=== PATIENT | male | born 1985 | race Caucasian/White ===

== ENCOUNTER → 2016-05-26 | Outpatient (CLI) | payer OTHER ==
[2016-05-26 14:21] LABS: Potassium 3.8 mmol/L (3.5-5.1)
== END | disposition home or self-care (01) ==
LOC: LABWHC1 13:31
PROVIDERS: ATTEND Internal Medicine
DX: R19.7 Diarrhea, unspecified (principal); E87.8 Other disorders of electrolyte and fluid balance, not elsewhere classified
CPT/HCPCS: 36415; 80048

== ENCOUNTER → 2016-07-06 | Outpatient (CLI) | payer OTHER ==
[~2016-07-06] MED LIST: REGADENOSON 0.4 MG/5 ML SYRINGE IV ONE
--- NOTE | 2016-07-06 10:41 | ECHOF ---
Referral Reason:I10 htn R06.02 sob MEASUREMENTS -------- HEIGHT: 182.9 cm WEIGHT: 122.5 kg BP: RVIDd: 3.0 cm (< 3.3) IVSd: 1.4 cm (0.6 - 1.1) LVIDd: 4.9 cm (3.9 - 5.3) LVPWd: 1.2 cm (0.6 - 1.1) IVSs: 1.6 cm LVIDs: 3.6 cm LVPWs: 1.7 cm LA Diam: 4.2 cm (2.7 - 3.8) LAESV Index (A-L): 28.94 ml/m Ao Diam: 3.4 cm (2.0 - 3.7) AV Cusp: 2.6 cm (1.5 - 2.6) LA Diam: 4.1 cm (2.7 - 3.8) MV EXCURSION: 21.866 mm (> 18.000) MV EF SLOPE: 114 mm/s (70 - 150) EPSS: 0.2 cm MV E Ger: 0.66 m/s MV DecT: 238 ms MV A Ger: 0.62 m/s MV E/A Ratio: 1.07 RAP: 5.00 mmHg RVSP: 17.67 mmHg FINDINGS -------- Sinus rhythm. This was a technically adequate study. There is moderate concentric left ventricular hypertrophy. Overall left ventricular systolic function is low-normal with, an EF between 50 - 55 %. The right ventricle is normal in size. Normal LA size by volume 22+/-6 ml/m2. The right atrial size is normal. The aortic valve is trileaflet, and appears structurally normal. No aortic stenosis or regurgitation. Mild mitral annular calcification present. There is trace mitral regurgitation. Mild tricuspid regurgitation present. There is no evidence of pulmonary hypertension. The right ventricular systolic pressure, as measured by Doppler, is 17.67mmHg. There is no pulmonic regurgitation present. The aortic root size is normal. There is no pericardial effusion. CONCLUSIONS -------- 1. There is moderate concentric left ventricular hypertrophy. 2. Overall left ventricular systolic function is low-normal with, an EF between 50 - 55 %. 3. Normal LA size by volume 22+/-6 ml/m2. 4. Mild mitral annular calcification present. 5. There is trace mitral regurgitation. 6. Mild tricuspid regurgitation present. 7. There is no evidence of pulmonary hypertension. 8. The right ventricular systolic pressure, as measured by Doppler, is 17.67mmHg. ENAMEL DRIER: Tuyet Pretty RDCS
--- NOTE | 2016-07-06 11:48 | EST ---
DATE OF SERVICE: 07/06/2016 AGE: 31Y SEX: M HT: 6'1" WT: 270 lbs. Protocol Lex: Other: Stage: Dur. of Exercise: *Heart Rate Blood Pressure *Rest: 76 Rest: 187/96 * *Max. Achieved: 90 Maximum BP: 183/75 85% PMHR: 159 100% PMHR: 187 *METS: INDICATIONS: Shortness of breath, hypertension. MEDICATIONS: See list. INDICATION OF THE STUDY: Chest pain. Stress data: Pretesting physical examination showed heart rate of 76, pressure is 187/96 mmHg. Baseline EKG showed sinus rhythm. 0.4 mg of Lexiscan was given to the patient over 15 seconds per protocol. Max heart rate was 90 beats per minute and maximum blood pressure was 183/70 mmHg. Clinically, the patient did not have any symptoms of chest pain or discomfort and the EKG did not show any significant ST or T wave abnormalities consistent with ischemia. CONCLUSION: 1. Nondiagnostic electrocardiogram stress testing in response to Lexiscan. 2. Please follow up on the Cardiolite portion on a separate report.
--- NOTE | 2016-07-06 12:09 | NM ---
EXAMINATION TYPE: NM stress Lexiscan cardiolite DATE OF EXAM: 07/06/2016 11:51 AM COMPARISON: NONE HISTORY: Shortness of breath TECHNIQUE: After the intravenous administration of 10.19 mCi Tc 99m Sestamibi - Cardiolite resting S PECT images acquired 50 minutes post injection. The patient received 0.4mg Lexiscan, 27.5 mCi Tc 99m Sestamibi - Stress images obtained [address] injection FINDINGS: There is some thinning of the inferior wall the left ventricle. This may BE due to diaphrag matic attenuation or previous nontransmural infarct. There is no convincing inducible ischemic change . Wall motion is normal and ejection fraction is lower limits of normal at 51%. IMPRESSION: I do not see convincing evidence of inducible ischemic change at this time.
== END | disposition home or self-care (01) ==
LOC: RADNMMAIN 07:51
PROVIDERS: ATTEND Internal Medicine Cardiovascular Disease
DX: R06.02 Shortness of breath (principal); I10 Essential (primary) hypertension
CPT/HCPCS: 93017; 93306; 78452; A9500; J2785

== ENCOUNTER → 2017-06-08 | Outpatient (CLI) | payer OTHER ==
[2017-06-08 09:38] LABS: Basophils # (A) 0.1 k/uL (0-0.2); Basophils % (A) 1 %; Eosinophils # (A) 0.3 k/uL (0-0.7); Eosinophils % (A) 4 %; HGB 10.1 gm/dL (13.0-17.5); Lymphocytes # (A) 1.3 k/uL (1.0-4.8); Lymphocytes % (A) 19 %; MCH 33.6 pg (25.0-35.0); MCHC 33.7 g/dL (31.0-37.0); MCV 99.7 fL (80.0-100.0); Macrocytosis Slight; Mean Platelet Volume 8.5; Monocytes # (A) 0.4 k/uL (0-1.0); Monocytes % (A) 6 %; Neutrophils # (A) 4.5 k/uL (1.3-7.7); Neutrophils % (A) 68 %; Platelet Count 184 k/uL (150-450); RBC 3.01 m/uL (4.30-5.90); RDW 14.5 % (11.5-15.5); WBC 6.6 k/uL (3.8-10.6)
[2017-06-08 09:56] LABS: Albumin 4.3 g/dL (3.5-5.0); C Reactive Protein 9.8 mg/L (<10.0); Calcium 8.6 mg/dL (8.4-10.2); Magnesium 2.5 mg/dL (1.6-2.3); Phosphorous 7.5 mg/dL (2.5-4.5); Potassium 5.4 mmol/L (3.5-5.1); Total Bilirubin 0.7 mg/dL (0.2-1.3); Total Protein 7.5 g/dL (6.3-8.2)
[2017-06-08 10:09] LABS: T4, Free (Free Thyroxine) 0.89 ng/dL (0.78-2.19)
[2017-06-08 11:53] LABS: Erythrocyte Sedimentation Rate 66 mm/hr (0-15)
[2017-06-08 17:50] LABS: Vitamin D 25 Hydroxy 14.1 ng/mL (30.0-100.0)
[2017-06-08 17:57] LABS: Hemoglobin A1C 4.3 % (4.0-6.0)
== END | disposition home or self-care (01) ==
LOC: LABWHC1 09:08
PROVIDERS: ATTEND Internal Medicine
DX: Z00.00 Encounter for general adult medical examination without abnormal findings (principal); E78.5 Hyperlipidemia, unspecified; E66.9 Obesity, unspecified; N18.5 Chronic kidney disease, stage 5; D63.1 Anemia in chronic kidney disease; I12.0 Hypertensive chronic kidney disease with stage 5 chronic kidney disease or end stage renal disease
CPT/HCPCS: 36415; 80053; 80061; 82306; 82550; 83036; 83735; 83970; 84100; 84439; 84443; 84550; 85025; 85652; 86140

== ENCOUNTER → 2019-12-10 | Outpatient (CLI) | payer OTHER ==
[2019-12-10 09:06] LABS: Appearance,Urine Clear (Clear); Bacteria,Urine Rare /hpf; Bilirubin,Urine Negative (Negative); Blood,Urine Trace (Negative); Color,Urine Light Yellow; Glucose,Urine (UA) Negative (Negative); Hyaline Casts,Urine 1 /lpf (0-2); Ketones,Urine Negative (Negative); Leukocyte Esterase,Urine Trace (Negative); Nitrite,Urine Negative (Negative); PH, Urine 7.5 (5.0-8.0); Protein,Urine 1+ (Negative); RBC,Urine 1 /hpf (0-5); Specific Gravity,Urine 1.011 (1.001-1.035); Sperm,Urine Rare /hpf; Squamous Epithelial Cell,Urine 2 /hpf (0-4); Urobilinogen,Urine <2.0 mg/dL (<2.0); WBC,Urine 7 /hpf (0-5)
[2019-12-10 09:23] LABS: Basophils # (A) 0.1 k/uL (0-0.2); Basophils % (A) 1 %; Eosinophils # (A) 0.2 k/uL (0-0.7); Eosinophils % (A) 2 %; Lymphocytes # (A) 1.3 k/uL (1.0-4.8); Lymphocytes % (A) 22 %; MCH 35.2 pg (25.0-35.0); MCHC 33.4 g/dL (31.0-37.0); MCV 105.3 fL (80.0-100.0); Macrocytosis Moderate; Mean Platelet Volume 7.9; Monocytes # (A) 0.5 k/uL (0-1.0); Monocytes % (A) 8 %; Neutrophils # (A) 3.9 k/uL (1.3-7.7); Neutrophils % (A) 64 %; Platelet Count 198 k/uL (150-450); RBC 3.42 m/uL (4.30-5.90); RDW 14.2 % (11.5-15.5); WBC 6.1 k/uL (3.8-10.6)
[2019-12-10 17:18] LABS: Albumin 4.5 g/dL (3.80-4.90); Albumin/Globulin Ratio 1.55 (1.60-3.17); Anion Gap 14.9 mmol/L (4.00-12.00); BUN/Creat Ratio 5.71 Ratio (12.00-20.00); C Reactive Protein 0.8 mg/dL (0.0-0.8); Calcium 9.2 mg/dL (8.7-10.3); Carbon Dioxide 32.1 mmol/L (21.6-31.8); Chol/HDL Ratio 6.81; Globulin 2.9 g/dL (1.6-3.3); Magnesium 2.2 mg/dL (1.5-2.4); Phosphorus 4.4 mg/dL (2.4-5.1); Potassium 4.2 mmol/L (3.5-5.5); Total Bilirubin 0.9 mg/dL (0.3-1.2); Total Protein 7.4 g/dL (6.2-8.2); Uric Acid 5.9 mg/dL (3.7-8.7)
[2019-12-10 18:23] LABS: Erythrocyte Sedimentation Rate 64 mm/Hr (0-15)
[2019-12-10 21:30] LABS: Hemoglobin A1C 4.9 % (4.0-6.0)
[2019-12-11 07:08] LABS: African American GFR (CKD) 8.5 (60.0-200.0); Non-African American GFR(CKD) 7.4 (60.0-200.0)
== END | disposition home or self-care (01) ==
LOC: LABWHC1 08:15
PROVIDERS: ATTEND Internal Medicine
DX: E78.5 Hyperlipidemia, unspecified (principal); E21.3 Hyperparathyroidism, unspecified; E03.9 Hypothyroidism, unspecified; E66.9 Obesity, unspecified; D63.1 Anemia in chronic kidney disease; N18.5 Chronic kidney disease, stage 5; E55.9 Vitamin D deficiency, unspecified; L02.11 Cutaneous abscess of neck
CPT/HCPCS: 36415; 80053; 80061; 81001; 82306; 82550; 83036; 83721; 83735; 83970; 84100; 84439; 84443; 84550; 85025; 85652; 86140; 86803; 87086

== ENCOUNTER 2021-09-27 15:32 | Inpatient (IN) | payer OTHER ==
[2021-09-27] MEDS ORDERED: NITROGLYCERIN OINT 1 INCH/GM PACKET TOPICAL STA (15:39)
--- NOTE | 2021-09-27 15:41 | ED ---
General Adult HPI - General Stated complaint: Chest pain Time Seen by Provider: 09/27/21 15:32 Source: patient, RN notes reviewed, old records reviewed - History of Present Illness Initial comments: This is a 36-year-old male with past medical history significant for 2 stents and is a renal dialysis patient. Patient also has high blood pressure and high cholesterol. Patient states he got home from dialysis today and started having chest pain and it went away in a fairly short order but then it returned and he was fairly significantly was sweaty short of breath and the pain felt like the pain he had when he had his previous stents placed. Patient states the pain is considerably better now but he still having some anterior chest pain. Patient denies any recent fever chills or cough per patient denies headache patient denies numbness weakness per patient denies abdominal pain patient denies nausea vomiting diarrhea. - Related Data Home Medications Medication Instructions Recorded Confirmed Atorvastatin [Lipitor] 10 mg PO HS 03/26/14 03/05/16 Previous Rx's Medication Instructions Recorded Calcium Acetate [PhosLo] 1,334 mg PO TID-W/MEALS #90 cap 03/10/16 Calcium Carbonate [Tums] 500 mg PO TID #0 chew 03/10/16 Ergocalciferol [Vitamin D2 50,000 unit PO MoTh #0 cap 03/10/16 (DRISDOL)] Sodium Bicarbonate Tab 650 mg PO BID #28 tab 03/10/16 Darbepoetin Martinez [Aranesp] 40 mcg SQ Q7D syringe 03/28/16 Furosemide [Lasix] 80 mg PO BID #30 tab 03/28/16 Omeprazole [PriLOSEC] 40 mg PO DAILY #14 capsule.dr 03/28/16 carvediloL [Coreg] 6.25 mg PO BID-W/MEALS #30 tab 03/28/16 Allergies Allergy/AdvReac Type Severity Reaction Status Date / Time No Known Allergies Allergy Verified 03/08/16 10:47 Review of Systems ROS Statement: Those systems with pertinent positive or pertinent negative responses have been documented in the HPI. ROS Other: All systems not noted in ROS Statement are negative. Past Medical History Past Medical History: Heart Failure, Hypertension Additional Past Medical History / Comment(s): Hyperlipidemia, chronic renal failure, bipolar disorder, hypertension, realizing that disorder, chronic back pain and sciatica History of Any Multi-Drug Resistant Organisms: CRE, MRSA Date of last positivie culture/infection: 03/14/16 *CRE-[facility] Confirmed by [facility]; 02/10/15 MRSA MDRO Source:: Blood-*CRE-[facility]; Thigh-MRSA Past Surgical History: Cholecystectomy Additional Past Surgical History / Comment(s): Previous history of any biopsy Past Psychological History: Anxiety, Bipolar Past Alcohol Use History: None Reported Past Drug Use History: None Reported - Past Family History Mother History Unknown: Yes Father Additional Family Medical History / Comment(s): sciatica General Exam - General Exam Comments Initial Comments: GENERAL: Patient is well-developed and well-nourished. Patient is nontoxic and well- hydrated and is in mild distress. ENT: Neck is soft and supple. No significant lymphadenopathy is noted. Oropharynx is clear. Moist mucous membranes. Neck has full range of motion without eliciting any pain. EYES: The sclera were anicteric and conjunctiva were pink and moist. Extraocular movements were intact and pupils were equal round and reactive to light. E yelids were unremarkable. PULMONARY: Unlabored respirations. Good breath sounds bilaterally. No audible rales rhonchi or wheezing was noted. CARDIOVASCULAR: There is a regular rate and rhythm without any murmurs gallops or rubs. ABDOMEN: Soft and nontender with normal bowel sounds. SKIN: Skin is clear with no lesions or rashes and otherwise unremarkable. NEUROLOGIC: Patient is alert and oriented x3. Cranial nerves II through XII are grossly intact. Motor and sensory are also intact. Normal speech, volume and content. Symmetrical smile. MUSCULOSKELETAL: Normal extremities with adequate strength and full range of motion. No lower extremity swelling or edema. No calf tenderness. LYMPHATICS: No significant lymphadenopathy is noted PSYCHIATRIC: Normal psychiatric evaluation. Course Vital Signs 09/27/21 15:37 Temperature 97.8 F Pulse Rate 82 Respiratory 16 Rate Blood Pressure 145/96 O2 Sat by Pulse 98 Oximetry Medical Decision Making - Medical Decision Making EKG shows sinus rhythm at 83 bpm GA interval is 160 QRS is 120 QT interval 390 QTC is 429. Patient's EKG shows no ST segment elevation or depression. Chest x-ray shows no acute abnormality I spoke with Dr. Keating agreed to admit the patient admitted the patient wrote admitting orders. Patient received aspirin in route. Patient received nitroglycerin here as well as heparin. I wrote admitting orders and consult to cardiology - Lab Data Result diagrams: 09/27/21 15:51 09/27/21 15:51 Lab Results 09/27/21 09/27/21 09/27/21 Range/Units 15:51 15:51 15:51 WBC 6.9 (3.8-10.6) k/uL RBC 3.50 L (4.30-5.90) m/uL Hgb 11.9 L (13.0-17.5) gm/dL Hct 35.1 L (39.0-53.0) % MCV 100.5 H (80.0-100.0) fL MCH 34.1 (25.0-35.0) pg MCHC 34.0 (31.0-37.0) g/dL RDW 13.4 (11.5-15.5) % Plt Count 159 (150-450) k/uL MPV 8.5 Neutrophils % 79 % Lymphocytes % 12 % Monocytes % 5 % Eosinophils % 2 % Basophils % 1 % Neutrophils # 5.5 (1.3-7.7) k/uL Lymphocytes # 0.9 L (1.0-4.8) k/uL Monocytes # 0.3 (0-1.0) k/uL Eosinophils # 0.2 (0-0.7) k/uL Basophils # 0.1 (0-0.2) k/uL PT 10.7 (9.0-12.0) sec INR 1.0 (<1.2) APTT 25.9 (22.0-30.0) sec Sodium 137 (137-145) mmol/L Potassium 3.6 (3.5-5.1) mmol/L Chloride 94 L (98-107) mmol/L Carbon Dioxide 31 H (22-30) mmol/L Anion Gap 12 mmol/L BUN 33 H (9-20) mg/dL Creatinine 7.43 H* (0.66-1.25) mg/dL Est GFR (CKD-EPI)AfAm 10 (>60 ml/min/1.73 sqM) Est GFR (CKD-EPI)NonAf 8 (>60 ml/min/1.73 sqM) Glucose 143 H (74-99) mg/dL Calcium 8.4 (8.4-10.2) mg/dL Magnesium 1.9 (1.6-2.3) mg/dL Total Bilirubin 1.5 H (0.2-1.3) mg/dL AST 34 (17-59) U/L ALT 38 (4-49) U/L Alkaline Phosphatase 80 (38-126) U/L Troponin I (0.000-0.034) ng/mL Total Protein 7.9 (6.3-8.2) g/dL Albumin 4.3 (3.5-5.0) g/dL 09/27/21 Range/Units 15:51 WBC (3.8-10.6) k/uL RBC (4.30-5.90) m/uL Hgb (13.0-17.5) gm/dL Hct (39.0-53.0) % MCV (80.0-100.0) fL MCH (25.0-35.0) pg MCHC (31.0-37.0) g/dL RDW (11.5-15.5) % Plt Count (150-450) k/uL MPV Neutrophils % % Lymphocytes % % Monocytes % % Eosinophils % % Basophils % % Neutrophils # (1.3-7.7) k/uL Lymphocytes # (1.0-4.8) k/uL Monocytes # (0-1.0) k/uL Eosinophils # (0-0.7) k/uL Basophils # (0-0.2) k/uL PT (9.0-12.0) sec INR (<1.2) APTT (22.0-30.0) sec Sodium (137-145) mmol/L Potassium (3.5-5.1) mmol/L Chloride (98-107) mmol/L Carbon Dioxide (22-30) mmol/L Anion Gap mmol/L BUN (9-20) mg/dL Creatinine (0.66-1.25) mg/dL Est GFR (CKD-EPI)AfAm (>60 ml/min/1.73 sqM) Est GFR (CKD-EPI)NonAf (>60 ml/min/1.73 sqM) Glucose (74-99) mg/dL Calcium (8.4-10.2) mg/dL Magnesium (1.6-2.3) mg/dL Total Bilirubin (0.2-1.3) mg/dL AST (17-59) U/L ALT (4-49) U/L Alkaline Phosphatase (38-126) U/L Troponin I 0.308 H* (0.000-0.034) ng/mL Total Protein (6.3-8.2) g/dL Albumin (3.5-5.0) g/dL Critical Care Time Critical Care Time: Yes Total Critical Care Time: 35 Disposition Clinical Impression: Acute non-ST elevation myocardial infarction (NSTEMI) Disposition: ADMITTED IP TO THIS HOSP Referrals: Zurdo Keating MD [Primary Care Provider] - 1-2 days Time of Disposition: 16:44
[2021-09-27 15:58] LABS: Basophils # (A) 0.1 k/uL (0-0.2); Basophils % (A) 1 %; Eosinophils # (A) 0.2 k/uL (0-0.7); Eosinophils % (A) 2 %; HCT 35.1 % (39.0-53.0); HGB 11.9 gm/dL (13.0-17.5); Lymphocytes # (A) 0.9 k/uL (1.0-4.8); Lymphocytes % (A) 12 %; MCH 34.1 pg (25.0-35.0); MCV 100.5 fL (80.0-100.0); Mean Platelet Volume 8.5; Monocytes # (A) 0.3 k/uL (0-1.0); Monocytes % (A) 5 %; Neutrophils # (A) 5.5 k/uL (1.3-7.7); Neutrophils % (A) 79 %; Platelet Count 159 k/uL (150-450); RDW 13.4 % (11.5-15.5); WBC 6.9 k/uL (3.8-10.6)
[2021-09-27 16:06] LABS: Partial Thromboplastin Time 25.9 sec (22.0-30.0); Prothrombin Time 10.7 sec (9.0-12.0)
[2021-09-27 16:18] LABS: Albumin 4.3 g/dL (3.5-5.0); Calcium 8.4 mg/dL (8.4-10.2); Magnesium 1.9 mg/dL (1.6-2.3); Potassium 3.6 mmol/L (3.5-5.1); Total Bilirubin 1.5 mg/dL (0.2-1.3); Total Protein 7.9 g/dL (6.3-8.2)
[2021-09-27] MEDS ORDERED: HEPARIN SODIUM 1,000 UN/ML (10ML VL) IV ONE (16:44)
[2021-09-27] MEDS ORDERED: NITROGLYCERIN SL TABS 0.4 MG TAB SUBLINGUAL PRN (16:44)
--- NOTE | 2021-09-27 16:48 | XR ---
EXAMINATION TYPE: XR chest 2V DATE OF EXAM: 09/27/2021 COMPARISON: March 22, 2016 HISTORY: Chest pain TECHNIQUE: FINDINGS: Heart is normal. Lungs are clear. Diaphragm is normal. Bony thorax appears normal. There ar e chest leads. IMPRESSION: Normal chest. No adverse change.
[2021-09-27] MEDS: HEPARIN SOD,PORK IN 0.45% NACL 25,000 UNIT in 0.45% NACL 1 250ML.BAG IV SCH (17:09)
[2021-09-27] MEDS ORDERED: CALCIUM CARBONATE 500 MG CHEWABLE PO PRN (18:47)
[2021-09-27] MEDS: NITROGLYCERIN OINT 1 INCH/GM PACKET TOPICAL SCH ×2 (19:10→23:33)
--- NOTE | 2021-09-27 19:39 | P.HPIM ---
History of Present Illness H&P Date: 09/27/21 (Chest pain, 2 stent, elevated troponin.) Chief Complaint: Post hemodialysis, chest pain recurrent at home. History and physical Date of service 09/27/2021 Dictation by . Chief complaint: Patient arrived to the emergency room at [facility] with the complaint of chest pain recurrent he was brought by EMS indicating that his chest pain was similar to when he had his previous DE and at that time found he had coronary artery occlusive disease and the did the stent 2. History of present illness: 36 years old white male has underlying history of chronic hemodialysis, after he had deterioration of his renal function and reached the end stage renal disease secondary to hypertensive nephrosclerosis and hypertensive heart disease. Patient received his hemodialysis from the left arm fistula today at 7 AM and continued for 4 hour and 15 minutes, also removed 4-1/2 L during his dialysis. Patient was bagged up with his friend and he went to the regular watching the boat for a few minutes then his friend took him to home As patient arrived at home he was fine with no chest pain and subsequently when he started today down he had severe chest pain and went away then become recurrent chest pain and he felt that the pain looks like when he had the one with heart attack. In [facility] where he had the previous stenting at that time as well he had occlusion of the graft for the dialysis and the able to open. During dialysis patient did not have any chest pain. On arrival by the EMS he had laboratories and laboratories indicating his elev ated troponin with the chest pain Dr. Leger was in the ER he admitted him to the floor with the underlying unstable angina and non-ST segment elevation DE. With the presence of end-stage renal disease, hyperlipidemia/dyslipidemia could not be disseminated is it from kidney side or it is associated with a heart with the presence of coronary artery occlusive disease and he had a 2 stent and previous DE. In the hospital admitted seen [id number] by myself at that time he denied any chest pain he feeling better and he able to eat supper. I did resume his home medication, and consulted Dr. Segura/Dr. Arredondo for the future plan added as already consult with the cardiology to evaluate and treat which she done already by Dr. Leger in the emergency room. Past medical history: Recurrent occlusion of the shunts and he is placed on Dilantin however in the ER he is on heparin protocol and we held the present the untold the evaluation of the cardiology. Patient also had an dysphagia renal disease, History of hyperparathyroidism secondary to end-stage renal disease. Hyperlipidemia/dyslipidemia. ALLERGY is unknown. History of smoking marijuana and he stated that he quit 2 days ago. No smoking cigarettes. Review of system: Neuropsychiatry: No headache, no blurred vision, no walking disability. And no dizziness Cardiovascular: He felt at home the chest pain precordial and also palpitation and his with a heart beat fast jumping out of his chest Pulmonary: No shortness of breath no cough no expectoration Gastroenterology: No diarrhea or constipation or abdominal pain however he has obese abdomen Extremities no complaining of edema and they pulled out of him for an half liter today in dialysis this morning. Endocrine no history of diabetes mellitus, but history of dyslipidemia. Reviewed of the 14 bullet no added significance. On the physical exam: Vital sign, temperature 98.4 F oral pulse rate 86/m regular respiratory rate 17 with nondairy labor blood pressure on the floor 171/79 in the ER was ranging between 140/84 to 125/91 Pulse ox 95% on room air. On the physical exam: #1 the head was normocephalic and atraumatic no dizziness, pupil is equal reactive, normal hearing, oropharynx he has decayed tooth but he able to eat and swallow normal #2 neck was supple no JVD no thyromegaly no lymphadenopathy trachea midline #3 chest is clear to auscultation and percussion no wheezes no rhonchi's #4 heart PMI in the fifth intercostal space outside midclavicular line with mild cardiomegaly regular sinus #5 abdomen: Obese positive bowel sounds no tenderness in the 4 quadrants #6 extremities: No edema and positive pulses and normal movement and ambulatory. #7 neurologically stable, no lateralizing sign. Assessment: #1 chest pain recurrent with unstable angina. #2 abnormal elevated troponin #3 status post 2 stent placed in [facility] with the underlying coronary artery occlusive disease. #4 consideration of non-segment ST elevation DE #5 dyslipidemia. #6 end-stage renal disease status post hemodialysis from the left forearm graft. #7 hyperparathyroidism associated with end-stage renal disease. Plan: #1 consultation with the cardiology #20 monitoring troponin #[address] Segura for evaluation and treatment and until the next dialysis which may be done in the hospital it is not clear yet by the cardiology. Resume his medication and obtaining lipid profile. Treatment depend on the patient condition. Past Medical History Past Medical History: Coronary Artery Disease (CAD), Chest Pain / Angina, Heart Failure, Hyperlipidemia, Hypertension, Myocardial Infarction (DE), Renal Disease Additional Past Medical History / Comment(s): Hyperlipidemia, chronic renal failure, bipolar disorder, hypertension, realizing that disorder, chronic back pain and sciatica Last Myocardial Infarction Date:: 2020 History of Any Multi-Drug Resistant Organisms: CRE, MRSA Date of last positivie culture/infection: 03/14/16 *CRE-[facility] Confirmed by [facility]; 02/10/15 MRSA MDRO Source:: Blood-*CRE-[facility]; Thigh-MRSA Past Surgical History: Cholecystectomy Additional Past Surgical History / Comment(s): Previous history of any biopsy Past Psychological History: Anxiety, Bipolar Smoking Status: Current every day smoker Past Alcohol Use History: None Reported Additional Past Alcohol Use History / Comment(s): marijuana smoker Past Drug Use History: Marijuana - Past Family History Mother History Unknown: Yes Father Family Medical History: Diabetes Mellitus Additional Family Medical History / Comment(s): sciatica Medications and Allergies Home Medications Medication Instructions Recorded Confirmed Type Calcium Acetate [PhosLo] 1,334 mg PO TID-W/MEALS #90 cap 03/10/16 09/27/21 Rx Aspirin EC [Ecotrin Low Dose] 81 mg PO DAILY 09/27/21 09/27/21 History Atorvastatin [Lipitor] 20 mg PO HS 09/27/21 09/27/21 History Calcium Carbonate [Tums] 500 mg PO ACHS PRN 09/27/21 09/27/21 History Isosorbide Dinitrate 30 mg PO DAILY 09/27/21 09/27/21 History Sevelamer [Renvela] 1,600 mg PO TID-W/MEALS 09/27/21 09/27/21 History Ticagrelor [Brilinta] 90 mg PO BID 09/27/21 09/27/21 History carvediloL [Coreg] 3.125 mg PO BID 09/27/21 09/27/21 History Allergies Allergy/AdvReac Type Severity Reaction Status Date / Time No Known Allergies Allergy Verified 09/27/21 17:23 Physical Exam Vitals: Vital Signs Temp Pulse Pulse Resp BP BP Pulse Ox 09/27/21 18:15 98.4 F 86 17 171/79 95 09/27/21 17:30 85 15 125/91 96 09/27/21 17:00 87 18 140/84 93 L 09/27/21 16:30 76 18 134/92 96 09/27/21 16:00 85 16 145/96 97 09/27/21 15:37 97.8 F 82 16 145/96 98 Intake and Output 09/27/21 09/27/21 09/27/21 06:59 14:59 22:59 Other: Weight 135 kg Results CBC & Chem 7: 09/27/21 15:51 09/27/21 15:51 Labs: Abnormal Lab Results - Last 24 Hours (Table) 09/27/21 09/27/21 09/27/21 Range/Units 15:51 15:51 15:51 RBC 3.50 L (4.30-5.90) m/uL Hgb 11.9 L (13.0-17.5) gm/dL Hct 35.1 L (39.0-53.0) % MCV 100.5 H (80.0-100.0) fL Lymphocytes # 0.9 L (1.0-4.8) k/uL Chloride 94 L (98-107) mmol/L Carbon Dioxide 31 H (22-30) mmol/L BUN 33 H (9-20) mg/dL Creatinine 7.43 H* (0.66-1.25) mg/dL Glucose 143 H (74-99) mg/dL Total Bilirubin 1.5 H (0.2-1.3) mg/dL Troponin I 0.308 H* (0.000-0.034) ng/mL 09/27/21 Range/Units 18:10 RBC (4.30-5.90) m/uL Hgb (13.0-17.5) gm/dL Hct (39.0-53.0) % MCV (80.0-100.0) fL Lymphocytes # (1.0-4.8) k/uL Chloride (98-107) mmol/L Carbon Dioxide (22-30) mmol/L BUN (9-20) mg/dL Creatinine (0.66-1.25) mg/dL Glucose (74-99) mg/dL Total Bilirubin (0.2-1.3) mg/dL Troponin I 0.437 H* (0.000-0.034) ng/mL Thrombosis Risk Factor Assmnt - Choose All That Apply Any of the Below Risk Factors Present?: Yes Each Factor Represents 1 point: Obesity (BMI >25), Swollen legs (current) Other Risk Factors: No Other congenital or acquired thrombophilia - If yes, enter type in comment: No Thrombosis Risk Factor Assessment Total Risk Factor Score: 2 Thrombosis Risk Factor Assessment Level: Low Risk
[2021-09-27] MEDS: carvediloL 3.125 MG TAB PO SCH (19:42)
[2021-09-27] MEDS: ISOSORBIDE DINITRATE 10 MG TAB PO SCH (20:09)
[2021-09-27] MEDS ORDERED: ATORVASTATIN 20 MG TAB PO SCH (21:00)
[2021-09-27 21:16] LABS: Glucose,Whole Blood 128 mg/dL (75-99)
[2021-09-28] MEDS ORDERED: HEPARIN SODIUM 1,000 UN/ML (10ML VL) IV PRN (00:32)
[2021-09-28 06:10] LABS: Glucose,Whole Blood 115 mg/dL (75-99)
[2021-09-28] MEDS: NITROGLYCERIN OINT 1 INCH/GM PACKET TOPICAL SCH ×3 (06:55→15:31)
[2021-09-28 07:49] LABS: African American GFR (CKD) 7 (>60 ml/min/1.73 sqM); Anion Gap 15 mmol/L; Blood Urea Nitrogen 47 mg/dL (9-20); Calcium 7.6 mg/dL (8.4-10.2); Carbon Dioxide 27 mmol/L (22-30); Chloride 96 mmol/L (98-107); Glucose 101 mg/dL (74-99); Non-African American GFR(CKD) 6 (>60 ml/min/1.73 sqM); Potassium 4.2 mmol/L (3.5-5.1); Sodium 138 mmol/L (137-145)
[2021-09-28] MEDS: CALCIUM ACETATE 667 MG TAB PO SCH ×3 (08:08→16:05)
[2021-09-28] MEDS: SEVELAMER 800 MG TAB PO SCH ×3 (08:09→16:04)
[2021-09-28] MEDS: ASPIRIN 81 MG PO SCH (08:10)
[2021-09-28] MEDS: ISOSORBIDE DINITRATE 10 MG TAB PO SCH (08:10)
[2021-09-28] MEDS: TICAGRELOR 90 MG TAB PO SCH ×2 (08:18→20:31)
[2021-09-28] MEDS: carvediloL 3.125 MG TAB PO SCH ×2 (08:19→14:25)
[2021-09-28] MEDS ORDERED: ASPIRIN 325 MG TAB PO SCH (09:00)
[2021-09-28] MEDS ORDERED: ALPRAZolam 0.25 MG TAB PO PRN (10:02)
[2021-09-28] MEDS ORDERED: ATORVASTATIN 80 MG TAB PO STA (10:02)
[2021-09-28] MEDS ORDERED: ALPRAZolam 0.5 MG TAB PO PRN (10:02)
[2021-09-28] MEDS ORDERED: SODIUM CHLORIDE 0.9% 1,000 ML in EMPTY BAG 1 BAG IV ONE (10:02)
[2021-09-28 10:06] LABS: Chol/HDL Ratio 6.56 Ratio
[2021-09-28] MEDS ORDERED: HEPARIN SODIUM 1,000 UN/ML (10ML VL) ONE (10:33)
[2021-09-28] MEDS ORDERED: fentaNYL (PF) 50 MCG/ML 2 ML AMP ONE (10:33)
[2021-09-28] MEDS ORDERED: VERAPAMIL 2.5 MG/ML 2 ML AMP ONE (10:34)
--- NOTE | 2021-09-28 10:40 | P.CRDCN ---
History of Present Illness History of present illness: HISTORY OF PRESENTING ILLNESS This is a pleasant 36-year-old male past medical history significant for coronary artery disease s/p PCI LAD and RCA at [facility] in March 2021, Ischemic cardiomyopathy, hypertension, dyslipidemia, ESRD on Hemodialysis via Left arm AV fistula, former tobacco use, marijuana use. He follows in the office with Dr. Mcmullen. We have been asked to see in consultation for chest pain. Patient presents to the emergency department with complaints of chest disco mfort. He had hemodialysis yesterday morning around 7AM, 4.5L removed. He went home and around 1PM had midsternal chest pressure and sharp pain. It was non- radiating, non-exertional. He states it was aggravated by lying down, improved when sitting forward. He endorses associated palpitations, shortness of breath and diaphoresis. He took his blood pressure medication. Called EMS, concerned because this was similar to his chest discomfort in March when he had stents placed. He was given aspirin and stated his chest discomfort started to improve. Also was given Nitro in the ER. His chest pain has resolved. He denies any associated nausea, vomiting, lightheadedness, dizziness, syncope or near syncope. He denies symptoms of orthopnea or PND. Former smokers, quit 10 years ago. Current marijuana smoker. Denies alcohol or illicit drug use. DIAGNOSTICS EKG reveals sinus rhythm, heart rate 83, left bundle branch block, T wave inversions in leads I, aVL. Prior EKG in the Office 04/2021 with similar findings. Telemetry tracings indicate sinus rhythm heart rate 70s80s. Chest xray no acute cardiopulmonary process Echocardiogram in 2016 revealed EF of 5055 percent, mild tricuspid regurg itation Lexiscan stress test in the office 08/03/2021 revealed ischemic cardiomyopathy with moderate LV dysfunction without any ischemia. No reversible perfusion defects noted. Laboratory reviewed, troponin 0.30, 0.43, 0.58, sodium 1:30, potassium 4.2, BUN 47, serum creatinine 0.7, magnesium 1.9 Current home medications include aspirin 81 mg daily, Lipitor 20 mg nightly, carvedilol 3.125 mg twice a day, Brilinta 90 mg twice a day, Imdur 30 mg daily REVIEW OF SYSTEMS At the time of my exam: CONSTITUTIONAL: Denies fever or chills. CARDIOVASCULAR: Denies chest pain, shortness of breath, orthopnea, PND or palpitations. RESPIRATORY: Denies cough. GASTROINTESTINAL: Denies abdominal pain, diarrhea, constipation, nausea or vomiting. MUSCULOSKELETAL: Denies myalgias. NEUROLOGIC: Denies numbness, tingling, headache or weakness. ENDOCRINE: Denies fatigue, weight change, polydipsia or polyurina. GENITOURINARY: Denies burning, hematuria or urgency with micturation. HEMATOLOGIC: Denies history of anemia or bleeding. PHYSICAL EXAMINATION Blood pressure 167/92, heart rate 67, afebrile, oxygen saturations 97% on room air CONSTITUTIONAL: No apparent distress. HEENT: Head is normocephalic. Pupils are equal, round. Sclerae anicteric. Mucous membranes of the mouth are moist. No JVD. No carotid bruit. CHEST EXAMINATION: Lungs are clear to auscultation. No chest wall tenderness is noted on palpation or with deep breathing. HEART EXAMINATION: Regular rate and rhythm. S1, S2 heard. No murmurs, gallops or rub. ABDOMEN: Soft, nontender. Positive bowel sounds. EXTREMITIES: 2+ peripheral pulses, no lower extremity edema and no calf tenderness. SKIN: warm, dry NEUROLOGIC EXAMINATION: Patient is awake, alert and oriented x3. ASSESSMENT NSTEMI Coronary artery disease s/p PCI LAD and RCA at [facility] in March 2021 History of Ischemic cardiomyopathy Hypertension Dyslipidemia End stage renal disease on Hemodialysis via Left arm AV fistula Former tobacco use and marijuana use. PLAN -Obtain 2D echocardiogram and doppler study to assess cardiac structure and function. -Recommend cardiac catheterization at this time. Patient is agreeable -I have discussed the risks, benefits and alternative therapies for the above- mentioned procedure and for both sedation/analgesia as well as necessary blood product administration, if indicated, as they pertain to this patient. The patient has indicated understanding and acceptance of the risks and procedures discussed. Questions have been answered appropriately and he is agreeable to move forward with the above-stated procedure. -Continue home cardiac medications -Plan for cardiac catheterization with Dr. Mcmullen today. Patient will need hemodialysis afterwards, Nephrology consulted. -Further recommendations based on clinical course Thank you kindly for this consultation. Nurse practitioner note has been reviewed by physician. Signing provider agrees with the documented findings, assessment, and plan of care. Past Medical History Past Medical History: Coronary Artery Disease (CAD), Chest Pain / Angina, Heart Failure, Hyperlipidemia, Hypertension, Myocardial Infarction (RI), Renal Disease Additional Past Medical History / Comment(s): Hyperlipidemia, chronic renal failure, bipolar disorder, hypertension, realizing that disorder, chronic back pain and sciatica Last Myocardial Infarction Date:: 2020 History of Any Multi-Drug Resistant Organisms: CRE, MRSA Date of last positivie culture/infection: 03/14/16 *[facility] Confirmed by [facility]; 02/10/15 MRSA MDRO Source:: Blood-*CRE-[facility]; Thigh-MRSA Past Surgical History: Cholecystectomy Additional Past Surgical History / Comment(s): Previous history of any biopsy Past Psychological History: Anxiety, Bipolar Smoking Status: Current every day smoker Past Alcohol Use History: None Reported Additional Past Alcohol Use History / Comment(s): marijuana smoker Past Drug Use History: Marijuana - Past Family History Mother History Unknown: Yes Father Family Medical History: Diabetes Mellitus Additional Family Medical History / Comment(s): sciatica Medications and Allergies Home Medications Medication Instructions Recorded Confirmed Type Calcium Acetate [PhosLo] 1,334 mg PO TID-W/MEALS #90 cap 03/10/16 09/27/21 Rx Aspirin EC [Ecotrin Low Dose] 81 mg PO DAILY 09/27/21 09/27/21 History Atorvastatin [Lipitor] 20 mg PO HS 09/27/21 09/27/21 History Calcium Carbonate [Tums] 500 mg PO ACHS PRN 09/27/21 09/27/21 History Isosorbide Dinitrate 30 mg PO DAILY 09/27/21 09/27/21 History Sevelamer [Renvela] 1,600 mg PO TID-W/MEALS 09/27/21 09/27/21 History Ticagrelor [Brilinta] 90 mg PO BID 09/27/21 09/27/21 History carvediloL [Coreg] 3.125 mg PO BID 09/27/21 09/27/21 History Allergies Allergy/AdvReac Type Severity Reaction Status Date / Time No Known Allergies Allergy Verified 09/27/21 17:23 Physical Exam Vitals: Vital Signs Temp Pulse Pulse Resp BP BP Pulse Ox 09/28/21 04:00 98 F 67 18 156/92 95 09/27/21 23:57 80 16 157/84 95 09/27/21 20:00 98.1 F 78 18 134/77 96 09/27/21 18:15 98.4 F 86 17 171/79 95 09/27/21 17:30 85 15 125/91 96 09/27/21 17:00 87 18 140/84 93 L 09/27/21 16:30 76 18 134/92 96 09/27/21 16:00 85 16 145/96 97 09/27/21 15:37 97.8 F 82 16 145/96 98 Intake and Output 09/27/21 09/28/21 09/28/21 22:59 06:59 14:59 Intake Total 73.26 Balance 73.26 Intake: Intake, IV Titration 73.26 Amount Heparin Sod,Pork in 0.45% 73.26 NaCl 25,000 unit In 0.45 % NaCl 1 250ml.bag @ 7.4 UNITS/KG/HR 9.99 mls/hr IV .Q24H [facility] Rx#: [id number] Other: Voiding Method Toilet Toilet Weight 135 kg Results 09/27/21 15:51 09/28/21 06:28 Cardiac Enzymes 09/27/21 09/27/21 09/27/21 Range/Units 15:51 15:51 18:10 AST 34 (17-59) U/L Troponin I 0.308 H* 0.437 H* (0.000-0.034) ng/mL 09/27/21 Range/Units 22:19 AST (17-59) U/L Troponin I 0.582 H* (0.000-0.034) ng/mL Coagulation 09/27/21 09/27/21 Range/Units 15:51 23:42 PT 10.7 (9.0-12.0) sec APTT 25.9 27.0 (22.0-30.0) sec CBC 09/27/21 Range/Units 15:51 WBC 6.9 (3.8-10.6) k/uL RBC 3.50 L (4.30-5.90) m/uL Hgb 11.9 L (13.0-17.5) gm/dL Hct 35.1 L (39.0-53.0) % Plt Count 159 (150-450) k/uL Comprehensive Metabolic Panel 09/27/21 Range/Units 15:51 Sodium 137 (137-145) mmol/L Potassium 3.6 (3.5-5.1) mmol/L Chloride 94 L (98-107) mmol/L Carbon Dioxide 31 H (22-30) mmol/L BUN 33 H (9-20) mg/dL Creatinine 7.43 H* (0.66-1.25) mg/dL Glucose 143 H (74-99) mg/dL Calcium 8.4 (8.4-10.2) mg/dL AST 34 (17-59) U/L ALT 38 (4-49) U/L Alkaline Phosphatase 80 (38-126) U/L Total Protein 7.9 (6.3-8.2) g/dL Albumin 4.3 (3.5-5.0) g/dL Current Medications Generic Name Dose Route Start Last Admin Trade Name Freq PRN Reason Stop Dose Admin Aspirin 325 mg 09/28/21 09:00 Aspirin 325 Mg Tab PO DAILY [facility] Aspirin 81 mg 09/28/21 09:00 Aspirin 81 Mg PO DAILY [facility] Atorvastatin Calcium 20 mg 09/27/21 21:00 09/27/21 19:42 Atorvastatin 20 Mg Tab PO 20 mg HS [facility] Administration Calcium Acetate 1,334 mg 09/28/21 07:30 Calcium Acetate 667 Mg Tab PO TID-W/MEALS [facility] Calcium Carbonate/Glycine 500 mg 09/27/21 18:47 Calcium Carbonate 500 Mg Chewable PO ACHS PRN ACID REFLUX Carvedilol 3.125 mg 09/27/21 20:00 09/27/21 19:42 Carvedilol 3.125 Mg Tab PO 3.125 mg BID-W/MEALS [facility] Administration Heparin Sodium (Porcine) 0 unit 09/28/21 00:32 09/28/21 00:47 Heparin Sodium 1,000 Un/Ml (10ml Vl) IV 4,000 unit PER PROTOCOL PRN Administration Low PTT Protocol Heparin Sodium/Sodium Chloride 250 mls @ 9.99 mls/hr 09/27/21 16:45 09/28/21 00:29 25,000 unit/ Sodium Chloride IV 10.4 units/kg/hr .Q24H [facility] 14.04 mls/hr Titration Protocol 7.4 UNITS/KG/HR Isosorbide Dinitrate 30 mg 09/27/21 19:30 09/27/21 20:09 Isosorbide Dinitrate 10 Mg Tab PO 30 mg DAILY [facility] Administration Nitroglycerin 0.4 mg 09/27/21 16:44 Nitroglycerin Sl Tabs 0.4 Mg Tab SUBLINGUAL Q5M PRN Chest Pain Nitroglycerin 1 inch 09/27/21 18:00 09/28/21 06:55 Nitroglycerin Oint 1 Inch/Gm Packet TOPICAL 1 inch Q6HR [facility] Administration Sevelamer Carbonate 1,600 mg 09/28/21 07:30 Sevelamer 800 Mg Tab PO TID-W/MEALS [facility] Intake and Output 09/27/21 09/28/21 09/28/21 22:59 06:59 14:59 Intake Total 73.26 Balance 73.26 Intake: Intake, IV Titration 73.26 Amount Heparin Sod,Pork in 0.45% 73.26 NaCl 25,000 unit In 0.45 % NaCl 1 250ml.bag @ 7.4 UNITS/KG/HR 9.99 mls/hr IV .Q24H [facility] Rx#: [id number] Other: Voiding Method Toilet Toilet Weight 135 kg 09/27/21 15:51 09/27/21 15:51
[2021-09-28] MEDS: HEPARIN SOD,PORK IN 0.45% NACL 25,000 UNIT in 0.45% NACL 1 250ML.BAG IV SCH (10:43)
[2021-09-28] MEDS ORDERED: IV FLUID CONTINUATION 1,000 ML IV ONE (10:44)
--- NOTE | 2021-09-28 10:53 | P.NPCON ---
History of Present Illness - Reason for Consult end stage renal disease - History of Present Illness Reason for consultation: End-stage renal disease History of present illness: Patient is a 36-year-old male seen in renal consultation for end-stage renal disease. He is maintained on hemodialysis on Sunday schedule via left upper extremity AV fistula. Patient completed hemodialysis yesterday and developed chest pain about 2 hours later. Patient describes the pain as sharp as well as pressure. He also complains of diaphoresis. He took his blood pressure medications and also aspirin. He subsequently called EMS who brought him to the hospital. He is currently on heparin drip. Chest pain has resolved. Overall he feels much better today. Blood pressure is a little on the higher side. He does have history of coronary disease and states he has 2 cardiac stents. No history of diabetes. No vomiting or diarrhea. No fever or chills. Echocardiogram and cardiac catheterization are pending. Vital signs stable. General: No acute distress. HEENT: Head exam is unremarkable. LUNGS: Breath sounds decreased. HEART: Rate and Rhythm are regular. ABDOMEN: Soft, no distention. EXTREMITITES: No edema. Past Medical History Past Medical History: Coronary Artery Disease (CAD), Chest Pain / Angina, Heart Failure, Hyperlipidemia, Hypertension, Myocardial Infarction (CT), Renal Disease Additional Past Medical History / Comment(s): Hyperlipidemia, chronic renal failure, bipolar disorder, hypertension, realizing that disorder, chronic back pain and sciatica Last Myocardial Infarction Date:: 2020 History of Any Multi-Drug Resistant Organisms: CRE, MRSA Date of last positivie culture/infection: 03/14/16 *CRE[facility] Confirmed by [facility]; 02/10/15 MRSA MDRO Source:: Blood-*CRE-[facility]; Thigh-MRSA Past Surgical History: Cholecystectomy Additional Past Surgical History / Comment(s): Previous history of any biopsy Past Psychological History: Anxiety, Bipolar Smoking Status: Current every day smoker Past Alcohol Use History: None Reported Additional Past Alcohol Use History / Comment(s): marijuana smoker Past Drug Use History: Marijuana - Past Family History Mother History Unknown: Yes Father Family Medical History: Diabetes Mellitus Additional Family Medical History / Comment(s): sciatica Medications and Allergies Home Medications Medication Instructions Recorded Confirmed Type Calcium Acetate [PhosLo] 1,334 mg PO TID-W/MEALS #90 cap 03/10/16 09/27/21 Rx Aspirin EC [Ecotrin Low Dose] 81 mg PO DAILY 09/27/21 09/27/21 History Atorvastatin [Lipitor] 20 mg PO HS 09/27/21 09/27/21 History Calcium Carbonate [Tums] 500 mg PO ACHS PRN 09/27/21 09/27/21 History Isosorbide Dinitrate 30 mg PO DAILY 09/27/21 09/27/21 History Sevelamer [Renvela] 1,600 mg PO TID-W/MEALS 09/27/21 09/27/21 History Ticagrelor [Brilinta] 90 mg PO BID 09/27/21 09/27/21 History carvediloL [Coreg] 3.125 mg PO BID 09/27/21 09/27/21 History Allergies Allergy/AdvReac Type Severity Reaction Status Date / Time No Known Allergies Allergy Verified 09/27/21 17:23 Physical Exam Vitals: Vital Signs Temp Pulse Pulse Resp BP BP Pulse Ox 09/28/21 08:00 97.9 F 67 16 167/92 97 09/28/21 04:00 98 F 67 18 156/92 95 09/27/21 23:57 80 16 157/84 95 09/27/21 20:00 98.1 F 78 18 134/77 96 09/27/21 18:15 98.4 F 86 17 171/79 95 09/27/21 17:30 85 15 125/91 96 09/27/21 17:00 87 18 140/84 93 L 09/27/21 16:30 76 18 134/92 96 09/27/21 16:00 85 16 145/96 97 09/27/21 15:37 97.8 F 82 16 145/96 98 Intake and Output 09/27/21 09/28/21 09/28/21 22:59 06:59 14:59 Intake Total 73.26 Balance 73.26 Intake: Intake, IV Titration 73.26 Amount Heparin Sod,Pork in 0.45% 73.26 NaCl 25,000 unit In 0.45 % NaCl 1 250ml.bag @ 7.4 UNITS/KG/HR 9.99 mls/hr IV .Q24H [facility] Rx#: [id number] Other: Voiding Method Toilet Toilet Toilet Weight 135 kg Results - Lab Results Most recent lab results Calcium 7.6 mg/dL (8.4-10.2) L 09/28/21 06:28 Magnesium 1.9 mg/dL (1.6-2.3) 09/27/21 15:51 09/27/21 15:51 09/28/21 06:28 Assessment and Plan Plan: Assessment: 1. End-stage renal disease maintained on hemodialysis on Sunday schedule via left upper extremity AV fistula. 2. NSTEMI. On heparin drip. Cardiology following. 3. Coronary artery disease status post cardiac stenting in March 2021. 4. Hypertension with chronic kidney disease. 5. Chronic kidney disease mineral bone disease maintained on phosphate binders. Plan: Hemodialysis tomorrow. Check phosphorus level. Add losartan. Follow-up echocardiogram. Plan for cardiac cath today. Avoid IV hydration as patient is hypervolemic. Thank you for the consultation. I will continue to follow this patient with you during his hospital stay.
--- NOTE | 2021-09-28 10:59 | CA ---
Transthoracic Echo Report Name: Zak Masterson Age: 36 Gender: M : 1985 Exam Date: 09/28/2021 08:40 Exam Location: [place] [facility] Ht (in): 71 Wt (lb): 297 Ordering Physician: Juhi Benitez Attending/Referring Phys: Rug Layer Lucila Garcia, MYLA Procedure CPT: Indications: CP, elevated trop. assess for pericardial effusion Cardiac Hx: Hx of stenting, SD, HTN, CHOL. Technical Quality: Technically difficult study Contrast 1: Lumason Total Dose (mL): 1 Contrast 2: Total Dose (mL): MEASUREMENTS (Male / Female) Normal Values 2D ECHO LV Diastolic Diameter PLAX 5.3 cm 4.2 - 5.9 / 3.9 - 5.3 cm LV Systolic Diameter PLAX 3.6 cm IVS Diastolic Thickness 2.0 cm 0.6 - 1.0 / 0.6 - 0.9 cm LVPW Diastolic Thickness 1.5 cm 0.6 - 1.0 / 0.6 - 0.9 cm LV Relative Wall Thickness 0.7 RV Internal Dim ED PLAX 3.2 cm M-MODE Aortic Root Diameter MM 3.8 cm LA Systolic Diameter MM 3.7 cm LA Ao Ratio MM 1.0 MV E Point Septal Separation 1.2 cm AV Cusp Separation MM 2.4 cm DOPPLER AV Peak Velocity 144.8 cm/s AV Peak Gradient 8.4 mmHg MV Area PHT 3.6 cm??? MR Peak Velocity 131.0 cm/s MR Peak Gradient 6.9 mmHg Mitral E Point Velocity 73.5 cm/s Mitral A Point Velocity 78.0 cm/s Mitral E to A Ratio 0.9 MV Deceleration Time 213.0 ms TR Peak Velocity 137.9 cm/s TR Peak Gradient 7.6 mmHg Right Ventricular Systolic Press 12.6 mmHg FINDINGS Left Ventricle Severely increased septal wall thickness. Left ventricular ejection fraction is estimated at 40-45 %. Left ventricular cavity size normal. Basal infrolateral and mid to basal inferior are hypokinetic. Right Ventricle The right ventricle is normal in size and function. Right Atrium The right atrium is normal in size. Left Atrium The left atrium is normal in size. Mitral Valve Structurally normal mitral valve without significant stenosis or prolapse. There is mild mitral regurgitation. Aortic Valve Structurally normal aortic valve without significant sclerosis or stenosis. There is no aortic regurgitation. Tricuspid Valve Structurally normal tricuspid valve without significant stenosis. Pulmonary artery systolic pressure is normal. Trace tricuspid regurgitation. Pulmonic Valve Structurally normal pulmonic valve without significant stenosis. There is no pulmonic regurgitation. Pericardium Normal pericardium without effusion. Aorta Normal aortic root dimension. CONCLUSIONS Concentric left ventricular hypertrophy with moderate LV dysfunction with an ejection fraction of 40-45% with hypokinetic basal inferior and inferolateral wall Mild mitral regurgitation Previewed by: Dr. Manny Mcmullen MD (Electronically Signed) Final Date: 28 Sep 2021 10:58
[2021-09-28 11:00] LABS: Chol/HDL Ratio 5.08 Ratio; LDL Cholesterol,Calculated 81.6 mg/dL (0.0-131.0)
[2021-09-28] MEDS: MIDAZOLAM 2 MG/2 ML VIAL IVP ONE ×2 (11:10→12:24)
[2021-09-28] MEDS: fentaNYL (PF) 50 MCG/ML 2 ML AMP IVP ONE ×2 (11:10→12:24)
[2021-09-28] MEDS ORDERED: LIDOCAINE 1% PF 10 MG/ML (5 ML AMP) SQ ONE (11:12)
[2021-09-28] MEDS: HEPARIN SODIUM 1,000 UN/ML (10ML VL) IV ONE ×4 (11:47→12:50)
[2021-09-28] MEDS: NITROGLYCERIN 1000MCG/10ML SYRINGE INTRACORON ONE ×4 (12:17→13:05)
[2021-09-28] MEDS ORDERED: IOPAMIDOL-370 125ML BTL INJ ONE (12:25)
--- NOTE | 2021-09-28 12:30 | CC ---
CARDIAC CATHETERIZATION REPORT INDICATION: Acute blb-AC-shojtma-elevation NE in a patient with known CAD status post prior angioplasty. PROCEDURE NOTE: After obtaining informed consent, left heart catheterization and coronary angiogram were performed via the right femoral artery using standard Tyra catheters. Patient tolerated the procedure well without any obvious immediate complications. I initially attempted right radial artery access but was unsuccessful. Patient received moderate conscious sedation. Total sedation time was 20 minutes. FINDINGS: HEMODYNAMICS: Left ventricular end-diastolic pressure is 12 mm. There is no significant gradient across the aortic valve. LEFT VENTRICULOGRAM: Left ventriculogram was not performed. ANGIOGRAPHIC DATA: Left main coronary artery is a normal-sized vessel and is free of stenosis. It divides into left anterior descending coronary artery and circumflex coronary artery. Circumflex coronary artery is a nondominant vessel and is free of significant disease. LAD was previously stented in the proximal portion. There is a focal area of 95% stenosis just past the stent, and he also has a lesion in the ostial portion of the second diagonal branch. Right coronary artery is a large dominant vessel that appears diffusely diseased. It was previously stented in the proximal and mid portions. There is severe in-stent restenosis; at its worst it seems to be 90% stenosed. The PDA is diffusely diseased. There are two focal areas of 95% stenosis. CONCLUSIONS: Severe two-vessel coronary artery disease as described above with in-stent restenosis of the right coronary artery, in-stent restenosis of the PDA with severe disease, and severe focal stenosis involving LAD and the diagonal branch. PLAN: I will have Dr. Zaidi, the on-call stretcher helper, review the angiogram and advise on percutaneous revascularization. MMODL / IJN: [id number] /
[2021-09-28] MEDS ORDERED: hydrALAZINE HCL 20 MG/ML 1 ML VIAL ONE ×2 (13:14→15:49)
[2021-09-28] MEDS ORDERED: IOPAMIDOL-370 100ML BTL INJ ONE (13:23)
[2021-09-28] MEDS ORDERED: hydrALAZINE HCL 20 MG/ML 1 ML VIAL IVP ONE (13:23)
--- NOTE | 2021-09-28 14:03 | P.PN ---
Subjective Progress Note Date: 09/28/21 (Post cardiac catheterization from right groin) Principal diagnosis: Diagnosis: #1 acute recurrent chest pain arrived by EMS to the ER #2 non-ST segment [place] #3 on a stable angina with a history of previous 2 stent was placed in [facility]. #4 abnormal troponin elevation with the underlying restenosis probability. #5 end-stage renal disease with the underlying hemodialysis lost 1 on Sunday with elevated creatinine consultation with Dr. Segura was done #6 cardiac catheterization done today on 09/28/2021 with the angioplasty as well trial of the catheterization from the right radial could not be accomplished and successful from the right femoral. #7 restenosis of previous stent 2 #8 angioplasty was done by Dr. Zaidi. director of marketing communications Cardiac catheterization done by Dr. Garner cardiology Progress note: Date of service 09/28/[address] Keating. Patient seen today [id number] post cardiac catheterization. Patient denied any chest pain however his arm right sided soreness with the trial of cardiac catheterization from the right radial was unsuccessful and the went through the right femoral. Underwent angioplasty with the present of 2 stent restenosis, no farther stented was admitted. Patient has no chest pain at this point, conscious alert oriented 3 able to communicate with them freely Head was normocephalic and atraumatic and pupil equal reactive, fully conscious able to eat and swallow Post cardiac cath C is flat in bed. Neck was supple no JVD no thyromegaly no lymphadenopathy trachea midline. Chest was clear to auscultation percussion no wheezes no rhonchi's. The heart regular sinus rhythm no dysrhythmia. Abdomen obese positive bowel sounds no organ enlargement. Extremities no edema positive pulses. He had AV graft on the left upper extremities for dialysis. Neurologically stable. Assessment: #1 non-STEMI [place] #2 elevated troponin no EKG changes #3 cardiac catheterization done by Dr. Garner faculty instructor #4 angioplasty of restenosis vessel occlusion done by Dr. Zaidi invasive cardiology. #5 end-stage renal disease and he is supposed to get dialysis tomorrow. #6 angina has been stable. No chest pain post procedure #7 hypertension with hypertensive heart disease followed by Dr. Segura Plan: Dr. Segura will arrange for future dialysis if needed Patient still monitored for post cardiac cath. Continue monitor will follow the recommendation of the specialist. Objective - Vital Signs Vital signs: Vital Signs Temp 97.9 F 09/28/21 08:00 Pulse 67 09/28/21 08:00 Resp 16 09/28/21 08:00 BP 167/92 09/28/21 08:00 Pulse Ox 97 09/28/21 08:00 Intake & Output 09/27/21 09/28/21 09/28/21 18:59 06:59 18:59 Intake Total 73.26 100 Balance 73.26 100 Weight 135 kg Intake: IV 100 Intake, IV Titration 73.26 Amount Heparin Sod,Pork in 0.45% 73.26 NaCl 25,000 unit In 0.45 % NaCl 1 250ml.bag @ 7.4 UNITS/KG/HR 9.99 mls/hr IV .Q24H [facility] Rx#: [id number] Other: Voiding Method Toilet Toilet - Labs CBC & Chem 7: 09/27/21 15:51 09/28/21 06:28 Labs: Abnormal Lab Results - Last 24 Hours (Table) 09/27/21 09/27/21 09/27/21 Range/Units 15:51 15:51 15:51 RBC 3.50 L (4.30-5.90) m/uL Hgb 11.9 L (13.0-17.5) gm/dL Hct 35.1 L (39.0-53.0) % MCV 100.5 H (80.0-100.0) fL Lymphocytes # 0.9 L (1.0-4.8) k/uL APTT (22.0-30.0) sec Chloride 94 L (98-107) mmol/L Carbon Dioxide 31 H (22-30) mmol/L BUN 33 H (9-20) mg/dL Creatinine 7.43 H* (0.66-1.25) mg/dL Glucose 143 H (74-99) mg/dL POC Glucose (mg/dL) (75-99) mg/dL Calcium (8.4-10.2) mg/dL Total Bilirubin 1.5 H (0.2-1.3) mg/dL Troponin I 0.308 H* (0.000-0.034) ng/mL Triglycerides (0.00-149.00) mg/dL VLDL Cholesterol, Calc (5.00-40.00) mg/dL HDL Cholesterol (40.00-60.00) mg/dL Procalcitonin (0.02-0.09) ng/mL 09/27/21 09/27/21 09/27/21 Range/Units 18:10 21:05 22:19 RBC (4.30-5.90) m/uL Hgb (13.0-17.5) gm/dL Hct (39.0-53.0) % MCV (80.0-100.0) fL Lymphocytes # (1.0-4.8) k/uL APTT (22.0-30.0) sec Chloride (98-107) mmol/L Carbon Dioxide (22-30) mmol/L BUN (9-20) mg/dL Creatinine (0.66-1.25) mg/dL Glucose (74-99) mg/dL POC Glucose (mg/dL) 128 H (75-99) mg/dL Calcium (8.4-10.2) mg/dL Total Bilirubin (0.2-1.3) mg/dL Troponin I 0.437 H* 0.582 H* (0.000-0.034) ng/mL Triglycerides (0.00-149.00) mg/dL VLDL Cholesterol, Calc (5.00-40.00) mg/dL HDL Cholesterol (40.00-60.00) mg/dL Procalcitonin (0.02-0.09) ng/mL 09/27/21 09/27/21 09/28/21 Range/Units 22:19 22:19 05:55 RBC (4.30-5.90) m/uL Hgb (13.0-17.5) gm/dL Hct (39.0-53.0) % MCV (80.0-100.0) fL Lymphocytes # (1.0-4.8) k/uL APTT (22.0-30.0) sec Chloride (98-107) mmol/L Carbon Dioxide (22-30) mmol/L BUN (9-20) mg/dL Creatinine (0.66-1.25) mg/dL Glucose (74-99) mg/dL POC Glucose (mg/dL) 115 H (75-99) mg/dL Calcium (8.4-10.2) mg/dL Total Bilirubin (0.2-1.3) mg/dL Troponin I (0.000-0.034) ng/mL Triglycerides 598.00 H (0.00-149.00) mg/dL VLDL Cholesterol, Calc (5.00-40.00) mg/dL HDL Cholesterol 30.50 L (40.00-60.00) mg/dL Procalcitonin 0.49 H (0.02-0.09) ng/mL 09/28/21 09/28/21 Range/Units 06:28 06:28 RBC (4.30-5.90) m/uL Hgb (13.0-17.5) gm/dL Hct (39.0-53.0) % MCV (80.0-100.0) fL Lymphocytes # (1.0-4.8) k/uL APTT 34.8 H (22.0-30.0) sec Chloride 96 L (98-107) mmol/L Carbon Dioxide (22-30) mmol/L BUN 47 H (9-20) mg/dL Creatinine 9.71 H* (0.66-1.25) mg/dL Glucose 101 H (74-99) mg/dL POC Glucose (mg/dL) (75-99) mg/dL Calcium 7.6 L (8.4-10.2) mg/dL Total Bilirubin (0.2-1.3) mg/dL Troponin I (0.000-0.034) ng/mL Triglycerides 315.00 H (0.00-149.00) mg/dL VLDL Cholesterol, Calc 63.00 H (5.00-40.00) mg/dL HDL Cholesterol 35.40 L (40.00-60.00) mg/dL Procalcitonin (0.02-0.09) ng/mL
[2021-09-28] MEDS: LOSARTAN 25 MG TAB PO SCH (14:21)
[2021-09-28] MEDS ORDERED: hydrALAZINE HCL 20 MG/ML 1 ML VIAL IVP PRN (15:45)
[2021-09-28] MEDS ORDERED: ATROPINE SULFATE 0.1 MG/ML 10ML SYRINGE ONE (15:49)
[2021-09-28 16:49] LABS: Glucose,Whole Blood 103 mg/dL (75-99)
[2021-09-28] MEDS ORDERED: ZOLPIDEM 5 MG TAB PO PRN (18:34)
[2021-09-28] MEDS ORDERED: ATROPINE SULFATE 0.1 MG/ML 10ML SYRINGE IV PRN (18:34)
[2021-09-28] MEDS ORDERED: NITROGLYCERIN SL TABS 0.4 MG TAB SUBLINGUAL PRN (18:34)
[2021-09-28] MEDS ORDERED: MAG HYDROX/AL HYDROX/SIMETH 30 ML CUP PO PRN (18:34)
[2021-09-28] MEDS ORDERED: RX INFO: IV CONTRAST WAS GIVEN 1 EACH MISC MISCELLANE PRN (18:34)
--- NOTE | 2021-09-28 19:19 | P.PRCINT ---
Percutaneous Coronary Int. - Percutaneous Coronary Intervention Percutaneous Coronary Intervention: PROCEDURES PERFORMED: Left coronary angiography with balloon angioplasty of mid LAD instent stenosis with 4.5 NC balloon, IVUS LAD, intravasular lithotripsy (IVL) with ShockWave 4.0 balloon INDICATION: NSTEMI HISTORY: Patient is a pleasant 36 year old male with history of hypertension, hyperlipidemia, CAD with previous PCI of LAD and RCA, ESRD on HD who has been having off and on chest pain with dialysis. He was found to have mildly elevated troponins. Diagnostic heart catheterization showed 95% mid LAD instent stenosis with additional subtotal 100% ostial diagonal 1 stenosis and 85% RCA instent stenosis with additional proximal mid and distal PDA long 80-95% tandem stenoses. I was asked to perform PCI of the LAD. PROCEDURE: After the risks, benefits and alternatives of the above mentioned procedure explained in detail with the patient, informed consent was obtained. Patient was taken to the catheterization lab and prepped and draped in usual fashion. A 6-[place] sheath had already been placed in the right femoral artery. The decision was made to perform PCI of the LAD. A 6Fr CLS 4.0 catheter was used to engage the left main. A 0.014 BMW wire was advanced into the distal LAD. Predilation was performed with a 2.5 x 12mm balloon. The lesion appeared to be entirely within the previous stent and therefore IVUS was performed which showed a distal reference vessel 3.75 x 4.0 mm and proximally 4.5 x 4.5mm with mild instent stenosis however underexpanded stent with calcification behind the stent. Given concern of restenosis within 6 months, his age and risk of restenosis with more stents, the decision was made to attempt only angioplasty. Therefore aggressive dilation was performed with 4.0 x 15mm NC balloon and 4.5 x 12mm NC balloon. IVUS was performed which showed improved expansion however still somewhat underexpanded. There was still waste and given calcification behind the stent the decision was made to perform IVL. IVL was performed with a 4.0 x 12mm SkockWave balloon x 8 treatments. The lesion was then again post dilated with a 4.5 x 12mm NC balloon to 22 atmospheres. Final angiograms were performed. Pre intervention there was NATALIE 3 flow and 95% mid LAD stenosis and post intervention there was NATALIE 3 flow with residual 10% stenosis and no dissection. The right femoral angiogram showed low anatomy and therefore sheath left in place to be pulled later. The patient tolerated the procedure well. Patient was transported back to the post catheterization holding area in stable condition. Conscious Sedation: Patient was monitored under the direct supervision of vision of myself for conscious sedation using Versed and fentanyl for a total duration of 80 minutes HEMODYNAMICS: Aorta: 176/100 SELECTIVE CORONARY ARTERIOGRAPHY: LEFT MAIN: The left main is a large caliber vessel which bifurcates into the LAD and circumflex. There is no significant stenosis. LEFT ANTERIOR DESCENDING CORONARY ARTERY: LAD is a large caliber vessel which wraps around to the apex. There is a proximal to mid LAD stent with a mid stent 95% instent stenosis with additional subtotal occlusion of the ostial diagonal 1 branch with NATALIE 2 flow in the diagonal branch. LEFT CIRCUMFLEX CORONARY ARTERY: Left circumflex is a moderate caliber vessel with a moderate caliber OM1 with 40-50% stenosis. RIGHT CORONARY ARTERY: Not imaged however known to have 85% RCA instent stenosis with additional proximal mid and distal PDA long 80-95% tandem stenoses. FINAL IMPRESSION: 1. CAD as described above with 95% mid LAD instent stenosis due to underexpanded stent and calcium and additional 85% RCA instent stenosis and tandem PDA 80-95% stenoses. 2. S/p successful balloon angioplasty of mid LAD instent stenosis with 4.5 NC balloon, IVUS LAD, intravasular lithotripsy (IVL) with ShockWave 4.0 balloon PLAN: 1. Aggressive risk factor modification per most recent ACC/AHA guidelines. 2. Continue dual antiplatelets with aspirin and Brillinta for a total of 12 months. 3. Patient with instent stenosis in both stents after only 6 months however LAD lesion appeared in part related to underexpanded stent and heavy calcium. Patient with good result however patient at high risk of restenosis. Would consider treating PDA lesion medically given high risk of restenosis of already placed stents. Will attempt to obtain records and images from [facility] which may help guide reason for restenosis. Always may consider CABG if continued restenosis however will monitor progress.
[2021-09-28 19:54] LABS: Glucose,Whole Blood 106 mg/dL (75-99)
[2021-09-28] MEDS ORDERED: ATORVASTATIN 40 MG TAB PO SCH (21:00)
[2021-09-29] MEDS: NITROGLYCERIN OINT 1 INCH/GM PACKET TOPICAL SCH ×2 (00:50→05:50)
[2021-09-29 06:15] LABS: Glucose,Whole Blood 107 mg/dL (75-99)
[2021-09-29] MEDS: SEVELAMER 800 MG TAB PO SCH ×3 (06:30→17:21)
[2021-09-29] MEDS: carvediloL 3.125 MG TAB PO SCH ×2 (06:30→21:07)
[2021-09-29] MEDS: CALCIUM ACETATE 667 MG TAB PO SCH ×3 (06:30→17:21)
[2021-09-29] MEDS ORDERED: HEPARIN SODIUM,PORCINE 10,000 UNIT in SODIUM CHLORIDE 0.9% 1,000 ML IRRIGATION PRN (07:00)
[2021-09-29] MEDS ORDERED: HEPARIN SODIUM,PORCINE 2,500 UNIT in SODIUM CHLORIDE 0.9% 250 ML IRRIGATION PRN (07:00)
[2021-09-29 08:14] LABS: Basophils % (A) 1 %; Eosinophils # (A) 0.1 k/uL (0-0.7); Eosinophils % (A) 2 %; HCT 33.9 % (39.0-53.0); HGB 11.1 gm/dL (13.0-17.5); Lymphocytes # (A) 0.6 k/uL (1.0-4.8); Lymphocytes % (A) 10 %; MCH 33.7 pg (25.0-35.0); MCHC 32.8 g/dL (31.0-37.0); MCV 102.7 fL (80.0-100.0); Macrocytosis Slight; Mean Platelet Volume 7.8; Monocytes # (A) 0.4 k/uL (0-1.0); Monocytes % (A) 7 %; Neutrophils # (A) 4.4 k/uL (1.3-7.7); Neutrophils % (A) 78 %; Platelet Count 161 k/uL (150-450); RDW 13.6 % (11.5-15.5); WBC 5.6 k/uL (3.8-10.6)
[2021-09-29 08:33] LABS: Calcium 7.8 mg/dL (8.4-10.2); Potassium 4.9 mmol/L (3.5-5.1)
[2021-09-29] MEDS: ASPIRIN 81 MG PO SCH (10:13)
[2021-09-29] MEDS: TICAGRELOR 90 MG TAB PO SCH ×2 (10:13→21:09)
[2021-09-29 11:26] VITALS: BMI 38.7
[2021-09-29 11:38] LABS: Glucose,Whole Blood 106 mg/dL (75-99)
--- NOTE | 2021-09-29 11:59 | P.PN ---
Subjective This is a pleasant 36-year-old male past medical history significant for coronary artery disease s/p PCI LAD and RCA at [facility] in March 2021, Ischemic cardiomyopathy, hypertension, dyslipidemia, ESRD on Hemodialysis via Left arm AV fistula, former tobacco use, marijuana use. He follows in the office with Dr. Mcmullen. We have been asked to see in consultation for chest pain. Patient presents to the emergency department with complaints of chest discomfort after hemodialysis. He has been having chest discomfort on and off. EKG revealed sinus rhythm, heart rate 83, left bundle branch block, T wave inversions in leads I, aVL. Prior EKG in the Office 04/2021 with similar findings. Laboratory revealed troponin 0.30, 0.43, 0.58. Cardiac catheterization was recommended. Patient underwent cardiac catheterization with Dr. Mcmullen which revealed severe two vessel coronary artery disease with 85% in-stent restenosis of the RCA and in stent restenosis 80-95% of the PDA with severe disease and severe focal stenosis 95% involving the mid LAD and diagonal branch. Patient underwent successful balloon angioplasty of mid LAD instent stenosis. Patient with instent stenosis in both stents after only 6 months however LAD lesion appeared in part related to underexpanded stent and heavy calcium. Patient with good result however patient at high risk of restenosis. Would consider treating PDA lesion medically given high risk of restenosis of already placed stents. 09/29/2021 Patient seen and examined at bedside, no acute distress. He states that he is feeling 100% better, back to his baseline. No complaints. No chest pain or shortness of breath. plan for hemodialysis today. Blood pressure 141/76, heart rate 76, afebrile, saturations 98% on room air he is currently maintained on aspirin 80 mg daily, atorvastatin 40 mg nightly, carvedilol 63.125 milligrams twice a day, Imdur 30 mg daily, losartan 25 mg da [place], Brilinta 90 mg twice a day Labs, sodium 134, potassium 4.9, BUN 67, serum creatinine 12 Echocardiogram revealed an EF 4045%, basal inferior lateral and mid to basal inferior are hypokinetic, mild mitral regurgitation. PHYSICAL EXAMINATION Vitals reviewed CONSTITUTIONAL: No apparent distress. HEENT: Neck Supple. No JVD. CHEST EXAMINATION: Lungs are clear to auscultation. No chest wall tenderness is noted on palpation or with deep breathing. HEART EXAMINATION: Regular rate and rhythm. S1, S2 heard. No murmurs, gallops or rub. ABDOMEN: Soft, nontender. Positive bowel sounds. EXTREMITIES: 2+ peripheral pulses, no lower extremity edema and no calf tenderness. SKIN: warm, dry Right femoral cath site clean dry intact 2+ pulses. Attempted right radial cath site with some bruising, 2+ pulses no hematoma NEUROLOGIC EXAMINATION: Patient is awake, alert and oriented x3. ASSESSMENT NSTEMI Cardiac catheterization on 09/28/21 which revealed 95% mid LAD instent stenosis due to underexpanded stent and calcium and additional 85% RCA instent stenosis and tandem PDA 80-95% stenoses. Coronary artery disease s/p PCI LAD and RCA at [facility] in March 2021 Ischemic cardiomyopathy EF 40-45% Hypertension Dyslipidemia End stage renal disease on Hemodialysis via Left arm AV fistula Former tobacco use and marijuana use. PLAN Continue dual antiplatelet therapy with aspirin and Brilinta Continue statin, carvedilol, Losartan, Imdur. From a cardiology perspective patient is stable to be discharge after Hemodialysis today. Follow up within [address] Mcmullen. Nurse practitioner note has been reviewed by physician. Signing provider agrees with the documented findings, assessment, and plan of care. Objective - Vital Signs Vital signs: Vital Signs Temp 98.1 F 09/29/21 09:55 Pulse 76 09/29/21 09:55 Resp 16 09/29/21 09:55 BP 141/76 09/29/21 09:55 Pulse Ox 98 09/29/21 09:55 Intake & Output 09/28/21 09/29/21 09/29/21 18:59 06:59 18:59 Intake Total 100 540 540 Balance 100 540 540 Weight 133 kg 133 kg Intake: IV 100 Oral 540 540 Other: Voiding Method Toilet Toilet Toilet # Voids 0 1 # Bowel Movements 1 - Labs CBC & Chem 7: 09/29/21 07:52 09/29/21 07:52 Labs: Abnormal Lab Results - Last 24 Hours (Table) 09/28/21 09/28/21 09/28/21 Range/Units 06:28 16:47 19:53 RBC (4.30-5.90) m/uL Hgb (13.0-17.5) gm/dL Hct (39.0-53.0) % MCV (80.0-100.0) fL Lymphocytes # (1.0-4.8) k/uL Sodium (137-145) mmol/L Chloride (98-107) mmol/L BUN (9-20) mg/dL Creatinine (0.66-1.25) mg/dL POC Glucose (mg/dL) 103 H 106 H (75-99) mg/dL Calcium (8.4-10.2) mg/dL Phosphorus 7.4 H (2.4-5.1) mg/dL PTH Intact (14.0-72.0) pg/mL 09/29/21 09/29/21 09/29/21 Range/Units 06:13 07:52 07:52 RBC (4.30-5.90) m/uL Hgb (13.0-17.5) gm/dL Hct (39.0-53.0) % MCV (80.0-100.0) fL Lymphocytes # (1.0-4.8) k/uL Sodium 134 L (137-145) mmol/L Chloride 94 L (98-107) mmol/L BUN 67 H (9-20) mg/dL Creatinine 12.07 H* (0.66-1.25) mg/dL POC Glucose (mg/dL) 107 H (75-99) mg/dL Calcium 7.8 L (8.4-10.2) mg/dL Phosphorus (2.4-5.1) mg/dL PTH Intact 590.0 H (14.0-72.0) pg/mL 09/29/21 09/29/21 Range/Units 07:52 11:37 RBC 3.30 L (4.30-5.90) m/uL Hgb 11.1 L (13.0-17.5) gm/dL Hct 33.9 L (39.0-53.0) % MCV 102.7 H (80.0-100.0) fL Lymphocytes # 0.6 L (1.0-4.8) k/uL Sodium (137-145) mmol/L Chloride (98-107) mmol/L BUN (9-20) mg/dL Creatinine (0.66-1.25) mg/dL POC Glucose (mg/dL) 106 H (75-99) mg/dL Calcium (8.4-10.2) mg/dL Phosphorus (2.4-5.1) mg/dL PTH Intact (14.0-72.0) pg/mL
[2021-09-29 12:01] LABS: Basophils % (A) 1 %; Eosinophils # (A) 0.2 k/uL (0-0.7); Eosinophils % (A) 2 %; HGB 11.4 gm/dL (13.0-17.5); Lymphocytes # (A) 0.8 k/uL (1.0-4.8); Lymphocytes % (A) 12 %; MCH 34.2 pg (25.0-35.0); MCHC 33.5 g/dL (31.0-37.0); MCV 102.1 fL (80.0-100.0); Macrocytosis Slight; Mean Platelet Volume 7.4; Monocytes # (A) 0.4 k/uL (0-1.0); Monocytes % (A) 6 %; Neutrophils # (A) 4.8 k/uL (1.3-7.7); Neutrophils % (A) 77 %; Platelet Count 172 k/uL (150-450); RBC 3.33 m/uL (4.30-5.90); RDW 13.5 % (11.5-15.5); WBC 6.2 k/uL (3.8-10.6)
[2021-09-29] MEDS: LOSARTAN 25 MG TAB PO SCH (12:29)
[2021-09-29] MEDS: ISOSORBIDE DINITRATE 10 MG TAB PO SCH (12:29)
--- NOTE | 2021-09-29 12:52 | P.PN ---
Subjective Progress Note Date: 09/29/21 (Blood in the stools) Progress note date of service 09/29/[address] Keating, Patient seen and evaluated [id number] today and discussed with the patient and his father as well as his nurse RN. Laboratory indicating his creatinine 12.07. Blood sugar is controlled PTH 590 with the secondary hyperparathyroidism calcium is 7.8. CBC was done twice today with the presence of blood in the stools and his hemoglobin still stable With the cephalization and he will have today hemodialysis Patient has previously orthostatic hypotension with hemodialysis. Also in his lost the dialysis on the last Sunday he had a chest pain twice and resulted in hospital and the repeat the cardiac catheterization and found that restenosis and the had to do angioplasty. Patient has no chest pain He has anemia of chronic renal disease and end-stage renal disease his GFR is 5, For the above reasons patient will have the dialysis hopefully today and will monitoring him overnight and repeat stool for Hemoccult tomorrow BMP and CBC tomorrow. Today is patient seen [id number]: Head was normocephalic and atraumatic pupil was equal reactive no chest pain Neck was supple no JVD no thyromegaly no lymphadenopathy trachea midline Chest was clear to auscultation percussion no wheezes, rhonchi's no rales. Heart was regular sinus rhythm with no chest pain and he had the ischemic heart disease with history of GA in the past and dropped his ejection fraction to 40%. On his last admission they pulled out 4-1/2 L excessive water. Yesterday when they tried to remove the catheter from the right groin blood pressure was increased elevated and we placed him on hydralazine 10 mg every 6 hour IV when necessary currently his blood pressure is stable Vital signs his temperature 98.1 F oral, heart rate 76 bpm regular, respiratory rate 16, blood pressure 141/76 with a mean 97, his oxygen saturation 98%. Abdomen is soft positive bowel sounds obese no nausea no vomiting with the history of blood in the stools. Repeat tests tomorrow Extremities no edema positive pulses. Neurologically stable no lateralizing sign. Assessment: #1 unstable angina #2 non-STEMI [place] with elevated troponin #3 status post cardiac cath and angioplasty by Dr. Garner and Dr. Zaidi. #4 hypertension was hypertensive heart disease and #5 hypertension with end- stage renal disease. #5 patient on hemodialysis from left forearm AV shunt. #6 coronary artery disease atherosclerotic heart disease with previous 2 stent. #7 history of postdialysis complication. Plan: #1 hemodialysis today #2 [place] patient post hemodialysis from the postural hypotension and the chest pain and nausea and vomiting. #3 plan for discharge home tomorrow after stability. With the clearance from nephrology and cardiology. #4 patient will follow-up in the dialysis center for continuing his hemodialysis. Nephrology Dr. Segura and Dr. Arredondo. #5 follow-up with the cardiology for his recurrence of chest pain as well as regular follow-up with his consulting systems engineer Objective - Vital Signs Vital signs: Vital Signs Temp 98.1 F 09/29/21 09:55 Pulse 76 09/29/21 09:55 Resp 16 09/29/21 09:55 BP 141/76 09/29/21 09:55 Pulse Ox 98 09/29/21 09:55 Intake & Output 09/28/21 09/29/21 09/29/21 18:59 06:59 18:59 Intake Total 100 540 540 Balance 100 540 540 Weight 133 kg 133 kg Intake: IV 100 Oral 540 540 Other: Voiding Method Toilet Toilet Toilet # Voids 0 1 # Bowel Movements 1 - Labs CBC & Chem 7: 09/29/21 11:31 09/29/21 07:52 Labs: Abnormal Lab Results - Last 24 Hours (Table) 09/28/21 09/28/21 09/28/21 Range/Units 06:28 16:47 19:53 RBC (4.30-5.90) m/uL Hgb (13.0-17.5) gm/dL Hct (39.0-53.0) % MCV (80.0-100.0) fL Lymphocytes # (1.0-4.8) k/uL Sodium (137-145) mmol/L Chloride (98-107) mmol/L BUN (9-20) mg/dL Creatinine (0.66-1.25) mg/dL POC Glucose (mg/dL) 103 H 106 H (75-99) mg/dL Calcium (8.4-10.2) mg/dL Phosphorus 7.4 H (2.4-5.1) mg/dL PTH Intact (14.0-72.0) pg/mL 09/29/21 09/29/21 09/29/21 Range/Units 06:13 07:52 07:52 RBC (4.30-5.90) m/uL Hgb (13.0-17.5) gm/dL Hct (39.0-53.0) % MCV (80.0-100.0) fL Lymphocytes # (1.0-4.8) k/uL Sodium 134 L (137-145) mmol/L Chloride 94 L (98-107) mmol/L BUN 67 H (9-20) mg/dL Creatinine 12.07 H* (0.66-1.25) mg/dL POC Glucose (mg/dL) 107 H (75-99) mg/dL Calcium 7.8 L (8.4-10.2) mg/dL Phosphorus (2.4-5.1) mg/dL PTH Intact 590.0 H (14.0-72.0) pg/mL 09/29/21 09/29/21 09/29/21 Range/Units 07:52 11:31 11:37 RBC 3.30 L 3.33 L (4.30-5.90) m/uL Hgb 11.1 L 11.4 L (13.0-17.5) gm/dL Hct 33.9 L 34.0 L (39.0-53.0) % MCV 102.7 H 102.1 H (80.0-100.0) fL Lymphocytes # 0.6 L 0.8 L (1.0-4.8) k/uL Sodium (137-145) mmol/L Chloride (98-107) mmol/L BUN (9-20) mg/dL Creatinine (0.66-1.25) mg/dL POC Glucose (mg/dL) 106 H (75-99) mg/dL Calcium (8.4-10.2) mg/dL Phosphorus (2.4-5.1) mg/dL PTH Intact (14.0-72.0) pg/mL
--- NOTE | 2021-09-29 15:00 | P.PN ---
Subjective Patient is seen for follow-up for end-stage renal disease. He is status post coronary artery stent placement yesterday. Currently doing well No complaints of chest pains or shortness of breath. Right radial site hematoma is stable. Scheduled for hemodialysis today Objective - Vital Signs Vital signs: Vital Signs Temp 98.1 F 09/29/21 09:55 Pulse 65 09/29/21 11:20 Resp 16 09/29/21 11:20 BP 157/85 09/29/21 11:20 Pulse Ox 100 09/29/21 11:20 Intake & Output 09/28/21 09/29/21 09/29/21 18:59 06:59 18:59 Intake Total 100 540 720 Balance 100 540 720 Weight 133 kg 133 kg Intake: IV 100 Oral 540 720 Other: Voiding Method Toilet Toilet Toilet # Voids 0 1 # Bowel Movements 1 - Exam Awake comfortable not in any acute distress. Alert oriented 3 Examination of the heart S1 and S2 Examination lungs bilateral breath sounds are heard Abdomen is soft nontender Examination lower extremities shows no evidence of edema VIDEO PRODUCER exam grossly intact - Labs CBC & Chem 7: 09/29/21 11:31 09/29/21 07:52 Labs: Abnormal Lab Results - Last 24 Hours (Table) 09/28/21 09/28/21 09/28/21 Range/Units 06:28 16:47 19:53 RBC (4.30-5.90) m/uL Hgb (13.0-17.5) gm/dL Hct (39.0-53.0) % MCV (80.0-100.0) fL Lymphocytes # (1.0-4.8) k/uL Sodium (137-145) mmol/L Chloride (98-107) mmol/L BUN (9-20) mg/dL Creatinine (0.66-1.25) mg/dL POC Glucose (mg/dL) 103 H 106 H (75-99) mg/dL Calcium (8.4-10.2) mg/dL Phosphorus 7.4 H (2.4-5.1) mg/dL PTH Intact (14.0-72.0) pg/mL 09/29/21 09/29/21 09/29/21 Range/Units 06:13 07:52 07:52 RBC (4.30-5.90) m/uL Hgb (13.0-17.5) gm/dL Hct (39.0-53.0) % MCV (80.0-100.0) fL Lymphocytes # (1.0-4.8) k/uL Sodium 134 L (137-145) mmol/L Chloride 94 L (98-107) mmol/L BUN 67 H (9-20) mg/dL Creatinine 12.07 H* (0.66-1.25) mg/dL POC Glucose (mg/dL) 107 H (75-99) mg/dL Calcium 7.8 L (8.4-10.2) mg/dL Phosphorus (2.4-5.1) mg/dL PTH Intact 590.0 H (14.0-72.0) pg/mL 09/29/21 09/29/21 09/29/21 Range/Units 07:52 11:31 11:37 RBC 3.30 L 3.33 L (4.30-5.90) m/uL Hgb 11.1 L 11.4 L (13.0-17.5) gm/dL Hct 33.9 L 34.0 L (39.0-53.0) % MCV 102.7 H 102.1 H (80.0-100.0) fL Lymphocytes # 0.6 L 0.8 L (1.0-4.8) k/uL Sodium (137-145) mmol/L Chloride (98-107) mmol/L BUN (9-20) mg/dL Creatinine (0.66-1.25) mg/dL POC Glucose (mg/dL) 106 H (75-99) mg/dL Calcium (8.4-10.2) mg/dL Phosphorus (2.4-5.1) mg/dL PTH Intact (14.0-72.0) pg/mL Assessment and Plan Assessment: 1. End-stage renal disease on hemodialysis on a Sunday schedule 2. Non-ST elevation [place] status post coronary artery stenting to LAD 3. Coronary artery disease with previous coronary artery stenting in March 2021 4. Hypertension with CK D 5. 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 Okay to discharge post dialysis if cleared by cardiology. Patient is advised to be compliant with his phosphate binders as outpatient.
[2021-09-29 16:28] LABS: Glucose,Whole Blood 94 mg/dL (75-99)
[2021-09-29 19:57] LABS: Glucose,Whole Blood 114 mg/dL (75-99)
[2021-09-29] MEDS ORDERED: ATORVASTATIN 40 MG TAB PO SCH (21:00)
[2021-09-30 06:23] LABS: Glucose,Whole Blood 101 mg/dL (75-99)
[2021-09-30] MEDS: carvediloL 3.125 MG TAB PO SCH (06:38)
[2021-09-30] MEDS: CALCIUM ACETATE 667 MG TAB PO SCH ×2 (06:39→12:32)
[2021-09-30] MEDS: SEVELAMER 800 MG TAB PO SCH ×2 (06:39→12:32)
[2021-09-30 07:50] LABS: Basophils % (A) 1 %; Eosinophils # (A) 0.2 k/uL (0-0.7); Eosinophils % (A) 3 %; HCT 33.8 % (39.0-53.0); HGB 11.1 gm/dL (13.0-17.5); Lymphocytes # (A) 0.8 k/uL (1.0-4.8); Lymphocytes % (A) 15 %; MCHC 32.9 g/dL (31.0-37.0); MCV 103.4 fL (80.0-100.0); Macrocytosis Slight; Mean Platelet Volume 7.8; Monocytes # (A) 0.4 k/uL (0-1.0); Monocytes % (A) 8 %; Neutrophils # (A) 3.6 k/uL (1.3-7.7); Neutrophils % (A) 71 %; Platelet Count 153 k/uL (150-450); RBC 3.27 m/uL (4.30-5.90); RDW 13.7 % (11.5-15.5); WBC 5.1 k/uL (3.8-10.6)
[2021-09-30 08:02] LABS: Calcium 8.3 mg/dL (8.4-10.2); Potassium 4.2 mmol/L (3.5-5.1)
[2021-09-30 08:43] VITALS: RESP 16
[2021-09-30] MEDS: TICAGRELOR 90 MG TAB PO SCH (09:24)
[2021-09-30] MEDS: ISOSORBIDE DINITRATE 10 MG TAB PO SCH (09:24)
[2021-09-30] MEDS: ASPIRIN 81 MG PO SCH (09:24)
[2021-09-30] MEDS: LOSARTAN 25 MG TAB PO SCH (09:24)
--- NOTE | 2021-09-30 09:41 | P.DS ---
Providers Date of admission: 09/27/21 16:44 Expected date of discharge: 09/30/21 Attending physician: Zurdo Keating Consults: 09/27/21 16:44 Consult Physician Urgent Consulting Provider: Juanpablo Brown Consult Reason/Comments: Non-STEMI Do you want consulting provider notified?: Yes 09/27/21 18:49 Consult Physician Urgent Consulting Provider: Lola Arredondo Reason/Comments: Hemodialysis Do you want consulting provider notified?: Yes 09/28/21 18:34 Consult Physician Routine Consulting Provider: Juanpablo Brown Consult Reason/Comments: Post Interventional patient Do you want consulting provider notified?: Already Contacted Primary care physician: Zurdo Keating Discharge summary, date of service 09/30/2021 Final diagnoses: #1 non-STEMI NE with elevated troponin and normal EKG. #2 and his stable angina #3 end-stage renal disease on hemodialysis. #4 hypertension was hypertensive heart disease #5 hypertensive nephrosclerosis #6 status post cardiac catheterization and angioplasty. #72 stent in the past with the mild to moderate restenosis causing the symptoms of chest pain. Presentation to the ER Recurrent chest pain similar to the pain had when he had NE in the past where he was treated in [facility] where he received 2 stent. Hospital course: In the ER they notified the buckle strap puncher, placed on heparin protocol and secondary patient underwent cardiac catheterization as well as angioplasty. His creatinine was extremely high and his date of dialysis to be done on patient received dialysis. However with a history of chest pain after dialysis as well as dizziness and postural hypotension patient stayed overnight for evaluation as well as stability. Patient seen by Dr. Arredondo and plan for dialysis as usual in the center and will be followed as well by cardiology who increased his medication for atorvastatin to 40 mg once a day instead of 20 as well as added losartan 25 mg once a day as well as nitroglycerin sublingual. Patient currently stable for discharge ambulatory no dizziness, no blood in the stools as has been watched apparently the incident 1 with underlying hemorrhoid no farther left in the stools. [id number] exam on discharge patient on Patient conscious alert oriented 3 ambulatory no dizziness no blurred vision feeling good no blood in the stools Laboratory has been no change no drop in the hemoglobin. Head was normocephalic and pupil equal reactive conjunctivae was pink oropharynx was negative able to eat and swallow normal hearing. Neck was supple no JVD no thyromegaly or lymphadenopathy trachea midline. Chest was clear to auscultation and percussion Heart: No chest pain regular sinus rhythm Abdomen obese positive bowel sounds no tenderness 4 quadrants. Extremities no edema. Pulses Neurologically: Ambulatory stable gait no lateralizing sign no dizziness and no hypotension. Assessment patient stable for discharge today Continue dialysis on Sunday as usual. Follow-up with the cardiology as well as nephrology Follow-up with Dr. Hernandez in 1 week. Plan continue dialysis, continue monitoring his heart by the cardiology and nephrology Plan - Discharge Summary Discharge Rx Participant: No New Discharge Prescriptions: New Atorvastatin [Lipitor] 40 mg PO HS #90 tab Nitroglycerin Sl Tabs [Nitrostat] 0.4 mg SUBLINGUAL Q5M PRN #25 tab PRN Reason: Chest Pain Losartan [Cozaar] 25 mg PO DAILY #30 tab Ticagrelor [Brilinta] 90 mg PO BID tab Continue Calcium Acetate [PhosLo] 1,334 mg PO TID-W/MEALS #90 cap carvediloL [Coreg] 3.125 mg PO BID Aspirin EC [Ecotrin Low Dose] 81 mg PO DAILY Sevelamer [Renvela] 1,600 mg PO TID-W/MEALS Isosorbide Dinitrate 30 mg PO DAILY Ticagrelor [Brilinta] 90 mg PO BID Calcium Carbonate [Tums] 500 mg PO ACHS PRN PRN Reason: ACID REFLUX Discontinued Atorvastatin [Lipitor] 20 mg PO HS Discharge Medication List Calcium Acetate [PhosLo] 1,334 mg PO TID-W/MEALS #90 cap 03/10/16 [Rx] Aspirin EC [Ecotrin Low Dose] 81 mg PO DAILY 09/27/21 [History] Calcium Carbonate [Tums] 500 mg PO ACHS PRN 09/27/21 [History] Isosorbide Dinitrate 30 mg PO DAILY 09/27/21 [History] Sevelamer [Renvela] 1,600 mg PO TID-W/MEALS 09/27/21 [History] Ticagrelor [Brilinta] 90 mg PO BID 09/27/21 [History] carvediloL [Coreg] 3.125 mg PO BID 09/27/21 [History] Atorvastatin [Lipitor] 40 mg PO HS #90 tab 09/29/21 [Rx] Nitroglycerin Sl Tabs [Nitrostat] 0.4 mg SUBLINGUAL Q5M PRN #25 tab 09/29/21 [Rx] Losartan [Cozaar] 25 mg PO DAILY #30 tab 09/30/21 [Rx] Ticagrelor [Brilinta] 90 mg PO BID tab 09/30/21 [Rx] Follow up Appointment(s)/Referral(s): Lola Arredondo MD [STAFF PHYSICIAN] - 1 Week Manny Mcmullen MD [STAFF PHYSICIAN] - 1 Week Zurdo Keating MD [Primary Care Provider] - 1-2 days Discharge Disposition: HOME SELF-CARE Plan of Treatment: Continue the hemodialysis her to schedule in the hemodialysis facility. Order of Dr. Arredondo nephrology.
--- NOTE | 2021-09-30 10:42 | P.PN ---
Subjective Patient is seen for follow-up for end-stage renal disease. He is status post coronary artery stent placement . Currently doing well No complaints of chest pains or shortness of breath. Right radial site hematoma is stable. Status post hemodialysis yesterday. Objective - Vital Signs Vital signs: Vital Signs Temp 98.8 F 09/30/21 08:00 Pulse 86 09/30/21 08:00 Resp 16 09/30/21 08:00 BP 145/90 09/30/21 08:00 Pulse Ox 97 09/30/21 08:00 Intake & Output 09/29/21 09/30/21 09/30/21 18:59 06:59 18:59 Intake Total 900 240 Balance 900 240 Weight 133 kg 137.5 kg Intake: Oral 900 240 Other: Voiding Method Toilet Toilet Toilet # Voids 1 0 # Bowel Movements 1 1 - Exam Awake comfortable not in any acute distress. Alert oriented 3 Examination of the heart S1 and S2 Examination lungs bilateral breath sounds are heard Abdomen is soft nontender Examination lower extremities shows no evidence of edema FLOUR WORKER exam grossly intact - Labs CBC & Chem 7: 09/30/21 07:14 09/30/21 07:14 Labs: Abnormal Lab Results - Last 24 Hours (Table) 09/29/21 09/29/21 09/29/21 Range/Units 07:52 11:31 11:37 RBC 3.33 L (4.30-5.90) m/uL Hgb 11.4 L (13.0-17.5) gm/dL Hct 34.0 L (39.0-53.0) % MCV 102.1 H (80.0-100.0) fL Lymphocytes # 0.8 L (1.0-4.8) k/uL Chloride (98-107) mmol/L BUN (9-20) mg/dL Creatinine (0.66-1.25) mg/dL POC Glucose (mg/dL) 106 H (75-99) mg/dL Calcium (8.4-10.2) mg/dL PTH Intact 590.0 H (14.0-72.0) pg/mL 09/29/21 09/30/21 09/30/21 Range/Units 19:55 06:22 07:14 RBC 3.27 L (4.30-5.90) m/uL Hgb 11.1 L (13.0-17.5) gm/dL Hct 33.8 L (39.0-53.0) % MCV 103.4 H (80.0-100.0) fL Lymphocytes # 0.8 L (1.0-4.8) k/uL Chloride (98-107) mmol/L BUN (9-20) mg/dL Creatinine (0.66-1.25) mg/dL POC Glucose (mg/dL) 114 H 101 H (75-99) mg/dL Calcium (8.4-10.2) mg/dL PTH Intact (14.0-72.0) pg/mL 09/30/21 Range/Units 07:14 RBC (4.30-5.90) m/uL Hgb (13.0-17.5) gm/dL Hct (39.0-53.0) % MCV (80.0-100.0) fL Lymphocytes # (1.0-4.8) k/uL Chloride 97 L (98-107) mmol/L BUN 47 H (9-20) mg/dL Creatinine 9.37 H* (0.66-1.25) mg/dL POC Glucose (mg/dL) (75-99) mg/dL Calcium 8.3 L (8.4-10.2) mg/dL PTH Intact (14.0-72.0) pg/mL Assessment and Plan Assessment: 1. End-stage renal disease on hemodialysis on a Sunday schedule 2. Non-ST elevation NC status post coronary artery stenting to LAD 3. Coronary artery disease with previous coronary artery stenting in March 2021 4. Hypertension with CK D 5. CK D mineral bone disorder maintained on phosphate binders Plan: Hemodialysis in a.m. as outpatient Okay to discharge . Patient is advised to be compliant with his phosphate binders as outpatient.
[2021-09-30 11:35] LABS: Glucose,Whole Blood 109 mg/dL (75-99)
[2021-09-30 11:45] VITALS: BP 158/88; PULSE 85; TEMP 98.3
== END 2021-09-30 15:58 | disposition home or self-care (01) | DRG 250 ==
LOC: EC 15:32 → 3SCARD 16:44
PROVIDERS: ADMIT Internal Medicine; ATTEND Internal Medicine
PROC: 02703ZZ Dilation of Coronary Artery, One Artery, Percutaneous Approach (ICD-10-PCS; principal; 2021-09-28 11:10)
PROC: B241ZZ3 Ultrasonography of Multiple Coronary Arteries, Intravascular (ICD-10-PCS; principal; 2021-09-28 11:10)
PROC: 02F03ZZ Fragmentation in Coronary Artery, One Artery, Percutaneous Approach (ICD-10-PCS; principal; 2021-09-28 11:10)
PROC: B2111ZZ Fluoroscopy of Multiple Coronary Arteries using Low Osmolar Contrast (ICD-10-PCS; 2021-09-28 11:10)
PROC: 4A023N7 Measurement of Cardiac Sampling and Pressure, Left Heart, Percutaneous Approach (ICD-10-PCS; 2021-09-28 11:10)
PROC: 5A1D70Z Performance of Urinary Filtration, Intermittent, Less than 6 Hours Per Day (ICD-10-PCS; 2021-09-29)
DX: I21.4 Non-ST elevation (NSTEMI) myocardial infarction (principal); N18.6 End stage renal disease; I13.2 Hypertensive heart and chronic kidney disease with heart failure and with stage 5 chronic kidney disease, or end stage renal disease; N25.81 Secondary hyperparathyroidism of renal origin; T82.855A Stenosis of coronary artery stent, initial encounter; E66.9 Obesity, unspecified; E78.5 Hyperlipidemia, unspecified; E78.00 Pure hypercholesterolemia, unspecified; F17.210 Nicotine dependence, cigarettes, uncomplicated; F31.9 Bipolar disorder, unspecified; F41.9 Anxiety disorder, unspecified; G89.29 Other chronic pain; M54.30 Sciatica, unspecified side; I25.110 Atherosclerotic heart disease of native coronary artery with unstable angina pectoris; I25.2 Old myocardial infarction; I25.5 Ischemic cardiomyopathy; I44.7 Left bundle-branch block, unspecified; E83.9 Disorder of mineral metabolism, unspecified; I50.9 Heart failure, unspecified; I95.1 Orthostatic hypotension; I95.3 Hypotension of hemodialysis; Z99.2 Dependence on renal dialysis; Y83.1 Surgical operation with implant of artificial internal device as the cause of abnormal reaction of the patient, or of later complication, without mention of misadventure at the time of the procedure; Z79.02 Long term (current) use of antithrombotics/antiplatelets; Z79.82 Long term (current) use of aspirin; Z79.899 Other long term (current) drug therapy; Z83.3 Family history of diabetes mellitus; Z28.310 Unvaccinated for COVID-19; Z98.890 Other specified postprocedural states; Z90.49 Acquired absence of other specified parts of digestive tract; Z86.14 Personal history of Methicillin resistant Staphylococcus aureus infection
CPT/HCPCS: 36415; 71046; 80048; 80053; 80061; 83721; 83735; 83970; 84100; 84145; 84443; 84484; 85025; 85610; 85730; 90935; 92920; 93005; 93306; 93458; 96365; 99291

== ENCOUNTER → 2022-08-11 | Outpatient (CLI) | payer OTHER ==
[2022-08-11 12:41] LABS: INR 1.1 (<1.2); Partial Thromboplastin Time 25.6 sec (22.0-30.0); Prothrombin Time 11.8 sec (9.0-12.0)
[2022-08-11 18:49] LABS: HGB 11.5 g/dL (13.0-17.0); MCH 33.1 pg (27.0-32.0); MCHC 31.1 g/dL (32.0-37.0); MCV 106.6 fL (80.0-97.0); Mean Platelet Volume 10.4 fL (9.5-12.2); NRBC Per 100 WBC 0 /100 WBCS (0.0-0.0); Platelet Count 141 X 10*3/uL (140-440); RBC 3.47 X 10*6/uL (4.40-5.60); RDW 14.8 % (11.5-14.5); WBC 5.95 X 10*3/uL (4.50-10.00)
[2022-08-11 19:00] LABS: Hepatitis B Surface AB- Quant 40.7 mIU/mL; Hepatitis B Surface Antibody Reactive (Nonreactive)
[2022-08-11 19:03] LABS: African American GFR (CKD) 13.1 (60.0-200.0); Albumin 4.5 g/dL (3.8-4.9); Albumin/Globulin Ratio 1.36 (1.60-3.17); Anion Gap 13.7 mmol/L (10.00-18.00); BUN/Creat Ratio 6.48 Ratio (12.00-20.00); Bilirubin, Conjugated 0.64 mg/dL (0.20-0.40); Bilirubin,Unconjugated 1.3 mg/dL (0.20-1.00); Blood Urea Nitrogen 37.4 mg/dL (9.0-27.0); Calcium 10.1 mg/dL (8.7-10.3); Globulin 3.3 g/dL (1.6-3.3); Non-African American GFR(CKD) 11.3 (60.0-200.0); Total Bilirubin 1.9 mg/dL (0.30-1.20); Total Protein 7.8 g/dL (6.2-8.2)
[2022-08-11 19:16] LABS: Basophils # (A) 0.04 X 10*3/uL (0.00-0.10); Basophils % (A) 0.7 %; Eosinophils # (A) 0.06 X 10*3/uL (0.04-0.35); Immature Grans, Automated 1.5 %; Lymphocytes # (A) 0.89 X 10*3/uL (0.90-5.00); Monocytes # (A) 0.47 X 10*3/uL (0.20-1.00); Monocytes % (A) 7.9 %; Neutrophils % (A) 73.9 %
[2022-08-11 19:37] LABS: Hepatitis B Surface Antigen Nonreactive (Nonreactive); Hepatitis C IgG Antibody Nonreactive (Nonreactive)
[2022-08-11 20:16] LABS: Hepatitis B Core IgM Nonreactive (Nonreactive)
[2022-08-11 20:54] LABS: HIV 2 AB Non-Reactive (Non-Reactive); HIV AB P24 Non-Reactive (Non-Reactive); HIV P24 AG Non-Reactive (Non-Reactive)
[2022-08-12 05:24] LABS: EBV-EA (IgG) <0.2 AI; EBV-EBNA(IgG) >8.0 AI; EBV-VCA (IgG) >8.0 AI; EBV-VCA (IgM) <0.2 AI
[2022-08-15 15:04] LABS: Cotinine <2.0 ng/mL (<2.0); Nicotine <2.0 ng/mL (<2.0)
== END | disposition expired ==
LOC: LABWHC1 08:52
PROVIDERS: ATTEND Transplant Surgery
DX: Z03.8 Encounter for observation for other suspected diseases and conditions ruled out (principal); Z11.3 Encounter for screening for infections with a predominantly sexual mode of transmission; Z11.4 Encounter for screening for human immunodeficiency virus [HIV]; Z76.0 Encounter for issue of repeat prescription; N18.4 Chronic kidney disease, stage 4 (severe); Z11.1 Encounter for screening for respiratory tuberculosis; Z13.228 Encounter for screening for other metabolic disorders; B25.9 Cytomegaloviral disease, unspecified; B27.90 Infectious mononucleosis, unspecified without complication; B19.10 Unspecified viral hepatitis B without hepatic coma; B19.20 Unspecified viral hepatitis C without hepatic coma; E11.65 Type 2 diabetes mellitus with hyperglycemia; R79.1 Abnormal coagulation profile; F17.200 Nicotine dependence, unspecified, uncomplicated; Z76.82 Awaiting organ transplant status
CPT/HCPCS: 86900; 86901; 86803; 86705; 86665 ×2; 87522; 80053; 86663; 82248; 82465; 82977; 83615; 85025; 85610; 85730; 86706; 87340; 86664; 86644; 86704; 86780; 86480; 87390; 83036; 36415; G0480; 80323

== ENCOUNTER 2022-09-03 12:03 | Inpatient (IN) | payer OTHER ==
[2022-09-03] MEDS ORDERED: NITROGLYCERIN SL TABS 0.4 MG TAB SUBLINGUAL STA (12:21)
--- NOTE | 2022-09-03 12:29 | ED ---
General Adult HPI - General Chief complaint: Chest Pain Stated complaint: Left arm pain Time Seen by Provider: 09/03/22 12:09 Source: patient, EMS, RN notes reviewed, old records reviewed Mode of arrival: EMS Limitations: no limitations - History of Present Illness Initial comments: Patient is a 37-year-old male with past medical history significant for prior MIs, CAD with multiple PCI's, ESRD on hemodialysis, hypertension, hyperlipidemia, tobacco abuse presents emergency Department complaining of chest pain. Began yesterday after his run of dialysis after he received a full run of dialysis. States his approximate 7 out of 10 and then it was substernal in nature with some left arm involvement. States it did improve by itself and did not present for evaluation. Did notice his heart rate was somewhat elevated after dialysis as well. Today this morning at approximately 8 or 9 AM, patient had recurrence of the pain while watching TV. No other associated symptoms including denying nausea, vomiting, diaphoresis. Denies any shortness of br eath. States the pain was similar to yesterday, and is improved at this time. Has only taken aspirin 324 mg provided by EMS. Patient is underwent of an old blood thinners. Dialysis accesses the left upper extremity. Denies any current nausea, vomiting, abdominal pain. States he is supposed to be on the tragus and tablets at home but has run out. Presents for further evaluation at this time over concern for chest pain as well as his history of CAD with multiple stents and PCI's. EMS states that there EKG machine read possible changes in EKG. They were unimpressed and we will obtain repeat EKG here in the department. Patient currently rates his pain as 2-3 out of 10. No arm involvement. Only substernal. - Related Data Home Medications Medication Instructions Recorded Confirmed Calcium Carbonate [Tums] 500 mg PO ACHS PRN 09/27/21 01/06/22 Isosorbide Dinitrate 30 mg PO DAILY 09/27/21 01/06/22 Ticagrelor [Brilinta] 90 mg PO BID 09/27/21 01/06/22 carvediloL [Coreg] 3.125 mg PO BID 09/27/21 01/06/22 Ergocalciferol [Vitamin D2 (1250 1,250 mcg PO Q14D 09/03/22 09/03/22 Mcg = [id number] Iu)] Mupirocin 2% Oint [Bactroban 2% 1 applic TOPICAL BID 09/03/22 09/03/22 Oint] Sulfamethox-Tmp 400-80Mg [Bactrim 1 tab PO BID 09/03/22 09/03/22 SS 400-80 mg] Previous Rx's Medication Instructions Recorded Calcium Acetate [PhosLo] 1,334 mg PO TID-W/MEALS #90 cap 03/10/16 Atorvastatin [Lipitor] 40 mg PO HS #90 tab 09/29/21 Aspirin 81 mg PO DAILY #90 tab 01/10/22 Melatonin 5 mg PO HS #30 tab 01/20/22 busPIRone HCl [Buspar] 15 mg PO TID PRN #90 tab 01/20/22 Allergies Allergy/AdvReac Type Severity Reaction Status Date / Time No Known Allergies Allergy Verified 01/06/22 08:48 Review of Systems ROS Statement: Those systems with pertinent positive or pertinent negative responses have been documented in the HPI. Review of Systems: CONST: Denies fever EYES: Denies blurry vision ENT: Denies nasal congestion C/V: Endorses chest pain RESP: Denies shortness of breath GI: Denies abdominal pain : Denies dysuria SKIN: Denies rash. MSK: Denies joint pain. NEURO: Denies headache ROS Other: All systems not noted in ROS Statement are negative. Past Medical History Past Medical History: Coronary Artery Disease (CAD), Chest Pain / Angina, Heart Failure, Hyperlipidemia, Hypertension, Myocardial Infarction ([place]), Renal Disease Additional Past Medical History / Comment(s): Hyperlipidemia, chronic renal fa ilure, bipolar disorder, hypertension, realizing that disorder, chronic back pain and sciatica Last Myocardial Infarction Date:: 2020 History of Any Multi-Drug Resistant Organisms: CRE, MRSA Date of last positivie culture/infection: 03/14/16 *CP-CRE-[facility] Confirmed by [facility]; 02/10/15 MRSA MDRO Source:: Blood-*CRE-[facility]; Thigh-MRSA Past Surgical History: Cholecystectomy Additional Past Surgical History / Comment(s): Previous history of any biopsy Past Anesthesia/Blood Transfusion Reactions: No Reported Reaction Past Psychological History: Anxiety, Bipolar Smoking Status: Former smoker Past Alcohol Use History: None Reported Past Drug Use History: Marijuana - Past Family History Mother History Unknown: Yes Father Family Medical History: Diabetes Mellitus Additional Family Medical History / Comment(s): sciatica General Exam - General Exam Comments Initial Comments: General: Appears in no acute distress. HEAD: Normal with no signs of head trauma. EYES: PERRLA, EOMI, conjunctiva normal, no discharge. ENT: Hearing grossly intact, normal oropharynx. RESPIRATORY: Clear breath sounds bilaterally. No wheezes, rales, or rhonchi. C/V: Regular rate and rhythm. S1 and S2 auscultated,, peripheral pulses 2+ and intact throughout. Left upper extremity AV fistula has palpable thrill and audible bruit. Chest pain nonreproducible on palpation. ABD: Abd is soft, nontender, nondistended EXT: Normal range of motion, no obvious deformity SKIN: No rashes or lesions observed on exposed skin. NEURO: Alert and oriented 4. Limitations: no limitations Course Vital Signs 09/03/22 09/03/22 09/03/22 12:07 12:13 13:22 Temperature 98.0 F Pulse Rate 98 96 Pulse Rate [ 96 Surgery Technician ] Respiratory 18 18 Rate Blood Pressure 125/81 125/87 O2 Sat by Pulse 97 96 Oximetry Medical Decision Making - Medical Decision Making Was pt. sent in by a medical professional or institution (, PA, COLLEGE INSTRUCTOR, urgent care, hospital, or penitentiary...) When possible be specific @ -No Did you speak to anyone other than the patient for history (EMS, parent, family, police, friend...)? What history was obtained from this source @ -No Did you review nursing and triage notes (agree or disagree)? Why? @ -I reviewed and agree with nursing and triage notes Were old charts reviewed (outside hosp., previous admission, EMS record, old EKG, old radiological studies, urgent care reports/EKG's, penitentiary records)? Report findings @ -Old charts, cardiology consult, as well as EKGs reviewed from his most recen t admission in December 2021. Differential Diagnosis (chest pain, altered mental status, abdominal pain women, abdominal pain men, vaginal bleeding, weakness, fever, dyspnea, syncope, headache, dizziness, GI bleed, back pain, seizure, CVA, palpatations, mental health, musculoskeletal)? @ -Differential Chest Pain: Stable Angina, Unstable Angina, STEMI, NSTEMI Aortic Dissection, Pneumothorax, Musculoskeletal, Esophageal Spasm GERD, Cholecystitis, Pancreatitis, Zoster, this is not meant to be an all-inclusive list. EKG interpreted by me (3pts min.). @ -As above X-rays interpreted by me (1pt min.). @ -Chest x-ray reveals mild pulmonary vascular congestion and a small left pleural effusion. CT interpreted by me (1pt min.). @ -None done U/S interpreted by me (1pt. min.). @ -None done What testing was considered but not performed or refused? (CT, X-rays, U/S, labs)? Why? @ -None What meds were considered but not given or refused? Why? @ -None Did you discuss the management of the patient with other professionals (professionals i.e. , PA, COLLEGE INSTRUCTOR, lab, RT, psych nurse, social media assistant, stained glass joiner, teacher, toxics program officer, embedded case manager)? Give summary @ -Spoke with Rishabh who accepted the patient and was in agreement with the plan. Was smoking cessation discussed for >3mins.? @ -No Was critical care preformed (if so, how long)? @ -yes, 35 minutes Were there social determinants of health that impacted care today? How? (Homelessness, low income, unemployed, alcoholism, drug addiction, transportation, low edu. Level, literacy, decrease access to med. care, prison, rehab)? @ -No Was there de-escalation of care discussed even if they declined (Discuss DNR or withdrawal of care, Hospice)? DNR status @ -No What co-morbidities impacted this encounter? (DM, HTN, Smoking, COPD, CAD, Cancer, CVA, ARF, Chemo, Hep., AIDS, mental health diagnosis, sleep apnea, morbid obesity)? @ -CAD Was patient admitted / discharged? Hospital course, mention meds given and route, prescriptions, significant lab abnormalities, going to OR and other pertinent info. @ -Based on the patient's presentation and physical exam, I'm concerned for possible cardiopulmonary etiology for his current chest pain. Presents with typical chest pain with a significant history of coronary artery disease requiring multiple stents and PCI's. We will obtain cardiac workup at this time including EKG, chest x-ray, labs. Pain is improved, however we will attempt to further improvement with nitroglycerin sublingual tablets. He was in agreement with this plan as well. Patient is already received 324 mg of aspirin from EMS. Vital signs are within acceptable limits. EKG shows somewhat left bundle branch block morphology with no acute changes when compared with EKGs from January 06, 2022. Chest x-ray does reveal a mild amount of a vascular congestion with no complaints as well as a small left pleural effusion but no symptoms of CHF. Patient's labs are remarkable for chronic anemia which is at his baseline. Patient is an elevated BUN/creatinine the setting of ESRD on hemodialysis. No need for urgent dialysis at this time. Patient's troponin is elevated to 0.273. He does have a chronically elevated troponin but this is slightly more elevated than his baseline. Remainder the labs are within acceptable limits. I discussed results with the patient. Following the nitro glycerin tablets, pain has resolved. We will start him on subcutaneous nitroglycerin ointment as well as place him on a heparin drip for his NSTEMI. He was in agreement this plan. As stated above, he already received 324 mg of aspirin. We will continue to trend his troponin. Echo was ordered. Cardiology was consulted. Patient was in agreement this plan. He is resting comfortably at this time. Vital signs remained within acceptable limits. Chest pain has resolved. I spoke with the admitting physician, Dr. Keating who accepted the admission. Undiagnosed new problem with uncertain prognosis? @ -No Drug Therapy requiring intensive monitoring for toxicity (Heparin, Nitro, Insulin, Cardizem)? @ -No Were any procedures done? @ -No Diagnosis/symptom? @ -NSTEMI, chest pain Acute, or Chronic, or Acute on Chronic? @ -Acute Uncomplicated (without systemic symptoms) or Complicated (systemic symptoms)? @ -Complicated Side effects of treatment? @ -none Exacerbation, Progression, or Severe Exacerbation] @ -no Poses a threat to life or bodily function? @ -Potentially, can result in threat of life. Diagnosis/symptom? @ -ESRD on hemodialysis Acute, or Chronic, or Acute on Chronic? @ -Chronic Uncomplicated (without systemic symptoms) or Complicated (systemic symptoms)? @ -Uncomplicated Side effects of treatment? @ -[none] Exacerbation, Progression, or Severe Exacerbation] @ -[no] Poses a threat to life or bodily function? @ -[no] - Lab Data Result diagrams: 09/03/22 12:33 09/03/22 12:33 Lab Results 09/03/22 09/03/22 09/03/22 Range/Units 12:33 12:33 12:33 WBC 10.0 (3.8-10.6) k/uL RBC 3.33 L (4.30-5.90) m/uL Hgb 10.9 L (13.0-17.5) gm/dL Hct 33.4 L (39.0-53.0) % MCV 100.5 H (80.0-100.0) fL MCH 32.9 (25.0-35.0) pg MCHC 32.8 (31.0-37.0) g/dL RDW 14.5 (11.5-15.5) % Plt Count 209 (150-450) k/uL MPV 8.4 Neutrophils % 88 % Lymphocytes % 7 % Monocytes % 3 % Eosinophils % 1 % Basophils % 0 % Neutrophils # 8.8 H (1.3-7.7) k/uL Lymphocytes # 0.7 L (1.0-4.8) k/uL Monocytes # 0.3 (0-1.0) k/uL Eosinophils # 0.1 (0-0.7) k/uL Basophils # 0.0 (0-0.2) k/uL Macrocytosis Slight PT 13.7 H (9.0-12.0) sec INR 1.3 H (<1.2) APTT 25.4 (22.0-30.0) sec Sodium 134 L (137-145) mmol/L Potassium 3.7 (3.5-5.1) mmol/L Chloride 93 L (98-107) mmol/L Carbon Dioxide 28 (22-30) mmol/L Anion Gap 13 mmol/L BUN 45 H (9-20) mg/dL Creatinine 5.80 H (0.66-1.25) mg/dL Est GFR (CKD-EPI)AfAm 13 (>60 ml/min/1.73 sqM) Est GFR (CKD-EPI)NonAf 11 (>60 ml/min/1.73 sqM) Glucose 126 H (74-99) mg/dL Calcium 9.3 (8.4-10.2) mg/dL Magnesium 2.3 (1.6-2.3) mg/dL Total Bilirubin 1.5 H (0.2-1.3) mg/dL AST 21 (17-59) U/L ALT 18 (4-49) U/L Alkaline Phosphatase 177 H (38-126) U/L Troponin I (0.000-0.034) ng/mL Total Protein 7.6 (6.3-8.2) g/dL Albumin 3.9 (3.5-5.0) g/dL 09/03/22 Range/Units 12:33 WBC (3.8-10.6) k/uL RBC (4.30-5.90) m/uL Hgb (13.0-17.5) gm/dL Hct (39.0-53.0) % MCV (80.0-100.0) fL MCH (25.0-35.0) pg MCHC (31.0-37.0) g/dL RDW (11.5-15.5) % Plt Count (150-450) k/uL MPV Neutrophils % % Lymphocytes % % Monocytes % % Eosinophils % % Basophils % % Neutrophils # (1.3-7.7) k/uL Lymphocytes # (1.0-4.8) k/uL Monocytes # (0-1.0) k/uL Eosinophils # (0-0.7) k/uL Basophils # (0-0.2) k/uL Macrocytosis PT (9.0-12.0) sec INR (<1.2) APTT (22.0-30.0) sec Sodium (137-145) mmol/L Potassium (3.5-5.1) mmol/L Chloride (98-107) mmol/L Carbon Dioxide (22-30) mmol/L Anion Gap mmol/L BUN (9-20) mg/dL Creatinine (0.66-1.25) mg/dL Est GFR (CKD-EPI)AfAm (>60 ml/min/1.73 sqM) Est GFR (CKD-EPI)NonAf (>60 ml/min/1.73 sqM) Glucose (74-99) mg/dL Calcium (8.4-10.2) mg/dL Magnesium (1.6-2.3) mg/dL Total Bilirubin (0.2-1.3) mg/dL AST (17-59) U/L ALT (4-49) U/L Alkaline Phosphatase (38-126) U/L Troponin I 0.273 H* (0.000-0.034) ng/mL Total Protein (6.3-8.2) g/dL Albumin (3.5-5.0) g/dL - EKG Data -: EKG Interpreted by Me EKG Comments: 12-lead Electrocardiogram Interpretation Note EKG was reviewed and interpreted by myself. 12-lead ECG performed at 1206 is interpreted by me as revealing normal sinus rhythm at a rate of 97 beats per minute. Pendroy is normal. VT interval is 194 ms, QRS durations 122 ms, QTc is 428 ms. There is somewhat left bundle branch block morphology present.. There were no acute ST or T wave abnormalities to suggest myocardial ischemia or injury. R wave progression across the precordium was satisfactory. By my interpretation this EKG is non-diagnostic for acute ischemia. Compared with EKG from January 06, 2022, no significant change. Left bundle branch block is more pronounced on prior EKGs. Critical Care Time Critical Care Time: Yes Total Critical Care Time: 35 Critical Care Time: Upon my evaluation, this patient had a high probability of imminent or life-threatening deterioration due to NSTEMI, heparin initiation, which required my direct attention, intervention, and personal management. I have personally provided 35 minutes of critical care time exclusive of time spent on separately billable procedures. Time includes review of laboratory data, radiology results, discussion with consultants, and monitoring for potential decompensation. Interventions were performed as documented in my note. Disposition Clinical Impression: NSTEMI (non-ST elevated myocardial infarction), Chest pain, History of end stage renal disease, ESRD on hemodialysis Disposition: ADMITTED IP TO THIS HOSP Condition: Stable Referrals: Zurdo Keating MD [Primary Care Provider] - 1-2 days Time of Disposition: 13:25
[2022-09-03 12:42] LABS: Basophils % (A) 0 %; Eosinophils # (A) 0.1 k/uL (0-0.7); Eosinophils % (A) 1 %; HCT 33.4 % (39.0-53.0); HGB 10.9 gm/dL (13.0-17.5); Lymphocytes # (A) 0.7 k/uL (1.0-4.8); Lymphocytes % (A) 7 %; MCH 32.9 pg (25.0-35.0); MCHC 32.8 g/dL (31.0-37.0); MCV 100.5 fL (80.0-100.0); Macrocytosis Slight; Mean Platelet Volume 8.4; Monocytes # (A) 0.3 k/uL (0-1.0); Monocytes % (A) 3 %; Neutrophils # (A) 8.8 k/uL (1.3-7.7); Neutrophils % (A) 88 %; Platelet Count 209 k/uL (150-450); RBC 3.33 m/uL (4.30-5.90); RDW 14.5 % (11.5-15.5)
--- NOTE | 2022-09-03 12:48 | XR ---
EXAMINATION TYPE: XR chest 2V DATE OF EXAM: 09/03/2022 12:44 PM COMPARISON: Chest radiographs from chest radiograph 01/18/2022, CT chest abdomen pelvis 01/16/2022. TECHNIQUE: XR chest 2V Frontal and lateral views of the chest. CLINICAL INDICATION:Male, 37 years old with history of Chest Pain; FINDINGS: Lungs/Pleura: No focal consolidation or pneumothorax. Small left pleural effusion. Pulmonary vascularity: Pulmonary vascular congestion. Heart/mediastinum: Cardiomediastinal silhouette is enlarged and stable. Musculoskeletal: No acute osseous pathology. IMPRESSION: Cardiomegaly, pulmonary vascular congestion and small left pleural effusion. Correlate with BNP for c ongestive heart failure.
[2022-09-03 12:51] LABS: INR 1.3 (<1.2); Partial Thromboplastin Time 25.4 sec (22.0-30.0); Prothrombin Time 13.7 sec (9.0-12.0)
[2022-09-03 12:54] LABS: Albumin 3.9 g/dL (3.5-5.0); Calcium 9.3 mg/dL (8.4-10.2); Magnesium 2.3 mg/dL (1.6-2.3); Potassium 3.7 mmol/L (3.5-5.1); Total Bilirubin 1.5 mg/dL (0.2-1.3); Total Protein 7.6 g/dL (6.3-8.2)
[2022-09-03] MEDS ORDERED: HEPARIN SODIUM 1,000 UN/ML (10ML VL) IV ONE (13:26)
[2022-09-03] MEDS ORDERED: HEPARIN SODIUM 1,000 UN/ML (10ML VL) IV PRN (13:26)
[2022-09-03] MEDS ORDERED: NALOXONE 0.4 MG/ML 1 ML VIAL IV PRN (13:28)
[2022-09-03] MEDS: HEPARIN SOD,PORK IN 0.45% NACL 25,000 UNIT in 0.45% NACL 1 250ML.BAG IV SCH (13:57)
[2022-09-03] MEDS: NITROGLYCERIN OINT 1 INCH/GM PACKET TOPICAL SCH (14:55)
[2022-09-03] MEDS ORDERED: busPIRone HCl 5 MG TAB PO PRN (16:56)
[2022-09-03] MEDS ORDERED: ERGOCALCIFEROL 1,250 MCG (50,000 IU) CAPSULE PO SCH (17:00)
--- NOTE | 2022-09-03 17:15 | P.HPIM ---
History of Present Illness H&P Date: 09/03/22 (Chest pain with recurrence) Chief Complaint: Patient complaining of a chest pain precordial after hemodialysis. History and physical Dictation date 09/03/[address] Dulce Hernandez. Chief complaint: Patient stated that he had a chest pain today and worsened with increased heart rate and he called the ambulance and came to the emergency room History of present illness: Patient had hemodialysis yesterday and during the dialysis and after dialysis he had the chest pain with the tachycardia 112 and they advised him in the dialysis if he still continued to have a chest pain tomorrow to go to the emergency room. Patient this morning about 9 to 10:00 he experiences the chest pain again precordial and with the heart rate increased and palpitation and he had history of 6 stent was placed in his coronary arteries with the underlying atherosclerotic heart disease and renal failure he got worried and called ambulance came to the hospital. Past medical history: He had history of chronic dialysis in the hemodialysis center and managed by Dr. Arredondo and Dr. Segura and he had yesterday during the dialysis chest discomfort and positive dialysis and he was advised to come to the hospital to be looked at and he called the ambulance came to the hospital. Patient has similar episodes in the past and he had 6 stent as his father had bedside and he stated that. Past medical history of coronary artery disease and stent History of hypertension was hypertensive nephrosclerosis. And End-stage renal disease on hemodialysis. Habits no smoking or drinking. No illicit drugs. Lives with his father Review of system #1 neuropsychiatry and anxiety neurosis #2 cardiovascular chest pain precordial and recurrent was palpitation #3 respiratory no shortness of breath at the time but he had before #4 no GI symptoms no diarrhea or constipation #5 minimal urine output with the hemodialysis. #6 musculoskeletal no symptoms #7 no blurred vision or dizziness or falling attacks. Reviewing the 14 bullet no added symptoms Vital sign on admission temperature 90.8 F oral and pulse rate 98/m, respiratory rate 18/m, blood pressure 125/81, pulse ox 97%. Head was normocephalic and atraumatic Pupil equal reactive Oropharynx was negative No fascial asymmetry and no history of stroke. Neck was supple no JVD no thyromegaly no lymphadenopathy Chest decreased air entry on the basis bilaterally could be underlying atelectasis and occasional cough Heart regular sinus rhythm with intermittent tachycardia Abdomen obese positive bowel sounds no tenderness in the four-quadrant Extremities he has the left arm where the dialysis conduit under the skin functioning and he had dialysis yesterday. No edema of the lower extremities. He had a sore on his left leg has been resolved treated as outpatient Assessment: Chest pain with elevated troponin., Unstable angina #2 history of coronary artery disease atherosclerotic artery disease status post 66 stent #3 end-stage renal disease on hemodialysis Sunday, , Sunday per week in the dialysis center. #4 obesity Plan: Patient on heparin protocol and cardiology consult requested as well as nephrology consult requested patient currently feeling fine with no acute chest pain on the time of the examination and his vital signs stable. Past Medical History Past Medical History: Coronary Artery Disease (CAD), Chest Pain / Angina, Heart Failure, Hyperlipidemia, Hypertension, Myocardial Infarction ([place]), Renal Disease Additional Past Medical History / Comment(s): Hyperlipidemia, chronic renal failure, bipolar disorder, hypertension, realizing that disorder, chronic back pain and sciatica Last Myocardial Infarction Date:: 2020 History of Any Multi-Drug Resistant Organisms: CRE, MRSA Date of last positivie culture/infection: 03/14/16 *CP-CRE-[facility] Confirmed by [facility]; 02/10/15 MRSA MDRO Source:: Blood-*CRE-KPC; Thigh-MRSA Past Surgical History: Cholecystectomy, Heart Catheterization With Stent Additional Past Surgical History / Comment(s): Previous history of any biopsy, pt has 7 stents Past Anesthesia/Blood Transfusion Reactions: No Reported Reaction Past Psychological History: Anxiety, Bipolar Smoking Status: Former smoker Past Alcohol Use History: None Reported Past Drug Use History: Marijuana - Past Family History Mother History Unknown: Yes Father Family Medical History: Diabetes Mellitus Additional Family Medical History / Comment(s): sciatica Medications and Allergies Home Medications Medication Instructions Recorded Confirmed Type Calcium Acetate [PhosLo] 1,334 mg PO TID-W/MEALS #90 cap 03/10/16 09/03/22 Rx Calcium Carbonate [Tums] 500 mg PO ACHS PRN 09/27/21 09/03/22 History Isosorbide Dinitrate 30 mg PO DAILY 09/27/21 09/03/22 History Ticagrelor [Brilinta] 90 mg PO BID 09/27/21 09/03/22 History carvediloL [Coreg] 3.125 mg PO BID 09/27/21 09/03/22 History Atorvastatin [Lipitor] 40 mg PO HS #90 tab 09/29/21 09/03/22 Rx Aspirin 81 mg PO DAILY #90 tab 01/10/22 09/03/22 Rx Melatonin 5 mg PO HS #30 tab 01/20/22 09/03/22 Rx busPIRone HCl [Buspar] 15 mg PO TID PRN #90 tab 01/20/22 09/03/22 Rx Ergocalciferol [Vitamin D2 (1250 1,250 mcg PO Q14D 09/03/22 09/03/22 History Mcg = 85587 Iu)] Mupirocin 2% Oint [Bactroban 2% 1 applic TOPICAL BID 09/03/22 09/03/22 History Oint] Sulfamethox-Tmp 400-80Mg [Bactrim 1 tab PO BID 09/03/22 09/03/22 History SS 400-80 mg] Allergies Allergy/AdvReac Type Severity Reaction Status Date / Time No Known Allergies Allergy Verified 09/03/22 15:02 Physical Exam Vitals: Vital Signs Temp Pulse Pulse Resp BP Pulse Ox 09/03/22 16:00 93 16 116/95 94 L 09/03/22 15:00 96 18 121/93 95 09/03/22 14:00 92 18 123/89 96 09/03/22 13:22 96 18 125/87 96 09/03/22 12:13 96 09/03/22 12:07 98.0 F 98 18 125/81 97 Intake and Output 09/03/22 09/03/22 09/03/22 06:59 14:59 22:59 Other: Weight 124.738 kg Results CBC & Chem 7: 09/03/22 12:33 09/03/22 12:33 Labs: Abnormal Lab Results - Last 24 Hours (Table) 09/03/22 09/03/22 09/03/22 Range/Units 12:33 12:33 12:33 RBC 3.33 L (4.30-5.90) m/uL Hgb 10.9 L (13.0-17.5) gm/dL Hct 33.4 L (39.0-53.0) % MCV 100.5 H (80.0-100.0) fL Neutrophils # 8.8 H (1.3-7.7) k/uL Lymphocytes # 0.7 L (1.0-4.8) k/uL PT 13.7 H (9.0-12.0) sec INR 1.3 H (<1.2) Sodium 134 L (137-145) mmol/L Chloride 93 L (98-107) mmol/L BUN 45 H (9-20) mg/dL Creatinine 5.80 H (0.66-1.25) mg/dL Glucose 126 H (74-99) mg/dL Total Bilirubin 1.5 H (0.2-1.3) mg/dL Alkaline Phosphatase 177 H (38-126) U/L Troponin I (0.000-0.034) ng/mL 09/03/22 09/03/22 Range/Units 12:33 15:02 RBC (4.30-5.90) m/uL Hgb (13.0-17.5) gm/dL Hct (39.0-53.0) % MCV (80.0-100.0) fL Neutrophils # (1.3-7.7) k/uL Lymphocytes # (1.0-4.8) k/uL PT (9.0-12.0) sec INR (<1.2) Sodium (137-145) mmol/L Chloride (98-107) mmol/L BUN (9-20) mg/dL Creatinine (0.66-1.25) mg/dL Glucose (74-99) mg/dL Total Bilirubin (0.2-1.3) mg/dL Alkaline Phosphatase (38-126) U/L Troponin I 0.273 H* 0.239 H* (0.000-0.034) ng/mL
[2022-09-03] MEDS: ASPIRIN 81 MG PO SCH (17:35)
[2022-09-03] MEDS: CALCIUM ACETATE 667 MG TAB PO SCH (18:03)
[2022-09-03] MEDS: carvediloL 3.125 MG TAB PO SCH (20:32)
[2022-09-03] MEDS: TICAGRELOR 90 MG TAB PO SCH (20:32)
[2022-09-03] MEDS: MELATONIN 5 MG TABLET PO SCH (20:32)
[2022-09-03] MEDS: ATORVASTATIN 40 MG TAB PO SCH (20:32)
[2022-09-04] MEDS ORDERED: ALPRAZolam 0.25 MG TAB PO PRN ×2 (00:28→08:08)
[2022-09-04] MEDS: NITROGLYCERIN OINT 1 INCH/GM PACKET TOPICAL SCH ×2 (00:34→18:17)
[2022-09-04] MEDS ORDERED: HYDROmorphone 0.5 MG/0.5 ML SYRINGE IVP STA (01:07)
[2022-09-04 01:57] LABS: Basophils % (A) 1 %; Eosinophils # (A) 0.1 k/uL (0-0.7); Eosinophils % (A) 1 %; HCT 31.7 % (39.0-53.0); HGB 10.6 gm/dL (13.0-17.5); Lymphocytes # (A) 0.8 k/uL (1.0-4.8); Lymphocytes % (A) 9 %; MCH 33.8 pg (25.0-35.0); MCHC 33.4 g/dL (31.0-37.0); MCV 101.3 fL (80.0-100.0); Macrocytosis Slight; Mean Platelet Volume 8.7; Monocytes # (A) 0.3 k/uL (0-1.0); Monocytes % (A) 3 %; Neutrophils # (A) 7.3 k/uL (1.3-7.7); Neutrophils % (A) 85 %; Platelet Count 186 k/uL (150-450); RBC 3.12 m/uL (4.30-5.90); RDW 14.6 % (11.5-15.5); WBC 8.6 k/uL (3.8-10.6)
[2022-09-04 02:11] LABS: INR 1.4 (<1.2)
[2022-09-04 02:36] LABS: Calcium 9.3 mg/dL (8.4-10.2); Potassium 4.2 mmol/L (3.5-5.1)
[2022-09-04] MEDS: HEPARIN SOD,PORK IN 0.45% NACL 25,000 UNIT in 0.45% NACL 1 250ML.BAG IV SCH ×2 (04:11→17:23)
[2022-09-04] MEDS: CALCIUM ACETATE 667 MG TAB PO SCH ×3 (05:16→17:18)
--- NOTE | 2022-09-04 08:07 | P.CRDCN ---
History of Present Illness Consult date: 09/04/22 History of present illness: History of Present Illness: The patient is a 37-year-old male with known history of end-stage renal disease, history of PCI, remote history of smoking, hypertension and hyperlipidemia who presented with symptoms of chest discomfort. His symptoms started after dialysis on Sunday that improved and recurred yesterday and persisted until last night. He is pain-free at this time. The symptoms reminds him of the way he felt in December 2022 when he had a stent to the LAD but he was not dyspneic wasn't. He denies any dizziness or palpitation, no peripheral edema, no PND or orthopnea. He has been compliant with his medication and dialysis and has been doing well. This is the first time he has discomfort since his last intervention. His ejection fraction in the past was 40-45%. In December he received a stent to the distal PDA and he had suggestion of myocardial bridging in the mid LAD at the site of the stenting. He had a contained hematoma but no high-grade stenosis. His left circumflex had no evidence of high-grade stenosis. His troponin peaked at 1. He has no evidence of malignant arrhythmia. His coronary risk factors are positive for hypertension and hyperlipidemia. Medications: Coreg 3.125 mg twice a day, BuSpar, Brilinta 90 mg twice a day, aspirin once a day, Lipitor 40 mg daily, isosorbide 30 mg daily, vitamin D, PhosLo. Review of Systems: Respiratory: No history of asthma, bronchitis or recent cough. GI: No nausea or vomiting . No history of peptic ulcer disease. No recent GI bleed. : He is on dialysis with minimal urinary output Nervous System: No stroke or seizure. Physical Examination: 77-year-old male, alert and oriented no apparent distress ,Blood pressure 115/70, Heart rate 70 Head: Normocephalic. Eyes: Sclerae nonicteric. Neck: Good carotid upstroke, no bruit, no jugular venous distention. Lungs: Clear to auscultation. Heart: Regular rate and rhythm, S1-S2, no S3, no rub. Systolic ejection murmur. Abdomen: Soft nontender, positive bowel sounds no organomegaly. Extremities: No edema, intact distal pulses. Labs: Potassium 4.2, BUN 50, creatinine 6.87, hemoglobin 10.6, troponin 1.0, chest x- ray with pulmonary vascular congestion with small left pericardial effusion EKG: Sinus mechanism with interventricular conduction delay and nonspecific ST-T wave changes Impression: 1. Chest discomfort was evidence to suggest non-STEMI 2. History of cardiomyopathy 3. Prior PCI to the LAD and RCA 4. End-stage renal disease 5. History of hypertension 6. History of hyperlipidemia Plan: 1. Continue present therapy 2. Proceed with coronary angiography, the risks and the complications were discussed with the patient 3. Depending on his progress further recommendations will be made 4. The procedure will be done by Dr. Mcmullen 5. Thank you for this consult we will follow with you. Past Medical History Past Medical History: Coronary Artery Disease (CAD), Chest Pain / Angina, Heart Failure, Hyperlipidemia, Hypertension, Myocardial Infarction ([place]), Renal Disease Additional Past Medical History / Comment(s): Hyperlipidemia, chronic renal failure, bipolar disorder, hypertension, realizing that disorder, chronic back pain and sciatica Last Myocardial Infarction Date:: 2020 History of Any Multi-Drug Resistant Organisms: CRE, MRSA Date of last positivie culture/infection: 03/14/16 *CP-CRE-[facility] Confirmed by [facility]; 02/10/15 MRSA MDRO Source:: Blood-*CRE-KPC; Thigh-MRSA Past Surgical History: Cholecystectomy, Heart Catheterization With Stent Additional Past Surgical History / Comment(s): Previous history of any biopsy, pt has 7 stents Past Anesthesia/Blood Transfusion Reactions: No Reported Reaction Date of Last Stent Placement:: Unknown Past Psychological History: Anxiety, Bipolar Additional Psychological History / Comment(s): Pt resides with his father. 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 Otherwise, he is independent. Smoking Status: Former smoker Past Alcohol Use History: None Reported Additional Past Alcohol Use History / Comment(s): Pt started smoking in 2007 and quit in 2009. Past Drug Use History: Marijuana - Past Family History Mother History Unknown: Yes Father Family Medical History: Diabetes Mellitus Additional Family Medical History / Comment(s): sciatica Medications and Allergies Home Medications Medication Instructions Recorded Confirmed Type Calcium Acetate [PhosLo] 1,334 mg PO TID-W/MEALS #90 cap 03/10/16 09/03/22 Rx Calcium Carbonate [Tums] 500 mg PO ACHS PRN 09/27/21 09/03/22 History Isosorbide Dinitrate 30 mg PO DAILY 09/27/21 09/03/22 History Ticagrelor [Brilinta] 90 mg PO BID 09/27/21 09/03/22 History carvediloL [Coreg] 3.125 mg PO BID 09/27/21 09/03/22 History Atorvastatin [Lipitor] 40 mg PO HS #90 tab 09/29/21 09/03/22 Rx Aspirin 81 mg PO DAILY #90 tab 01/10/22 09/03/22 Rx Melatonin 5 mg PO HS #30 tab 01/20/22 09/03/22 Rx busPIRone HCl [Buspar] 15 mg PO TID PRN #90 tab 01/20/22 09/03/22 Rx Ergocalciferol [Vitamin D2 (1250 1,250 mcg PO Q14D 09/03/22 09/03/22 History Mcg = 70787 Iu)] Mupirocin 2% Oint [Bactroban 2% 1 applic TOPICAL BID 09/03/22 09/03/22 History Oint] Sulfamethox-Tmp 400-80Mg [Bactrim 1 tab PO BID 09/03/22 09/03/22 History SS 400-80 mg] Allergies Allergy/AdvReac Type Severity Reaction Status Date / Time No Known Allergies Allergy Verified 09/03/22 15:02 Physical Exam Vitals: Vital Signs Temp Pulse Pulse Resp BP BP Pulse Ox 09/04/22 04:00 73 20 115/76 96 09/04/22 02:00 82 20 09/04/22 00:00 82 20 104/57 97 09/03/22 20:00 97.6 F 82 20 121/88 98 09/03/22 18:32 97.9 F 70 18 118/63 99 09/03/22 18:00 95 18 124/78 96 09/03/22 16:00 93 16 116/95 94 L 09/03/22 15:00 96 18 121/93 95 09/03/22 14:00 92 18 123/89 96 09/03/22 13:22 96 18 125/87 96 09/03/22 12:13 96 09/03/22 12:07 98.0 F 98 18 125/81 97 Intake and Output 09/03/22 09/04/22 09/04/22 22:59 06:59 14:59 Intake Total 101.29 130.557 Balance 101.29 130.557 Intake: Intake, IV Titration 101.29 130.557 Amount Heparin Sod,Pork in 0.45% 101.29 130.557 NaCl 25,000 unit In 0.45 % NaCl 1 250ml.bag @ 12 UNITS/KG/HR 14.969 mls/hr IV .[id number] [facility] Rx#: [id number] Other: # Voids 0 0 Weight 124.738 kg Results 09/04/22 01:51 09/04/22 01:51 Cardiac Enzymes 09/03/22 09/03/22 09/03/22 Range/Units 12:33 12:33 15:02 AST 21 (17-59) U/L Troponin I 0.273 H* 0.239 H* (0.000-0.034) ng/mL 09/03/22 09/04/22 Range/Units 19:10 01:47 AST (17-59) U/L Troponin I 0.329 H* 1.000 H* (0.000-0.034) ng/mL Coagulation 09/03/22 09/03/22 09/04/22 Range/Units 12:33 19:10 01:47 PT 13.7 H 14.0 H (9.0-12.0) sec APTT 25.4 35.9 H 40.0 H (22.0-30.0) sec CBC 09/03/22 09/04/22 Range/Units 12:33 01:51 WBC 10.0 8.6 (3.8-10.6) k/uL RBC 3.33 L 3.12 L (4.30-5.90) m/uL Hgb 10.9 L 10.6 L (13.0-17.5) gm/dL Hct 33.4 L 31.7 L (39.0-53.0) % Plt Count 209 186 (150-450) k/uL Comprehensive Metabolic Panel 09/03/22 09/04/22 Range/Units 12:33 01:51 Sodium 134 L 132 L (137-145) mmol/L Potassium 3.7 4.2 (3.5-5.1) mmol/L Chloride 93 L 90 L (98-107) mmol/L Carbon Dioxide 28 27 (22-30) mmol/L BUN 45 H 50 H (9-20) mg/dL Creatinine 5.80 H 6.87 H (0.66-1.25) mg/dL Glucose 126 H 114 H (74-99) mg/dL Calcium 9.3 9.3 (8.4-10.2) mg/dL AST 21 (17-59) U/L ALT 18 (4-49) U/L Alkaline Phosphatase 177 H (38-126) U/L Total Protein 7.6 (6.3-8.2) g/dL Albumin 3.9 (3.5-5.0) g/dL Current Medications Generic Name Dose Route Start Last Admin Trade Name Freq PRN Reason Stop Dose Admin Alprazolam 0.25 mg 09/04/22 00:28 Alprazolam 0.25 Mg Tab PO QID PRN Anxiety Aspirin 81 mg 09/03/22 17:00 09/03/22 17:35 Aspirin 81 Mg PO Not Given DAILY CARYL Atorvastatin Calcium 40 mg 09/03/22 21:00 09/03/22 20:32 Atorvastatin 40 Mg Tab PO 40 mg HS CARYL Administration Buspirone HCl 15 mg 09/03/22 16:56 09/03/22 22:21 Buspirone Hcl 5 Mg Tab PO 15 mg TID PRN Administration Anxiety Calcium Acetate 1,334 mg 09/03/22 17:30 09/04/22 05:16 Calcium Acetate 667 Mg Tab PO Not Given TID-W/MEALS CARYL Calcium Carbonate/Glycine 500 mg 09/03/22 16:56 Calcium Carbonate 500 Mg Chewable PO ACHS PRN ACID REFLUX Carvedilol 3.125 mg 09/03/22 21:00 09/03/22 20:32 Carvedilol 3.125 Mg Tab PO 3.125 mg BID CARYL Administration Ergocalciferol 1,250 mcg 09/03/22 17:00 09/03/22 22:01 Ergocalciferol 1,250 Mcg (50,000 Iu) Capsule PO 1,250 mcg Q14D CARYL Administration Heparin Sodium (Porcine) 0 unit 09/03/22 13:26 Heparin Sodium 1,000 Un/Ml (10ml Vl) IV PER PROTOCOL PRN Low PTT Protocol Heparin Sodium/Sodium Chloride 250 mls @ 14.969 mls/hr 09/03/22 13:30 09/04/22 04:11 25,000 unit/ Sodium Chloride IV 16 units/kg/hr .[id number] CARYL 19.958 mls/hr Administration Protocol 12 UNITS/KG/HR Isosorbide Dinitrate 30 mg 09/04/22 09:00 Isosorbide Dinitrate 10 Mg Tab PO DAILY CARYL Melatonin 5 mg 09/03/22 21:00 09/03/22 20:32 Melatonin 5 Mg Tablet PO 5 mg HS CARYL Administration Naloxone HCl 0.2 mg 09/03/22 13:28 Naloxone 0.4 Mg/Ml 1 Ml Vial IV Q2M PRN Opioid Reversal Nitroglycerin 0.5 inch 09/03/22 16:00 09/04/22 00:34 Nitroglycerin Oint 1 Inch/Gm Packet TOPICAL 0.5 inch Q8HR CARYL Administration Ticagrelor 90 mg 09/03/22 21:00 09/03/22 20:32 Ticagrelor 90 Mg Tab PO 90 mg BID CARYL Administration Intake and Output 09/03/22 09/04/22 09/04/22 22:59 06:59 14:59 Intake Total 101.29 130.557 Balance 101.29 130.557 Intake: Intake, IV Titration 101.29 130.557 Amount Heparin Sod,Pork in 0.45% 101.29 130.557 NaCl 25,000 unit In 0.45 % NaCl 1 250ml.bag @ 12 UNITS/KG/HR 14.969 mls/hr IV .[id number] [facility] Rx#: [id number] Other: # Voids 0 0 Weight 124.738 kg 09/04/22 01:51 09/04/22 01:51
[2022-09-04] MEDS ORDERED: ASPIRIN 325 MG TAB PO STA (08:08)
[2022-09-04] MEDS ORDERED: ATORVASTATIN 80 MG TAB PO STA (08:08)
[2022-09-04] MEDS ORDERED: NITROGLYCERIN SL TABS 0.4 MG TAB SUBLINGUAL PRN (08:08)
[2022-09-04] MEDS ORDERED: ISOSORBIDE DINITRATE 10 MG TAB PO SCH (09:00)
[2022-09-04] MEDS: carvediloL 3.125 MG TAB PO SCH ×2 (09:07→21:25)
[2022-09-04] MEDS: TICAGRELOR 90 MG TAB PO SCH (09:07)
[2022-09-04] MEDS: ISOSORBIDE MONONITRATE ER 30 MG TAB.ER.24H PO SCH (09:08)
[2022-09-04] MEDS: ASPIRIN 81 MG PO SCH (09:14)
[2022-09-04] MEDS ORDERED: VERAPAMIL 2.5 MG/ML 2 ML AMP ONE (10:06)
[2022-09-04] MEDS ORDERED: SODIUM CHLORIDE 0.9% 500 ML 500 ML IV ONE (10:13)
[2022-09-04] MEDS ORDERED: HEPARIN SODIUM 1,000 UN/ML (10ML VL) ONE (10:13)
[2022-09-04] MEDS ORDERED: fentaNYL (PF) 50 MCG/ML 2 ML AMP ONE (10:14)
--- NOTE | 2022-09-04 10:25 | P.NPCON ---
History of Present Illness - Reason for Consult end stage renal disease - History of Present Illness Reason for consultation: End-stage renal disease History of present illness: Patient is a 37-year-old male seen in consultation for end-stage renal disease. He is maintained on hemodialysis on Sunday schedule. Patient states he completed hemodialysis on Sunday. Patient states his heart rate was high after dialysis but felt fine. Patient's is yesterday he developed chest pain which she mostly describes as a sharp pain midsternum. Patient does have history of coronary artery disease and multiple cardiac stenting. Denies history of diabetes. No vomiting or diarrhea. No chest pain or shortness of breath now. Blood pressure controlled. Chest x-ray suggestive of fluid ove rload. Does have some edema in the lower medial as well. He is scheduled for cardiac catheterization today. Denies fever or chills. Makes little urine. Vital signs are stable. General: No acute distress. HEENT: Head exam is unremarkable. LUNGS: No audible rhonchi or wheezes. HEART: Rate and Rhythm are regular. ABDOMEN: Obese. Nontender. EXTREMITITES: 1+ edema. Past Medical History Past Medical History: Coronary Artery Disease (CAD), Chest Pain / Angina, Heart Failure, Hyperlipidemia, Hypertension, Myocardial Infarction ([place]), Renal Disease Additional Past Medical History / Comment(s): Hyperlipidemia, chronic renal failure, bipolar disorder, hypertension, realizing that disorder, chronic back pain and sciatica Last Myocardial Infarction Date:: 2020 History of Any Multi-Drug Resistant Organisms: CRE, MRSA Date of last positivie culture/infection: 03/14/16 *CP-CRE-[facility] Confirmed by [facility]; 02/10/15 MRSA MDRO Source:: Blood-*CRE-KPC; Thigh-MRSA Past Surgical History: Cholecystectomy, Heart Catheterization With Stent Additional Past Surgical History / Comment(s): Previous history of any biopsy, pt has 7 stents Past Anesthesia/Blood Transfusion Reactions: No Reported Reaction Date of Last Stent Placement:: Unknown Past Psychological History: Anxiety, Bipolar Additional Psychological History / Comment(s): Pt resides with his father. 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 Otherwise, he is independent. Smoking Status: Former smoker Past Alcohol Use History: None Reported Additional Past Alcohol Use History / Comment(s): Pt started smoking in 2007 and quit in 2009. Past Drug Use History: Marijuana - Past Family History Mother History Unknown: Yes Father Family Medical History: Diabetes Mellitus Additional Family Medical History / Comment(s): sciatica Medications and Allergies Home Medications Medication Instructions Recorded Confirmed Type Calcium Acetate [PhosLo] 1,334 mg PO TID-W/MEALS #90 cap 03/10/16 09/03/22 Rx Calcium Carbonate [Tums] 500 mg PO ACHS PRN 09/27/21 09/03/22 History Isosorbide Dinitrate 30 mg PO DAILY 09/27/21 09/03/22 History Ticagrelor [Brilinta] 90 mg PO BID 09/27/21 09/03/22 History carvediloL [Coreg] 3.125 mg PO BID 09/27/21 09/03/22 History Atorvastatin [Lipitor] 40 mg PO HS #90 tab 09/29/21 09/03/22 Rx Aspirin 81 mg PO DAILY #90 tab 01/10/22 09/03/22 Rx Melatonin 5 mg PO HS #30 tab 01/20/22 09/03/22 Rx busPIRone HCl [Buspar] 15 mg PO TID PRN #90 tab 01/20/22 09/03/22 Rx Ergocalciferol [Vitamin D2 (1250 1,250 mcg PO Q14D 09/03/22 09/03/22 History Mcg = 51274 Iu)] Mupirocin 2% Oint [Bactroban 2% 1 applic TOPICAL BID 09/03/22 09/03/22 History Oint] Sulfamethox-Tmp 400-80Mg [Bactrim 1 tab PO BID 09/03/22 09/03/22 History SS 400-80 mg] Allergies Allergy/AdvReac Type Severity Reaction Status Date / Time No Known Allergies Allergy Verified 09/03/22 15:02 Physical Exam Vitals: Vital Signs Temp Pulse Pulse Resp BP BP Pulse Ox 09/04/22 09:13 97 09/04/22 09:10 18 09/04/22 09:04 75 18 120/78 96 09/04/22 04:00 73 20 115/76 96 09/04/22 02:00 82 20 09/04/22 00:00 82 20 104/57 97 09/03/22 20:00 97.6 F 82 20 121/88 98 09/03/22 18:32 97.9 F 70 18 118/63 99 09/03/22 18:00 95 18 124/78 96 09/03/22 16:00 93 16 116/95 94 L 09/03/22 15:00 96 18 121/93 95 09/03/22 14:00 92 18 123/89 96 09/03/22 13:22 96 18 125/87 96 09/03/22 12:13 96 09/03/22 12:07 98.0 F 98 18 125/81 97 Intake and Output 09/03/22 09/04/22 09/04/22 22:59 06:59 14:59 Intake Total 101.29 130.557 109.457 Balance 101.29 130.557 109.457 Intake: IV 10 Invasive Line 1 10 Intake, IV Titration 101.29 130.557 99.457 Amount Heparin Sod,Pork in 0.45% 101.29 130.557 99.457 NaCl 25,000 unit In 0.45 % NaCl 1 250ml.bag @ 12 UNITS/KG/HR 14.969 mls/hr IV .[id number] [facility] Rx#: [id number] Other: Voiding Method Urinal # Voids 0 0 Weight 124.738 kg Results - Lab Results Most recent lab results Calcium 9.3 mg/dL (8.4-10.2) 09/04/22 01:51 Magnesium 2.3 mg/dL (1.6-2.3) 09/03/22 12:33 09/04/22 01:51 09/04/22 01:51 Assessment and Plan Plan: Assessment: 1. End-stage renal disease september to 90 hemodialysis on Sunday schedule via AV fistula. 2. NSTEMI being followed by cardiology. Cardiac catheterization/angiogram today. 3. History of coronary disease with cardiac stenting. 4. Chronic kidney disease mineral bone disease maintained on PhosLo. 5. Anemia of chronic kidney disease. Hemoglobin at goal. Plan: Short hemodialysis treatment today mostly for ultrafiltration. Hemodialysis tomorrow per his outpatient schedule. F/u ECHO. Thank you for the consultation. I will continue to follow the patient with you during his hospital stay.
[2022-09-04] MEDS ORDERED: MIDAZOLAM 2 MG/2 ML VIAL IV ONE (10:40)
[2022-09-04] MEDS ORDERED: fentaNYL (PF) 50 MCG/ML 2 ML AMP IV ONE (10:40)
[2022-09-04] MEDS ORDERED: LIDOCAINE 1% INJ 10MG/ML (5 ML VIAL-PF) SQ ONE ×2 (10:40→10:42)
[2022-09-04] MEDS ORDERED: VERAPAMIL SYRINGE (5 MG/10 ML) INTRAARTER ONE (10:47)
[2022-09-04] MEDS: HEPARIN SODIUM 1,000 UN/ML (10ML VL) IV ONE ×2 (10:47→11:12)
[2022-09-04] MEDS ORDERED: IOPAMIDOL-370 100ML BTL INJ ONE (11:45)
--- NOTE | 2022-09-04 15:09 | CC ---
CARDIAC CATHETERIZATION REPORT INDICATION: Acute gik-[id number] elevation [place]. PROCEDURE NOTE: After obtaining informed consent, left heart catheterization and coronary angiogram were performed via the right radial artery using standard Tyra catheters. The patient tolerated the procedure well without any obvious immediate complications. Received moderate conscious sedation. Total sedation time was 20 minutes. Right radial artery access was obtained using Seldinger technique, and catheters and wires were floated into the ascending aorta under fluoroscopic guidance. The patient received verapamil and IV heparin per protocol. FINDINGS: 1. HEMODYNAMICS: Left ventricular end-diastolic pressure is 23 mm. There is no significant gradient across the aortic valve. 2. LEFT VENTRICULOGRAM: Left ventriculogram was not performed. 3. ANGIOGRAPHIC DATA: a.Right coronary artery is a large dominant vessel that shows a focal 95% stenosis involving PDA, that is a re-stenosis. b.Left main coronary artery is a normal-sized vessel and is free of stenosis. Divides into left anterior descending coronary artery and circumflex coronary artery. LAD is totally occluded in the proximal portion , second OM branch shows a focal 95% stenosis. CONCLUSION: Severe three-vessel coronary artery disease with an acutely occluded LAD and critical stenosis involving PDA and circumflex coronary artery. PLAN: I am going to ask Dr. Zaidi to review the angiographic data and advise on revascularization. MMODL / IJN: [id number] /
--- NOTE | 2022-09-04 16:09 | P.GSCN ---
History of Present Illness Consult date: 09/04/22 Reason for Consult: Coronary artery disease Requesting physician: Manny Mcmullen History of present illness: This is a 37-year-old gentleman who follows outpatient Dr. Keating for primary care. He has a previous medical history of coronary artery disease with previous myocardial infarction status post previous PCI, hypertension, hyperlipidemia, end-stage renal disease on dialysis for 7 years, MRSA bacteremia in December 2021 along with Serratia bacteremia and February 2016, previous tobacco dependence, current marijuana use and bipolar disorder. Apparently this gentleman had dialysis as per his regular schedule on Sunday and at the end of dialysis he his heart rate was noted to be elevated. He began expensing chest pain which did go away on his own without treatment. Unfortunately the chest pain came back on Sunday and was not going away so the patient reported to [facility] emergency room for evaluation and treatment. EKG demonstrated sinus rhythm with nonspecific ST changes. Troponin was elevated and patient was ruled in for non-STEMI. He was recommended to undergo heart catheterization today which demonstrated a large dominant right coronary artery with focal 95% re-instent stenosis involving the PDA, totally occluded proximal LAD, and second OM branch with focal 95% stenosis. Due to these findings consultation was placed to Dr. Pratt for surgical revascularization recommendations. Review of Systems Review of systems was completed and was negative except as noted. - Cardiovascular Reports as per HPI, Reports chest pain, Reports rapid heart beat Past Medical History Past Medical History: Coronary Artery Disease (CAD), Chest Pain / Angina, Heart Failure, Dialysis, Hyperlipidemia, Hypertension, Myocardial Infarction ([place]), Renal Disease Additional Past Medical History / Comment(s): End stage renal failure on hemodialysis, bipolar disorder, chronic back pain and sciatica; MRSA bacteremia 12/2021, Serratia bacteremia 02/2016 Last Myocardial Infarction Date:: August 2022 History of Any Multi-Drug Resistant Organisms: CRE, MRSA Year Discovered:: 03/14/16 *CP-CRE-[facility] Serratia Confirmed by [facility]; 02/10/15 MRSA MDRO Source:: Blood-*CRE-[facility]; Thigh-MRSA Past Surgical History: Cholecystectomy, Heart Catheterization With Stent Additional Past Surgical History / Comment(s): Patient has had multiple coronary stents; AV fistula left upper extremity Past Anesthesia/Blood Transfusion Reactions: No Reported Reaction Date of Last Stent Placement:: Unknown Past Psychological History: Anxiety, Bipolar Additional Psychological History / Comment(s): Pt resides with his father. 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 Otherwise, he is independent. Smoking Status: Former smoker Past Alcohol Use History: None Reported Additional Past Alcohol Use History / Comment(s): Pt started smoking in 2007 and quit in 2009. Past Drug Use History: Marijuana - Past Family History Mother History Unknown: Yes Family Medical History: Liver Disease Father Family Medical History: Diabetes Mellitus Additional Family Medical History / Comment(s): sciatica Medications and Allergies Home Medications Medication Instructions Recorded Confirmed Type Calcium Acetate [PhosLo] 1,334 mg PO TID-W/MEALS #90 cap 03/10/16 09/03/22 Rx Calcium Carbonate [Tums] 500 mg PO ACHS PRN 09/27/21 09/03/22 History Isosorbide Dinitrate 30 mg PO DAILY 09/27/21 09/03/22 History Ticagrelor [Brilinta] 90 mg PO BID 09/27/21 09/03/22 History carvediloL [Coreg] 3.125 mg PO BID 09/27/21 09/03/22 History Atorvastatin [Lipitor] 40 mg PO HS #90 tab 09/29/21 09/03/22 Rx Aspirin 81 mg PO DAILY #90 tab 01/10/22 09/03/22 Rx Melatonin 5 mg PO HS #30 tab 01/20/22 09/03/22 Rx busPIRone HCl [Buspar] 15 mg PO TID PRN #90 tab 01/20/22 09/03/22 Rx Ergocalciferol [Vitamin D2 (1250 1,250 mcg PO Q14D 09/03/22 09/03/22 History Mcg = 30396 Iu)] Mupirocin 2% Oint [Bactroban 2% 1 applic TOPICAL BID 09/03/22 09/03/22 History Oint] Sulfamethox-Tmp 400-80Mg [Bactrim 1 tab PO BID 09/03/22 09/03/22 History SS 400-80 mg] Allergies Allergy/AdvReac Type Severity Reaction Status Date / Time No Known Allergies Allergy Verified 09/03/22 15:02 Surgical - Exam Vital Signs Temp Pulse Resp BP Pulse Ox 98.0 F 98 18 125/81 97 09/03/22 12:07 09/03/22 12:07 09/03/22 12:07 09/03/22 12:07 09/03/22 12:07 CONSTITUTIONAL: Awake and alert, appears comfortable, cooperative, well- developed, well-nourished, no pain, no acute distress EYES: Pupils equal, round, reactive to light, normal ocular movement ENT: Moist mucous membranes without oral lesions present, multiple upper teeth missing NECK: No masses, no bruits, trachea midline RESPIRATORY: Lungs sounds clear to auscultation bilaterally. Respirations even, nonlabored. Currently on room air with oxygen saturation 97%. Strong cough. No chest wall deformities. No clubbing or cyanosis present CARDIOVASCULAR: S1, S2 present. Regular rate and rhythm, sinus rhythm on telemetry. Palpable peripheral pulses bilaterally. Trace bilateral lower extremity edema present. No calf pain or tenderness noted. GASTROINTESTINAL: Abdomen soft, nontender, nondistended without masses or organomegaly noted. There is no rebound or guarding present. Active bowel sounds present 4 quadrants. GENITOURINARY: Deferred INTEGUMENTARY: Skin is warm and dry. Right radial cath site without drainage, T-band in place. Left upper extremity AV fistula present, positive bruit/thrill NEUROLOGIC: Cranial nerves II through XII intact, normal coordination, no obvious motor or sensory deficits, speech is normal MUSKULOSKELETAL: Able to move all extremities, strength equal bilaterally, normal posture PSYCHIATRIC: Alert and oriented to person place and time, appropriate affect, intact judgment and insight Results - Labs 09/04/22 01:51 09/04/22 01:51 Abnormal Lab Results - Last 24 Hours (Table) 09/03/22 09/03/22 09/03/22 Range/Units 15:02 19:10 19:10 RBC (4.30-5.90) m/uL Hgb (13.0-17.5) gm/dL Hct (39.0-53.0) % MCV (80.0-100.0) fL Lymphocytes # (1.0-4.8) k/uL PT (9.0-12.0) sec INR (<1.2) APTT 35.9 H (22.0-30.0) sec Sodium (137-145) mmol/L Chloride (98-107) mmol/L BUN (9-20) mg/dL Creatinine (0.66-1.25) mg/dL Glucose (74-99) mg/dL Troponin I 0.239 H* 0.329 H* (0.000-0.034) ng/mL Prolactin (2.100-17.700) ng/mL 09/03/22 09/04/22 09/04/22 Range/Units 19:10 01:47 01:47 RBC (4.30-5.90) m/uL Hgb (13.0-17.5) gm/dL Hct (39.0-53.0) % MCV (80.0-100.0) fL Lymphocytes # (1.0-4.8) k/uL PT 14.0 H (9.0-12.0) sec INR 1.4 H (<1.2) APTT 40.0 H (22.0-30.0) sec Sodium (137-145) mmol/L Chloride (98-107) mmol/L BUN (9-20) mg/dL Creatinine (0.66-1.25) mg/dL Glucose (74-99) mg/dL Troponin I 1.000 H* (0.000-0.034) ng/mL Prolactin 28.400 H (2.100-17.700) ng/mL 09/04/22 09/04/22 09/04/22 Range/Units 01:51 01:51 07:16 RBC 3.12 L (4.30-5.90) m/uL Hgb 10.6 L (13.0-17.5) gm/dL Hct 31.7 L (39.0-53.0) % MCV 101.3 H (80.0-100.0) fL Lymphocytes # 0.8 L (1.0-4.8) k/uL PT (9.0-12.0) sec INR (<1.2) APTT (22.0-30.0) sec Sodium 132 L (137-145) mmol/L Chloride 90 L (98-107) mmol/L BUN 50 H (9-20) mg/dL Creatinine 6.87 H (0.66-1.25) mg/dL Glucose 114 H (74-99) mg/dL Troponin I 1.760 H* (0.000-0.034) ng/mL Prolactin (2.100-17.700) ng/mL Diabetes panel 09/04/22 Range/Units 01:51 Sodium 132 L (137-145) mmol/L Potassium 4.2 (3.5-5.1) mmol/L Chloride 90 L (98-107) mmol/L Carbon Dioxide 27 (22-30) mmol/L BUN 50 H (9-20) mg/dL Creatinine 6.87 H (0.66-1.25) mg/dL Glucose 114 H (74-99) mg/dL Calcium 9.3 (8.4-10.2) mg/dL Calcium panel 09/04/22 Range/Units 01:51 Calcium 9.3 (8.4-10.2) mg/dL Pituitary panel 09/03/22 09/04/22 Range/Units 19:10 01:51 Sodium 132 L (137-145) mmol/L Potassium 4.2 (3.5-5.1) mmol/L Chloride 90 L (98-107) mmol/L Carbon Dioxide 27 (22-30) mmol/L BUN 50 H (9-20) mg/dL Creatinine 6.87 H (0.66-1.25) mg/dL Glucose 114 H (74-99) mg/dL Calcium 9.3 (8.4-10.2) mg/dL Prolactin 28.400 H (2.100-17.700) ng/mL Adrenal panel 09/04/22 Range/Units 01:51 Sodium 132 L (137-145) mmol/L Potassium 4.2 (3.5-5.1) mmol/L Chloride 90 L (98-107) mmol/L Carbon Dioxide 27 (22-30) mmol/L BUN 50 H (9-20) mg/dL Creatinine 6.87 H (0.66-1.25) mg/dL Glucose 114 H (74-99) mg/dL Calcium 9.3 (8.4-10.2) mg/dL - Imaging Chest x-ray: report reviewed, image reviewed EKG: image reviewed Additional studies: Heart catheter films reviewed Assessment and Plan Assessment: Coronary artery disease with previous myocardial infarction status post previous PCI, NSTEMI this admission Hypertension Hyperlipidemia, treated End-stage renal disease on dialysis for 7 years MRSA bacteremia in December 2021 along with Serratia bacteremia and February 2016 Previous tobacco dependence Current marijuana use Bipolar disorder Poor dentition Plan: The patient was seen and examined sitting up in bed on the cardiac stepdown unit in no acute distress. Currently denies any chest pain or shortness of breath. About to receive dialysis. Chart/diagnostics reviewed. Case discussed with Dr. Pratt. The usual perioperative course of open heart surgery was discussed, risks and benefits reviewed, all questions were answered. The patient is agreeable to surgery if that is the recommendation. Preoperative testing was ordered, once completed will calculate STS risk score and discuss with the pat ient. Recommend continuing ASA, statin, beta dwight, nitrate. Hold brilinta until decision made regarding surgery, continue heparin gtt. Medical management of other comorbidities per internal medicine, cardiology. More recommendations to follow. I have personally seen and examined the patient, performed the documentation and the assessment and plan as written. Number of minutes spent on the visit: 30. JUANITO Dee The patient is a 37 y/o male with a history of multiple medical problems including ESRD on HD x 7 years, HTN, bipolar disorder, and coronary artery disease. The patient has undergone multiple percutaneous interventions on both his LAD and RCA over the past three years with the most recent episode in December 2021. Unfortunately his stents do not stay open very long despite anti-platelet therapy. He is re-admitted again with angina and a NSTEMI. Cardiac catheterization reveals multi-vessel CAD including in-stent restenosis of his RCA and WATER QUALITY ANALYST of his LAD which was open last year. Pre-operative workup has been initiated to determine his candidacy for coronary artery bypass. The risks, benefits, and alternatives to surgery, including but not limited to the risk of infection, bleeding, need for blood transfusion, stroke, myocardial infarction, prolonged intubation, failure of grafts, and were discussed with the patient and his father. All of their questions were answered. Last dose of Brilinta was yesterday. Additional recommendations to follow. I have personally seen and examined the patient, reviewed the documentation and the assessment and plan as written. Number of minutes spent on the visit: 60. Christiano Pratt M.D.
--- NOTE | 2022-09-04 16:22 | US ---
EXAMINATION TYPE: US carotid duplex BILAT DATE OF EXAM: 09/04/2022 COMPARISON: NONE CLINICAL INDICATION: Male, 37 years old with history of preop cardiac surgery; pre op cardiac surgery TECHNIQUE: Carotid duplex ultrasound examination. Indirect Doppler criteria was utilized. FINDINGS: EXAM MEASUREMENTS: RIGHT: Peak Systolic Velocity (PSV) cm/sec ----- Right CCA: 72.4 ----- Right ICA: 86.7 ----- Right ECA: 65.8 ICA/CCA ratio: 1.2 RIGHT: End Diastole cm/sec ----- Right CCA: 14.2 ----- Right ICA: 27.4 ----- Right ECA: 0.0 LEFT: Peak Systolic Velocity (PSV) cm/sec ----- Left CCA: 68.6 ----- Left ICA: 63.6 ----- Left ECA: 74.6 ICA/CCA ratio: 0.9 LEFT: End Diastole cm/sec ----- Left CCA: 14.4 ----- Left ICA: 20.8 ----- Left ECA: 5.4 VERTEBRALS (direction of flow): Right Vertebral: Antegrade Left Vertebral: Antegrade PARALEGAL ASSISTANT NOTES: Mild to moderate plaque bilateral bifurcations. No evidence of increased velocitie s. IMPRESSION: Mild to moderate atherosclerotic plaque at the carotid bifurcations. No ultrasound evidence for hemod ynamically significant stenosis of the bilateral internal carotid arteries. Criteria for Assigning % of Stenosis / Diameter reduction (Estimation based on the indirect measurements of the internal carotid artery velocities (ICA PSV). 1. Normal (no stenosis)=ICA PSV < 125 cm/s: ratio < 2.0: ICA EDV<40 cm/s. 2. Less than 50% stenosis=ICA PSV < 125 cm/s: ratio < 2.0: ICA EDV<40 cm/s. 3. 50 to 69% stenosis=ICA PSV of 125 to 230 cm/s: ration 2.0 ? 4.0: ICA EDV 40-100 cm/s. 4. Greater than 70% stenosis to near occlusion= ICA PSV > 230 cm/s: ratio > 4.0: ICA EDV > 100 cm/s. 5. Near occlusion= ICA PSV velocities may be low or undetectable: variable ratio and ICA EDV. 6. Total occlusion=unable to detect flow.
--- NOTE | 2022-09-04 16:32 | P.PN ---
Subjective Progress Note Date: 09/04/22 (None STEMI RI with elevated troponin and chest pain) Principal diagnosis: #1 none STEMI RI #2 elevated troponin #3 status post cardiac catheterization with the presence of three-vessel disease and complete occlusion of LAD #4 end-stage renal disease on hemodialysis with underlying nephrosclerosis. #5 chronic kidney disease stage V with the underlying bone mineral disease. #6 obesity #7 history of hypertension was hypertensive heart disease currently controlled. #8 chest pain has been resolved. #9 and anxiety disorder stable with Xanax. And buspirone. Progress note Date of service 09/04/[address] Hernandez. Patient seen and evaluated [id number] and he is currently on hemodialysis for 2 hour. Nurse practitioner in [address] Pratt did see the patient today for evaluation for coronary bypass graft Lucila evangelista nurse practitioner. Patient currently no chest pain stable general condition. No specific complaint Patient vital signs stable post cardiac cath his pulse rate is 60/m respiratory rate 18/m blood pressure 124/67 with a mean blood pressure 86 and oxygen saturation 95% on room air. On the exam: Conscious alert oriented feeling comfortable. Head was normocephalic and atraumatic pupil was equal reactive neck was supple no JVD no thyromegaly no lymphadenopathy trachea midline. Chest was clear to auscultation and percussion and the heart was regular sinus rhythm and the abdomen soft positive bowel sounds no constipation or diarrhea extremities no edema and he is on hemodialysis today.. Patient seen by Dr. Segura nephrology and seen by his lehr stripper Dr. Garner who did the cardiac catheterization as well as seen by Dr. finley and the lehr stripper as well Assessment: #1 three-vessel disease with occluded left anterior descending with multiple stent in the past with a coronary artery disease and atherosclerotic heart disease #2 non-STEMI RI with elevated troponin. #3 end-stage renal disease on hemodialysis 3 times a week. Plan: Cardiovascular surgeon has been consulted the result is pending Patient also has been monitored by customer success associate and he is status post cardiac catheterization. Objective - Vital Signs Vital signs: Vital Signs Temp 97.6 F 09/03/22 20:00 Pulse 60 09/04/22 15:47 Resp 18 09/04/22 15:47 BP 124/67 09/04/22 15:47 Pulse Ox 95 09/04/22 15:47 FiO2 Intake & Output 09/03/22 09/04/22 09/04/22 18:59 06:59 18:59 Intake Total 231.847 337.457 Output Total 1 Balance 231.847 336.457 Weight 124.738 kg Intake: IV 120 Invasive Line 1 20 Intake, IV Titration 231.847 99.457 Amount Heparin Sod,Pork in 0.45% 231.847 99.457 NaCl 25,000 unit In 0.45 % NaCl 1 250ml.bag @ 12 UNITS/KG/HR 14.969 mls/hr IV .[id number] [facility] Rx#: [id number] Oral 118 Output: Urine/Stool Mix 1 Other: Voiding Method Urinal # Voids 0 1 - Labs CBC & Chem 7: 09/04/22 01:51 09/04/22 01:51 Labs: Abnormal Lab Results - Last 24 Hours (Table) 09/03/22 09/03/22 09/03/22 Range/Units 19:10 19:10 19:10 RBC (4.30-5.90) m/uL Hgb (13.0-17.5) gm/dL Hct (39.0-53.0) % MCV (80.0-100.0) fL Lymphocytes # (1.0-4.8) k/uL PT (9.0-12.0) sec INR (<1.2) APTT 35.9 H (22.0-30.0) sec Sodium (137-145) mmol/L Chloride (98-107) mmol/L BUN (9-20) mg/dL Creatinine (0.66-1.25) mg/dL Glucose (74-99) mg/dL Troponin I 0.329 H* (0.000-0.034) ng/mL Prolactin 28.400 H (2.100-17.700) ng/mL 09/04/22 09/04/22 09/04/22 Range/Units 01:47 01:47 01:51 RBC (4.30-5.90) m/uL Hgb (13.0-17.5) gm/dL Hct (39.0-53.0) % MCV (80.0-100.0) fL Lymphocytes # (1.0-4.8) k/uL PT 14.0 H (9.0-12.0) sec INR 1.4 H (<1.2) APTT 40.0 H (22.0-30.0) sec Sodium 132 L (137-145) mmol/L Chloride 90 L (98-107) mmol/L BUN 50 H (9-20) mg/dL Creatinine 6.87 H (0.66-1.25) mg/dL Glucose 114 H (74-99) mg/dL Troponin I 1.000 H* (0.000-0.034) ng/mL Prolactin (2.100-17.700) ng/mL 09/04/22 09/04/22 Range/Units 01:51 07:16 RBC 3.12 L (4.30-5.90) m/uL Hgb 10.6 L (13.0-17.5) gm/dL Hct 31.7 L (39.0-53.0) % MCV 101.3 H (80.0-100.0) fL Lymphocytes # 0.8 L (1.0-4.8) k/uL PT (9.0-12.0) sec INR (<1.2) APTT (22.0-30.0) sec Sodium (137-145) mmol/L Chloride (98-107) mmol/L BUN (9-20) mg/dL Creatinine (0.66-1.25) mg/dL Glucose (74-99) mg/dL Troponin I 1.760 H* (0.000-0.034) ng/mL Prolactin (2.100-17.700) ng/mL
[2022-09-04] MEDS: ALPRAZolam 0.5 MG TAB PO PRN (17:22)
--- NOTE | 2022-09-04 17:55 | CA ---
Transthoracic Echo Report Name: Zak Masterson Age: 37 Gender: M : 1985 Exam Date: 09/04/2022 08:31 Exam Location: [facility] Ht (in): 71 Wt (lb): 275 Ordering Physician: Steven Cao MD Attending/Referring Phys: Insurance Sales Producer Bo Verdugo RDCS Procedure CPT: Indications: chest pain, NSTEMI Cardiac Hx: Technical Quality: Fair Contrast 1: Lumason Total Dose (mL): 4 Contrast 2: Agitated Saline Total Dose (mL): 10 MEASUREMENTS (Male / Female) Normal Values M-MODE Aortic Root Diameter MM 2.9 cm AV Cusp Separation MM 1.4 cm DOPPLER AV Peak Velocity 98.7 cm/s AV Peak Gradient 3.9 mmHg LVOT Peak Velocity 53.0 cm/s LVOT Peak Gradient 1.1 mmHg MV Area PHT 4.0 cm??? Mitral E Point Velocity 72.4 cm/s Mitral A Point Velocity 28.4 cm/s Mitral E to A Ratio 2.5 MV Deceleration Time 188.5 ms TR Peak Velocity 134.6 cm/s TR Peak Gradient 7.2 mmHg Right Atrial Pressure 15.0 mmHg Pulmonary Artery Systolic Pressu 22.2 mmHg Right Ventricular Systolic Press 22.2 mmHg FINDINGS Left Ventricle Mild concentric left ventricular hypertrophy. Grade 4 diastolic dysfunction. Left ventricular ejection fraction is estimated at 40%. Right Ventricle Normal right ventricular size. Right Atrium Normal right atrial size. Left Atrium Normal left atrial size. Mitral Valve Mild mitral regurgitation. Aortic Valve Trileaflet aortic valve. Aortic valve sclerosis. Tricuspid Valve Mild tricuspid regurgitation. Pulmonic Valve Pulmonic valve not well visualized. Pericardium Small pericardial effusion. Aorta Normal size aortic root and proximal ascending aorta. CONCLUSIONS Moderate LV systolic dysfunction Mild mitral regurgitation Previewed by: Dr. Manny Mcmullen MD (Electronically Signed) Final Date: 04 September 2022 17:54
[2022-09-04] MEDS: ATORVASTATIN 40 MG TAB PO SCH (21:25)
[2022-09-04] MEDS: MELATONIN 5 MG TABLET PO SCH (21:25)
[2022-09-04 22:13] LABS: Chol/HDL Ratio 4.29 Ratio; LDL Cholesterol,Calculated 53.3 mg/dL (0.0-131.0); VLDL Calculation 18.48 mg/dL (5.00-40.00)
[2022-09-04 22:20] LABS: Hepatitis A Antibody IgM Nonreactive (Nonreactive); Hepatitis B Core IgM Nonreactive (Nonreactive); Hepatitis B Surface Antigen Nonreactive (Nonreactive); Hepatitis C IgG Antibody Nonreactive (Nonreactive)
--- NOTE | 2022-09-04 23:01 | P.PCN ---
Description of Procedure: PROCEDURES PERFORMED: Left coronary angiography, IVUS LAD, attempted wiring of LAD INDICATION: Non-STEMI HISTORY: Patient is pleasant 37-year-old male with history of recurrent interventions mainly on the RCA and LAD with in-stent stenosis. He had prior angiography showing intraluminal hematoma/ controlled perforation of the LAD and given this had been stable with a number of previous interventions, felt best treated medically with recommendations for repeat angiography and possible CABG if continued episodes of LAD stenosis. Patient presented with recurrent chest pain over the last 3 days and NSTEMI and was found to have multivessel disease with stenosis of the distal RCA, 100% stenosis of the LAD and OM stenosis. PROCEDURE: After the risks, benefits and alternatives of the above mentioned procedure explained in detail with the patient, informed consent was obtained. Patient has already been taken to the catheterization lab and prepped and draped in usual fashion. A 6-Korean sheath had already been placed in the right radial artery. Given closure of the LAD without brisk collaterals, the decision was made to perform wiring and PCI of the LAD given thought that this may be the culprit vessel. Heparin was given. A 6-Korean CLS 3.5 guide was used to engage the left main. A 0.014 BMW wire was advanced however difficulty wiring past the mid LAD. A 0.014 whisper wire was also used however unable to advance past the mid LAD. There additionally was a large loop in the wiring of the mid LAD which did no fit with anatomy. Given prior concern of a contained perforation/ hematoma from 12/2021, there was consideration that the wire was extraluminal. IVUS was performed and showed intraluminal wire to the mid LAD and then appeared to be extraluminal. Further wiring was attempted and was unsuccessful with lesion appearing more chronic. Patient was having no chest pain with possibility of a more chronic lesion and additional multiple restenosis and therefore procedure completed with consideration of possible CABG evaluation. The right radial sheath was removed and a TR band was placed with hemostasis achieved. The patient tolerated the procedure well. Patient was transported back to the post catheterization holding area in stable condition. Conscious Sedation: Patient was monitored under the direct supervision of vision of myself for conscious sedation using Versed and fentanyl for a total duration of 18 minutes HEMODYNAMICS: Aorta: 85/54 SELECTIVE CORONARY ARTERIOGRAPHY: LEFT MAIN: The left main is a large caliber vessel which bifurcates into the LAD and circumflex. There is no significant stenosis. LEFT ANTERIOR DESCENDING CORONARY ARTERY: LAD is a large caliber vessel which wraps around to the apex. There are mild luminal irregularities and a mid LAD stent with 100% mid LAD stenosis. LEFT CIRCUMFLEX CORONARY ARTERY: Left circumflex is a moderate caliber vessel with RIGHT CORONARY ARTERY: The right coronary artery was not imaged, see separate report. FINAL IMPRESSION: 1. CAD as described above including mid LAD 100% stenosis, OM1 80% and RCA 90% stenosis 2. Wiring of LAD behaving like a FIRE FIGHTER AIRPORT with additional previous interluminal hematoma/ controlled perforation from 01/09 3. Extreme progression of CAD, recurrent stent stenosis over the last 1-2 year s, rule out vasculitis vs progression of atherosclerosis PLAN: 1. Wiring of LAD not behaving typical of a soft plaque with acute thrombus in the LAD. LAD felt likely to be chronic with possibility of wire additionally going into extraluminal space on IVUS and recurrent stenoses of the LAD. Given no active chest pain and LAD felt possible more chronic, we will have evaluation for CABG. If patient not felt to be good CABG candidate could consider further attempts at PCI.
[2022-09-05] MEDS: HEPARIN SOD,PORK IN 0.45% NACL 25,000 UNIT in 0.45% NACL 1 250ML.BAG IV SCH ×2 (00:04→11:54)
[2022-09-05] MEDS: CALCIUM ACETATE 667 MG TAB PO SCH ×3 (06:48→17:39)
[2022-09-05] MEDS ORDERED: HEPARIN SODIUM,PORCINE 10,000 UNIT in SODIUM CHLORIDE 0.9% 1,000 ML IRRIGATION PRN (07:00)
[2022-09-05] MEDS ORDERED: HEPARIN SODIUM,PORCINE 2,500 UNIT in SODIUM CHLORIDE 0.9% 250 ML IRRIGATION PRN (07:00)
[2022-09-05] MEDS: carvediloL 3.125 MG TAB PO SCH ×2 (08:05→21:30)
[2022-09-05] MEDS: ASPIRIN 81 MG PO SCH (08:05)
[2022-09-05] MEDS: ISOSORBIDE MONONITRATE ER 30 MG TAB.ER.24H PO SCH (08:05)
--- NOTE | 2022-09-05 09:34 | P.PN ---
Subjective Patient is seen in follow-up for end-stage renal disease. He is maintained on hemodialysis on Sunday schedule. Received extra treatment of hemodialysis yesterday with 1.9 L ultrafiltration. Currently denies any chest pain or shortness of breath. Cardiac cath showed severe coronary artery disease. Vital signs are stable. General: No acute distress. HEENT: Head exam is unremarkable. LUNGS: No active rhonchi or wheezes. Heart: Rate and Rhythm are regular. ABDOMEN: Soft, obese. EXTREMITITES: No edema. Objective - Vital Signs Vital signs: Vital Signs Temp 97.6 F 09/05/22 07:57 Pulse 66 09/05/22 07:57 Resp 16 09/05/22 07:57 BP 100/70 09/05/22 07:57 Pulse Ox 100 09/05/22 07:57 FiO2 Intake & Output 09/04/22 09/05/22 09/05/22 18:59 06:59 18:59 Intake Total 903.356 133.386 180 Output Total 1901 Balance -997.644 133.386 180 Intake: IV 120 Invasive Line 1 20 Intake, IV Titration 147.356 133.386 Amount Heparin Sod,Pork in 0.45% 147.356 133.386 NaCl 25,000 unit In 0.45 % NaCl 1 250ml.bag @ 12 UNITS/KG/HR 14.969 mls/hr IV .[id number] [facility] Rx#: [id number] Oral 236 180 Hemodialysis 400 Output: Urine/Stool Mix 1 Hemodialysis 1900 Other: Voiding Method Urinal Urinal # Voids 1 0 - Labs CBC & Chem 7: 09/04/22 01:51 09/04/22 01:51 Labs: Abnormal Lab Results - Last 24 Hours (Table) 09/04/22 09/04/22 09/04/22 Range/Units 15:00 15:00 20:19 APTT 51.3 H (22.0-30.0) sec Troponin I 2.210 H* (0.000-0.034) ng/mL C-Reactive Protein (<1.0) mg/dL HDL Cholesterol 21.80 L (40.00-60.00) mg/dL 09/05/22 09/05/22 Range/Units 08:10 08:10 APTT 63.8 H (22.0-30.0) sec Troponin I (0.000-0.034) ng/mL C-Reactive Protein 8.3 H (<1.0) mg/dL HDL Cholesterol (40.00-60.00) mg/dL Assessment and Plan Plan: Assessment: 1. End-stage renal disease maintained on hemodialysis on Sunday schedule via AV fistula. 2. NSTEMI being followed by cardiology. Cardiac catheterization showed severe coronary artery disease. CABG being considered. 3. History of coronary disease with cardiac stenting. 4. Chronic kidney disease mineral bone disease maintained on PhosLo. 5. Anemia of chronic kidney disease. Hemoglobin at goal. 6. Cardiomyopathy with ejection fraction of 40%. Plan: Hemodialysis today. Challenge ultrafiltration.
--- NOTE | 2022-09-05 09:38 | P.PN ---
Subjective Progress Note Date: 09/05/22 Principal diagnosis: Coronary artery disease with previous myocardial infarction status post previous PCI, NSTEMI this admission, hypertension, hyperlipidemia, end-stage renal dise ase on dialysis for 7 years, MRSA bacteremia in December 2021 along with Serratia bacteremia and February 2016, previous tobacco dependence, severe COPD, current marijuana use, bipolar disorder The patient was seen and examined this morning sitting up in bed in the cardiac stepdown unit in no acute distress. Denies any chest pain or shortness of breath at this time. Preoperative testing completed, STS risk score completed and will be discussed with the patient. He will be seen today by Dr. Pratt with further recommendations to be made regarding surgery. No other new concerns. Objective - Vital Signs Vital signs: Vital Signs Temp 97.6 F 09/05/22 07:57 Pulse 66 09/05/22 07:57 Resp 16 09/05/22 07:57 BP 100/70 09/05/22 07:57 Pulse Ox 100 09/05/22 07:57 FiO2 Intake & Output 09/04/22 09/05/22 09/05/22 18:59 06:59 18:59 Intake Total 903.356 133.386 180 Output Total 1901 Balance -997.644 133.386 180 Intake: IV 120 Invasive Line 1 20 Intake, IV Titration 147.356 133.386 Amount Heparin Sod,Pork in 0.45% 147.356 133.386 NaCl 25,000 unit In 0.45 % NaCl 1 250ml.bag @ 12 UNITS/KG/HR 14.969 mls/hr IV .[id number] [facility] Rx#: [id number] Oral 236 180 Hemodialysis 400 Output: Urine/Stool Mix 1 Hemodialysis 1900 Other: Voiding Method Urinal Urinal # Voids 1 0 - Exam CONSTITUTIONAL: Appears comfortable, cooperative, no acute distress RESPIRATORY: Lungs sounds diminished bilaterally. Respirations even, nonlabored. Currently on room air with oxygen saturation 100%. Able to achieve 1500 mL on incentive spirometry. Strong cough. CARDIOVASCULAR: S1, S2 present. Regular rate and rhythm, sinus rhythm on telemetry. Sternum stable. Palpable peripheral pulses bilaterally. Trace bilateral lower extremity edema present. GASTROINTESTINAL: Abdomen soft, nontender, nondistended. Active bowel sounds present 4 quadrants. Tolerating diet. GENITOURINARY: Receives dialysis through left upper extremity AV fistula INTEGUMENTARY: Skin is warm and dry NEUROLOGIC: Cranial nerves II through XII intact MUSKULOSKELETAL: Able to move all extremities, strength equal bilaterally, gait normal PSYCHIATRIC: Alert and oriented to person place and time, appropriate affect, intact judgment and insight - Allied health notes Allied health notes reviewed: nursing - Labs CBC & Chem 7: 09/04/22 01:51 09/04/22 01:51 Labs: Abnormal Lab Results - Last 24 Hours (Table) 09/04/22 09/04/22 09/04/22 Range/Units 15:00 15:00 20:19 APTT 51.3 H (22.0-30.0) sec Troponin I 2.210 H* (0.000-0.034) ng/mL C-Reactive Protein (<1.0) mg/dL HDL Cholesterol 21.80 L (40.00-60.00) mg/dL 09/05/22 09/05/22 Range/Units 08:10 08:10 APTT 63.8 H (22.0-30.0) sec Troponin I (0.000-0.034) ng/mL C-Reactive Protein 8.3 H (<1.0) mg/dL HDL Cholesterol (40.00-60.00) mg/dL Assessment and Plan Assessment: Coronary artery disease with previous myocardial infarction status post previous PCI, NSTEMI this admission Hypertension Hyperlipidemia, treated, cholesterol 94, LDL 53 End-stage renal disease on dialysis for 7 years MRSA bacteremia in December 2021 along with Serratia bacteremia and February 2016 Previous tobacco dependence Severe COPD, preoperative FEV1 38% of predicted Current marijuana use Bipolar disorder Poor dentition Plan: Continue to maximize medical therapy with aspirin, statin, beta dwight, nitrate Hold brilinta until decision made regarding surgery, continue heparin gtt Increase activity as tolerated Medical management of other comorbidities per internal medicine, cardiology More recommendations to follow regarding surgical revascularization once Dr. Pratt has seen the patient
--- NOTE | 2022-09-05 11:14 | P.PN ---
Subjective Progress Note Date: 09/05/22 HISTORY OF PRESENT ILLNESS: 09/04/2022 The patient is a 37-year-old male with known history of end-stage renal disease, history of PCI, remote history of smoking, hypertension and hyperlipidemia who presented with symptoms of chest discomfort. His symptoms started after dialysis on Sunday that improved and recurred yesterday and persisted until last night. He is pain-free at this time. The symptoms reminds him of the way he felt in December 2022 when he had a stent to the LAD but he was not dyspneic wasn't. He denies any dizziness or palpitation, no peripheral edema, no PND or orthopnea. He has been compliant with his medication and dialysis and has been doing well. This is the first time he has discomfort since his last intervention. His ejection fraction in the past was 40-45%. In December he received a stent to the distal PDA and he had suggestion of myocardial bridging in the mid LAD at the site of the stenting. He had a contained hematoma but no high-grade stenosis. His left circumflex had no evidence of high-grade stenosis. His troponin peaked at 1. He has no evidence of malignant arrhythmia. His coronary risk factors are positive for hypertension and hyperlipidemia. Medications: Coreg 3.125 mg twice a day, BuSpar, Brilinta 90 mg twice a day, as pirin once a day, Lipitor 40 mg daily, isosorbide 30 mg daily, vitamin D, PhosLo. 09/05/2022 Patient is status post cardiac catheterization with Dr. Canas revealing severe triple vessel coronary artery disease with acutely occluded LAD, 95% stenosis of PDA of RCA that is a restenosis, and 95% stenosis of OM2. Attempted wiring by Dr. Zaidi of LAD was unsuccessful. Per his dictation, wiring of LAD not behaving typical of soft plaque with acute thrombus in the LAD. LAD felt likely to be chronic with possibility of wire additionally going into extraluminal space on IVUS and recurrent stenosis of LAD. A consultation was placed for cardiothoracic surgery and evaluation is currently ongoing. The patient was examined this morning at the bedside. He denies any further episodes of chest pain or pressure. He currently denies shortness of breath. He is undergoing hemodialysis at the time of examination. He remains on IV heparin. Vital signs are stable. Echocardiogram completed revealing ejection fraction 40%, mild MR, mild TR PHYSICAL EXAM: VITAL SIGNS: Reviewed. GENERAL: Well-developed in no acute distress. NECK: Supple. No JVD or thyromegaly LUNGS: Respirations even and unlabored. Lungs essentially clear to auscultation bilaterally. HEART: Regular rate and rhythm. S1 and S2 heard. Systolic murmur noted. EXTREMITIES: Normal range of motion. No clubbing or cyanosis. Peripheral pulses intact. No lower extremity edema ASSESSMENT: Non-STEMI, status post cardiac catheterization revealing triple vessel coronary artery disease as described above History of coronary artery disease with previous PCI to LAD and RCA End-stage renal disease on hemodialysis Ischemic cardiomyopathy, EF 40% Hypertension Hyperlipidemia PLAN: Continue current cardiac medications Continue IV heparin Brilinta placed on hold per cardiothoracic surgery pending decision regarding surgery Hemodialysis per nephrology Further recommendations pending patient's course Nurse practitioner note has been reviewed by physician. Signing provider agrees with the documented findings, assessment, and plan of care. Objective - Vital Signs Vital signs: Vital Signs Temp 97.6 F 09/05/22 07:57 Pulse 66 09/05/22 08:00 Resp 16 09/05/22 08:00 BP 100/70 09/05/22 07:57 Pulse Ox 100 09/05/22 07:57 FiO2 Intake & Output 09/04/22 09/05/22 09/05/22 18:59 06:59 18:59 Intake Total 903.356 133.386 180 Output Total 1901 Balance -997.644 133.386 180 Intake: IV 120 Invasive Line 1 20 Intake, IV Titration 147.356 133.386 Amount Heparin Sod,Pork in 0.45% 147.356 133.386 NaCl 25,000 unit In 0.45 % NaCl 1 250ml.bag @ 12 UNITS/KG/HR 14.969 mls/hr IV .[id number] [facility] Rx#: [id number] Oral 236 180 Hemodialysis 400 Output: Urine/Stool Mix 1 Hemodialysis 1900 Other: Voiding Method Urinal Urinal Urinal # Voids 1 0 - Labs CBC & Chem 7: 09/04/22 01:51 09/04/22 01:51 Labs: Abnormal Lab Results - Last 24 Hours (Table) 09/04/22 09/04/22 09/04/22 Range/Units 15:00 15:00 20:19 APTT 51.3 H (22.0-30.0) sec Troponin I 2.210 H* (0.000-0.034) ng/mL C-Reactive Protein (<1.0) mg/dL HDL Cholesterol 21.80 L (40.00-60.00) mg/dL 09/05/22 09/05/22 Range/Units 08:10 08:10 APTT 63.8 H (22.0-30.0) sec Troponin I (0.000-0.034) ng/mL C-Reactive Protein 8.3 H (<1.0) mg/dL HDL Cholesterol (40.00-60.00) mg/dL
[2022-09-05] MEDS: ALPRAZolam 0.5 MG TAB PO PRN (14:48)
--- NOTE | 2022-09-05 16:18 | P.PN ---
Subjective Progress Note Date: 09/05/22 (Cardiac cath indicate three-vessel disease) Progress note Date of service 09/05/[address] Hernandez. Patient seen today [id number]. Patient seen and discussed with the patient who accepted the consultation with the cardiovascular surgeon Dr. Pratt for updated him about his future surgery with the triple-vessel bypass graft and they discussed that with him the patient and his father and they accepted with the underlying risks. Patient on hemodialysis today by nephrology Dr. Segura. Otherwise patient did not complaining of any chest pain stayed always it happened after the dialysis. Vital sign temperature 97.5, pulse rate 77 bpm, respiratory rate 18/m, low pressure 117/82 with a mean pressure 93 and oxygen saturation 98% on room air. The head was normocephalic and atraumatic and the no blurred vision and noted chest pain at the time of visit. Oropharynx negative neck was supple no JVD no thyromegaly no lymphadenopathy and trachea midline. Chest is clear to auscultation and percussion and Heart regular sinus rhythm. Abdomen obese positive bowel sounds no tenderness. Left arm axis for the hemodialysis which he is receiving at the time monitored by Dr. Segura the school childcare attendant. Extremities no edema and positive pulses. Assessment: Acute chest #1 pain precordial and recurrent with the hemodialysis Elevated troponin with the underlying non-STEMI [place] Severe three-vessel disease including LAD. Status of end-stage renal disease on hemodialysis for 7 years with the functioning axis in the left forearm Bone mineral disease associated with chronic kidney disease stage V. Plan: Patient and his father accepting the surgical intervention which will be planned by the cardiovascular surgeon. Continuing the dialysis Monitoring the patient with the chest pain and numbness STEMI [place] Cardiology on the patient board as well as the nephrology as well as cardiovascular surgeon. Objective - Vital Signs Vital signs: Vital Signs Temp 97.5 F L 09/05/22 13:44 Pulse 77 09/05/22 14:00 Resp 18 09/05/22 14:00 BP 117/82 09/05/22 13:44 Pulse Ox 98 09/05/22 13:39 FiO2 Intake & Output 09/04/22 09/05/22 09/05/22 18:59 06:59 18:59 Intake Total 903.356 133.386 916.17 Output Total 1901 5500 Balance -997.644 133.386 -4583.83 Intake: IV 120 Invasive Line 1 20 Intake, IV Titration 147.356 133.386 236.17 Amount Heparin Sod,Pork in 0.45% 147.356 133.386 236.17 NaCl 25,000 unit In 0.45 % NaCl 1 250ml.bag @ 12 UNITS/KG/HR 14.969 mls/hr IV .[id number] [facility] Rx#: [id number] Oral 236 180 Hemodialysis 400 500 Output: Urine/Stool Mix 1 Hemodialysis 1900 3000 Other 2500 Other: Voiding Method Urinal Urinal Urinal # Voids 1 0 3 - Labs CBC & Chem 7: 09/04/22 01:51 09/04/22 01:51 Labs: Abnormal Lab Results - Last 24 Hours (Table) 09/04/22 09/04/22 09/04/22 Range/Units 15:00 15:00 20:19 ESR (0-15) mm/hr APTT 51.3 H (22.0-30.0) sec Troponin I 2.210 H* (0.000-0.034) ng/mL C-Reactive Protein (<1.0) mg/dL HDL Cholesterol 21.80 L (40.00-60.00) mg/dL 09/05/22 09/05/22 09/05/22 Range/Units 08:10 08:10 08:10 ESR 96 H (0-15) mm/hr APTT 63.8 H (22.0-30.0) sec Troponin I (0.000-0.034) ng/mL C-Reactive Protein 8.3 H (<1.0) mg/dL HDL Cholesterol (40.00-60.00) mg/dL Microbiology - Last 24 Hours (Table) 09/05/22 11:00 Nasal Screen MRSA/MSSA - Preliminary Nasal Swab
[2022-09-05] MEDS ORDERED: HYDROmorphone 0.5 MG/0.5 ML SYRINGE IVP STA (21:17)
[2022-09-05] MEDS: ATORVASTATIN 40 MG TAB PO SCH (21:24)
[2022-09-05] MEDS: MELATONIN 5 MG TABLET PO SCH (21:30)
[2022-09-06] MEDS: HEPARIN SOD,PORK IN 0.45% NACL 25,000 UNIT in 0.45% NACL 1 250ML.BAG IV SCH ×2 (01:34→15:36)
[2022-09-06] MEDS: CALCIUM ACETATE 667 MG TAB PO SCH ×3 (06:02→18:32)
[2022-09-06] MEDS: carvediloL 3.125 MG TAB PO SCH ×2 (09:39→20:26)
[2022-09-06] MEDS: ASPIRIN 81 MG PO SCH (09:39)
[2022-09-06] MEDS: ISOSORBIDE MONONITRATE ER 30 MG TAB.ER.24H PO SCH (09:39)
--- NOTE | 2022-09-06 10:34 | P.PN ---
Subjective Progress Note Date: 09/06/22 Principal diagnosis: Coronary artery disease with previous myocardial infarction status post previous PCI, NSTEMI this admission, hypertension, hyperlipidemia, end-stage renal dise ase on dialysis for 7 years, MRSA bacteremia in December 2021 along with Serratia bacteremia and February 2016, previous tobacco dependence, COPD, severe restrictive lung disease, current marijuana use, bipolar disorder The patient was seen and examined this morning sitting up in bed in the cardiac stepdown unit in no acute distress. Denies any chest pain or shortness of breath at this time, states he feels much better than when he was admitted. Patient was seen yesterday by Dr. Pratt with father present, surgical revascularization discussed, patient is agreeable. All questions answered. No other new concerns. Objective - Vital Signs Vital signs: Vital Signs Temp 97.5 F L 09/06/22 08:00 Pulse 80 09/06/22 08:00 Resp 18 09/06/22 08:00 BP 109/65 09/06/22 08:00 Pulse Ox 97 09/06/22 09:25 FiO2 Intake & Output 09/05/22 09/06/22 09/06/22 18:59 06:59 18:59 Intake Total 1336.17 250 540 Output Total 5500 Balance -4163.83 250 540 Weight 123.8 kg Intake: Intake, IV Titration 236.17 250 Amount Heparin Sod,Pork in 0.45% 236.17 250 NaCl 25,000 unit In 0.45 % NaCl 1 250ml.bag @ 12 UNITS/KG/HR 14.969 mls/hr IV .[id number] [facility] Rx#: [id number] Oral 600 540 Hemodialysis 500 Output: Hemodialysis 3000 Other 2500 Other: Voiding Method Urinal Urinal # Voids 3 0 - Exam CONSTITUTIONAL: Appears comfortable, cooperative, no acute distress RESPIRATORY: Lungs sounds diminished bilaterally. Respirations even, nonlabored. Currently on room air with oxygen saturation 97%. Able to achieve 1500 mL on incentive spirometry. Strong cough. CARDIOVASCULAR: S1, S2 present. Regular rate and rhythm, sinus rhythm on telemetry. Sternum stable. Palpable peripheral pulses bilaterally. Trace bilateral lower extremity edema present. GASTROINTESTINAL: Abdomen soft, nontender, nondistended. Active bowel sounds present 4 quadrants. Tolerating diet. GENITOURINARY: Receives dialysis through left upper extremity AV fistula INTEGUMENTARY: Skin is warm and dry NEUROLOGIC: Cranial nerves II through XII intact MUSKULOSKELETAL: Able to move all extremities, strength equal bilaterally, gait normal PSYCHIATRIC: Alert and oriented to person place and time, appropriate affect, intact judgment and insight - Allied health notes Allied health notes reviewed: nursing - Labs CBC & Chem 7: 09/04/22 01:51 09/04/22 01:51 Labs: Abnormal Lab Results - Last 24 Hours (Table) 09/05/22 09/06/22 Range/Units 08:10 08:44 ESR 96 H (0-15) mm/hr APTT 76.4 H (22.0-30.0) sec Microbiology - Last 24 Hours (Table) 09/05/22 11:00 Nasal Screen MRSA/MSSA - Preliminary Nasal Swab Assessment and Plan Assessment: Coronary artery disease with previous myocardial infarction status post previous PCI, NSTEMI this admission Hypertension Hyperlipidemia, treated, cholesterol 94, LDL 53 End-stage renal disease on dialysis for 7 years MRSA bacteremia in December 2021 along with Serratia bacteremia and February 2016 Previous tobacco dependence COPD Severe restricted lung disease, preoperative FEV1 38% of predicted Current marijuana use Bipolar disorder Poor dentition Plan: Continue to maximize medical therapy with aspirin, statin, beta dwight, nitrate Continue to hold brilinta Tentatively our plan is for surgical revascularization next Sunday with Dr. Pratt. This is acceptable to the patient Increase activity as tolerated Medical management of other comorbidities per internal medicine, cardiology More recommendations to follow
--- NOTE | 2022-09-06 11:55 | P.PN ---
Subjective Patient is seen in follow-up for end-stage renal disease. He is maintained on hemodialysis on Sunday schedule. No problems with dialysis yesterday. Currently denies any chest pain or shortness of breath. Cardiac cath showed severe coronary artery disease. Plan for CABG next week. Vital signs are stable. General: No acute distress. HEENT: Head exam is unremarkable. LUNGS: No active rhonchi or wheezes. Heart: Rate and Rhythm are regular. ABDOMEN: Soft, obese. EXTREMITITES: No edema. Objective - Vital Signs Vital signs: Vital Signs Temp 97.5 F L 09/06/22 08:00 Pulse 80 09/06/22 08:00 Resp 18 09/06/22 08:00 BP 109/65 09/06/22 08:00 Pulse Ox 97 09/06/22 09:25 FiO2 Intake & Output 09/05/22 09/06/22 09/06/22 18:59 06:59 18:59 Intake Total 1336.17 250 540 Output Total 5500 Balance -4163.83 250 540 Weight 123.8 kg Intake: Intake, IV Titration 236.17 250 Amount Heparin Sod,Pork in 0.45% 236.17 250 NaCl 25,000 unit In 0.45 % NaCl 1 250ml.bag @ 12 UNITS/KG/HR 14.969 mls/hr IV .[id number] [facility] Rx#: [id number] Oral 600 540 Hemodialysis 500 Output: Hemodialysis 3000 Other 2500 Other: Voiding Method Urinal Urinal # Voids 3 0 - Labs CBC & Chem 7: 09/04/22 01:51 09/04/22 01:51 Labs: Abnormal Lab Results - Last 24 Hours (Table) 09/05/22 09/06/22 Range/Units 08:10 08:44 ESR 96 H (0-15) mm/hr APTT 76.4 H (22.0-30.0) sec Microbiology - Last 24 Hours (Table) 09/05/22 11:00 Nasal Screen MRSA/MSSA - Preliminary Nasal Swab Assessment and Plan Plan: Assessment: 1. End-stage renal disease maintained on hemodialysis on Sunday schedule via AV fistula. 2. NSTEMI being followed by cardiology. Cardiac catheterization showed severe coronary artery disease. CABG pending. 3. History of coronary disease with cardiac stenting. 4. Chronic kidney disease mineral bone disease maintained on PhosLo. 5. Anemia of chronic kidney disease. Hemoglobin at goal. 6. Cardiomyopathy with ejection fraction of 40%. Plan: Hemodialysis tomorrow. Check phosphorus level.
[2022-09-06] MEDS: RANOLAZINE 500 MG TAB.ER.12H PO SCH ×2 (12:23→20:25)
--- NOTE | 2022-09-06 12:47 | P.PN ---
Subjective Progress Note Date: 09/06/22 HISTORY OF PRESENT ILLNESS: 09/04/2022 The patient is a 37-year-old male with known history of end-stage renal disease, history of PCI, remote history of smoking, hypertension and hyperlipidemia who presented with symptoms of chest discomfort. His symptoms started after dialysis on Sunday that improved and recurred yesterday and persisted until last night. He is pain-free at this time. The symptoms reminds him of the way he felt in December 2022 when he had a stent to the LAD but he was not dyspneic wasn't. He denies any dizziness or palpitation, no peripheral edema, no PND or orthopnea. He has been compliant with his medication and dialysis and has been doing well. This is the first time he has discomfort since his last intervention. His ejection fraction in the past was 40-45%. In December he received a stent to the distal PDA and he had suggestion of myocardial bridging in the mid LAD at the site of the stenting. He had a contained hematoma but no high-grade stenosis. His left circumflex had no evidence of high-grade stenosis. His troponin peaked at 1. He has no evidence of malignant arrhythmia. His coronary risk factors are positive for hypertension and hyperlipidemia. Medications: Coreg 3.125 mg twice a day, BuSpar, Brilinta 90 mg twice a day, as pirin once a day, Lipitor 40 mg daily, isosorbide 30 mg daily, vitamin D, PhosLo. 09/05/2022 Patient is status post cardiac catheterization with Dr. Canas revealing severe triple vessel coronary artery disease with acutely occluded LAD, 95% stenosis of PDA of RCA that is a restenosis, and 95% stenosis of OM2. Attempted wiring by Dr. Zaidi of LAD was unsuccessful. Per his dictation, wiring of LAD not behaving typical of soft plaque with acute thrombus in the LAD. LAD felt likely to be chronic with possibility of wire additionally going into extraluminal space on IVUS and recurrent stenosis of LAD. A consultation was placed for cardiothoracic surgery and evaluation is currently ongoing. The patient was examined this morning at the bedside. He denies any further episodes of chest pain or pressure. He currently denies shortness of breath. He is undergoing hemodialysis at the time of examination. He remains on IV heparin. Vital signs are stable. Echocardiogram completed revealing ejection fraction 40%, mild MR, mild TR 09/06/2022 Patient examined this morning at the bedside. Patient reports he had an episode of chest pain yesterday after hemodialysis. He denies any further episodes of chest pain or pressure. He denies shortness of breath. He remains on IV heparin. Vital signs are stable. PHYSICAL EXAM: VITAL SIGNS: Reviewed. GENERAL: Well-developed in no acute distress. NECK: Supple. No JVD or thyromegaly LUNGS: Respirations even and unlabored. Lungs essentially clear to auscultation bilaterally. HEART: Regular rate and rhythm. S1 and S2 heard. Systolic murmur noted. EXTREMITIES: Normal range of motion. No clubbing or cyanosis. Peripheral pulses intact. No lower extremity edema ASSESSMENT: Non-STEMI, status post cardiac catheterization revealing triple vessel coronary artery disease as described above History of coronary artery disease with previous PCI to LAD and RCA End-stage renal disease on hemodialysis Ischemic cardiomyopathy, EF 40% Hypertension Hyperlipidemia PLAN: Continue current cardiac medications Continue IV heparin Brilinta placed on hold per cardiothoracic surgery Hemodialysis per nephrology Tentative plan for surgery next Sunday Add Ranexa 500 mg twice a day Further recommendations pending patient's course Nurse practitioner note has been reviewed by physician. Signing provider agrees with the documented findings, assessment, and plan of care. Objective - Vital Signs Vital signs: Vital Signs Temp 97.9 F 09/06/22 12:00 Pulse 71 09/06/22 12:00 Resp 18 09/06/22 12:00 BP 94/54 09/06/22 12:00 Pulse Ox 99 09/06/22 12:00 FiO2 Intake & Output 09/05/22 09/06/22 09/06/22 18:59 06:59 18:59 Intake Total 1336.17 250 540 Output Total 5500 Balance -4163.83 250 540 Weight 123.8 kg Intake: Intake, IV Titration 236.17 250 Amount Heparin Sod,Pork in 0.45% 236.17 250 NaCl 25,000 unit In 0.45 % NaCl 1 250ml.bag @ 12 UNITS/KG/HR 14.969 mls/hr IV .[id number] [facility] Rx#: [id number] Oral 600 540 Hemodialysis 500 Output: Hemodialysis 3000 Other 2500 Other: Voiding Method Urinal Urinal # Voids 3 0 - Labs CBC & Chem 7: 09/04/22 01:51 09/04/22 01:51 Labs: Abnormal Lab Results - Last 24 Hours (Table) 09/05/22 09/06/22 Range/Units 08:10 08:44 ESR 96 H (0-15) mm/hr APTT 76.4 H (22.0-30.0) sec Microbiology - Last 24 Hours (Table) 09/05/22 11:00 Nasal Screen MRSA/MSSA - Preliminary Nasal Swab
--- NOTE | 2022-09-06 13:22 | P.PN ---
Subjective Progress Note Date: 09/06/22 (Waiting for coronary artery bypass graft) Progress note Date of service 09/06/[address] Hernandez. Patient seen and evaluated also discussed with the patient and his father. Patient was told by cardiology. He is going to have surgery next use they for the heart and they will keep him here. The cardiology and the cardiac surgeon until the surgery done Patient on hemodialysis and Dr. Segura he is following the patient for that purpose with the underlying end stage renal disease as well as mineral disease as well as anemia CHRONIC kidney disease. Patient stated that he is feeling fine No chest pain no shortness of breath and he had yesterday hemodialysis. On examination his blood pressure today on the low side but he is fluctuating and monitored by Dr. Segura and the cardiology. HEENT was negative Neck was supple Chest was clear to auscultation and percussion Heart regular sinus rhythm Abdomen soft positive bowel sounds Extremities no edema Psychiatry patient stable general condition now with the anxiety stable Neurological stable no evidence of stroke. Assessment: #1 acute chest pain with the elevated troponin found to have non-STEMI MS. #2 ischemic cardiomyopathy with ejection fraction from 40% #3 cardiac catheterization indicating also 3 to triple vessel disease with inclu ded the LAD #4 chronic kidney disease stage V and nephrosclerosis and hemodialysis chronically. #5 cardiac surgeon recommendation at the cardiology recommendation for surgical intervention with the coronary bypass graft. Plan: Continue currently the medical therapy Waiting for surgical intervention for cardiovascular and the the wants to keep the patient until next Sunday with the continued hemodialysis and preparation for the surgery Patient currently stable. We'll follow the recommendation of cardiac surgeon, cardiology, nephrology,. Objective - Vital Signs Vital signs: Vital Signs Temp 97.9 F 09/06/22 12:00 Pulse 71 09/06/22 12:00 Resp 18 09/06/22 12:00 BP 94/54 09/06/22 12:00 Pulse Ox 99 09/06/22 12:00 FiO2 Intake & Output 09/05/22 09/06/22 09/06/22 18:59 06:59 18:59 Intake Total 1336.17 250 540 Output Total 5500 Balance -4163.83 250 540 Weight 123.8 kg Intake: Intake, IV Titration 236.17 250 Amount Heparin Sod,Pork in 0.45% 236.17 250 NaCl 25,000 unit In 0.45 % NaCl 1 250ml.bag @ 12 UNITS/KG/HR 14.969 mls/hr IV .[id number] [facility] Rx#: [id number] Oral 600 540 Hemodialysis 500 Output: Hemodialysis 3000 Other 2500 Other: Voiding Method Urinal Urinal # Voids 3 0 - Labs CBC & Chem 7: 09/04/22 01:51 09/04/22 01:51 Labs: Abnormal Lab Results - Last 24 Hours (Table) 09/06/22 Range/Units 08:44 APTT 76.4 H (22.0-30.0) sec Microbiology - Last 24 Hours (Table) 09/05/22 11:00 Nasal Screen MRSA/MSSA - Preliminary Nasal Swab
--- NOTE | 2022-09-06 13:24 | P.CNPUL ---
History of Present Illness Consult date: 09/06/22 Reason for consult: dyspnea History of present illness: 37-year-old male patient, presented to the hospital for issues related to tachycardia and elevated heart rate. He was also experiencing some chest pain that would not go away. He was having on and off chest pain and he presented to our hospital for further evaluation. His EKG showed some nonspecific changes. The patient ruled in for an acute non-ST segment elevation myocardial infar ction. He underwent cardiac catheterization. Noted the patient is known to have coronary artery disease and he has undergone previous MIs and previous PCI's. He also is known to have hypertension and hyperlipidemia and end-stage renal disease on hemodialysis for the past 7 years. The catheterization was completed and the patient was found to have a dominant large RCA with a focal 95% re in-stent stenosis involving the PDA, totally occluded proximal LAD and second OM branch with a focal 95% stenosis. Based on that, it was recommended to proceed with bypass surgery. The patient is known to have previous smoking history. The patient is also a daily marijuana user. Chest x-ray is consistent with cardiomegaly and pulmonary vascular congestion and a small left-sided pleural effusion. Echo of the heart showed limited ejection fraction of 40% along with grade 4 diastolic dysfunction. Moderate LV dysfunction was present. Note that the patient has no history of any COPD. No history of asthma. The patient has not been using oxygen or any respiratory medications on outpatient basis. He is currently free of any chest pain. He is currently on IV heparin. His surgery is tentatively scheduled to be done on Sunday of next week. His bedside spirometry was done and the patient was found to have an FEV1 of 38% of predicted. Review of Systems Constitutional: Reports as per HPI, Reports weight gain Eyes: denies as per HPI, denies blurred vision, denies bulging eye, denies decreased vision, denies diplopia, denies discharge, denies dry eye, denies irritation, denies itching, denies pain, denies photophobia, denies loss of peripheral vision, denies loss of vision, denies tunnel vision/blind spots Ears: deny: decreased hearing, ear discharge, earache, tinnitus Ears, nose, mouth and throat: Reports as per HPI Breasts: absent: as per HPI, gynecomastia Cardiovascular: Reports claudication, Reports decreased exercise tolerance, Reports shortness of breath Respiratory: Reports dyspnea Gastrointestinal: Reports as per HPI Genitourinary: Reports as per HPI (Patient makes minimal amount of urine. The patient has incisional disease and he gets dialyzed through left upper extremity AV fistula.) Musculoskeletal: Reports as per HPI Musculoskeletal: absent: ankle pain, ankle stiffness, ankle swelling Neurological: Reports as per HPI Psychiatric: Reports as per HPI, Reports depression Endocrine: Reports as per HPI Hematologic/Lymphatic: Reports as per HPI Allergic/Immunologic: Reports as per HPI Past Medical History Past Medical History: Coronary Artery Disease (CAD), Chest Pain / Angina, Heart Failure, Dialysis, Hyperlipidemia, Hypertension, Myocardial Infarction ([place]), Renal Disease Additional Past Medical History / Comment(s): End stage renal failure on hemodialysis, bipolar disorder, chronic back pain and sciatica; MRSA bacteremia 12/2021, Serratia bacteremia 02/2016 Last Myocardial Infarction Date:: August 2022 History of Any Multi-Drug Resistant Organisms: CRE, MRSA Date of last positivie culture/infection: 03/14/16 *CP-CRE-[facility] Serratia Confirmed by [facility]; 02/10/15 MRSA MDRO Source:: Blood-*CRE-[facility]; Thigh-MRSA Past Surgical History: Cholecystectomy, Heart Catheterization With Stent Additional Past Surgical History / Comment(s): Patient has had multiple coronary stents; AV fistula left upper extremity Past Anesthesia/Blood Transfusion Reactions: No Reported Reaction Date of Last Stent Placement:: Unknown Past Psychological History: Anxiety, Bipolar Additional Psychological History / Comment(s): Pt resides with his father. 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 Otherwise, he is independent. Smoking Status: Former smoker Past Alcohol Use History: None Reported Additional Past Alcohol Use History / Comment(s): Pt started smoking in 2007 and quit in 2009. Past Drug Use History: Marijuana - Past Family History Mother History Unknown: Yes Family Medical History: Liver Disease Father Family Medical History: Diabetes Mellitus Additional Family Medical History / Comment(s): sciatica Medications and Allergies Home Medications Medication Instructions Recorded Confirmed Type Calcium Acetate [PhosLo] 1,334 mg PO TID-W/MEALS #90 cap 03/10/16 09/03/22 Rx Calcium Carbonate [Tums] 500 mg PO ACHS PRN 09/27/21 09/03/22 History Isosorbide Dinitrate 30 mg PO DAILY 09/27/21 09/03/22 History Ticagrelor [Brilinta] 90 mg PO BID 09/27/21 09/03/22 History carvediloL [Coreg] 3.125 mg PO BID 09/27/21 09/03/22 History Atorvastatin [Lipitor] 40 mg PO HS #90 tab 09/29/21 09/03/22 Rx Aspirin 81 mg PO DAILY #90 tab 01/10/22 09/03/22 Rx Melatonin 5 mg PO HS #30 tab 01/20/22 09/03/22 Rx busPIRone HCl [Buspar] 15 mg PO TID PRN #90 tab 01/20/22 09/03/22 Rx Ergocalciferol [Vitamin D2 (1250 1,250 mcg PO Q14D 09/03/22 09/03/22 History Mcg = 78091 Iu)] Mupirocin 2% Oint [Bactroban 2% 1 applic TOPICAL BID 09/03/22 09/03/22 History Oint] Sulfamethox-Tmp 400-80Mg [Bactrim 1 tab PO BID 09/03/22 09/03/22 History SS 400-80 mg] Allergies Allergy/AdvReac Type Severity Reaction Status Date / Time No Known Allergies Allergy Verified 09/03/22 15:02 Physical Exam Vitals: Vital Signs Temp Pulse Resp BP BP Pulse Ox 09/06/22 12:00 97.9 F 71 18 94/54 99 09/06/22 09:25 97 09/06/22 08:00 97.5 F L 80 18 109/65 97 09/06/22 04:00 97.2 F L 75 16 110/65 98 09/06/22 00:00 97.1 F L 80 16 111/68 98 09/05/22 20:00 97.1 F L 96 16 92/61 96 09/05/22 16:00 97.7 F 67 18 93/63 98 09/05/22 14:00 77 18 09/05/22 13:44 97.5 F L 77 18 117/82 09/05/22 13:39 98 Intake and Output 09/05/22 09/06/22 09/06/22 22:59 06:59 14:59 Intake Total 420 250 540 Balance 420 250 540 Intake: Intake, IV Titration 250 Amount Heparin Sod,Pork in 0.45% 250 NaCl 25,000 unit In 0.45 % NaCl 1 250ml.bag @ 12 UNITS/KG/HR 14.969 mls/hr IV .[id number] [facility] Rx#: [id number] Oral 420 540 Other: Voiding Method Urinal Urinal # Voids 0 Weight 123.8 kg CONSTITUTIONAL: Appears comfortable, cooperative, no acute distress RESPIRATORY: Lungs sounds diminished bilaterally. Respirations even, nonlabored. Currently on room air with oxygen saturation 97%. Able to achieve 1500 mL on incentive spirometry. Strong cough. CARDIOVASCULAR: S1, S2 present. Regular rate and rhythm, sinus rhythm on telemetry. Sternum stable. Palpable peripheral pulses bilaterally. Trace bilateral lower extremity edema present. GASTROINTESTINAL: Abdomen soft, nontender, nondistended. Active bowel sounds present 4 quadrants. Tolerating diet. GENITOURINARY: Receives dialysis through left upper extremity AV fistula INTEGUMENTARY: Skin is warm and dry NEUROLOGIC: Cranial nerves II through XII intact MUSKULOSKELETAL: Able to move all extremities, strength equal bilaterally, gait normal PSYCHIATRIC: Alert and oriented to person place and time, appropriate affect, intact judgment and insight Results - Laboratory Findings CBC and BMP: 09/04/22 01:51 09/04/22 01:51 PT/INR, D-dimer PT 14.0 sec (9.0-12.0) H 09/04/22 01:47 INR 1.4 (<1.2) H 09/04/22 01:47 Abnormal lab findings: Abnormal Labs 09/03/22 09/03/22 09/03/22 12:33 12:33 12:33 RBC 3.33 L Hgb 10.9 L Hct 33.4 L MCV 100.5 H Neutrophils # 8.8 H Lymphocytes # 0.7 L ESR PT 13.7 H INR 1.3 H APTT Sodium 134 L Chloride 93 L BUN 45 H Creatinine 5.80 H Glucose 126 H Total Bilirubin 1.5 H Alkaline Phosphatase 177 H Troponin I C-Reactive Protein HDL Cholesterol Prolactin 09/03/22 09/03/22 09/03/22 12:33 15:02 19:10 RBC Hgb Hct MCV Neutrophils # Lymphocytes # ESR PT INR APTT 35.9 H Sodium Chloride BUN Creatinine Glucose Total Bilirubin Alkaline Phosphatase Troponin I 0.273 H* 0.239 H* C-Reactive Protein HDL Cholesterol Prolactin 09/03/22 09/03/22 09/04/22 19:10 19:10 01:47 RBC Hgb Hct MCV Neutrophils # Lymphocytes # ESR PT 14.0 H INR 1.4 H APTT 40.0 H Sodium Chloride BUN Creatinine Glucose Total Bilirubin Alkaline Phosphatase Troponin I 0.329 H* C-Reactive Protein HDL Cholesterol Prolactin 28.400 H 09/04/22 09/04/22 09/04/22 01:47 01:51 01:51 RBC 3.12 L Hgb 10.6 L Hct 31.7 L MCV 101.3 H Neutrophils # Lymphocytes # 0.8 L ESR PT INR APTT Sodium 132 L Chloride 90 L BUN 50 H Creatinine 6.87 H Glucose 114 H Total Bilirubin Alkaline Phosphatase Troponin I 1.000 H* C-Reactive Protein HDL Cholesterol Prolactin 09/04/22 09/04/22 09/04/22 07:16 15:00 15:00 RBC Hgb Hct MCV Neutrophils # Lymphocytes # ESR PT INR APTT Sodium Chloride BUN Creatinine Glucose Total Bilirubin Alkaline Phosphatase Troponin I 1.760 H* 2.210 H* C-Reactive Protein HDL Cholesterol 21.80 L Prolactin 09/04/22 09/05/22 09/05/22 20:19 08:10 08:10 RBC Hgb Hct MCV Neutrophils # Lymphocytes # ESR 96 H PT INR APTT 51.3 H 63.8 H Sodium Chloride BUN Creatinine Glucose Total Bilirubin Alkaline Phosphatase Troponin I C-Reactive Protein HDL Cholesterol Prolactin 09/05/22 09/06/22 08:10 08:44 RBC Hgb Hct MCV Neutrophils # Lymphocytes # ESR PT INR APTT 76.4 H Sodium Chloride BUN Creatinine Glucose Total Bilirubin Alkaline Phosphatase Troponin I C-Reactive Protein 8.3 H HDL Cholesterol Prolactin - Diagnostic Findings Chest x-ray: image reviewed Assessment and Plan Plan: Coronary artery disease with previous myocardial infarction status post previous PCI, NSTEMI this admission, currently free of any chest pain and the patient is currently on IV heparin. Awaiting bypass surgery. The patient was evaluated and seen by cardiothoracic surgery. Systolic heart failure with impaired ejection fraction of 40% COPD with an FEV1 of 38% of predicted. In fact the bedside spirometry showed a combination of obstructive and restrictive deficits. The patient is a chronic marijuana smoker. He also quit tobacco smoking several years back. Hypertension Hyperlipidemia, treated, cholesterol 94, LDL 53 End-stage renal disease on dialysis for 7 years MRSA bacteremia in December 2021 along with Serratia bacteremia and February 2016 Previous tobacco dependence COPD Current marijuana use Bipolar disorder Poor dentition Plan: Patient's overall pulmonary status is stable. No signs of any acute exacerbation of his COPD. Chest x-ray is more consistent with fluid overload secondary to CHF and end-stage renal disease. He continues to undergo his routine dialysis. I reviewed the spirometry. Reviewed his chest x-ray. Will participate in the patient's postoperative care, management of ventilator and attempt any pulmonary needs. We'll continue to follow. Meanwhile, continue the supportive care and keep the IV heparin. Surgery is to be scheduled by the surgeons.
[2022-09-06] MEDS: CALCIUM CARBONATE 500 MG CHEWABLE PO PRN (15:35)
[2022-09-06] MEDS: ATORVASTATIN 40 MG TAB PO SCH (20:25)
[2022-09-06] MEDS: MELATONIN 5 MG TABLET PO SCH (20:25)
[2022-09-06] MEDS ORDERED: diphenhydrAMINE 25 MG CAP PO PRN (23:25)
[2022-09-07] MEDS: HEPARIN SOD,PORK IN 0.45% NACL 25,000 UNIT in 0.45% NACL 1 250ML.BAG IV SCH ×2 (04:22→18:13)
--- NOTE | 2022-09-07 06:32 | US ---
EXAMINATION TYPE: US vein mapping BIL DATE OF EXAM: 09/04/2022 3:54 PM COMPARISON: NONE CLINICAL INDICATION: Male, 37 years old with history of preop cardiac surgery; SIDE PERFORMED: Bilateral TECHNIQUE: Lower extremity saphenous vein is examined and measured utilizing real time linear array sonography. Patient History: Smoker: Heart Disease: Previous DVT: no Vascular Surgery: Discoloration: no Hypertension: yes Diabetes: no Paralysis: no Varicosities: Edema: yes DUPLEX FINDINGS: Greater Saphenous: Color flow seen Measurements in mm: Right Greater Saphenous: Groin: 7.5 x 8.5 mm High Thigh: 5.3 x 6.5 mm Mid Thigh: 5.7 x 7.2 mm Above Knee: 5.3 x 6.7 mm Knee: 5.9 x 7.0 mm Below Knee: 5.1 x 6.2 mm Mid Calf: 4.0 x 3.1 mm At Ankle: 3.1 x 2.6 mm Left Greater Saphenous: Groin: 8.5 x 8.6 mm High Thigh: 5.7 x 6.5 mm Mid Thigh: 5.4 x 6.9 mm Above Knee: 4.9 x 6.5 mm Knee: 4.8 x 5.4 mm Below Knee: 4.3 x 4.9 mm Mid Calf: 4.5 x 5.0 mm At Ankle: 3.8 x 5.2 mm *multiple branches noted bilaterally IMPRESSION: 1. Bilateral GSV measurements listed above. 2. Performing surgeon to determine viability as conduit.
--- NOTE | 2022-09-07 06:32 | US ---
EXAMINATION TYPE: Pre-Operative Non-Invasive Evaluation of the hand for Potential Radial Artery Cristal ruby, Measurements only DATE OF EXAM: 09/04/2022 3:54 PM CLINICAL INDICATION: Male, 37 years old with history of measurements only; pre op cardiac surgery SIDE PERFORMED: left TECHNIQUE: Radial artery is measured utilizing real time linear array sonography. Dominant hand: right Duplex Findings: Radial Artery: Color flow seen Measurements in mm, transverse view: Left Radial: *limitations due to dialysis port/graft, unable to visualize origin of left radial arter y Proximal: 2.8 x 2.3 mm Mid: 2.9 x 2.4 mm Distal: 2.5 x 2.2 mm IMPRESSION: 1. Left radial artery measurements listed above. 2. Performing surgeon to determine viability as conduit.
--- NOTE | 2022-09-07 08:30 | P.PN ---
Subjective Progress Note Date: 09/07/22 PROGRESS NOTE The patient is a 37-year-old male with known history of end-stage renal disease, history of PCI, remote history of smoking, hypertension and hyperlipidemia who presented with symptoms of chest discomfort. His symptoms started after dialysis on Sunday that improved and recurred yesterday and persisted until last night. He is pain-free at this time. The symptoms reminds him of the way he felt in December 2022 when he had a stent to the LAD but he was not dyspneic wasn't. He denies any dizziness or palpitation, no peripheral edema, no PND or orthopnea. He has been compliant with his medication and dialysis and has been doing well. This is the first time he has discomfort since his last intervention. His ejection fraction in the past was 40-45%. In December he received a stent to the distal PDA and he had suggestion of myocardial bridging in the mid LAD at the site of the stenting. He had a contained hematoma but no high-grade stenosis. His left circumflex had no evidence of high-grade stenosis. His troponin peaked at 1. He has no evidence of malignant arrhythmia. His coronary risk factors are positive for hypertension and hyperlipidemia. The patient underwent cardiac catheterization and was found to have occluded LAD, severe stenosis and the left circumflex and the RCA. He was evaluated by the surgical team and is scheduled to undergo surgical revascularization on Sunday. September 07: He's feeling well with no symptoms of chest discomfort, dizziness or palpita tions. His breathing is stable. He felt tired with ambulation but no anginal pain. He continues to be in sinus mechanism without any evidence of malignant arrhythmia. He continues to be on IV heparin pending surgical intervention. Medications: Aspirin, Lipitor 40 mg daily, IV heparin, isosorbide mononitrate 30 mg daily, Ranexa 500 mg twice a day PHYSICAL EXAMINATION: Blood pressure 109/70 heart rate 80 LUNGS: Clear to auscultation HEART: Regular rate and rhythm, S1, S2. No S3. Ejection systolic murmur ABDOMEN: Soft, nontender, no organomegaly EXTREMETIES: No edema IMPRESSION: 1. Severe triple-vessel disease with non-STEMI on presentation, scheduled for CABG on Sunday 2. End-stage renal disease on hemodialysis 3. History of hyperlipidemia 4. Rapidly progressive in-stent restenosis PLAN: 1. Continue present therapy 2. Follow blood pressure and heart rate and if stable add beta dwight 3. Continue IV heparin 4. Depending on his progress further recommendations will be made Objective - Vital Signs Vital signs: Vital Signs Temp 97.5 F L 09/07/22 03:20 Pulse 80 09/07/22 07:25 Resp 18 09/07/22 07:25 BP 109/72 09/07/22 07:25 Pulse Ox 97 09/07/22 07:25 FiO2 Intake & Output 09/06/22 09/07/22 09/07/22 18:59 06:59 18:59 Intake Total 1150 250 Balance 1150 250 Weight 126.2 kg Intake: Intake, IV Titration 250 250 Amount Heparin Sod,Pork in 0.45% 250 250 NaCl 25,000 unit In 0.45 % NaCl 1 250ml.bag @ 12 UNITS/KG/HR 14.969 mls/hr IV .[id number] [facility] Rx#: [id number] Oral 900 Other: Voiding Method Urinal Urinal - Labs CBC & Chem 7: 09/04/22 01:51 09/04/22 01:51 Labs: Abnormal Lab Results - Last 24 Hours (Table) 09/06/22 Range/Units 08:44 APTT 76.4 H (22.0-30.0) sec Microbiology - Last 24 Hours (Table) 09/05/22 11:00 Nasal Screen MRSA/MSSA - Final Nasal Swab
[2022-09-07] MEDS: CALCIUM ACETATE 667 MG TAB PO SCH ×3 (08:50→17:16)
--- NOTE | 2022-09-07 10:26 | P.PN ---
Subjective Progress Note Date: 09/07/22 Principal diagnosis: Coronary artery disease with previous myocardial infarction status post previous PCI, NSTEMI this admission, hypertension, hyperlipidemia, end-stage renal dise ase on dialysis for 7 years, MRSA bacteremia in December 2021 along with Serratia bacteremia and February 2016, previous tobacco dependence, COPD, severe restrictive lung disease, current marijuana use, bipolar disorder The patient was seen and examined this morning sitting up in bed in the cardiac stepdown unit in no acute distress. Denies any chest pain or shortness of breath at this time. Remains in NSR, hemodynamically stable. Remains on IV heparin. Plan is for surgical revascularization next Sunday with Dr. Pratt. No other new concerns. Objective - Vital Signs Vital signs: Vital Signs Temp 97.5 F L 09/07/22 03:20 Pulse 80 09/07/22 07:25 Resp 18 09/07/22 07:25 BP 109/72 09/07/22 07:25 Pulse Ox 98 09/07/22 09:16 FiO2 Intake & Output 09/06/22 09/07/22 09/07/22 18:59 06:59 18:59 Intake Total 1150 250 180 Balance 1150 250 180 Weight 126.2 kg Intake: Intake, IV Titration 250 250 Amount Heparin Sod,Pork in 0.45% 250 250 NaCl 25,000 unit In 0.45 % NaCl 1 250ml.bag @ 12 UNITS/KG/HR 14.969 mls/hr IV .[id number] [facility] Rx#: [id number] Oral 900 180 Other: Voiding Method Urinal Urinal - Exam CONSTITUTIONAL: Appears comfortable, cooperative, no acute distress RESPIRATORY: Lungs sounds diminished bilaterally. Respirations even, nonlabored. Currently on room air with oxygen saturation 98%. Able to achieve 1500 mL on incentive spirometry. Strong cough. CARDIOVASCULAR: S1, S2 present. Regular rate and rhythm, sinus rhythm on telemetry. Palpable peripheral pulses bilaterally. Trace bilateral lower extremity edema present. GASTROINTESTINAL: Abdomen soft, nontender, nondistended. Active bowel sounds present 4 quadrants. Tolerating diet. GENITOURINARY: Receives dialysis through left upper extremity AV fistula INTEGUMENTARY: Skin is warm and dry NEUROLOGIC: Cranial nerves II through XII intact MUSKULOSKELETAL: Able to move all extremities, strength equal bilaterally, gait normal PSYCHIATRIC: Alert and oriented to person place and time, appropriate affect, intact judgment and insight - Allied health notes Allied health notes reviewed: nursing - Labs CBC & Chem 7: 09/04/22 01:51 09/04/22 01:51 Labs: Microbiology - Last 24 Hours (Table) 09/05/22 11:00 Nasal Screen MRSA/MSSA - Final Nasal Swab Assessment and Plan Assessment: Coronary artery disease with previous myocardial infarction status post previous PCI, NSTEMI this admission Hypertension Hyperlipidemia, treated, cholesterol 94, LDL 53 End-stage renal disease on dialysis for 7 years MRSA bacteremia in December 2021 along with Serratia bacteremia and February 2016 Previous tobacco dependence COPD Severe restricted lung disease, preoperative FEV1 38% of predicted Current marijuana use Bipolar disorder Poor dentition Plan: Continue to maximize medical therapy with aspirin, statin, beta dwight, nitrate, IV heparin Continue to hold brilinta Our plan is for surgical revascularization next Sunday with Dr. Pratt Increase activity as tolerated Medical management of other comorbidities per internal medicine, cardiology More recommendations to follow
[2022-09-07] MEDS ORDERED: MIDODRINE 5 MG TAB PO STA (10:54)
--- NOTE | 2022-09-07 12:14 | P.PN ---
Subjective Patient is seen in follow-up for end-stage renal disease. He is maintained on hemodialysis on Sunday schedule. Is tolerating dialysis well. Denies any chest pain or shortness of breath. Cardiac cath showed severe coronary artery disease. Plan for CABG next week. Vital signs are stable. General: No acute distress. HEENT: Head exam is unremarkable. LUNGS: No active rhonchi or wheezes. Heart: Rate and Rhythm are regular. ABDOMEN: Soft, obese. EXTREMITITES: No edema. Objective - Vital Signs Vital signs: Vital Signs Temp 97.7 F 09/07/22 11:50 Pulse 78 09/07/22 11:50 Resp 18 09/07/22 11:50 BP 109/41 09/07/22 11:50 Pulse Ox 99 09/07/22 11:50 FiO2 Intake & Output 09/06/22 09/07/22 09/07/22 18:59 06:59 18:59 Intake Total 1150 250 180 Balance 1150 250 180 Weight 126.2 kg Intake: Intake, IV Titration 250 250 Amount Heparin Sod,Pork in 0.45% 250 250 NaCl 25,000 unit In 0.45 % NaCl 1 250ml.bag @ 12 UNITS/KG/HR 14.969 mls/hr IV .[id number] [facility] Rx#: [id number] Oral 900 180 Other: Voiding Method Urinal Urinal - Labs CBC & Chem 7: 09/04/22 01:51 09/04/22 01:51 Labs: Microbiology - Last 24 Hours (Table) 09/05/22 11:00 Nasal Screen MRSA/MSSA - Final Nasal Swab Assessment and Plan Plan: Assessment: 1. End-stage renal disease maintained on hemodialysis on Sunday schedule via AV fistula. 2. NSTEMI being followed by cardiology. Cardiac catheterization showed severe coronary artery disease. CABG pending. 3. History of coronary disease with cardiac stenting. 4. Chronic kidney disease mineral bone disease maintained on PhosLo. Phosphorus level 4.4 dated 09/06/2022. 5. Anemia of chronic kidney disease. Hemoglobin at goal. 6. Cardiomyopathy with ejection fraction of 40%. Plan: Currently seen while undergoing hemodialysis. Next treatment on Sunday. Midodrine as needed during dialysis for hypotension.
[2022-09-07] MEDS: ASPIRIN 81 MG PO SCH (12:55)
[2022-09-07] MEDS: carvediloL 3.125 MG TAB PO SCH ×2 (12:55→19:59)
[2022-09-07] MEDS: ISOSORBIDE MONONITRATE ER 30 MG TAB.ER.24H PO SCH (12:55)
[2022-09-07] MEDS: RANOLAZINE 500 MG TAB.ER.12H PO SCH ×2 (12:55→20:00)
--- NOTE | 2022-09-07 13:01 | P.PN ---
Subjective Progress Note Date: 09/07/22 (Waiting for coronary artery bypass) Progress note Date of service 09/07/[address] Hernandez Patient seen and evaluated [id number] His father at bedside as well as he finished his hemodialysis Patient feeling stable no chest pain and feeling good. Vital sign temperature 97.7 F oral, heart rate 78 bpm, respiratory rate 18/m, blood pressure 109/41 with a mean 63, and pulse ox on room air 99%. Patient had hemodialysis today finished at the time of the exam. Conscious alert oriented feeling comfortable and no chest pain. 2 L has been pulled out of altered of ultrafiltration. HEENT: Negative and no symptoms no blurred vision no headache call Anxiety attack Neck was supple no JVD no thyromegaly no lymphadenopathy trachea . Chest was clear to auscultation and percussion Heart regular sinus rhythm no chest pain Abdomen obese redundant with obesity. Extremities no edema. Pulses. Psychiatry: Has anxiety stable and no agitation Neurology no evidence of lateralization no history of stroke. Assessment #1 stable general condition or the surgical intervention which was planned by the cardiac surgeon on next Sunday. #2 end-stage renal disease on hemodialysis #3 history of mineral kidney disease with chronic kidney disease stage V. #4 coronary artery disease atherosclerotic heart disease multiple stents #5 three-vessel/triple vessel disease and planned for cardiac surgery for coronary bypass graft. Plan: #1preparing patient for the surgery was several procedure as tapping of the veins and arteries #2 seen by critical care and pulmonary Dr. Coronado. #[address] So nephrology with the underlying hemodialysis. #4 monitored by cardiology and status post cardiac cath. Underlying cardiac surgeon team monitored patient for the surgeon. Objective - Vital Signs Vital signs: Vital Signs Temp 97.7 F 09/07/22 11:50 Pulse 78 09/07/22 11:50 Resp 18 09/07/22 11:50 BP 109/41 09/07/22 11:50 Pulse Ox 99 09/07/22 11:50 FiO2 Intake & Output 09/06/22 09/07/22 09/07/22 18:59 06:59 18:59 Intake Total 1150 250 180 Balance 1150 250 180 Weight 126.2 kg Intake: Intake, IV Titration 250 250 Amount Heparin Sod,Pork in 0.45% 250 250 NaCl 25,000 unit In 0.45 % NaCl 1 250ml.bag @ 12 UNITS/KG/HR 14.969 mls/hr IV .[id number] [facility] Rx#: [id number] Oral 900 180 Other: Voiding Method Urinal Urinal - Labs CBC & Chem 7: 09/04/22 01:51 09/04/22 01:51 Labs: Microbiology - Last 24 Hours (Table) 09/05/22 11:00 Nasal Screen MRSA/MSSA - Final Nasal Swab
[2022-09-07 15:37] LABS: Calcium 8.8 mg/dL (8.4-10.2); Potassium 3.8 mmol/L (3.5-5.1)
--- NOTE | 2022-09-07 17:58 | P.PN ---
Subjective Progress Note Date: 09/07/22 37-year-old male patient, presented to the hospital for issues related to tachycardia and elevated heart rate. He was also experiencing some chest pain that would not go away. He was having on and off chest pain and he presented to our hospital for further evaluation. His EKG showed some nonspecific changes. The patient ruled in for an acute non-ST segment elevation myocardial infarction. He underwent cardiac catheterization. Noted the patient is known to have coronary artery disease and he has undergone previous MIs and previous PCI's. He also is known to have hypertension and hyperlipidemia and end-stage renal disease on hemodialysis for the past 7 years. The catheterization was completed and the patient was found to have a dominant large RCA with a focal 95% re in-stent stenosis involving the PDA, totally occluded proximal LAD and second OM branch with a focal 95% stenosis. Based on that, it was recommended to proceed with bypass surgery. The patient is known to have previous smoking history. The patient is also a daily marijuana user. Chest x-ray is consistent with cardiomegaly and pulmonary vascular congestion and a small left-sided pleural effusion. Echo of the heart showed limited ejection fraction of 40% along with grade 4 diastolic dysfunction. Moderate LV dysfunction was present. Note that the patient has no history of any COPD. No history of asthma. The p atient has not been using oxygen or any respiratory medications on outpatient basis. He is currently free of any chest pain. He is currently on IV heparin. His surgery is tentatively scheduled to be done on Sunday of next week. His bedside spirometry was done and the patient was found to have an FEV1 of 38% of predicted. On 09/07/2022 , no new complaints and the patient remains on IV heparin. no shortness of breath. No chest pain. The patient is still awaiting cardiac bypass surgery in his tentatively scheduled to have surgery done she was day of next week. He underwent hemodialysis today. Is ambulating. No other new complaints otherwise for now. The blood work from today shows a BUN of 35 with a creatinine of 5.4 and his sodium level of 137 with a potassium level of 3.4. No other significant event otherwise for now. Objective - Vital Signs Vital signs: Vital Signs Temp 97.4 F L 09/07/22 16:34 Pulse 77 09/07/22 16:34 Resp 20 09/07/22 16:34 BP 112/76 09/07/22 16:34 Pulse Ox 99 09/07/22 11:50 FiO2 Intake & Output 09/06/22 09/07/22 09/07/22 18:59 06:59 18:59 Intake Total 1150 250 360 Balance 1150 250 360 Weight 126.2 kg Intake: Intake, IV Titration 250 250 Amount Heparin Sod,Pork in 0.45% 250 250 NaCl 25,000 unit In 0.45 % NaCl 1 250ml.bag @ 12 UNITS/KG/HR 14.969 mls/hr IV .[id number] [facility] Rx#: [id number] Oral 900 360 Other: Voiding Method Urinal Urinal - Exam CONSTITUTIONAL: Appears comfortable, cooperative, no acute distress RESPIRATORY: Lungs sounds diminished bilaterally. Respirations even, nonlabored. Currently on room air with oxygen saturation 97%. Able to achieve 1500 mL on incentive spirometry. Strong cough. CARDIOVASCULAR: S1, S2 present. Regular rate and rhythm, sinus rhythm on telemetry. Sternum stable. Palpable peripheral pulses bilaterally. Trace bilateral lower extremity edema present. GASTROINTESTINAL: Abdomen soft, nontender, nondistended. Active bowel sounds present 4 quadrants. Tolerating diet. GENITOURINARY: Receives dialysis through left upper extremity AV fistula INTEGUMENTARY: Skin is warm and dry NEUROLOGIC: Cranial nerves II through XII intact MUSKULOSKELETAL: Able to move all extremities, strength equal bilaterally, gait normal PSYCHIATRIC: Alert and oriented to person place and time, appropriate affect, intact judgment and insight - Labs CBC & Chem 7: 09/04/22 01:51 09/07/22 14:53 Labs: Abnormal Lab Results - Last 24 Hours (Table) 09/07/22 09/07/22 Range/Units 13:13 14:53 APTT 68.8 H (22.0-30.0) sec Chloride 96 L (98-107) mmol/L BUN 35 H (9-20) mg/dL Creatinine 5.44 H (0.66-1.25) mg/dL Glucose 159 H (74-99) mg/dL Microbiology - Last 24 Hours (Table) 09/05/22 11:00 Nasal Screen MRSA/MSSA - Final Nasal Swab Assessment and Plan Plan: Coronary artery disease with previous myocardial infarction status post previous PCI, NSTEMI this admission, currently free of any chest pain and the patient is currently on IV heparin. Awaiting bypass surgery. The patient was evaluated and seen by cardiothoracic surgery. Systolic heart failure with impaired ejection fraction of 40% COPD with an FEV1 of 38% of predicted. In fact the bedside spirometry showed a combination of obstructive and restrictive deficits. The patient is a chronic marijuana smoker. He also quit tobacco smoking several years back. Hypertension Hyperlipidemia, treated, cholesterol 94, LDL 53 End-stage renal disease on dialysis for 7 years MRSA bacteremia in December 2021 along with Serratia bacteremia and February 2016 Previous tobacco dependence COPD Current marijuana use Bipolar disorder Poor dentition Plan: Stable and the patient is awaiting his bypass surgery which is scheduled for next week He is still on IV heparin History of any chest pain Hemodialysis was completed today Patient's overall pulmonary status is stable. No signs of any acute exacerbation of his COPD. Chest x-ray is more consistent with fluid overload secondary to CHF and end-stage renal disease. He continues to undergo his routine dialysis. I reviewed the spirometry. Reviewed his chest x-ray. Will participate in the patient's postoperative care, management of ventilator and attempt any pulmonary needs. We'll continue to follow. Meanwhile, continue the supportive care and keep the IV heparin. Surgery is to be scheduled by the surgeons.
[2022-09-07] MEDS: CALCIUM CARBONATE 500 MG CHEWABLE PO PRN (19:04)
[2022-09-07] MEDS: ATORVASTATIN 40 MG TAB PO SCH (19:59)
[2022-09-07] MEDS: MELATONIN 5 MG TABLET PO SCH (20:00)
[2022-09-07] MEDS ORDERED: HYDROmorphone 0.5 MG/0.5 ML SYRINGE IVP STA (23:21)
[2022-09-08] MEDS: CALCIUM ACETATE 667 MG TAB PO SCH ×3 (06:29→16:54)
[2022-09-08] MEDS: ISOSORBIDE MONONITRATE ER 30 MG TAB.ER.24H PO SCH (08:33)
[2022-09-08] MEDS: carvediloL 3.125 MG TAB PO SCH ×2 (08:33→20:08)
[2022-09-08] MEDS: ASPIRIN 81 MG PO SCH (08:33)
[2022-09-08] MEDS: RANOLAZINE 500 MG TAB.ER.12H PO SCH ×2 (08:33→20:08)
[2022-09-08] MEDS: HEPARIN SOD,PORK IN 0.45% NACL 25,000 UNIT in 0.45% NACL 1 250ML.BAG IV SCH (08:33)
--- NOTE | 2022-09-08 09:05 | P.PN ---
Subjective Progress Note Date: 09/08/22 PROGRESS NOTE The patient is a 37-year-old male with known history of end-stage renal disease, history of PCI, remote history of smoking, hypertension and hyperlipidemia who presented with symptoms of chest discomfort. His symptoms started after dialysis on Sunday that improved and recurred yesterday and persisted until last night. He is pain-free at this time. The symptoms reminds him of the way he felt in December 2022 when he had a stent to the LAD but he was not dyspneic wasn't. He denies any dizziness or palpitation, no peripheral edema, no PND or orthopnea. He has been compliant with his medication and dialysis and has been doing well. This is the first time he has discomfort since his last intervention. His ejection fraction in the past was 40-45%. In December he received a stent to the distal PDA and he had suggestion of myocardial bridging in the mid LAD at the site of the stenting. He had a contained hematoma but no high-grade stenosis. His left circumflex had no evidence of high-grade stenosis. His troponin peaked at 1. He has no evidence of malignant arrhythmia. His coronary risk factors are positive for hypertension and hyperlipidemia. The patient underwent cardiac catheterization and was found to have occluded LAD, severe stenosis and the left circumflex and the RCA. He was evaluated by the surgical team and is scheduled to undergo surgical revascularization on Sunday. September 07: He's feeling well with no symptoms of chest discomfort, dizziness or palpita tions. His breathing is stable. He felt tired with ambulation but no anginal pain. He continues to be in sinus mechanism without any evidence of malignant arrhythmia. He continues to be on IV heparin pending surgical intervention. September 08: The patient is feeling well this morning. He has no symptoms of chest discomfort. He is ambulating without any significant symptoms. He denies any dizziness or palpitation. He is awaiting surgical intervention on Sunday. He continues to be on IV heparin. He received dialysis yesterday. Medications: Aspirin, Lipitor 40 mg daily, IV heparin, isosorbide mononitrate 30 mg daily, Ranexa 500 mg twice a day PHYSICAL EXAMINATION: Blood pressure 98/50 heart rate 75 LUNGS: Clear to auscultation HEART: Regular rate and rhythm, S1, S2. No S3. Ejection systolic murmur ABDOMEN: Soft, nontender, no organomegaly EXTREMETIES: No edema Lab: BUN 35, creatinine 5.44 IMPRESSION: 1. Severe triple-vessel disease with non-STEMI on presentation, scheduled for CABG on Sunday 2. End-stage renal disease on hemodialysis 3. History of hyperlipidemia 4. Rapidly progressive in-stent restenosis PLAN: 1. Continue present therapy 2. Follow blood pressure and heart rate and if stable add beta dwight 3. Continue IV heparin 4. Depending on his progress further recommendations will be made Objective - Vital Signs Vital signs: Vital Signs Temp 97.8 F 09/08/22 07:00 Pulse 75 09/08/22 07:00 Resp 16 09/08/22 07:00 BP 94/61 09/08/22 07:00 Pulse Ox 98 09/08/22 09:01 FiO2 Intake & Output 09/07/22 09/08/22 09/08/22 18:59 06:59 18:59 Intake Total 1669.4 250 180 Output Total 2400 Balance -730.6 250 180 Weight 126.6 kg Intake: IV 239.4 Heparin Sod,Pork in 0.45% 239.4 NaCl 25,000 unit In 0.45 % NaCl 1 250ml.bag @ 12 UNITS/KG/HR 14.969 mls/hr IV .[id number] [facility] Rx#: [id number] Intake, IV Titration 490 250 Amount Heparin Sod,Pork in 0.45% 250 250 NaCl 25,000 unit In 0.45 % NaCl 1 250ml.bag @ 12 UNITS/KG/HR 14.969 mls/hr IV .[id number] [facility] Rx#: [id number] Sodium Chloride 0.9% 500 240 ml 500 ml @ 0 mls/hr IV . [facility] Rx#: [id number] Oral 540 180 Hemodialysis 400 Output: Hemodialysis 2400 Other: Voiding Method Urinal Urinal - Labs CBC & Chem 7: 09/04/22 01:51 09/07/22 14:53 Labs: Abnormal Lab Results - Last 24 Hours (Table) 09/07/22 09/07/22 Range/Units 13:13 14:53 APTT 68.8 H (22.0-30.0) sec Chloride 96 L (98-107) mmol/L BUN 35 H (9-20) mg/dL Creatinine 5.44 H (0.66-1.25) mg/dL Glucose 159 H (74-99) mg/dL
[2022-09-08 09:16] LABS: Calcium 9.3 mg/dL (8.4-10.2); Potassium 4.7 mmol/L (3.5-5.1)
--- NOTE | 2022-09-08 10:01 | P.PN ---
Subjective Progress Note Date: 09/08/22 Principal diagnosis: Coronary artery disease with previous myocardial infarction status post previous PCI, NSTEMI this admission, hypertension, hyperlipidemia, end-stage renal dise ase on hemodialysis for 7 years, MRSA bacteremia in December 2021 along with Serratia bacteremia and February 2016, previous tobacco dependence, COPD, severe restrictive lung disease, current marijuana use, bipolar disorder. The patient was seen and examined in follow-up today 09/08/2022 at his bedside on the cardiac stepdown unit. Currently sitting up in bed, is awake, alert, oriented 3 and is in no acute apparent distress. He is eating his breakfast, and denies any complaints of pain or shortness of breath at this time. Remote telemetry is showing normal sinus rhythm heart rate 71 BPM. He remained hemodynamically stable and is currently on no inotropic or pressor support. Heparin drip remains infusing per protocol. He is scheduled for myocardial revascularization surgery on 09/12/2022 to be performed by Dr. Christiano Pratt. He remains afebrile the last 24 hours. Preoperative teaching has been reinforced with the patient. Objective - Vital Signs Vital signs: Vital Signs Temp 97.8 F 09/08/22 07:00 Pulse 75 09/08/22 07:00 Resp 16 09/08/22 07:00 BP 94/61 09/08/22 07:00 Pulse Ox 98 09/08/22 09:01 FiO2 Intake & Output 09/07/22 09/08/22 09/08/22 18:59 06:59 18:59 Intake Total 1669.4 250 180 Output Total 2400 Balance -730.6 250 180 Weight 126.6 kg Intake: IV 239.4 Heparin Sod,Pork in 0.45% 239.4 NaCl 25,000 unit In 0.45 % NaCl 1 250ml.bag @ 12 UNITS/KG/HR 14.969 mls/hr IV .[id number] [facility] Rx#: [id number] Intake, IV Titration 490 250 Amount Heparin Sod,Pork in 0.45% 250 250 NaCl 25,000 unit In 0.45 % NaCl 1 250ml.bag @ 12 UNITS/KG/HR 14.969 mls/hr IV .[id number] [facility] Rx#: [id number] Sodium Chloride 0.9% 500 240 ml 500 ml @ 0 mls/hr IV . [facility] Rx#: [id number] Oral 540 180 Hemodialysis 400 Output: Hemodialysis 2400 Other: Voiding Method Urinal Urinal - Exam CONSTITUTIONAL: Appears comfortable, cooperative, no acute distress RESPIRATORY: Lungs sounds diminished to his bases bilaterally. Respirations are symmetrical, nonlabored. Currently on room air with oxygen saturation 99%. Able to achieve 6831-4335 mL on incentive spirometry. Strong cough. CARDIOVASCULAR: S1, S2 present. Regular rate and rhythm, sinus rhythm on remote telemetry. Palpable peripheral pulses bilaterally. Trace bilateral lower extremity edema present. GASTROINTESTINAL: Abdomen soft, nontender, nondistended. Active bowel sounds present 4 quadrants. Tolerating diet. GENITOURINARY: Receives hemodialysis through left upper extremity AV fistula, hemodialysis yesterday with 2.4 L of fluid dialyzed. INTEGUMENTARY: Skin is warm and dry, no clubbing or cyanosis is present. NEUROLOGIC: Cranial nerves II through XII intact, no focal deficits. MUSKULOSKELETAL: Able to move all extremities, strength equal bilaterally, gait normal. PSYCHIATRIC: Alert and oriented to person place and time, appropriate affect, intact judgment and insight. - Allied health notes Allied health notes reviewed: nursing - Labs CBC & Chem 7: 09/04/22 01:51 09/08/22 08:19 Labs: Abnormal Lab Results - Last 24 Hours (Table) 09/07/22 09/07/22 09/08/22 Range/Units 13:13 14:53 08:19 APTT 68.8 H 87.5 H (22.0-30.0) sec Sodium (137-145) mmol/L Chloride 96 L (98-107) mmol/L BUN 35 H (9-20) mg/dL Creatinine 5.44 H (0.66-1.25) mg/dL Glucose 159 H (74-99) mg/dL 09/08/22 Range/Units 08:19 APTT (22.0-30.0) sec Sodium 133 L (137-145) mmol/L Chloride 95 L (98-107) mmol/L BUN 45 H (9-20) mg/dL Creatinine 6.65 H (0.66-1.25) mg/dL Glucose 126 H (74-99) mg/dL Assessment and Plan Assessment: Coronary artery disease with previous myocardial infarction status post previous PCI, NSTEMI this admission Hypertension Hyperlipidemia, treated, cholesterol 94, LDL 53 End-stage renal disease on hemodialysis for 7 years MRSA bacteremia in December 2021 along with Serratia bacteremia and February 2016 Previous tobacco dependence COPD Severe restricted lung disease, preoperative FEV1 38% of predicted Current marijuana use Bipolar disorder Poor dentition Plan: Continue to maximize medical therapy with aspirin, statin, beta dwight, nitrate, IV heparin. Continue to hold brilinta. Heparin drip management per cardiology recommendations. Our plan is for surgical myocardial revascularization next Sunday09/12/[address] Christiano Pratt. Increase activity as tolerated. Medical management of other comorbidities per internal medicine, and cardiology. Preoperative teaching has been reinforced with the patient. More recommendations to follow based on patient's clinical course. Time with Patient: Greater than 30
--- NOTE | 2022-09-08 10:19 | P.PN ---
Subjective Progress Note Date: 09/08/22 (Waiting for the triple bypass coronary vessel) Progress note Date of service 09/08/[address] Hernandez. Patient seen today evaluated Patient denied any dizziness or blurred vision and able to ambulate to the bathroom his blood pressure 194/61 with no symptoms and his pulse ox 98% heart rate 75 bpm regular sinus and respiratory rate 16/m, temperature 97.8 and 4. No cough or expectoration. Seen by Dr. Hanks cardiology and Dr. Coronado pulmonary and critical care for the future preparation of coronary artery bypass graft for three-vessel with the underlying history of COPD. Head was normocephalic and atraumatic. Pupil is equal reactive, oropharynx he had poor dental care. 9 neck was supple no JVD no thyromegaly no lymphadenopathy trachea midline. Chest was clear no wheezes no rhonchi normal breath sounds Heart sinus rhythm and currently heart rate is 75 normal Abdomen obese positive bowel sounds Extremities no edema. No agitation with history of an anxiety. Neurologically no history of stroke the past no lateralizing sign. Assessment: #1 patient is waiting for three-vessel coronary artery bypass graft and waiting for next Sunday. #2 patient with chronic hemodialysis next hemodialysis is tomorrow range by Dr. Smith. #3 patient with history of hypertension and ischemic cardiomyopathy currently his blood pressure on the low side 94/61. #4 history of multiple stents in the past with the recurrent of stenosis. Plan: #1 patient seen by the team poor cardiovascular surgeon and cardiology, and pulmonary and critical care, and patient retained in the hospital for observatio n until surgery for the coronary bypass graft. Ordered of the cardiovascular surgeon. #2 patient continuing hemodialysis per nephrology. Objective - Vital Signs Vital signs: Vital Signs Temp 97.8 F 09/08/22 07:00 Pulse 75 09/08/22 07:00 Resp 16 09/08/22 07:00 BP 94/61 09/08/22 07:00 Pulse Ox 98 09/08/22 09:01 FiO2 Intake & Output 09/07/22 09/08/22 09/08/22 18:59 06:59 18:59 Intake Total 1669.4 250 206.943 Output Total 2400 Balance -730.6 250 206.943 Weight 126.6 kg Intake: IV 239.4 Heparin Sod,Pork in 0.45% 239.4 NaCl 25,000 unit In 0.45 % NaCl 1 250ml.bag @ 12 UNITS/KG/HR 14.969 mls/hr IV .[id number] [facility] Rx#: [id number] Intake, IV Titration 490 250 26.943 Amount Heparin Sod,Pork in 0.45% 250 250 26.943 NaCl 25,000 unit In 0.45 % NaCl 1 250ml.bag @ 12 UNITS/KG/HR 14.969 mls/hr IV .[id number] [facility] Rx#: [id number] Sodium Chloride 0.9% 500 240 ml 500 ml @ 0 mls/hr IV . [facility] Rx#: [id number] Oral 540 180 Hemodialysis 400 Output: Hemodialysis 2400 Other: Voiding Method Urinal Urinal - Labs CBC & Chem 7: 09/04/22 01:51 09/08/22 08:19 Labs: Abnormal Lab Results - Last 24 Hours (Table) 09/07/22 09/07/22 09/08/22 Range/Units 13:13 14:53 08:19 APTT 68.8 H 87.5 H (22.0-30.0) sec Sodium (137-145) mmol/L Chloride 96 L (98-107) mmol/L BUN 35 H (9-20) mg/dL Creatinine 5.44 H (0.66-1.25) mg/dL Glucose 159 H (74-99) mg/dL 09/08/22 Range/Units 08:19 APTT (22.0-30.0) sec Sodium 133 L (137-145) mmol/L Chloride 95 L (98-107) mmol/L BUN 45 H (9-20) mg/dL Creatinine 6.65 H (0.66-1.25) mg/dL Glucose 126 H (74-99) mg/dL
--- NOTE | 2022-09-08 11:21 | P.PN ---
Subjective Patient is seen in follow-up for end-stage renal disease. He is maintained on hemodialysis on Sunday schedule. Denies any chest pain or shortness of breath. Cardiac cath showed severe coronary artery disease. Plan for CABG next week. No problems with dialysis yesterday. Vital signs are stable. General: No acute distress. HEENT: Head exam is unremarkable. LUNGS: No active rhonchi or wheezes. Heart: Rate and Rhythm are regular. ABDOMEN: Soft, obese. EXTREMITITES: No edema. Objective - Vital Signs Vital signs: Vital Signs Temp 97.8 F 09/08/22 07:00 Pulse 75 09/08/22 09:45 Resp 16 09/08/22 07:00 BP 94/61 09/08/22 07:00 Pulse Ox 98 09/08/22 09:01 FiO2 Intake & Output 09/07/22 09/08/22 09/08/22 18:59 06:59 18:59 Intake Total 1669.4 250 206.943 Output Total 2400 Balance -730.6 250 206.943 Weight 126.6 kg Intake: IV 239.4 Heparin Sod,Pork in 0.45% 239.4 NaCl 25,000 unit In 0.45 % NaCl 1 250ml.bag @ 12 UNITS/KG/HR 14.969 mls/hr IV .[id number] [facility] Rx#: [id number] Intake, IV Titration 490 250 26.943 Amount Heparin Sod,Pork in 0.45% 250 250 26.943 NaCl 25,000 unit In 0.45 % NaCl 1 250ml.bag @ 12 UNITS/KG/HR 14.969 mls/hr IV .[id number] [facility] Rx#: [id number] Sodium Chloride 0.9% 500 240 ml 500 ml @ 0 mls/hr IV . [facility] Rx#: [id number] Oral 540 180 Hemodialysis 400 Output: Hemodialysis 2400 Other: Voiding Method Urinal Urinal Toilet # Bowel Movements 1 - Labs CBC & Chem 7: 09/04/22 01:51 09/08/22 08:19 Labs: Abnormal Lab Results - Last 24 Hours (Table) 09/07/22 09/07/22 09/08/22 Range/Units 13:13 14:53 08:19 APTT 68.8 H 87.5 H (22.0-30.0) sec Sodium (137-145) mmol/L Chloride 96 L (98-107) mmol/L BUN 35 H (9-20) mg/dL Creatinine 5.44 H (0.66-1.25) mg/dL Glucose 159 H (74-99) mg/dL 09/08/22 Range/Units 08:19 APTT (22.0-30.0) sec Sodium 133 L (137-145) mmol/L Chloride 95 L (98-107) mmol/L BUN 45 H (9-20) mg/dL Creatinine 6.65 H (0.66-1.25) mg/dL Glucose 126 H (74-99) mg/dL Assessment and Plan Plan: Assessment: 1. End-stage renal disease maintained on hemodialysis on Sunday schedule via AV fistula. 2. NSTEMI being followed by cardiology. Cardiac catheterization showed severe coronary artery disease. CABG pending. 3. History of coronary disease with cardiac stenting. 4. Chronic kidney disease mineral bone disease maintained on PhosLo. Phosphorus level 4.4 dated 09/06/2022. 5. Anemia of chronic kidney disease. Hemoglobin at goal. 6. Cardiomyopathy with ejection fraction of 40%. Plan: Hemodialysis tomorrow. Midodrine as needed during dialysis for hypotension.
[2022-09-08 14:02] VITALS: BMI 36.8
--- NOTE | 2022-09-08 14:55 | P.PN ---
Subjective Progress Note Date: 09/08/22 37-year-old male patient, presented to the hospital for issues related to tachycardia and elevated heart rate. He was also experiencing some chest pain that would not go away. He was having on and off chest pain and he presented to our hospital for further evaluation. His EKG showed some nonspecific changes. The patient ruled in for an acute non-ST segment elevation myocardial infarction. He underwent cardiac catheterization. Noted the patient is known to have coronary artery disease and he has undergone previous MIs and previous PCI's. He also is known to have hypertension and hyperlipidemia and end-stage renal disease on hemodialysis for the past 7 years. The catheterization was completed and the patient was found to have a dominant large RCA with a focal 95% re in-stent stenosis involving the PDA, totally occluded proximal LAD and second OM branch with a focal 95% stenosis. Based on that, it was recommended to proceed with bypass surgery. The patient is known to have previous smoking history. The patient is also a daily marijuana user. Chest x-ray is consistent with cardiomegaly and pulmonary vascular congestion and a small left-sided pleural effusion. Echo of the heart showed limited ejection fraction of 40% along with grade 4 diastolic dysfunction. Moderate LV dysfunction was present. Note that the patient has no history of any COPD. No history of asthma. The p atient has not been using oxygen or any respiratory medications on outpatient basis. He is currently free of any chest pain. He is currently on IV heparin. His surgery is tentatively scheduled to be done on Sunday of next week. His bedside spirometry was done and the patient was found to have an FEV1 of 38% of predicted. On 09/07/2022 , no new complaints and the patient remains on IV heparin. no shortness of breath. No chest pain. The patient is still awaiting cardiac bypass surgery in his tentatively scheduled to have surgery done she was day of next week. He underwent hemodialysis today. Is ambulating. No other new complaints otherwise for now. The blood work from today shows a BUN of 35 with a creatinine of 5.4 and his sodium level of 137 with a potassium level of 3.4. No other significant event otherwise for now. On 09/08/2022, no new complaints. Patient remains on IV heparin. Awake and alert. No chest pain. Hemodynamically stable. Surgery is scheduled on 023. Patient is undergoing periodic hemodialysis. The enzymes at 45 with a creatinine of 6.6. Potassium levels at 4.7. Objective - Vital Signs Vital signs: Vital Signs Temp 97.5 F L 09/08/22 12:00 Pulse 67 09/08/22 14:00 Resp 18 09/08/22 14:00 BP 96/61 09/08/22 12:00 Pulse Ox 97 09/08/22 12:00 FiO2 Intake & Output 09/07/22 09/08/22 09/08/22 18:59 06:59 18:59 Intake Total 1669.4 250 786.943 Output Total 2400 Balance -730.6 250 786.943 Weight 126.6 kg 126.6 kg Intake: IV 239.4 Heparin Sod,Pork in 0.45% 239.4 NaCl 25,000 unit In 0.45 % NaCl 1 250ml.bag @ 12 UNITS/KG/HR 14.969 mls/hr IV .[id number] [facility] Rx#: [id number] Intake, IV Titration 490 250 26.943 Amount Heparin Sod,Pork in 0.45% 250 250 26.943 NaCl 25,000 unit In 0.45 % NaCl 1 250ml.bag @ 12 UNITS/KG/HR 14.969 mls/hr IV .[id number] [facility] Rx#: [id number] Sodium Chloride 0.9% 500 240 ml 500 ml @ 0 mls/hr IV . [facility] Rx#: [id number] Oral 540 760 Hemodialysis 400 Output: Hemodialysis 2400 Other: Voiding Method Urinal Urinal Toilet # Bowel Movements 1 - Exam CONSTITUTIONAL: Appears comfortable, cooperative, no acute distress RESPIRATORY: Lungs sounds diminished bilaterally. Respirations even, nonl abored. Currently on room air with oxygen saturation 97%. Able to achieve 1500 mL on incentive spirometry. Strong cough. CARDIOVASCULAR: S1, S2 present. Regular rate and rhythm, sinus rhythm on telemetry. Sternum stable. Palpable peripheral pulses bilaterally. Trace bilateral lower extremity edema present. GASTROINTESTINAL: Abdomen soft, nontender, nondistended. Active bowel sounds present 4 quadrants. Tolerating diet. GENITOURINARY: Receives dialysis through left upper extremity AV fistula INTEGUMENTARY: Skin is warm and dry NEUROLOGIC: Cranial nerves II through XII intact MUSKULOSKELETAL: Able to move all extremities, strength equal bilaterally, gait normal PSYCHIATRIC: Alert and oriented to person place and time, appropriate affect, intact judgment and insight - Labs CBC & Chem 7: 09/04/22 01:51 09/08/22 08:19 Labs: Abnormal Lab Results - Last 24 Hours (Table) 09/07/22 09/08/22 09/08/22 Range/Units 14:53 08:19 08:19 APTT 87.5 H (22.0-30.0) sec Sodium 133 L (137-145) mmol/L Chloride 96 L 95 L (98-107) mmol/L BUN 35 H 45 H (9-20) mg/dL Creatinine 5.44 H 6.65 H (0.66-1.25) mg/dL Glucose 159 H 126 H (74-99) mg/dL Assessment and Plan Plan: Coronary artery disease with previous myocardial infarction status post previous PCI, NSTEMI this admission, currently free of any chest pain and the patient is currently on IV heparin. Awaiting bypass surgery. The patient was evaluated and seen by cardiothoracic surgery. Systolic heart failure with impaired ejection fraction of 40% COPD with an FEV1 of 38% of predicted. In fact the bedside spirometry showed a combination of obstructive and restrictive deficits. The patient is a chronic marijuana smoker. He also quit tobacco smoking several years back. Hypertension Hyperlipidemia, treated, cholesterol 94, LDL 53 End-stage renal disease on dialysis for 7 years MRSA bacteremia in December 2021 along with Serratia bacteremia and February 2016 Previous tobacco dependence COPD Current marijuana use Bipolar disorder Poor dentition Plan: Will stay standby to surgery Overall pulmonary status is stable Stable and the patient is awaiting his bypass surgery which is scheduled for next week, scheduled to be done on 09/12/2022 He is still on IV heparin History of any chest pain Hemodialysis was completed today Patient's overall pulmonary status is stable. No signs of any acute exacerbation of his COPD. Chest x-ray is more consistent with fluid overload secondary to CHF and end-stage renal disease. He continues to undergo his routine dialysis. I reviewed the spirometry. Reviewed his chest x-ray. Will participate in the patient's postoperative care, management of ventilator and attempt any pulmonary needs. We'll continue to follow. Meanwhile, continue the supportive care and keep the IV heparin.
[2022-09-08] MEDS ORDERED: HYDROmorphone 0.5 MG/0.5 ML SYRINGE IVP STA (16:20)
[2022-09-08] MEDS: MELATONIN 5 MG TABLET PO SCH (20:08)
[2022-09-08] MEDS: ATORVASTATIN 40 MG TAB PO SCH (20:08)
[2022-09-09] MEDS ORDERED: HYDROmorphone 0.5 MG/0.5 ML SYRINGE IVP STA (05:05)
[2022-09-09] MEDS: CALCIUM ACETATE 667 MG TAB PO SCH ×3 (06:31→17:07)
[2022-09-09] MEDS: HEPARIN SOD,PORK IN 0.45% NACL 25,000 UNIT in 0.45% NACL 1 250ML.BAG IV SCH ×2 (06:32→09:19)
--- NOTE | 2022-09-09 09:24 | P.PN ---
Subjective Progress Note Date: 09/09/22 Principal diagnosis: Coronary artery disease with previous myocardial infarction status post previous PCI, NSTEMI this admission, hypertension, hyperlipidemia, end-stage renal dise ase on hemodialysis for 7 years, MRSA bacteremia in December 2021 along with Serratia bacteremia and February 2016, previous tobacco dependence, COPD, severe restrictive lung disease, current marijuana use, bipolar disorder. Patient was seen and examined in follow-up today 09/09/2022 at his bedside on the cardiac stepdown unit. Currently he is sitting up in bed, eating his breakfast, awake, alert, oriented 3 and is in no acute distress. He denies any complaints of pain or shortness of breath at this time. He remains on heparin drip per protocol. He remains hemodynamically stable and is currently on no inotropic or pressor support. His dialysis schedule is Sunday and Sunday, although the patient reports he is unsure whether he is receiving hemodialysis today. Preoperative teaching has been reinforced with the patient as he is scheduled for myocardial revascularization surgery on 09/12/2022 to be performed by Dr. Christiano Pratt. Objective - Vital Signs Vital signs: Vital Signs Temp 98.5 F 09/09/22 03:30 Pulse 64 09/09/22 03:30 Resp 20 09/09/22 03:30 BP 92/57 09/09/22 03:30 Pulse Ox 100 09/09/22 03:30 FiO2 Intake & Output 09/08/22 09/09/22 09/09/22 18:59 06:59 18:59 Intake Total 1008.943 223.057 125 Balance 1008.943 223.057 125 Weight 126.6 kg 127.4 kg Intake: Intake, IV Titration 26.943 223.057 Amount Heparin Sod,Pork in 0.45% 26.943 223.057 NaCl 25,000 unit In 0.45 % NaCl 1 250ml.bag @ 12 UNITS/KG/HR 14.969 mls/hr IV .[id number] [facility] Rx#: [id number] Oral 982 125 Other: Voiding Method Toilet Toilet # Bowel Movements 1 - Exam CONSTITUTIONAL: Appears comfortable, cooperative, no acute distress RESPIRATORY: Lungs sounds diminished to his bases bilaterally. Respirations are symmetrical, nonlabored. Currently on room air with oxygen saturation 100%. Able to achieve 2250 mL on incentive spirometry. Strong cough. CARDIOVASCULAR: S1, S2 present. Regular rate and rhythm, sinus rhythm on remote telemetry, heart rate 70 bpm. Palpable peripheral pulses bilaterally. Trace bilateral lower extremity edema present. GASTROINTESTINAL: Abdomen soft, nontender, nondistended. Active bowel sounds present 4 quadrants. Tolerating diet. GENITOURINARY: Receives hemodialysis through left upper extremity AV fistula. INTEGUMENTARY: Skin is warm and dry, no clubbing or cyanosis is present. NEUROLOGIC: Cranial nerves II through XII intact, no focal deficits. MUSKULOSKELETAL: Able to move all extremities, strength equal bilaterally, gait normal. PSYCHIATRIC: Alert and oriented to person place and time, appropriate affect, intact judgment and insight. - Allied health notes Allied health notes reviewed: nursing - Labs CBC & Chem 7: 09/04/22 01:51 09/08/22 08:19 Labs: Abnormal Lab Results - Last 24 Hours (Table) 09/08/22 09/08/22 09/08/22 Range/Units 08:19 08:19 17:47 APTT 87.5 H 63.6 H (22.0-30.0) sec Sodium 133 L (137-145) mmol/L Chloride 95 L (98-107) mmol/L BUN 45 H (9-20) mg/dL Creatinine 6.65 H (0.66-1.25) mg/dL Glucose 126 H (74-99) mg/dL Assessment and Plan Assessment: Coronary artery disease with previous myocardial infarction status post previous PCI, NSTEMI this admission Hypertension Hyperlipidemia, treated, cholesterol 94, LDL 53 End-stage renal disease on hemodialysis for 7 years MRSA bacteremia in December 2021 along with Serratia bacteremia and February 2016 Previous tobacco dependence COPD Severe restricted lung disease, preoperative FEV1 38% of predicted Current marijuana use Bipolar disorder Poor dentition Plan: Continue to maximize medical therapy with aspirin, statin, beta dwight, nitrate, IV heparin. Continue to hold brilinta. Heparin drip management per cardiology recommendations. Plan is for surgical myocardial revascularization next Sunday09/12/[address] Christiano Pratt. Increase activity as tolerated. Medical management of other comorbidities per internal medicine, and cardiology. Preoperative teaching has been reinforced with the patient. More recommendations to follow based on patient's clinical course.
--- NOTE | 2022-09-09 11:00 | P.PN ---
Subjective Patient is seen in follow-up for end-stage renal disease. He is maintained on hemodialysis on Sunday schedule. Tolerating dialysis well. Denies any chest pain or shortness of breath. Cardiac cath showed severe coronary artery disease. Plan for CABG on Sunday. Vital signs are stable. General: No acute distress. HEENT: Head exam is unremarkable. LUNGS: No active rhonchi or wheezes. Heart: Rate and Rhythm are regular. ABDOMEN: Soft, obese. EXTREMITITES: No edema. Objective - Vital Signs Vital signs: Vital Signs Temp 97.9 F 09/09/22 08:00 Pulse 70 09/09/22 08:00 Resp 18 09/09/22 08:00 BP 102/55 09/09/22 08:00 Pulse Ox 98 09/09/22 08:00 FiO2 Intake & Output 09/08/22 09/09/22 09/09/22 18:59 06:59 18:59 Intake Total 1008.943 223.057 413.605 Balance 1008.943 223.057 413.605 Weight 126.6 kg 127.4 kg Intake: Intake, IV Titration 26.943 223.057 48.605 Amount Heparin Sod,Pork in 0.45% 26.943 223.057 48.605 NaCl 25,000 unit In 0.45 % NaCl 1 250ml.bag @ 12 UNITS/KG/HR 14.969 mls/hr IV .[id number] [facility] Rx#: [id number] Oral 982 365 Other: Voiding Method Toilet Toilet Toilet # Bowel Movements 1 1 - Labs CBC & Chem 7: 09/04/22 01:51 09/08/22 08:19 Labs: Abnormal Lab Results - Last 24 Hours (Table) 09/08/22 09/09/22 Range/Units 17:47 09:03 APTT 63.6 H 71.4 H (22.0-30.0) sec Assessment and Plan Plan: Assessment: 1. End-stage renal disease maintained on hemodialysis on Sunday schedule via AV fistula. 2. NSTEMI being followed by cardiology. Cardiac catheterization showed severe coronary artery disease. CABG Sunday. 3. History of coronary disease with cardiac stenting. 4. Chronic kidney disease mineral bone disease maintained on PhosLo. Phosphorus level 4.4 dated 09/06/2022. 5. Anemia of chronic kidney disease. Hemoglobin at goal. 6. Cardiomyopathy with ejection fraction of 40%. Plan: Currently seen while undergoing hemodialysis. Next treatment on Sunday as CABG scheduled for Sunday. Midodrine as needed during dialysis for hypotension.
[2022-09-09] MEDS: RANOLAZINE 500 MG TAB.ER.12H PO SCH ×2 (11:22→20:07)
[2022-09-09] MEDS: ISOSORBIDE MONONITRATE ER 30 MG TAB.ER.24H PO SCH (11:22)
[2022-09-09] MEDS: ASPIRIN 81 MG PO SCH (11:22)
[2022-09-09] MEDS: carvediloL 3.125 MG TAB PO SCH ×2 (11:22→20:07)
--- NOTE | 2022-09-09 11:38 | P.PN ---
Subjective Progress Note Date: 09/09/22 PROGRESS NOTE The patient is a 37-year-old male with known history of end-stage renal disease, history of PCI, remote history of smoking, hypertension and hyperlipidemia who presented with symptoms of chest discomfort. His symptoms started after dialysis on Sunday that improved and recurred yesterday and persisted until last night. He is pain-free at this time. The symptoms reminds him of the way he felt in December 2022 when he had a stent to the LAD but he was not dyspneic wasn't. He denies any dizziness or palpitation, no peripheral edema, no PND or orthopnea. He has been compliant with his medication and dialysis and has been doing well. This is the first time he has discomfort since his last intervention. His ejection fraction in the past was 40-45%. In December he received a stent to the distal PDA and he had suggestion of myocardial bridging in the mid LAD at the site of the stenting. He had a contained hematoma but no high-grade stenosis. His left circumflex had no evidence of high-grade stenosis. His troponin peaked at 1. He has no evidence of malignant arrhythmia. His coronary risk factors are positive for hypertension and hyperlipidemia. The patient underwent cardiac catheterization and was found to have occluded LAD, severe stenosis and the left circumflex and the RCA. He was evaluated by the surgical team and is scheduled to undergo surgical revascularization on Sunday. September 07: He's feeling well with no symptoms of chest discomfort, dizziness or palpita tions. His breathing is stable. He felt tired with ambulation but no anginal pain. He continues to be in sinus mechanism without any evidence of malignant arrhythmia. He continues to be on IV heparin pending surgical intervention. September 08: The patient is feeling well this morning. He has no symptoms of chest discomfort. He is ambulating without any significant symptoms. He denies any dizziness or palpitation. He is awaiting surgical intervention on Sunday. He continues to be on IV heparin. He received dialysis yesterday. September 09: The patient had an episode of chest discomfort earlier, resolved with Dilaudid. He's feeling well at this time, receiving dialysis. He denies any dyspnea, dizziness or palpitations. The discomfort occurred at rest and was not associated with any other symptoms. Hemodynamically he stable. His blood pressure is on the low side at stable. Medications: Aspirin, Lipitor 40 mg daily, IV heparin, isosorbide mononitrate 30 mg daily, Ranexa 500 mg twice a day PHYSICAL EXAMINATION: Blood pressure 102/50 heart rate 70 LUNGS: Clear to auscultation HEART: Regular rate and rhythm, S1, S2. No S3. Ejection systolic murmur ABDOMEN: Soft, nontender, no organomegaly EXTREMETIES: No edema Lab: Pending IMPRESSION: 1. Severe triple-vessel disease with non-STEMI on presentation, scheduled for CABG on Sunday with episodes of angina 2. End-stage renal disease on hemodialysis 3. History of hyperlipidemia 4. Rapidly progressive in-stent restenosis PLAN: 1. Continue present therapy 2. Follow blood pressure and heart rate and if stable add beta dwight 3. Continue IV heparin 4. Depending on his progress further recommendations will be made. 5. CABG on Sunday Objective - Vital Signs Vital signs: Vital Signs Temp 97.9 F 09/09/22 08:00 Pulse 70 09/09/22 08:00 Resp 18 09/09/22 08:00 BP 102/55 09/09/22 08:00 Pulse Ox 98 09/09/22 08:00 FiO2 Intake & Output 09/08/22 09/09/22 09/09/22 18:59 06:59 18:59 Intake Total 1008.943 223.057 413.605 Balance 1008.943 223.057 413.605 Weight 126.6 kg 127.4 kg Intake: Intake, IV Titration 26.943 223.057 48.605 Amount Heparin Sod,Pork in 0.45% 26.943 223.057 48.605 NaCl 25,000 unit In 0.45 % NaCl 1 250ml.bag @ 12 UNITS/KG/HR 14.969 mls/hr IV .[id number] [facility] Rx#: [id number] Oral 982 365 Other: Voiding Method Toilet Toilet Toilet # Bowel Movements 1 1 - Labs CBC & Chem 7: 09/04/22 01:51 09/08/22 08:19 Labs: Abnormal Lab Results - Last 24 Hours (Table) 09/08/22 09/09/22 Range/Units 17:47 09:03 APTT 63.6 H 71.4 H (22.0-30.0) sec
--- NOTE | 2022-09-09 14:38 | P.PN ---
Subjective Progress Note Date: 09/09/22 Progress note Date of service 09/09/[address] Keating Patient seen and evaluated discussed with the patient [id number]. Vital sign: Temperature 98.5 F oral pulse 64 bpm, respiratory rate 20 his blood pressure 92/57 post hemodialysis. His oxygen saturation 100% on room air. Post the dialysis he is fatigued and drained out They pulled out 2 L of fluid. Patient is end-stage renal disease on hemodialysis for the last 7 years. Currently prepared for three-vessel bypass graft by the cardiovascular surgeon. Followed by the cardiology today seen by Dr. Hanks and down also monitor by Dr. Segura the nephrology for the hemodialysis. No complaint of chest pain today. And patient underwent cardiac catheterization with the multiple stent in the past and occlusion of the LAD and three-vessel ad vanced disease of coronary artery disease and patient planned for next Sunday for surgical intervention of coronary artery bypass graft. Today lab he is on heparin and his PTT 71.4 therapeutic. Last BMP indicating sodium 133, potassium 4.7, chloride 95, carbon dioxide 22, anion gap 16, BUN 45, creatinine 6.65, his GFR for non- is 10, blood glucose 126, and calcium 9.3 lab done on 09/08/2022. On exam today: Patient conscious alert oriented but feeling tired and fatigued after he had gail e ambulation and done after the humeral dialysis. Head was normocephalic and atraumatic pupils equal reactive , neck was supple no JVD no thyromegaly no lymphadenopathy trachea midline. Chest was increased anteroposterior diameter with non-symptoms dermatic COPD Heart was regular sinus rhythm Abdomen is soft positive bowel sound obese extremities no edema and positive pulses. Neurologically stable Extremities he had left arm the axis for the hemodialysis functioning. Assessment patient continued to be monitored for the planned of three-vessel bypass graft on Sunday and with the underlying recurrent stent and chest pain and occlusive coronary artery disease with ischemic cardiomyopathy with ejection fraction 40%. Plan: Continue the current treatment and continue his medication and dialysis and monitoring by cardiology and cardiovascular surgery. Objective - Vital Signs Vital signs: Vital Signs Temp 36.6 F L 09/09/22 13:14 Pulse 75 09/09/22 13:14 Resp 16 09/09/22 13:14 BP 103/65 09/09/22 13:14 Pulse Ox 99 09/09/22 12:00 FiO2 Intake & Output 09/08/22 09/09/22 09/09/22 18:59 06:59 18:59 Intake Total 1008.943 223.057 813.605 Output Total 2400 Balance 1008.943 223.057 -1586.395 Weight 126.6 kg 127.4 kg Intake: Intake, IV Titration 26.943 223.057 48.605 Amount Heparin Sod,Pork in 0.45% 26.943 223.057 48.605 NaCl 25,000 unit In 0.45 % NaCl 1 250ml.bag @ 12 UNITS/KG/HR 14.969 mls/hr IV .[id number] [facility] Rx#: [id number] Oral 982 365 Hemodialysis 400 Output: Hemodialysis 2400 Other: Voiding Method Toilet Toilet Toilet # Bowel Movements 1 1 - Labs CBC & Chem 7: 09/04/22 01:51 09/08/22 08:19 Labs: Abnormal Lab Results - Last 24 Hours (Table) 09/08/22 09/09/22 Range/Units 17:47 09:03 APTT 63.6 H 71.4 H (22.0-30.0) sec
[2022-09-09] MEDS: ATORVASTATIN 40 MG TAB PO SCH (20:07)
[2022-09-09] MEDS: ALPRAZolam 0.5 MG TAB PO PRN (20:07)
[2022-09-09] MEDS: MELATONIN 5 MG TABLET PO SCH (20:07)
[2022-09-10] MEDS: CALCIUM ACETATE 667 MG TAB PO SCH ×3 (06:25→17:09)
[2022-09-10] MEDS: ASPIRIN 81 MG PO SCH (08:58)
[2022-09-10] MEDS: carvediloL 3.125 MG TAB PO SCH ×2 (08:58→21:00)
[2022-09-10] MEDS: ISOSORBIDE MONONITRATE ER 30 MG TAB.ER.24H PO SCH (08:58)
[2022-09-10] MEDS: RANOLAZINE 500 MG TAB.ER.12H PO SCH ×2 (08:58→20:59)
--- NOTE | 2022-09-10 09:47 | P.PN ---
Subjective Patient is seen in follow-up for end-stage renal disease. He is maintained on hemodialysis on Sunday schedule. No problems with dialysis yesterday. Denies any chest pain or shortness of breath. Cardiac cath showed severe coronary artery disease. Plan for CABG on Sunday. Vital signs are stable. General: No acute distress. HEENT: Head exam is unremarkable. LUNGS: No active rhonchi or wheezes. Heart: Rate and Rhythm are regular. ABDOMEN: Soft, obese. EXTREMITITES: No edema. Objective - Vital Signs Vital signs: Vital Signs Temp 97.1 F L 09/10/22 08:54 Pulse 70 09/10/22 08:54 Resp 18 09/10/22 08:54 BP 108/56 09/10/22 08:54 Pulse Ox 98 09/10/22 08:54 FiO2 Intake & Output 09/09/22 09/10/22 09/10/22 18:59 06:59 18:59 Intake Total 1293.605 180 Output Total 2400 Balance -1106.395 180 Weight 127.1 kg Intake: Intake, IV Titration 48.605 Amount Heparin Sod,Pork in 0.45% 48.605 NaCl 25,000 unit In 0.45 % NaCl 1 250ml.bag @ 12 UNITS/KG/HR 14.969 mls/hr IV .[id number] [facility] Rx#: [id number] Oral 845 180 Hemodialysis 400 Output: Urine 0 Hemodialysis 2400 Other: Voiding Method Toilet Toilet Toilet # Bowel Movements 1 - Labs CBC & Chem 7: 09/04/22 01:51 09/08/22 08:19 Labs: Abnormal Lab Results - Last 24 Hours (Table) 09/10/22 Range/Units 07:34 APTT 79.0 H (22.0-30.0) sec Assessment and Plan Plan: Assessment: 1. End-stage renal disease maintained on hemodialysis on Sunday schedule via AV fistula. 2. NSTEMI being followed by cardiology. Cardiac catheterization showed severe coronary artery disease. CABG Sunday. 3. History of coronary disease with cardiac stenting. 4. Chronic kidney disease mineral bone disease maintained on PhosLo. Phosphorus level 4.4 dated 09/06/2022. 5. Anemia of chronic kidney disease. Hemoglobin at goal. 6. Cardiomyopathy with ejection fraction of 40%. Plan: Hemodialysis on Sunday as CABG scheduled for Sunday. Midodrine as needed during dialysis for hypotension.
--- NOTE | 2022-09-10 10:59 | P.PN ---
Subjective Progress Note Date: 09/10/22 PROGRESS NOTE The patient is a 37-year-old male with known history of end-stage renal disease, history of PCI, remote history of smoking, hypertension and hyperlipidemia who presented with symptoms of chest discomfort. His symptoms started after dialysis on Sunday that improved and recurred yesterday and persisted until last night. He is pain-free at this time. The symptoms reminds him of the way he felt in December 2022 when he had a stent to the LAD but he was not dyspneic wasn't. He denies any dizziness or palpitation, no peripheral edema, no PND or orthopnea. He has been compliant with his medication and dialysis and has been doing well. This is the first time he has discomfort since his last intervention. His ejection fraction in the past was 40-45%. In December he received a stent to the distal PDA and he had suggestion of myocardial bridging in the mid LAD at the site of the stenting. He had a contained hematoma but no high-grade stenosis. His left circumflex had no evidence of high-grade stenosis. His troponin peaked at 1. He has no evidence of malignant arrhythmia. His coronary risk factors are positive for hypertension and hyperlipidemia. The patient underwent cardiac catheterization and was found to have occluded LAD, severe stenosis and the left circumflex and the RCA. He was evaluated by the surgical team and is scheduled to undergo surgical revascularization on Sunday. September 07: He's feeling well with no symptoms of chest discomfort, dizziness or palpita tions. His breathing is stable. He felt tired with ambulation but no anginal pain. He continues to be in sinus mechanism without any evidence of malignant arrhythmia. He continues to be on IV heparin pending surgical intervention. September 08: The patient is feeling well this morning. He has no symptoms of chest discomfort. He is ambulating without any significant symptoms. He denies any dizziness or palpitation. He is awaiting surgical intervention on Sunday. He continues to be on IV heparin. He received dialysis yesterday. September 09: The patient had an episode of chest discomfort earlier, resolved with Dilaudid. He's feeling well at this time, receiving dialysis. He denies any dyspnea, dizziness or palpitations. The discomfort occurred at rest and was not associated with any other symptoms. Hemodynamically he stable. His blood pressure is on the low side at stable. September 10: The patient is doing well no further chest discomfort since yesterday. He has been ambulating without difficulties. He continues to be in sinus mechanism. He denies any nausea or vomiting. His appetite is good. He underwent dialysis yesterday. He is scheduled to undergo CABG on Sunday. Medications: Aspirin, Lipitor 40 mg daily, IV heparin, isosorbide mononitrate 30 mg daily, Ranexa 500 mg twice a day, carvedilol 3.125 mg twice a day PHYSICAL EXAMINATION: Blood pressure 108/70 heart rate 70 LUNGS: Clear to auscultation HEART: Regular rate and rhythm, S1, S2. No S3. Ejection systolic murmur ABDOMEN: Soft, nontender, no organomegaly EXTREMETIES: No edema Lab: Pending IMPRESSION: 1. Severe triple-vessel disease with non-STEMI on presentation, scheduled for CABG on Sunday with episodes of angina on IV heparin 2. End-stage renal disease on hemodialysis 3. History of hyperlipidemia 4. Rapidly progressive in-stent restenosis PLAN: 1. Continue present therapy 2. Continue present therapy 3. Proceed with surgery on Sunday as scheduled Objective - Vital Signs Vital signs: Vital Signs Temp 97.1 F L 09/10/22 08:54 Pulse 70 09/10/22 08:54 Resp 18 09/10/22 08:54 BP 108/56 09/10/22 08:54 Pulse Ox 98 09/10/22 08:54 FiO2 Intake & Output 09/09/22 09/10/22 09/10/22 18:59 06:59 18:59 Intake Total 1293.605 180 Output Total 2400 Balance -1106.395 180 Weight 127.1 kg Intake: Intake, IV Titration 48.605 Amount Heparin Sod,Pork in 0.45% 48.605 NaCl 25,000 unit In 0.45 % NaCl 1 250ml.bag @ 12 UNITS/KG/HR 14.969 mls/hr IV [id number] Rx#: [id number] Oral 845 180 Hemodialysis 400 Output: Urine 0 Hemodialysis 2400 Other: Voiding Method Toilet Toilet Toilet # Bowel Movements 1 - Labs CBC & Chem 7: 09/04/22 01:51 09/08/22 08:19 Labs: Abnormal Lab Results - Last 24 Hours (Table) 09/10/22 Range/Units 07:34 APTT 79.0 H (22.0-30.0) sec
[2022-09-10] MEDS: HEPARIN SOD,PORK IN 0.45% NACL 25,000 UNIT in 0.45% NACL 1 250ML.BAG IV SCH (12:49)
--- NOTE | 2022-09-10 14:39 | P.PN ---
Subjective Progress Note Date: 09/10/22 (Waiting for cardiovascular surgery for three- vessel disease) Progress note Date of service 09/10/[address] Keating Patient seen [id number] discussed with the patient and his father at bedside. Patient did not have dialysis today and he will be having hemodialysis tomorrow and Sunday the 2022 he will be in the operative room for coronary artery bypass graft assuming three-vessel with the underlying history of coronary artery occlusive disease and a current stenosis of his stent, he had multiple stent account of 6 and now he has occlusion of the LAD and seen by cardiovascular surgeon and plan for surgery on Sunday Hemodialysis tomorrow by Dr. Segura preparation for surgery. Patient and his father understand that he will be in ICU subsequently and he may spend 2-3 days for the purposes of post operative of cardiovascular bypass may be longer if complications occur. Patient denied any chest pain, denied any shortness of breath but the stye fatigued. New Vital sign today temperature 98.0 F oral. His heart rate 71 bpm and respiratory rate 18/m, his blood pressure 108/56 and 109/58 mean arterial pressure ranging between 73 and 75, on the room air oxygen saturation 98%. Patient still on heparin. On exam head was normocephalic atraumatic, pupils equal reactive, oropharynx he had dental caries Neck was supple no JVD no thyromegaly no lymphadenopathy trachea midline Chest increased anteroposterior diameter with hyperinflation and he had a remote history of smoking in the past Heart regular sinus rhythm. Abdomen obese positive bowel sounds no organomegaly enlargement Extremities no edema no ecchymosis or bruises pulses is intact. Psychiatry he has underlying anxiety disorder. Neurologically no history of stroke in the past. Left forearm access for hemodialysis. Assessment Patient admitted with the chest pain after he had hemodialysis in the last Sunday underwent cardiac catheterization by his primary land leasing examiner Dr. Garner found that he had three-vessel occlusive disease with occlusion of LAD and their decision that after patient has multiple stent need coronary artery bypass graft especially with the LAD occluded with the high risk of sending him home they kept him in the hospital, consultation with cardiovascular surgeon obtained from Dr. Pratt Decision of cardiovascular to continue being in the hospital monitored and on heparin until the surgery on . Added to continue the hemodialysis by Dr. Segura the assistant inventory manager for preparing him for surgical approach to relief his occlusion. Patient currently had no chest pain and he is on heparin. And he will have hemodialysis tomorrow. Followed by Lilly the surgeon Plan we'll continue the current treatment as designed by nephrology and cardiology. Objective - Vital Signs Vital signs: Vital Signs Temp 98.0 F 09/10/22 12:41 Pulse 71 09/10/22 12:41 Resp 18 09/10/22 12:41 BP 109/58 09/10/22 12:41 Pulse Ox 98 09/10/22 12:41 FiO2 Intake & Output 09/09/22 09/10/22 09/10/22 18:59 06:59 18:59 Intake Total 1293.605 250 298 Output Total 2400 Balance -1106.395 250 298 Weight 127.1 kg Intake: Intake, IV Titration 48.605 250 Amount Heparin Sod,Pork in 0.45% 48.605 250 NaCl 25,000 unit In 0.45 % NaCl 1 250ml.bag @ 12 UNITS/KG/HR 14.969 mls/hr IV .[id number] [facility] Rx#: [id number] Oral 845 298 Hemodialysis 400 Output: Urine 0 Hemodialysis 2400 Other: Voiding Method Toilet Toilet Toilet # Voids 1 # Bowel Movements 1 - Labs CBC & Chem 7: 09/04/22 01:51 09/08/22 08:19 Labs: Abnormal Lab Results - Last 24 Hours (Table) 09/10/22 Range/Units 07:34 APTT 79.0 H (22.0-30.0) sec
[2022-09-10] MEDS: MELATONIN 5 MG TABLET PO SCH (20:59)
[2022-09-10] MEDS: ATORVASTATIN 40 MG TAB PO SCH (20:59)
[2022-09-11] MEDS: ALPRAZolam 0.5 MG TAB PO PRN (02:07)
[2022-09-11] MEDS: CALCIUM ACETATE 667 MG TAB PO SCH ×3 (06:21→17:15)
--- NOTE | 2022-09-11 08:07 | XR ---
EXAMINATION TYPE: XR chest 1V portable DATE OF EXAM: 09/11/2022 6:56 AM COMPARISON: Chest radiographs from 09/03/2022 TECHNIQUE: XR chest 1V portable Frontal view of the chest. CLINICAL INDICATION:Male, 37 years old with history of pre op CABG; FINDINGS: Lungs/Pleura: There is no evidence of pleural effusion, focal consolidation, or pneumothorax. Pulmonary vascularity: Pulmonary vascular congestion. Heart/mediastinum: Cardiomediastinal silhouette is enlarged and stable. Musculoskeletal: No acute osseous pathology. IMPRESSION: Stable exam with cardiomegaly and mild pulmonary vascular congestion
[2022-09-11] MEDS ORDERED: MD COMMUNICATION TO PHARMACY 1 EACH MISC PO ONE ×4 (08:52)
--- NOTE | 2022-09-11 08:52 | P.PN ---
Subjective Progress Note Date: 09/11/22 Principal diagnosis: Coronary artery disease with previous myocardial infarction status post previous PCI, NSTEMI this admission, hypertension, hyperlipidemia, end-stage renal dise ase on hemodialysis for 7 years, MRSA bacteremia in December 2021 along with Serratia bacteremia and February 2016, previous tobacco dependence, COPD, severe restrictive lung disease, current marijuana use, bipolar disorder. The patient was seen and examined in follow-up today 09/11/2022 at his bedside on the cardiac stepdown unit. Her knee is laying in bed, eating his breakfast, is awake, alert, oriented 3 and is in no acute apparent distress. He reports he has been up ambulating in the cardiac step unit hallway with [employer] nursing staff. He also reports that he is due for a dialysis treatment today. Oxygen saturations are 98% on room air and he is achieving 2250 mL on his incen tive spirometry with encouragement. Remote telemetry showing normal sinus rhythm heart rate 69 BPM. He remained hemodynamically stable is currently on no inotropic of pressure support. Heparin drip remains infusing per protocol. Patient denies any complaints of pain or shortness of breath. Chest x-ray was reviewed. Laboratory results remain pending. Objective - Vital Signs Vital signs: Vital Signs Temp 97.4 F L 09/10/22 20:57 Pulse 74 09/11/22 04:21 Resp 15 09/11/22 04:21 BP 97/60 09/11/22 04:21 Pulse Ox 98 09/11/22 08:27 FiO2 Intake & Output 09/10/22 09/11/22 09/11/22 18:59 06:59 18:59 Intake Total 478 240 Balance 478 240 Weight 128.1 kg Intake: Oral 478 240 Other: Voiding Method Toilet Toilet # Voids 1 - Exam CONSTITUTIONAL: Appears comfortable, cooperative, no acute distress RESPIRATORY: Lungs sounds diminished to his bases bilaterally. Respirations are symmetrical, nonlabored. Currently on room air with oxygen saturation 98%. Able to achieve 2250 mL on incentive spirometry. Strong cough. CARDIOVASCULAR: S1, S2 present. Regular rate and rhythm, sinus rhythm on remote telemetry, heart rate 69 bpm. Palpable peripheral pulses bilaterally. Trace bilateral lower extremity edema present. GASTROINTESTINAL: Abdomen soft, nontender, nondistended. Active bowel sounds present 4 quadrants. Tolerating diet. GENITOURINARY: Receives hemodialysis through left upper extremity AV fistula. INTEGUMENTARY: Skin is warm and dry, no clubbing or cyanosis is present. NEUROLOGIC: Cranial nerves II through XII intact, no focal deficits. MUSKULOSKELETAL: Able to move all extremities, strength equal bilaterally, gait normal. PSYCHIATRIC: Alert and oriented to person place and time, appropriate affect, intact judgment and insight. - Allied health notes Allied health notes reviewed: nursing - Labs CBC & Chem 7: 09/04/22 01:51 09/08/22 08:19 Labs: Abnormal Lab Results - Last 24 Hours (Table) 09/10/22 Range/Units 07:34 APTT 79.0 H (22.0-30.0) sec - Imaging and Cardiology Chest x-ray: report reviewed, image reviewed Assessment and Plan Assessment: Coronary artery disease with previous myocardial infarction status post previous PCI, NSTEMI this admission Hypertension Hyperlipidemia, treated, cholesterol 94, LDL 53 End-stage renal disease on hemodialysis for 7 years MRSA bacteremia in December 2021 along with Serratia bacteremia and February 2016 Previous tobacco dependence COPD Severe restricted lung disease, preoperative FEV1 38% of predicted Current marijuana use Bipolar disorder Poor dentition Plan: Continue to maximize medical therapy with aspirin, statin, beta dwight, nitrate, IV heparin drip. Continue to hold brilinta. Heparin drip management per cardiology recommendations. Plan is for surgical myocardial revascularization tomorrow Sunday09/12/[address] Christiano Pratt. Increase activity as tolerated. Medical management of other comorbidities per internal medicine, and cardiology. Preoperative teaching has been reinforced with the patient. Nothing by mouth after midnight. More recommendations to follow based on patient's clinical course. Time with Patient: Greater than 30
--- NOTE | 2022-09-11 10:57 | P.PN ---
Subjective Patient is seen for follow-up for end-stage renal disease. He is currently seen on hemodialysis. Tolerating treatment well. Scheduled for coronary artery bypass surgery tomorrow morning. Currently asymptomatic. Objective - Vital Signs Vital signs: Vital Signs Temp 97.4 F L 09/11/22 08:00 Pulse 65 09/11/22 08:00 Resp 18 09/11/22 08:00 BP 80/58 09/11/22 08:00 Pulse Ox 98 09/11/22 08:27 FiO2 Intake & Output 09/10/22 09/11/22 09/11/22 18:59 06:59 18:59 Intake Total 478 240 120 Balance 478 240 120 Weight 128.1 kg Intake: Oral 478 240 120 Other: Voiding Method Toilet Toilet Toilet # Voids 1 - Exam Patient is awake, comfortable, alert oriented 3 No acute distress Abdomen is soft nontender obese Examination lower extremities shows no evidence of edema INFORMATION TECHNOLOGY DATA ANALYST exam grossly intact - Labs CBC & Chem 7: 09/04/22 01:51 09/08/22 08:19 Assessment and Plan Assessment: 1. End-stage renal disease maintained on hemodialysis on Sunday schedule via AV fistula. 2. NSTEMI being followed by cardiology. Cardiac catheterization showed severe coronary artery disease. Scheduled for CABG tomorrow. 3. History of coronary disease with cardiac stenting. 4. Chronic kidney disease mineral bone disease maintained on PhosLo. Phosphorus level 4.4 dated 09/06/2022. 5. Anemia of chronic kidney disease. Hemoglobin at goal. 6. Cardiomyopathy with ejection fraction of 40%. Plan: Decrease UF goal to about 2 L
[2022-09-11 11:29] LABS: Anisocytosis Slight; Basophils % (A) 0 %; Eosinophils # (A) 0.1 k/uL (0-0.7); Eosinophils % (A) 1 %; HCT 31.7 % (39.0-53.0); HGB 10.2 gm/dL (13.0-17.5); Hypochromasia Slight; Lymphocytes # (A) 0.8 k/uL (1.0-4.8); Lymphocytes % (A) 9 %; MCH 33.7 pg (25.0-35.0); MCV 105.2 fL (80.0-100.0); Macrocytosis Moderate; Mean Platelet Volume 9.5; Monocytes # (A) 0.5 k/uL (0-1.0); Monocytes % (A) 6 %; Neutrophils # (A) 7.3 k/uL (1.3-7.7); Neutrophils % (A) 84 %; Platelet Count 122 k/uL (150-450); RBC 3.02 m/uL (4.30-5.90); RDW 16.4 % (11.5-15.5); WBC 8.7 k/uL (3.8-10.6)
[2022-09-11] MEDS: CALCIUM CARBONATE 500 MG CHEWABLE PO PRN (11:35)
[2022-09-11 11:37] LABS: Albumin 3.5 g/dL (3.5-5.0); Calcium 9.6 mg/dL (8.4-10.2); Potassium 5.2 mmol/L (3.5-5.1); Total Bilirubin 1.8 mg/dL (0.2-1.3)
[2022-09-11] MEDS: carvediloL 3.125 MG TAB PO SCH ×2 (14:16→19:59)
[2022-09-11] MEDS: RANOLAZINE 500 MG TAB.ER.12H PO SCH ×2 (14:16→19:59)
--- NOTE | 2022-09-11 14:44 | P.PN ---
Subjective Progress Note Date: 09/11/22 (On hemodialysis today, tomorrow coronary artery bypass surgery) Progress note Date of service 09/11/[address] Hernandez. Patient seen today [id number] as well as discussed with his father Patient on hemodialysis for preparation for tomorrow where he again I'm going to surgical intervention for coronary artery bypass graft. Patient is conscious alert and no chest pain feeling comfortable. His vital sign review her on dialysis 97.4 temperature pulse 65, respiratory rate 18 and blood pressure 80/58 with a mean 65 while on dialysis and they will pulling fluid 1/2 L today for anticipation for tomorrow surgery. Subsequently his blood pressure improved postdialysis to 113/54 with a mean 73 and heart rate 75 bpm and respiratory rate 18 and he is comfortable no chest pain. Patient is conscious alert oriented fatigued diet no chest pain HEENT no changes and no complaint no blurred vision no falling attacks able to ambulate Neck was supple no JVD no thyromegaly no lymphadenopathy trachea midline. Chest is clear to auscultation and percussion Heart regular sinus rhythm Abdomen obese positive bowel sounds Extremities he had axis on the left forearm for the hemodialysis able to tolerate the dialysis well no edema of the lower extremities. Neurological no seizure currently and anxiety stable. Assessment 1 patient presented to the ER with the chest pain postdialysis which was a current patient placed on heparin with consultation of the cardiology who requested and did angiogram found that he had occlusion and restenosis of the stent and occlusion of LAD and they recommended evaluation surgical for coronary artery bypass graft Subsequently patient seen by the cardiac surgeon and decided to have the coronary artery bypass graft for three-vessel probably more depend on the surger y itself. #2 underlying chronic hemodialysis with the underlying end-stage renal disease disease and mineral disease with a history of nephrosclerosis and chronic kidney disease stage V. #3 recurrent chest pain. Plan: Patient prepared for the surgery tomorrow at 6 AM and patient mentally prepared for the surgery. And he had dialysis today as well seen by cardiology and by nephrology Dr. Arredondo. Objective - Vital Signs Vital signs: Vital Signs Temp 97.4 F L 09/11/22 08:00 Pulse 75 09/11/22 13:50 Resp 18 09/11/22 11:36 BP 113/54 09/11/22 11:36 Pulse Ox 98 09/11/22 08:27 FiO2 Intake & Output 09/10/22 09/11/22 09/11/22 18:59 06:59 18:59 Intake Total 478 240 120 Balance 478 240 120 Weight 128.1 kg Intake: Oral 478 240 120 Other: Voiding Method Toilet Toilet Toilet # Voids 1 - Labs CBC & Chem 7: 09/11/22 11:15 09/11/22 11:15 Labs: Abnormal Lab Results - Last 24 Hours (Table) 09/11/22 09/11/22 09/11/22 Range/Units 11:15 11:15 11:15 RBC 3.02 L (4.30-5.90) m/uL Hgb 10.2 L (13.0-17.5) gm/dL Hct 31.7 L (39.0-53.0) % MCV 105.2 H (80.0-100.0) fL RDW 16.4 H (11.5-15.5) % Plt Count 122 L (150-450) k/uL Lymphocytes # 0.8 L (1.0-4.8) k/uL APTT (22.0-30.0) sec Sodium 131 L (137-145) mmol/L Potassium 5.2 H (3.5-5.1) mmol/L Chloride 94 L (98-107) mmol/L Carbon Dioxide 21 L (22-30) mmol/L BUN 64 H (9-20) mg/dL Creatinine 8.62 H* (0.66-1.25) mg/dL Glucose 117 H (74-99) mg/dL Total Bilirubin 1.8 H (0.2-1.3) mg/dL Alkaline Phosphatase 156 H (38-126) U/L Crossmatch See Detail 09/11/22 Range/Units 11:15 RBC (4.30-5.90) m/uL Hgb (13.0-17.5) gm/dL Hct (39.0-53.0) % MCV (80.0-100.0) fL RDW (11.5-15.5) % Plt Count (150-450) k/uL Lymphocytes # (1.0-4.8) k/uL APTT 64.6 H (22.0-30.0) sec Sodium (137-145) mmol/L Potassium (3.5-5.1) mmol/L Chloride (98-107) mmol/L Carbon Dioxide (22-30) mmol/L BUN (9-20) mg/dL Creatinine (0.66-1.25) mg/dL Glucose (74-99) mg/dL Total Bilirubin (0.2-1.3) mg/dL Alkaline Phosphatase (38-126) U/L Crossmatch
[2022-09-11] MEDS: IPRATROPIUM-ALBUTEROL 3 ML NEB INHALATION SCH ×2 (16:10→20:26)
[2022-09-11] MEDS: HEPARIN SOD,PORK IN 0.45% NACL 25,000 UNIT in 0.45% NACL 1 250ML.BAG IV SCH (16:19)
[2022-09-11] MEDS: ASPIRIN 81 MG PO SCH (16:20)
[2022-09-11] MEDS: ISOSORBIDE MONONITRATE ER 30 MG TAB.ER.24H PO SCH (17:45)
--- NOTE | 2022-09-11 19:19 | P.PN ---
Subjective PROGRESS NOTE The patient is a 37-year-old male with known history of end-stage renal disease, history of PCI, remote history of smoking, hypertension and hyperlipidemia who presented with symptoms of chest discomfort. His symptoms started after d ialysis on Sunday that improved and recurred yesterday and persisted until last night. He is pain-free at this time. The symptoms reminds him of the way he felt in December 2022 when he had a stent to the LAD but he was not dyspneic wasn't. He denies any dizziness or palpitation, no peripheral edema, no PND or orthopnea. He has been compliant with his medication and dialysis and has been doing well. This is the first time he has discomfort since his last intervention. His ejection fraction in the past was 40-45%. In December he received a stent to the distal PDA and he had suggestion of myocardial bridging in the mid LAD at the site of the stenting. He had a contained hematoma but no high-grade stenosis. His left circumflex had no evidence of high-grade stenosis. His troponin peaked at 1. He has no evidence of malignant arrhythmia. His coronary risk factors are positive for hypertension and hyperlipidemia. The patient underwent cardiac catheterization and was found to have occluded LAD, severe stenosis and the left circumflex and the RCA. He was evaluated by the surgical team and is scheduled to undergo surgical revascularization on Sunday. September 07: He's feeling well with no symptoms of chest discomfort, dizziness or palpitations. His breathing is stable. He felt tired with ambulation but no anginal pain. He continues to be in sinus mechanism without any evidence of malignant arrhythmia. He continues to be on IV heparin pending surgical intervention. September 08: The patient is feeling well this morning. He has no symptoms of chest discomfort. He is ambulating without any significant symptoms. He denies any dizziness or palpitation. He is awaiting surgical intervention on Sunday. He continues to be on IV heparin. He received dialysis yesterday. September 09: The patient had an episode of chest discomfort earlier, resolved with Dilaudid. He's feeling well at this time, receiving dialysis. He denies any dyspnea, dizziness or palpitations. The discomfort occurred at rest and was not associated with any other symptoms. Hemodynamically he stable. His blood pressure is on the low side at stable. September 10: The patient is doing well no further chest discomfort since yesterday. He has been ambulating without difficulties. He continues to be in sinus mechanism. He denies any nausea or vomiting. His appetite is good. He underwent dialysis yesterday. He is scheduled to undergo CABG on Sunday. 09/11 Patient seen and examined. Undergoing hemodialysis today. Denies any chest pain or pressure. Scheduled for surgery tomorrow. PHYSICAL EXAMINATION: Vitals reviewed LUNGS: Clear to auscultation HEART: Regular rate and rhythm, S1, S2. No S3. Ejection systolic murmur ABDOMEN: Soft, nontender, no organomegaly EXTREMETIES: No edema IMPRESSION: 1. Severe triple-vessel disease with non-STEMI on presentation, scheduled for CABG on Sunday with episodes of angina on IV heparin 2. End-stage renal disease on hemodialysis 3. History of hyperlipidemia 4. Rapidly progressive in-stent restenosis PLAN: Continue carvedilol, Imdur, Ranexa. Hold home Brillinta for surgery. Proceed with CABG 09/12. Prognosis guarded. Objective - Vital Signs Vital signs: Vital Signs Temp 98.5 F 09/11/22 14:59 Pulse 84 09/11/22 16:22 Resp 18 09/11/22 16:00 BP 90/53 09/11/22 16:00 Pulse Ox 99 09/11/22 16:00 FiO2 Intake & Output 09/11/22 09/11/22 09/12/22 06:59 18:59 06:59 Intake Total 490 860 Output Total 1999 Balance 490 -1140 Weight 128.1 kg Intake: Intake, IV Titration 250 Amount Heparin Sod,Pork in 0.45% 250 NaCl 25,000 unit In 0.45 % NaCl 1 250ml.bag @ 12 UNITS/KG/HR 14.969 mls/hr IV .[id number] [facility] Rx#: [id number] Oral 240 360 Hemodialysis 500 Output: Hemodialysis 2000 Other: Voiding Method Toilet Toilet - Labs CBC & Chem 7: 09/11/22 11:15 09/11/22 11:15 Labs: Abnormal Lab Results - Last 24 Hours (Table) 09/11/22 09/11/22 09/11/22 Range/Units 11:15 11:15 11:15 RBC 3.02 L (4.30-5.90) m/uL Hgb 10.2 L (13.0-17.5) gm/dL Hct 31.7 L (39.0-53.0) % MCV 105.2 H (80.0-100.0) fL RDW 16.4 H (11.5-15.5) % Plt Count 122 L (150-450) k/uL Lymphocytes # 0.8 L (1.0-4.8) k/uL APTT (22.0-30.0) sec Sodium 131 L (137-145) mmol/L Potassium 5.2 H (3.5-5.1) mmol/L Chloride 94 L (98-107) mmol/L Carbon Dioxide 21 L (22-30) mmol/L BUN 64 H (9-20) mg/dL Creatinine 8.62 H* (0.66-1.25) mg/dL Glucose 117 H (74-99) mg/dL Total Bilirubin 1.8 H (0.2-1.3) mg/dL Alkaline Phosphatase 156 H (38-126) U/L Crossmatch See Detail 09/11/22 Range/Units 11:15 RBC (4.30-5.90) m/uL Hgb (13.0-17.5) gm/dL Hct (39.0-53.0) % MCV (80.0-100.0) fL RDW (11.5-15.5) % Plt Count (150-450) k/uL Lymphocytes # (1.0-4.8) k/uL APTT 64.6 H (22.0-30.0) sec Sodium (137-145) mmol/L Potassium (3.5-5.1) mmol/L Chloride (98-107) mmol/L Carbon Dioxide (22-30) mmol/L BUN (9-20) mg/dL Creatinine (0.66-1.25) mg/dL Glucose (74-99) mg/dL Total Bilirubin (0.2-1.3) mg/dL Alkaline Phosphatase (38-126) U/L Crossmatch
[2022-09-11] MEDS: ATORVASTATIN 40 MG TAB PO SCH (19:59)
[2022-09-11] MEDS: MELATONIN 5 MG TABLET PO SCH (19:59)
[2022-09-12 04:03] LABS: Anisocytosis Slight; HCT 33.1 % (39.0-53.0); HGB 10.3 gm/dL (13.0-17.5); Hypochromasia Slight; MCH 33.5 pg (25.0-35.0); MCV 107.8 fL (80.0-100.0); Macrocytosis Marked; Mean Platelet Volume 9.4; Platelet Count 124 k/uL (150-450); RBC 3.07 m/uL (4.30-5.90); RDW 16.7 % (11.5-15.5); WBC 8.1 k/uL (3.8-10.6)
[2022-09-12 04:19] LABS: Albumin 3.4 g/dL (3.5-5.0); Calcium 8.9 mg/dL (8.4-10.2); Magnesium 2.1 mg/dL (1.6-2.3); Potassium 4.2 mmol/L (3.5-5.1); Total Bilirubin 1.9 mg/dL (0.2-1.3); Total Protein 7.1 g/dL (6.3-8.2)
[2022-09-12] MEDS ORDERED: ASPIRIN 81 MG PO ONE (04:30)
[2022-09-12] MEDS ORDERED: ATORVASTATIN 10 MG TAB PO ONE (04:30)
[2022-09-12] MEDS ORDERED: METOPROLOL TARTRATE 12.5 MG TAB PO ONE (04:30)
[2022-09-12] MEDS ORDERED: PROTAMINE SULFATE 250 MG in EMPTY BAG 1 BAG IV ONE (05:00)
[2022-09-12] MEDS ORDERED: ceFAZolin 3 GM in SODIUM CHLORIDE 0.9% 100 ML IVPB ONE (05:00)
[2022-09-12] MEDS ORDERED: ALBUMIN HUMAN 25% 50 ML in EMPTY BAG 1 BAG IVPB ONE (05:00)
[2022-09-12] MEDS ORDERED: PAPAVERINE 360 MG in SODIUM CHLORIDE 0.9% 90 ML IV ONE ×2 (05:00→09:24)
[2022-09-12] MEDS ORDERED: TRANEXAMIC ACID 2,000 MG in SODIUM CHLORIDE 0.9% 80 ML IV ONE ×2 (05:00→06:00)
[2022-09-12] MEDS ORDERED: HEPARIN SODIUM,PORCINE 5,000 UNIT in SODIUM CHLORIDE 0.9% 500 ML 500 ML IV ONE (05:00)
[2022-09-12] MEDS ORDERED: ALBUMIN HUMAN 5% 500 ML in EMPTY BAG 1 BAG IVPB ONE ×6 (05:00)
[2022-09-12] MEDS ORDERED: ceFAZolin 1,000 MG in SODIUM CHLORIDE 0.9% IRRIGATIO 1,000 ML IRRIGATION ONE (05:00)
[2022-09-12] MEDS ORDERED: CHLORHEXIDINE GLUCONATE 15 ML CUP MUCOUS MEM ONE (05:00)
[2022-09-12] MEDS ORDERED: MAGNESIUM SULFATE 16.24 MEQ in EMPTY SYRINGE 1 SYR IV ONE (05:00)
[2022-09-12] MEDS ORDERED: PHENYLEPHRINE 10 MG/ML VIAL IV ONE (05:00)
[2022-09-12] MEDS ORDERED: HEPARIN SODIUM 1,000 UN/ML (10ML VL) IV ONE (05:00)
[2022-09-12] MEDS ORDERED: MANNITOL 25% 12.5 GM/50 ML VIAL IV ONE ×2 (05:00)
[2022-09-12] MEDS ORDERED: SODIUM BICARB 8.4% 50 ML SYR (1 MEQ/ML) IV ONE (05:00)
[2022-09-12] MEDS ORDERED: PROTAMINE SULFATE 10 MG/ML 25 ML VIAL IV ONE (05:00)
[2022-09-12] MEDS ORDERED: PHENYLEPHRINE 40 MG in SODIUM CHLORIDE 0.9% 250 ML IV ONE (05:00)
[2022-09-12] MEDS ORDERED: CALCIUM CHLORIDE 100 MG/ML 10 ML SYRINGE IVP ONE (05:00)
[2022-09-12] MEDS ORDERED: INSULIN REGULAR 100 UNIT in SODIUM CHLORIDE 0.9% 100 ML IV SCH (05:00)
[2022-09-12] MEDS ORDERED: NITROGLYCERIN-D5W PMX 25 MG/250 ML BTL IV ONE (05:00)
[2022-09-12] MEDS ORDERED: ELECTROLYTE-A SOLUTION 1,000 ML with POTASSIUM CHLORIDE 100 MEQ, MAGNESIUM SULFATE 16 M... IV ONE ×5 (06:00)
[2022-09-12] MEDS ORDERED: ELECTROLYTE-A SOLUTION 1,000 ML with POTASSIUM CHLORIDE 40 MEQ, MAGNESIUM SULFATE 16 ME... IV ONE ×5 (06:00)
[2022-09-12 06:22] LABS: Glucose,Whole Blood 217 mg/dL (70-110)
[2022-09-12] MEDS ORDERED: SODIUM CHLORIDE 0.9% 1,000 ML IV ONE (06:23)
[2022-09-12 06:28] LABS: Glucose,Whole Blood 141 mg/dL (70-110)
[2022-09-12] MEDS ORDERED: TRANEXAMIC ACID IN NACL,ISO-OS 1,000 MG/100 ML BAG ONE (08:14)
[2022-09-12] MEDS ORDERED: SODIUM CHLORIDE 0.9% IRRIG 1,000 ML BTL IRRIGATION ONE (08:14)
[2022-09-12] MEDS ORDERED: ePHEDrine 50 MG/ML 1 ML VIAL ONE (08:14)
[2022-09-12] MEDS ORDERED: CISATRACURIUM 2 MG/ML 5 ML VIAL IV ONE (08:14)
[2022-09-12] MEDS ORDERED: SUCCINYLCHOLINE CHLORIDE 200 MG/10 ML VIAL IV ONE (08:14)
[2022-09-12] MEDS ORDERED: ETOMIDATE 2 MG/ML 10 ML VIAL ONE (08:14)
[2022-09-12] MEDS ORDERED: MIDAZOLAM HCL 10 MG/10 ML VIAL ONE (08:14)
[2022-09-12] MEDS ORDERED: ELECTROLYTE-R (PH 7.4) 1,000 ML IV.SOLN IV ONE (08:14)
[2022-09-12] MEDS ORDERED: GLYCOPYRROLATE 0.2 MG/ML 2 ML VIAL ONE (08:14)
[2022-09-12] MEDS ORDERED: fentaNYL (PF) 50 MCG/ML 50 ML VIAL ONE (08:14)
[2022-09-12] MEDS ORDERED: NEOSTIGMINE 1 MG/ML 10 ML VIAL ONE (08:14)
[2022-09-12] MEDS ORDERED: SODIUM CHLORIDE 0.9% 500 ML 500 ML with HEPARIN SODIUM,PORCINE 5,000 UNIT IV ONE ×2 (09:24)
[2022-09-12 10:01] LABS: ABG Base Excess -1.2 mmol/L; ABG Glucose Whole Blood 125 mg/dL (75-99); ABG HCO3 23 mmol/L (21-25); ABG Hematocrit 27 % (34.0-46.0); ABG Ionized Calcium 4.7 mg/dL (4.5-5.3); ABG Oxygen Saturation 99.1 % (94-97); ABG PCO2 38 mmHg (35-45); ABG PO2 142 mmHg (83-108); ABG Potassium Whole Blood 4.4 mmol/L (3.4-4.5); ABG Sodium Whole Blood 132 mmol/L (135-146); ABG TCO2 25 mmol/L (19-24)
[2022-09-12] MEDS: IPRATROPIUM-ALBUTEROL 3 ML NEB INHALATION SCH ×4 (10:10→21:51)
[2022-09-12 11:21] LABS: ABG Lactic Acid Whole Blood 3.3 mmol/L (0.5-1.6)
[2022-09-12 11:44] LABS: Glucose,Whole Blood 108 mg/dL (70-110)
--- NOTE | 2022-09-12 12:09 | XR ---
EXAMINATION TYPE: XR chest 1V portable DATE OF EXAM: 09/12/2022 Comparison: 09/11/2022 Clinical History: 37-year-old male from OR after attempted swan placement. Findings: Heart remains mild to moderately enlarged. Interstitial prominence is unchanged. No pneumothorax or p leural effusion. Impression: Similar mild to moderate cardiomegaly and possible mild pulmonary vascular congestion.
[2022-09-12] MEDS: HEPARIN SOD,PORK IN 0.45% NACL 25,000 UNIT in 0.45% NACL 1 250ML.BAG IV SCH (12:36)
[2022-09-12] MEDS: CLEVIDIPINE BUTYRATE 25 MG in EMPTY BAG 1 BAG IV SCH (12:47)
[2022-09-12] MEDS ORDERED: SODIUM CHLORIDE 0.9% 500 ML 500 ML IV ONE (13:16)
--- NOTE | 2022-09-12 13:32 | FL ---
EXAMINATION TYPE: FL guided central line placement DATE OF EXAM: 09/12/2022 FLUOROSCOPY Fluoroscopy time of 6 minutes 7 seconds was used during attempted central line placement in the OR. 1 image/s document/s the procedure. 55.906 DAP.
--- NOTE | 2022-09-12 13:33 | P.ANPRN ---
Procedure Note - Anesthesia - Invasive Line Right Central Line Time Out Performed: Yes Location of Patient: PreOp Preparation: Sterile Prep, Sterile Dressing Central Line Location: Internal Jugular Ultrasound Used: Yes Purpose - Visualization and Identification of Vasculature: Yes Image Stored and Saved: Yes Narrative: IInformed consent obtained.Right Internal jugular vein cannulated under aseptic precautions. 3cc 1% lidocaine infiltrated initially after cleaning with iodine based prep and draping. Ultrasound used to locate the vein and Seldinger technique used. The guidewire a threading onlyup to 15 cm chandler 9Fr introduced sheath inserted and after the finding the needle with pilot steam yacht needle/catheter. The introducer sheath was sutured in place. The insertion site was dressed with biopatch and tegaderm. Patient tolerated the procedure well. Right [place] Time Out Performed: Yes Location of Patient: OR [place] Line Location: Femoral (Right) Ultrasound Used: No Purpose - Visualization and Identification of Vasculature: No Narrative: Central line placement per sterile protocol utilized. As it was difficult to thread in [place]Savan[place] catheter through the right internal jugular sheath due to a resistance at 15 cm chandler, procedure was performed in the operating room, under general anesthesia. Fresh right femoral arterial and venous sheaths were obtained. After a few attempts, [place]-Savan[place] catheter was threaded into the right ventricle through the right femoral sheath. As a cardiac index was showing low value (possibly tip in RV), and as it was deemed necessary for the surgery and postoperative management the existence of correctly positioned [place]-Savanah catheter, fluoroscopy was brought into the room and [place]-Savanah positioning was attempted. After repeated failures, right IJ sheath was used to pass a guidewire which could be threaded to the ventricle, but [place]-Savanah catheter couldn't be threaded due to possible obstruction at the right subclavian junction(15cm chandler). An attempt was made on the left subclavian vein with fresh insertion of 9-Amharic sheath. Guidewire could be passed down to the heart but [place]-Savan[place] catheter kept going up into the left internal jugular vein. After a few attempts the procedure was abandoned. Due to comorbid conditions of the patient, [place]-Savanah catheter is essential for hemodynamic management and hence surgery was canceled with plan to do the preop [place]-Savanah catheterization in the cardiac catheterization lab and then rescheduled for surgery.
--- NOTE | 2022-09-12 13:33 | P.PN ---
Subjective Progress Note Date: 09/12/22 Principal diagnosis: Acute non-ST elevation myocardial infarction, severe LV dysfunction, severe COPD, end-stage renal disease 37-year-old male patient, presented to the hospital for issues related to tachycardia and elevated heart rate. He was also experiencing some chest pain that would not go away. He was having on and off chest pain and he presented to our hospital for further evaluation. His EKG showed some nonspecific changes. The patient ruled in for an acute non-ST segment elevation myocardial infarction. He underwent cardiac catheterization. Noted the patient is known to have coronary artery disease and he has undergone previous MIs and previous PCI's. He also is known to have hypertension and hyperlipidemia and end-stage renal disease on hemodialysis for the past 7 years. The catheterization was completed and the patient was found to have a dominant large RCA with a focal 95% re in-stent stenosis involving the PDA, totally occluded proximal LAD and second OM branch with a focal 95% stenosis. Based on that, it was recommended to proceed with bypass surgery. The patient is known to have previous smoking history. The patient is also a daily marijuana user. Chest x-ray is consistent with cardiomegaly and pulmonary vascular congestion and a small left-sided pleural effusion. Echo of the heart showed limited ejection fraction of 40% along with grade 4 diastolic dysfunction. Moderate LV dysfunction was present. Note that the patient has no history of any COPD. No history of asthma. The patient has not been using oxygen or any respiratory medications on outpatient basis. He is currently free of any chest pain. He is currently on IV heparin. His surgery is tentatively scheduled to be done on Sunday of next week. His bedside spirometry was done and the patient was found to have an FEV1 of 38% of predicted. Patient was evaluated today on 09/12/2022, patient was supposed to undergo CABG today, however multiple attempts were made to float a pulmonary artery catheter/[place]-Savanah catheter by anesthesia and by thoracic surgery, apparently this could not be accomplished. Hence his bypass surgery was canceled today, and he is going to have another attempts by cardiology/Dr. Zaidi he will have this done in the cardiac laboratory inspector later this afternoon. And surgery may be scheduled to be done tomorrow. If not tomorrow it will be done next . Patient is now in the ICU, he received his last hemodialysis yesterday. Patient denies any shortness of breath, denies any cough wheezing or chest pain. ABG today showed a pO2 of 142 pCO2 of 38 pH of 7.40 patient is on heparin and his PTT is 57.7, basic metabolic profile is normal except for BUN of 40 creatinine 5.83. WBC count is 8.1 hemoglobin is 10.3. Chest x-ray this morning showed cardiomegaly and mild pulmonary vascular congestion Objective - Vital Signs Vital signs: Vital Signs Temp 97.2 F L 09/12/22 06:39 Pulse 76 09/12/22 12:29 Resp 16 09/12/22 06:39 BP 95/59 09/12/22 06:39 Pulse Ox 97 09/12/22 12:21 FiO2 Intake & Output 09/11/22 09/12/22 09/12/22 18:59 06:59 18:59 Intake Total 860 490 Output Total 1999 Balance -1140 490 Weight 126.6 kg Intake: Intake, IV Titration 250 Amount Heparin Sod,Pork in 0.45% 250 NaCl 25,000 unit In 0.45 % NaCl 1 250ml.bag @ 12 UNITS/KG/HR 14.969 mls/hr IV .[id number] [facility] Rx#: [id number] Oral 360 240 Hemodialysis 500 Output: Hemodialysis 1999 Other: Voiding Method Toilet Toilet Toilet # Bowel Movements 1 - Exam Physical Exam: Revealed a 57-year-old white male obese, on room air, in no distress. O2 saturation is 97%. Head: Atraumatic, normocephalic. HEENT:[Neck is supple.] [No neck masses.] [No thyromegaly.] [No JVD.] Chest: [Symmetrical chest expansion, diminished breath sound bilaterally no crackles or rhonchi or wheezes Cardiac Exam: [Normal S1 and S2, no S3 gallop, 2/6 systolic murmur thought the precordium. Abdomen: [Soft, nontender, no megaly, no rebound, no guarding, normal bowel sounds.] Extremities: [No clubbing, no edema, no cyanosis.] Neurological Exam: [No focal neurologic deficit.] Alert oriented 3. Psychiatric: Normal mood affect and normal mental status examination. Skin: No rashes. - Labs CBC & Chem 7: 09/12/22 03:30 09/12/22 03:30 Labs: Abnormal Lab Results - Last 24 Hours (Table) 09/11/22 09/12/22 09/12/22 Range/Units 11:15 03:30 03:30 RBC 3.07 L (4.30-5.90) m/uL Hgb 10.3 L (13.0-17.5) gm/dL Hct 33.1 L (39.0-53.0) % MCV 107.8 H (80.0-100.0) fL RDW 16.7 H (11.5-15.5) % Plt Count 124 L (150-450) k/uL Macrocytosis Marked A APTT (22.0-30.0) sec ABG pO2 (83-108) mmHg ABG Total CO2 (19-24) mmol/L ABG O2 Saturation (94-97) % ABG Hematocrit (34.0-46.0) % ABG Sodium (135-146) mmol/L ABG Glucose (75-99) mg/dL ABG Lactic Acid (0.5-1.6) mmol/L Hemoglobin (13.0-17.5) gm/dL Sodium 131 L (137-145) mmol/L Chloride 91 L (98-107) mmol/L BUN 40 H (9-20) mg/dL Creatinine 5.83 H (0.66-1.25) mg/dL Glucose 120 H (74-99) mg/dL POC Glucose (mg/dL) (70-110) mg/dL Total Bilirubin 1.9 H (0.2-1.3) mg/dL Alkaline Phosphatase 170 H (38-126) U/L Albumin 3.4 L (3.5-5.0) g/dL Arterial Blood Glucose (75-99) mg/dL Crossmatch See Detail 09/12/22 09/12/22 09/12/22 Range/Units 03:30 06:21 06:27 RBC (4.30-5.90) m/uL Hgb (13.0-17.5) gm/dL Hct (39.0-53.0) % MCV (80.0-100.0) fL RDW (11.5-15.5) % Plt Count (150-450) k/uL Macrocytosis APTT 57.7 H (22.0-30.0) sec ABG pO2 (83-108) mmHg ABG Total CO2 (19-24) mmol/L ABG O2 Saturation (94-97) % ABG Hematocrit (34.0-46.0) % ABG Sodium (135-146) mmol/L ABG Glucose (75-99) mg/dL ABG Lactic Acid (0.5-1.6) mmol/L Hemoglobin (13.0-17.5) gm/dL Sodium (137-145) mmol/L Chloride (98-107) mmol/L BUN (9-20) mg/dL Creatinine (0.66-1.25) mg/dL Glucose (74-99) mg/dL POC Glucose (mg/dL) 217 H 141 H (70-110) mg/dL Total Bilirubin (0.2-1.3) mg/dL Alkaline Phosphatase (38-126) U/L Albumin (3.5-5.0) g/dL Arterial Blood Glucose (75-99) mg/dL Crossmatch 09/12/22 Range/Units 10:03 RBC (4.30-5.90) m/uL Hgb (13.0-17.5) gm/dL Hct (39.0-53.0) % MCV (80.0-100.0) fL RDW (11.5-15.5) % Plt Count (150-450) k/uL Macrocytosis APTT (22.0-30.0) sec ABG pO2 142 H (83-108) mmHg ABG Total CO2 25 H (19-24) mmol/L ABG O2 Saturation 99.1 H (94-97) % ABG Hematocrit 27 L (34.0-46.0) % ABG Sodium 132 L (135-146) mmol/L ABG Glucose 125 H (75-99) mg/dL ABG Lactic Acid 3.3 H* (0.5-1.6) mmol/L Hemoglobin 8.9 L (13.0-17.5) gm/dL Sodium (137-145) mmol/L Chloride (98-107) mmol/L BUN (9-20) mg/dL Creatinine (0.66-1.25) mg/dL Glucose (74-99) mg/dL POC Glucose (mg/dL) (70-110) mg/dL Total Bilirubin (0.2-1.3) mg/dL Alkaline Phosphatase (38-126) U/L Albumin (3.5-5.0) g/dL Arterial Blood Glucose 125 H (75-99) mg/dL Crossmatch Assessment and Plan Assessment: Impression: Severe triple-vessel coronary artery disease, scheduled for CABG on Sunday End-stage renal disease, on hemodialysis his last hemodialysis was yesterday. Severe obstructive and restrictive lung disease patient is on DuoNeb updrafts 4 times a day and when necessary, FEV1 is 38%. Ischemic cardiomyopathy and LV dysfunction with ejection fraction of 40% Acute systolic congestive heart failure Dyslipidemia End-stage renal disease, on hemodialysis for 7 years History of MRSA and Serratia bacteremia Ex-smoker Current marijuana use. History of bipolar disorder. Recommendation: Continue present supportive care measures Scheduled for CABG possibly in a.m. Patient to have pulmonary artery catheter placement by cardiology this afternoon and in this cardiac laboratory inspector. Continue hemodialysis as felt necessary by nephrology on the case. Continue DuoNeb updrafts. Incentive spirometry. GI and DVT prophylaxis. We will continue to follow. Time with Patient: Less than 30
[2022-09-12] MEDS: NITROGLYCERIN-D5W PMX 50 MG in DEXTROSE/WATER 1 250ML.BAG IV SCH (14:22)
[2022-09-12] MEDS: carvediloL 3.125 MG TAB PO SCH ×2 (14:25→20:15)
[2022-09-12] MEDS: CALCIUM ACETATE 667 MG TAB PO SCH ×2 (14:25→16:55)
[2022-09-12] MEDS ORDERED: LIDOCAINE 1% INJ 10MG/ML (20 ML MDV) ONE (15:17)
[2022-09-12] MEDS: ISOSORBIDE MONONITRATE ER 30 MG TAB.ER.24H PO SCH (16:52)
[2022-09-12 17:06] LABS: O2 Sat Blood Gas 39.3 %
[2022-09-12 17:07] LABS: O2 Sat Blood Gas 44.2 %
[2022-09-12] MEDS: NOREPINEPHRINE 4 MG in SODIUM CHLORIDE 0.9% 250 ML IV SCH (17:50)
[2022-09-12] MEDS: RANOLAZINE 500 MG TAB.ER.12H PO SCH ×2 (18:06→20:36)
[2022-09-12] MEDS: ASPIRIN 81 MG PO SCH (18:06)
--- NOTE | 2022-09-12 18:12 | XR ---
EXAMINATION TYPE: XR chest 1V portable DATE OF EXAM: 09/12/2022 6:06 PM COMPARISON: Chest radiographs from 09/12/2022 TECHNIQUE: XR chest 1V portable Frontal view of the chest. CLINICAL INDICATION:Male, 37 years old with history of s/p swan placement; FINDINGS: Lungs/Pleura: There is no evidence of pleural effusion, focal consolidation, or pneumothorax. Pulmonary vascularity: Unremarkable. Heart/mediastinum: Cardiomediastinal silhouette is enlarged and stable. Musculoskeletal: No acute osseous pathology. Other findings: None Lines/Tubes: There is a [place]-Savanah catheter with tip projecting over the right pulmonary hilum. IMPRESSION: [place]-Savanah catheter with tip projecting over pulmonary hilum.
[2022-09-12] MEDS: ATORVASTATIN 40 MG TAB PO SCH (20:34)
[2022-09-12] MEDS: MELATONIN 5 MG TABLET PO SCH (20:34)
[2022-09-12] MEDS: MORPHINE SULFATE 2 MG/ML SYRINGE IVP PRN (20:34)
--- NOTE | 2022-09-12 21:14 | OP ---
OPERATIVE REPORT DATE OF SERVICE : 09/12/2022 PREOPERATIVE DIAGNOSIS: Coronary artery disease. POSTOPERATIVE DIAGNOSIS: Coronary artery disease. PROCEDURES PERFORMED: 1. Transesophageal echocardiogram. 2. Central venous access with attempt at [place] Sav[place]ah catheter placement using fluoroscopic guidance. ASSISTANTS: 1. Brigido Carreon NP. 2. NURA Ferrell. ANESTHESIA: General. Dr. Villareal SPECIMEN: None. COMPLICATION: None. INDICATIONS: The patient is a 37-year-old male with a history of multiple medical problems including end-stage renal disease on hemodialysis for the past 7 years, bipolar disease, and coronary artery disease, status post multiple stents and interventions. Unfortunately, the patient has undergone multiple percutaneous interventions over the past 3 years, which have all resulted in short-term failures and in-stent restenosis. His most recent procedure was performed last December. Cardiac catheterization on this admission revealed multivessel coronary artery disease including in-stent restenosis of both the LAD and PDA. Due to his previous percutaneous failures, a coronary artery bypass is recommended. The risks, benefits, and alternatives of this procedure were discussed with the patient and his father. All of their questions were answered. Consent was obtained. FINDINGS: There was likely stenosis involving the SVC/innominate vein junction prohibiting placement of a [place]-Savanah catheter. PROCEDURE IN DETAIL: The patient was taken to the operating room and placed supine on the operating table. An ET tube was placed by the Anesthesia Service and general anesthetic was introduced. Transesophageal echocardiogram revealed evidence of LV hypertrophy with akinesis involving the apex of the left ventricle. The anterior wall appeared to be moving well near the mid and basal region of the left ventricle. There was severe diastolic dysfunction. The RV was slightly hypokinetic. There was mild mitral regurgitation. At this point, attempts at central venous access were performed starting with the right internal jugular vein. A sheath had been placed in the preop area. We attempted to wire this vessel, but could only advance a guidewire for about 10 to 15 cm. We did use fluoroscopic guidance and got a Glidewire to pass into the right atrium. However, when we tried to pass a [place]-Savanah catheter, it again met resistance at about 10 to 15 cm. Access was then obtained via the left subclavian vein using a finder needle, followed by standard Seldinger technique until the sheath was introduced. Again, a guidewire was introduced, but it would not advance into the heart. Next, a Glidewire was introduced and would only advance up into the left internal jugular vein and not pass the SVC/ innominate vein junction. Finally we attempted access via the right femoral vein. Access was obtained using a finder needle and ultrasound guidance. Of note, the right femoral artery was also accessed using a finder needle and ultrasound guidance and a monitoring line was placed without difficulty. The [place]-Savanah catheter was introduced via the right femoral vein and advanced into the right atrium, but it would coil there and not advance past the tricuspid valve despite multiple attempts using both fluoroscopic guidance and transesophageal echo guidance. Due to the patient's body habitus, the Knox-Savanah catheter itself appeared to not be long enough for a femoral vein approach. After about 3 hours of attempting these different approaches, we felt that it would not be possible to place a Knox-Savanah in the operating room. Due to the patient's elevated risk of surgery including diminished cardiac function, diastolic dysfunction, and end-stage renal disease, I felt it would not be safe to proceed without having a Knox-Savanah catheter to monitor volume status both intraoperatively and postoperatively. For that reason, the procedure was canceled. I did speak with the patient's installation drafter, Dr. Zaidi, who agreed to try placing a Knox-Savanah catheter in the medical laboratory technologist later today. The sheaths were then removed and pressure was held for several minutes. He was extubated and returned to the ICU in stable condition. MMODL / IJN: [id number] / MTDMariam
--- NOTE | 2022-09-12 21:36 | P.PCN ---
Description of Procedure: PROCEDURES PERFORMED: Right heart catheterization INDICATION: Non-STEMI, planned CABG PROCEDURE: After the risks, benefits and alternatives of the above mentioned procedure explained in detail with the patient, informed consent was obtained. Patient was taken to the catheterization lab and prepped and draped in usual fashion. There was inability to pass a [place] catheter from the right IJ previously and therefore decision was made to place a longer sheath. Using ultrasound guidance and micropuncture technique, a micropuncture was placed. Angiography from the micropuncture sheath did show some stenosis however was able to wire to the IVC with a 0.035 glide wire. Over the 0.035 glide wire a 25cm 6Fr sheath was placed. Next a 6Fr [place] catheter was advanced into the RA, RV, PA and PCWP and pressure measurements and oxygen saturations were drawn. The balloon was deflated and the catheter and sheath were sutured in place. The patient tolerated the procedure well. Patient was transported back to the post catheterization holding area in stable condition. HEMODYNAMICS: Ao: 84/54 RA: 16 mmHg RV: 33/15 mmHg PA: 32/21 mmHg PCWP: 21 mmHg PA oxygen saturation: 39% RA oxygen saturation: 44% Pulse ox (on 3L NC): 100% Cardiac output by INA: 4.4 L/min Cardiac index by INA: 1.78 L/min/m2 FINAL IMPRESSION: Elevated left and right sided filling pressures Borderline decreased cardiac outpt/ cardiac index
[2022-09-13] MEDS ORDERED: BENZOCAINE/MENTHOL LOZENG 1 EACH LOZENGE MUCOUS MEM PRN (01:56)
--- NOTE | 2022-09-13 03:10 | PN ---
PROGRESS NOTE DATE OF SERVICE: 09/12/2022 The patient is a 37-year-old white male. The patient is full code. His current data is 6 feet 126.6 kg, BSA 2.48 m2, BMI 36.8 kg/m2. Allergies unknown. SUBJECTIVE: The patient is seen in the ICU [id number] and we found out that the coronary artery bypass was canceled today because of some obstruction on the Pulmonary line for monitoring through his surgery and they planned for it tomorrow by Dr. Zaidi. He has some evidence of occlusion on the right venous side, and they tried but we could not reach it or open it. The patient is conscious. However, he had underlying low blood pressure. LABORATORY DATA: His white count was 8.1, hemoglobin is 10.3 and hematocrit 33.1, and platelets 124, with the underlying macrocytosis. He is on heparin and PTT 57.7. ABGs, pH of 7.4, pCO2 of 38, pO2 of 142. HCO3 of 23, CO2 total 25. His saturation was 99.1. He has lactic acid 3.3 and hemoglobin dropped to 8.9. Chemistry showed to be sodium 131, potassium 4.2, chloride 91, carbon dioxide 25, with a BUN of 40 and creatinine 5.83. His last dialysis was yesterday. His glucose is 120. Calcium 8.9, magnesium 2.1, AST 24, ALT 18, alkaline phosphatase 170, and total protein 7.1, albumin 3.4. His vital sign, he is afebrile and his pulse rate 78 beats per minute. His respiratory rate 25 per minute. His blood pressure 84/56 with a mean 69 and he was on 100% saturation. OBJECTIVE: GENERAL: On exam, the patient was conscious, alert, able to respond with the exam and he stated that he feels okay. HEENT: The head was normocephalic, atraumatic. He has pupils equal, reactive. Oropharynx was negative with dental caries. NECK: Supple. CHEST: Clear to auscultation and percussion. HEART: Regular sinus and compensated. However, he has hypotension. ABDOMEN: Obese, positive bowel sounds. EXTREMITIES: No edema. ASSESSMENT: The patient is currently resting and I did discuss it with his RN and they are monitoring in the ICU and tomorrow will be planning for pulmonary catheter and further plan for surgery depend on the patient's stability with the underlying history of 3- vessel disease with the occlusive disease and recurrent stenosis and the plan for surgery for 3-vessel bypass . He has been on hemodialysis for 7 years and he was dialyzed yesterday and they will contact Dr. Arredondo for future dialysis. The patient is to have hypertension with ejection fraction of 40%. PLAN: The patient will be monitored by motel maid and Critical Care and Pulmonary as well as Nephrology with the hemodialysis as well as marketing designer, Dr. Zaidi as well as the cardiac surgeon for definitive surgery. MMODL / IJN: [id number] /
[2022-09-13] MEDS: CLEVIDIPINE BUTYRATE 25 MG in EMPTY BAG 1 BAG IV SCH (04:47)
[2022-09-13] MEDS: NITROGLYCERIN-D5W PMX 50 MG in DEXTROSE/WATER 1 250ML.BAG IV SCH (04:47)
[2022-09-13] MEDS: MORPHINE SULFATE 2 MG/ML SYRINGE IVP PRN ×3 (04:47→18:39)
[2022-09-13 05:04] LABS: Glucose,Whole Blood 117 mg/dL (70-110)
[2022-09-13 05:29] LABS: Anisocytosis Slight; Basophils % (A) 0 %; Eosinophils # (A) 0.1 k/uL (0-0.7); Eosinophils % (A) 1 %; HCT 32.8 % (39.0-53.0); HGB 10.8 gm/dL (13.0-17.5); Hypochromasia Slight; Lymphocytes # (A) 0.7 k/uL (1.0-4.8); Lymphocytes % (A) 7 %; MCH 33.7 pg (25.0-35.0); MCHC 32.8 g/dL (31.0-37.0); Macrocytosis Moderate; Mean Platelet Volume 9.4; Monocytes # (A) 0.6 k/uL (0-1.0); Monocytes % (A) 6 %; Neutrophils # (A) 7.5 k/uL (1.3-7.7); Neutrophils % (A) 84 %; Platelet Count 114 k/uL (150-450); RBC 3.19 m/uL (4.30-5.90); RDW 16.5 % (11.5-15.5); WBC 8.9 k/uL (3.8-10.6)
[2022-09-13 05:39] LABS: Calcium 8.9 mg/dL (8.4-10.2); Potassium 5.2 mmol/L (3.5-5.1)
[2022-09-13 06:38] LABS: MCV 102.8 fL (80.0-100.0)
[2022-09-13] MEDS: HEPARIN SOD,PORK IN 0.45% NACL 25,000 UNIT in 0.45% NACL 1 250ML.BAG IV SCH ×2 (07:00→20:30)
--- NOTE | 2022-09-13 07:20 | XR ---
EXAMINATION TYPE: XR chest 1V portable DATE OF EXAM: 09/13/2022 CLINICAL HISTORY: Difficulty breathing progress study. TECHNIQUE: Single AP portable semiupright view of the chest is obtained. COMPARISON: Chest x-ray from one day earlier and older studies. FINDINGS: Stable right internal jugular Al[place]-Savanah catheter extending into the right lower lobe pulmo nary artery. Persistent cardiomegaly with left basilar opacity. Right lung remains clear. Osseous structures are i ntact. IMPRESSION: Cardiomegaly with left lower lung opacity could reflect scarring. Acute infiltrate not ex cluded. No significant change from one day earlier.
[2022-09-13] MEDS ORDERED: DOBUTamine DRIP 500 MG in DEXTROSE/WATER 1 250ML.BAG IV SCH (08:00)
[2022-09-13] MEDS: carvediloL 3.125 MG TAB PO SCH ×2 (08:04→19:59)
[2022-09-13] MEDS: ISOSORBIDE MONONITRATE ER 30 MG TAB.ER.24H PO SCH (08:04)
[2022-09-13] MEDS: CALCIUM ACETATE 667 MG TAB PO SCH ×3 (08:04→18:39)
[2022-09-13] MEDS: ASPIRIN 81 MG PO SCH (08:04)
[2022-09-13] MEDS: RANOLAZINE 500 MG TAB.ER.12H PO SCH ×3 (08:04→19:59)
--- NOTE | 2022-09-13 08:47 | P.PN ---
Subjective PROGRESS NOTE The patient is a 37-year-old male with known history of end-stage renal disease, history of PCI, remote history of smoking, hypertension and hyperlipidemia who presented with symptoms of chest discomfort. His symptoms started after d ialysis on Sunday that improved and recurred yesterday and persisted until last night. He is pain-free at this time. The symptoms reminds him of the way he felt in December 2022 when he had a stent to the LAD but he was not dyspneic wasn't. He denies any dizziness or palpitation, no peripheral edema, no PND or orthopnea. He has been compliant with his medication and dialysis and has been doing well. This is the first time he has discomfort since his last intervention. His ejection fraction in the past was 40-45%. In December he received a stent to the distal PDA and he had suggestion of myocardial bridging in the mid LAD at the site of the stenting. He had a contained hematoma but no high-grade stenosis. His left circumflex had no evidence of high-grade stenosis. His troponin peaked at 1. He has no evidence of malignant arrhythmia. His coronary risk factors are positive for hypertension and hyperlipidemia. The patient underwent cardiac catheterization and was found to have occluded LAD, severe stenosis and the left circumflex and the RCA. He was evaluated by the surgical team and is scheduled to undergo surgical revascularization on Sunday. September 07: He's feeling well with no symptoms of chest discomfort, dizziness or palpitations. His breathing is stable. He felt tired with ambulation but no anginal pain. He continues to be in sinus mechanism without any evidence of malignant arrhythmia. He continues to be on IV heparin pending surgical intervention. September 08: The patient is feeling well this morning. He has no symptoms of chest discomfort. He is ambulating without any significant symptoms. He denies any dizziness or palpitation. He is awaiting surgical intervention on Sunday. He continues to be on IV heparin. He received dialysis yesterday. September 09: The patient had an episode of chest discomfort earlier, resolved with Dilaudid. He's feeling well at this time, receiving dialysis. He denies any dyspnea, dizziness or palpitations. The discomfort occurred at rest and was not associated with any other symptoms. Hemodynamically he stable. His blood pressure is on the low side at stable. September 10: The patient is doing well no further chest discomfort since yesterday. He has been ambulating without difficulties. He continues to be in sinus mechanism. He denies any nausea or vomiting. His appetite is good. He underwent dialysis yesterday. He is scheduled to undergo CABG on Sunday. 09/11 Patient seen and examined. Undergoing hemodialysis today. Denies any chest pain or pressure. Scheduled for surgery tomorrow. 09/12 Patient seen and examined. Patient taken for CABG yesterday however difficulty placing Munith-Savanah secondary to prior dialysis catheter placements. Therefore surgery was canceled. Later using a longer sheath a 6-Indonesian Munith-Savanah catheter was placed in the right internal jugular vein. Right atrial and wedge pressures have been noted to be elevated right atrial pressures in the 16 and 19 range and wedge pressures low 20s. Patient however has been noted to be hypotensive with blood pressures in the 80s over 50s and cardiac output and index were noted to be low and therefore placed on low dose of norepinephrine as well as dopamine. PHYSICAL EXAMINATION: Vitals reviewed LUNGS: Clear to auscultation HEART: Regular rate and rhythm, S1, S2. No S3. Ejection systolic murmur ABDOMEN: Soft, nontender, no organomegaly EXTREMETIES: No edema IMPRESSION: 1. Severe triple-vessel disease with non-STEMI on presentation 2. End-stage renal disease on hemodialysis 3. History of hyperlipidemia 4. Rapidly progressive in-stent restenosis 5. Hypotension, Hartig output/cardiac index noted the borderline possible component of cardiogenic shock versus other PLAN: Decrease dose of carvedilol. Patient with drop in blood pressure after undergoing intubation and sedation for surgery. May still be from anesthetics with his kidney disease and appears to be slowly improving in terms of his blood pressure and cardiac output and cardiac index. Continue to hold Brilinta. Continue to evaluate for possible CABG. Check troponin for completeness sake however denied any current chest pain or pressure. Objective - Vital Signs Vital signs: Vital Signs Temp 98 F 09/13/22 08:00 Pulse 96 09/13/22 08:00 Resp 15 09/13/22 08:00 BP 97/66 09/13/22 08:00 Pulse Ox 90 L 09/13/22 08:00 FiO2 Intake & Output 09/12/22 09/13/22 09/13/22 18:59 06:59 18:59 Intake Total 028.297 4749.281 134 Output Total 0 0 0 Balance 660.900 5437.281 134 Intake: IV 600 638 34 .9 NS 100 500 25 CO/CI 30 Sodium Chloride 0.9% 500 500 ml 500 ml @ 999 mls/hr IV .Q31M [facility] Rx#:[id number] pressure bag 108 9 Intake, IV Titration 14.642 337.281 Amount Heparin Sod,Pork in 0.45% 250 NaCl 25,000 unit In 0.45 % NaCl 1 250ml.bag @ 12 UNITS/KG/HR 14.969 mls/hr IV .[id number] [facility] Rx#: [id number] Norepinephrine 4 mg In 14.642 87.281 Sodium Chloride 0.9% 250 ml @ Titrate IV .Q0M [facility] Rx#:[id number] Oral 490 100 Output: Urine 0 0 0 Other: Voiding Method Toilet Toilet ABP, PAP, CO, CI - Last Documented Arterial Blood Pressure 81/48 Pulmonary Artery Pressure 35/27 Cardiac Output 4.2 Cardiac Index 1.7 - Labs CBC & Chem 7: 09/13/22 04:55 09/13/22 04:55 Labs: Abnormal Lab Results - Last 24 Hours (Table) 09/11/22 09/12/22 09/13/22 Range/Units 11:15 10:03 01:10 RBC (4.30-5.90) m/uL Hgb (13.0-17.5) gm/dL Hct (39.0-53.0) % MCV (80.0-100.0) fL RDW (11.5-15.5) % Plt Count (150-450) k/uL Lymphocytes # (1.0-4.8) k/uL APTT 43.2 H (22.0-30.0) sec ABG pO2 142 H (83-108) mmHg ABG Total CO2 25 H (19-24) mmol/L ABG O2 Saturation 99.1 H (94-97) % ABG Hematocrit 27 L (34.0-46.0) % ABG Sodium 132 L (135-146) mmol/L ABG Glucose 125 H (75-99) mg/dL ABG Lactic Acid 3.3 H* (0.5-1.6) mmol/L Hemoglobin 8.9 L (13.0-17.5) gm/dL Sodium (137-145) mmol/L Potassium (3.5-5.1) mmol/L Chloride (98-107) mmol/L BUN (9-20) mg/dL Creatinine (0.66-1.25) mg/dL Glucose (74-99) mg/dL POC Glucose (mg/dL) (70-110) mg/dL Arterial Blood Glucose 125 H (75-99) mg/dL Crossmatch See Detail 09/13/22 09/13/22 09/13/22 Range/Units 04:55 04:55 05:03 RBC 3.19 L (4.30-5.90) m/uL Hgb 10.8 L (13.0-17.5) gm/dL Hct 32.8 L (39.0-53.0) % MCV 102.8 H D (80.0-100.0) fL RDW 16.5 H (11.5-15.5) % Plt Count 114 L (150-450) k/uL Lymphocytes # 0.7 L (1.0-4.8) k/uL APTT (22.0-30.0) sec ABG pO2 (83-108) mmHg ABG Total CO2 (19-24) mmol/L ABG O2 Saturation (94-97) % ABG Hematocrit (34.0-46.0) % ABG Sodium (135-146) mmol/L ABG Glucose (75-99) mg/dL ABG Lactic Acid (0.5-1.6) mmol/L Hemoglobin (13.0-17.5) gm/dL Sodium 131 L (137-145) mmol/L Potassium 5.2 H (3.5-5.1) mmol/L Chloride 93 L (98-107) mmol/L BUN 44 H (9-20) mg/dL Creatinine 7.48 H* (0.66-1.25) mg/dL Glucose 111 H (74-99) mg/dL POC Glucose (mg/dL) 117 H (70-110) mg/dL Arterial Blood Glucose (75-99) mg/dL Crossmatch
[2022-09-13] MEDS: IPRATROPIUM-ALBUTEROL 3 ML NEB INHALATION SCH ×4 (08:50→21:36)
--- NOTE | 2022-09-13 08:56 | P.PN ---
Subjective Progress Note Date: 09/13/22 Principal diagnosis: Coronary artery disease with previous myocardial infarction status post previous PCI, NSTEMI this admission, hypertension, hyperlipidemia, end-stage renal dise ase on hemodialysis for 7 years, MRSA bacteremia in December 2021 along with Serratia bacteremia and February 2016, previous tobacco dependence, COPD, severe restrictive lung disease, current marijuana use, bipolar disorder. POD #1 right heart catheterization and placement of a 6-Bulgarian [place]-Savanah cath eter by Dr. Zaidi. The patient was seen and examined in follow-up today 09/13/2022 at his bedside in the intensive care unit. Currently sitting up in bed, is awake, alert, oriented 3 and is in no acute distress. Denies any complaints of pain or shortness of breath at this time. Oxygen saturations are 97% on 2 L nasal cannula. Bedside telemetry showing normal sinus rhythm heart rate 96 BPM. Due to some hypotension he was started on norepinephrine drip, norepinephrine drip is currently infusing at 0.02 mcg/kg/m. Right IJ Washington-Savanah catheter remains in place with current hemodynamic showing a cardiac output 4.2, cardiac index 1.7, PA pressures 34/27 and CVP 20 mmHg. The patient was scheduled to undergo myocardial revascularization surgery yesterday, but due to a likely stenosis inv olving the SVC and innominate vein junction prohibiting placement of a [place]-Savanah catheter, it was felt the patient had elevated risk of surgery including diminished cardiac function, diastolic dysfunction and end-stage renal disease, it would not be safe to proceed without having a [place]-Savanah catheter to monitor his volume status post intraoperatively and postoperatively. Subsequently, the surgery was canceled. Heparin drip remains infusing per protocol. Chest x-ray and laboratory results reviewed. Objective - Vital Signs Vital signs: Vital Signs Temp 98.6 F 09/13/22 04:00 Pulse 92 09/13/22 07:00 Resp 23 09/13/22 07:00 BP 103/73 09/13/22 06:30 Pulse Ox 97 09/13/22 07:00 FiO2 Intake & Output 09/12/22 09/13/22 09/13/22 18:59 06:59 18:59 Intake Total 203.979 9506.281 Output Total 0 0 Balance 795.296 6936.281 Intake: IV 600 638 .9 NS 100 500 CO/CI 30 Sodium Chloride 0.9% 500 500 ml 500 ml @ 999 mls/hr IV .Q31M [facility] Rx#:[id number] pressure bag 108 Intake, IV Titration 14.642 337.281 Amount Heparin Sod,Pork in 0.45% 250 NaCl 25,000 unit In 0.45 % NaCl 1 250ml.bag @ 12 UNITS/KG/HR 14.969 mls/hr IV .[id number] [facility] Rx#: [id number] Norepinephrine 4 mg In 14.642 87.281 Sodium Chloride 0.9% 250 ml @ Titrate IV .Q0M [facility] Rx#:[id number] Oral 490 Output: Urine 0 0 Other: Voiding Method Toilet Toilet ABP, PAP, CO, CI - Last Documented Arterial Blood Pressure 85/53 Pulmonary Artery Pressure 36/26 Cardiac Output 4.7 Cardiac Index 1.9 - Exam CONSTITUTIONAL: Appears comfortable, cooperative, no acute distress. RESPIRATORY: Lungs sounds diminished to his bases bilaterally with few scattered crackles. Respirations are symmetrical, nonlabored. Currently on 2 L nasal cannula with oxygen saturation 97%. Able to achieve Strong cough. CARDIOVASCULAR: S1, S2 present. Regular rate and rhythm, sinus rhythm on remote telemetry, heart rate 96 bpm. Palpable peripheral pulses bilaterally. Trace bilateral lower extremity edema present. GASTROINTESTINAL: Abdomen soft, nontender, nondistended. Active bowel sounds present 4 quadrants. Tolerating diet. GENITOURINARY: Receives hemodialysis through left upper extremity AV fistula. INTEGUMENTARY: Skin is warm and dry, no clubbing or cyanosis is present. NEUROLOGIC: Cranial nerves II through XII intact, no focal deficits. MUSKULOSKELETAL: Able to move all extremities, strength equal bilaterally, gait normal. PSYCHIATRIC: Alert and oriented to person place and time, appropriate affect, intact judgment and insight. INVASIVE LINES AND TUBES: Right internal jugular Washington/Cordis in place with current hemodynamic showing a cardiac output of 4.2, cardiac index 1.7, PA press ures 34/27 and CVP 20 mmHg. Right radial arterial line in place and functioning. - Allied health notes Allied health notes reviewed: nursing - Labs CBC & Chem 7: 09/13/22 04:55 09/13/22 04:55 Labs: Abnormal Lab Results - Last 24 Hours (Table) 0409/12/22 09/13/22 Range/Units 11:15 10:03 01:10 RBC (4.30-5.90) m/uL Hgb (13.0-17.5) gm/dL Hct (39.0-53.0) % MCV (80.0-100.0) fL RDW (11.5-15.5) % Plt Count (150-450) k/uL Lymphocytes # (1.0-4.8) k/uL APTT 43.2 H (22.0-30.0) sec ABG pO2 142 H (83-108) mmHg ABG Total CO2 25 H (19-24) mmol/L ABG O2 Saturation 99.1 H (94-97) % ABG Hematocrit 27 L (34.0-46.0) % ABG Sodium 132 L (135-146) mmol/L ABG Glucose 125 H (75-99) mg/dL ABG Lactic Acid 3.3 H* (0.5-1.6) mmol/L Hemoglobin 8.9 L (13.0-17.5) gm/dL Sodium (137-145) mmol/L Potassium (3.5-5.1) mmol/L Chloride (98-107) mmol/L BUN (9-20) mg/dL Creatinine (0.66-1.25) mg/dL Glucose (74-99) mg/dL POC Glucose (mg/dL) (70-110) mg/dL Arterial Blood Glucose 125 H (75-99) mg/dL Crossmatch See Detail 09/13/22 09/13/22 09/13/22 Range/Units 04:55 04:55 05:03 RBC 3.19 L (4.30-5.90) m/uL Hgb 10.8 L (13.0-17.5) gm/dL Hct 32.8 L (39.0-53.0) % MCV 102.8 H D (80.0-100.0) fL RDW 16.5 H (11.5-15.5) % Plt Count 114 L (150-450) k/uL Lymphocytes # 0.7 L (1.0-4.8) k/uL APTT (22.0-30.0) sec ABG pO2 (83-108) mmHg ABG Total CO2 (19-24) mmol/L ABG O2 Saturation (94-97) % ABG Hematocrit (34.0-46.0) % ABG Sodium (135-146) mmol/L ABG Glucose (75-99) mg/dL ABG Lactic Acid (0.5-1.6) mmol/L Hemoglobin (13.0-17.5) gm/dL Sodium 131 L (137-145) mmol/L Potassium 5.2 H (3.5-5.1) mmol/L Chloride 93 L (98-107) mmol/L BUN 44 H (9-20) mg/dL Creatinine 7.48 H* (0.66-1.25) mg/dL Glucose 111 H (74-99) mg/dL POC Glucose (mg/dL) 117 H (70-110) mg/dL Arterial Blood Glucose (75-99) mg/dL Crossmatch - Imaging and Cardiology Chest x-ray: report reviewed, image reviewed Assessment and Plan Assessment: Coronary artery disease with previous myocardial infarction status post previous PCI, NSTEMI this admission Ischemic cardiomyopathy and LV dysfunction with an ejection fraction of 40% and cardiac index of 1.7 Acute diastolic congestive heart failure Hypertension Hyperlipidemia, treated, cholesterol 94, LDL 53 End-stage renal disease on hemodialysis for 7 years MRSA bacteremia in December 2021 along with Serratia bacteremia and February 2016 Previous tobacco dependence COPD Severe restricted lung disease, preoperative FEV1 38% of predicted Current marijuana use Bipolar disorder Poor dentition Plan: Continue to maximize medical therapy with aspirin, statin, beta dwight, nitrate, IV heparin drip. Beta dwight dose has been adjusted by cardiology. Continue to hold brilinta. Heparin drip management per cardiology recom mendations. Start dobutamine drip at 2 mcg/kg/m as his cardiac index is 1.7 Keep right IJ Cordis and [place]-Savanah catheter in place with monitoring hemodynamics Medical management of other comorbidities per internal medicine, and cardiology. Preoperative teaching has been reinforced with the patient, plan for possible myocardial revascularization surgery on 09/15/2022. More recommendations to follow based on patient's clinical course. Time with Patient: Greater than 30
--- NOTE | 2022-09-13 10:43 | P.PN ---
Subjective Patient is seen for follow-up for end-stage renal disease. Patient did not have CABG yesterday as there was significant scarring in the IJ and a line could not be placed. Currently patient does have a central line with a [place]. He scheduled for surgery in a.m. Blood pressure had been low post intubation needing initiation of levo fed. Patient is extubated. No complaints today. Objective - Vital Signs Vital signs: Vital Signs Temp 98 F 09/13/22 08:00 Pulse 96 09/13/22 10:00 Resp 20 09/13/22 10:00 BP 115/89 09/13/22 10:00 Pulse Ox 94 L 09/13/22 10:00 FiO2 Intake & Output 09/12/22 09/13/22 09/13/22 18:59 06:59 18:59 Intake Total 233.031 5902.281 262.506 Output Total 0 0 0 Balance 598.088 8892.281 262.506 Weight 126.6 kg Intake: IV 600 638 162 .9 NS 100 500 75 CO/CI 30 60 Sodium Chloride 0.9% 500 500 ml 500 ml @ 999 mls/hr IV .Q31M [facility] Rx#:[id number] pressure bag 108 27 Intake, IV Titration 14.642 337.281 0.506 Amount DOBUTamine DRIP 500 mg In 0.506 Dextrose/Water 1 250ml. bag @ 2 MCG/KG/MIN 7.596 mls/hr IV .Q24H [facility] Rx#: [id number] Heparin Sod,Pork in 0.45% 250 NaCl 25,000 unit In 0.45 % NaCl 1 250ml.bag @ 12 UNITS/KG/HR 14.969 mls/hr IV .[id number] [facility] Rx#: [id number] Norepinephrine 4 mg In 14.642 87.281 Sodium Chloride 0.9% 250 ml @ Titrate IV .Q0M [facility] Rx#:[id number] Oral 490 100 Output: Urine 0 0 0 Other: Voiding Method Toilet Toilet Urinal ABP, PAP, CO, CI - Last Documented Arterial Blood Pressure 91/53 Pulmonary Artery Pressure 37/26 Cardiac Output 5.5 Cardiac Index 2.2 - Exam Patient is awake, comfortable, alert oriented 3 No acute distress Examination of the lungs shows bilateral breath sounds Examination of the heart S1 and S2 Abdomen is soft nontender obese Examination lower extremities shows no evidence of edema PHYSICAL EDUCATION DEPARTMENT CHAIR exam grossly intact - Labs CBC & Chem 7: 09/13/22 04:55 09/13/22 04:55 Labs: Abnormal Lab Results - Last 24 Hours (Table) 09/11/22 09/12/22 09/13/22 Range/Units 11:15 10:03 01:10 RBC (4.30-5.90) m/uL Hgb (13.0-17.5) gm/dL Hct (39.0-53.0) % MCV (80.0-100.0) fL RDW (11.5-15.5) % Plt Count (150-450) k/uL Lymphocytes # (1.0-4.8) k/uL APTT 43.2 H (22.0-30.0) sec ABG pO2 142 H (83-108) mmHg ABG Total CO2 25 H (19-24) mmol/L ABG O2 Saturation 99.1 H (94-97) % ABG Hematocrit 27 L (34.0-46.0) % ABG Sodium 132 L (135-146) mmol/L ABG Glucose 125 H (75-99) mg/dL ABG Lactic Acid 3.3 H* (0.5-1.6) mmol/L Hemoglobin 8.9 L (13.0-17.5) gm/dL Sodium (137-145) mmol/L Potassium (3.5-5.1) mmol/L Chloride (98-107) mmol/L BUN (9-20) mg/dL Creatinine (0.66-1.25) mg/dL Glucose (74-99) mg/dL POC Glucose (mg/dL) (70-110) mg/dL Troponin I (0.000-0.034) ng/mL Arterial Blood Glucose 125 H (75-99) mg/dL Crossmatch See Detail 09/13/22 09/13/22 09/13/22 Range/Units 04:55 04:55 05:03 RBC 3.19 L (4.30-5.90) m/uL Hgb 10.8 L (13.0-17.5) gm/dL Hct 32.8 L (39.0-53.0) % MCV 102.8 H D (80.0-100.0) fL RDW 16.5 H (11.5-15.5) % Plt Count 114 L (150-450) k/uL Lymphocytes # 0.7 L (1.0-4.8) k/uL APTT (22.0-30.0) sec ABG pO2 (83-108) mmHg ABG Total CO2 (19-24) mmol/L ABG O2 Saturation (94-97) % ABG Hematocrit (34.0-46.0) % ABG Sodium (135-146) mmol/L ABG Glucose (75-99) mg/dL ABG Lactic Acid (0.5-1.6) mmol/L Hemoglobin (13.0-17.5) gm/dL Sodium 131 L (137-145) mmol/L Potassium 5.2 H (3.5-5.1) mmol/L Chloride 93 L (98-107) mmol/L BUN 44 H (9-20) mg/dL Creatinine 7.48 H* (0.66-1.25) mg/dL Glucose 111 H (74-99) mg/dL POC Glucose (mg/dL) 117 H (70-110) mg/dL Troponin I (0.000-0.034) ng/mL Arterial Blood Glucose (75-99) mg/dL Crossmatch 09/13/22 09/13/22 Range/Units 08:18 09:08 RBC (4.30-5.90) m/uL Hgb (13.0-17.5) gm/dL Hct (39.0-53.0) % MCV (80.0-100.0) fL RDW (11.5-15.5) % Plt Count (150-450) k/uL Lymphocytes # (1.0-4.8) k/uL APTT 51.1 H (22.0-30.0) sec ABG pO2 (83-108) mmHg ABG Total CO2 (19-24) mmol/L ABG O2 Saturation (94-97) % ABG Hematocrit (34.0-46.0) % ABG Sodium (135-146) mmol/L ABG Glucose (75-99) mg/dL ABG Lactic Acid (0.5-1.6) mmol/L Hemoglobin (13.0-17.5) gm/dL Sodium (137-145) mmol/L Potassium (3.5-5.1) mmol/L Chloride (98-107) mmol/L BUN (9-20) mg/dL Creatinine (0.66-1.25) mg/dL Glucose (74-99) mg/dL POC Glucose (mg/dL) (70-110) mg/dL Troponin I 0.489 H* (0.000-0.034) ng/mL Arterial Blood Glucose (75-99) mg/dL Crossmatch Assessment and Plan Assessment: 1. End-stage renal disease maintained on hemodialysis on Sunday schedule via AV fistula. 2. NSTEMI being followed by cardiology. Cardiac catheterization showed severe coronary artery disease. Scheduled for CABG tomorrow. 3. History of coronary disease with coronary stenting. 4. Chronic kidney disease mineral bone disease maintained on PhosLo. Phosphorus level 4.4 dated 09/06/2022. 5. Anemia of chronic kidney disease. Hemoglobin at goal. 6. Cardiomyopathy with ejection fraction of 40%. Plan: Hemodialysis today Goal UF about 0.5 to 1 L as tolerated.
[2022-09-13] MEDS ORDERED: MD COMMUNICATION TO PHARMACY 1 EACH MISC PO ONE ×2 (11:34)
[2022-09-13 11:59] LABS: Glucose,Whole Blood 114 mg/dL (70-110)
--- NOTE | 2022-09-13 14:54 | P.PN ---
Subjective Progress Note Date: 09/13/22 Principal diagnosis: Acute non-ST elevation myocardial infarction, severe LV dysfunction, severe COPD, end-stage renal disease 37-year-old male patient, presented to the hospital for issues related to tachycardia and elevated heart rate. He was also experiencing some chest pain that would not go away. He was having on and off chest pain and he presented to our hospital for further evaluation. His EKG showed some nonspecific changes. The patient ruled in for an acute non-ST segment elevation myocardial infarction. He underwent cardiac catheterization. Noted the patient is known to have coronary artery disease and he has undergone previous MIs and previous PCI's. He also is known to have hypertension and hyperlipidemia and end-stage renal disease on hemodialysis for the past 7 years. The catheterization was completed and the patient was found to have a dominant large RCA with a focal 95% re in-stent stenosis involving the PDA, totally occluded proximal LAD and second OM branch with a focal 95% stenosis. Based on that, it was recommended to proceed with bypass surgery. The patient is known to have previous smoking history. The patient is also a daily marijuana user. Chest x-ray is consistent with cardiomegaly and pulmonary vascular congestion and a small left-sided pleural effusion. Echo of the heart showed limited ejection fraction of 40% along with grade 4 diastolic dysfunction. Moderate LV dysfunction was present. Note that the patient has no history of any COPD. No history of asthma. The patient has not been using oxygen or any respiratory medications on outpatient basis. He is currently free of any chest pain. He is currently on IV heparin. His surgery is tentatively scheduled to be done on Sunday of next week. His bedside spirometry was done and the patient was found to have an FEV1 of 38% of predicted. Patient was evaluated today on 09/12/2022, patient was supposed to undergo CABG today, however multiple attempts were made to float a pulmonary artery catheter/[place] catheter by anesthesia and by thoracic surgery, apparently this could not be accomplished. Hence his bypass surgery was canceled today, and he is going to have another attempts by cardiology/Dr. Zaidi he will have this done in the cardiac microbiology lab technician later this afternoon. And surgery may be scheduled to be done tomorrow. If not tomorrow it will be done next . Patient is now in the ICU, he received his last hemodialysis yesterday. Patient denies any shortness of breath, denies any cough wheezing or chest pain. ABG today showed a pO2 of 142 pCO2 of 38 pH of 7.40 patient is on heparin and his PTT is 57.7, basic metabolic profile is normal except for BUN of 40 creatinine 5.83. WBC count is 8.1 hemoglobin is 10.3. Chest x-ray this morning showed cardiomegaly and mild pulmonary vascular congestion Reevaluated today on 09/13/2022, patient remains in the ICU, scheduled to have CABG in a.m. Patient is on 2 L nasal cannula, he had a [place] catheter placed by cardiology through his right IJ, patient has a cardiac output of 5.1 cardiac index of 2.1 he is scheduled to undergo hemodialysis today and possibly CABG in a.m. Patient is requiring low-dose norepinephrine at 0.02 mg/kg/m he is also on a heparin drip. CBC showed the scan of 8.9 hemoglobin 10.8. Electrolytes are normal BUN is 44 creatinine 7.48. Troponin is 0.489 chest x- ray showed cardiomegaly and left lower lobe atelectasis. No clear-cut evidence of infiltrate Objective - Vital Signs Vital signs: Vital Signs Temp 98 F 09/13/22 12:00 Pulse 91 09/13/22 12:30 Resp 23 09/13/22 12:30 BP 104/73 09/13/22 12:30 Pulse Ox 96 09/13/22 12:30 FiO2 Intake & Output 09/12/22 09/13/22 09/13/22 18:59 06:59 18:59 Intake Total 948.542 4025.281 360.506 Output Total 0 0 0 Balance 907.508 9855.281 360.506 Weight 126.6 kg Intake: IV 600 638 260 .9 NS 100 500 125 CO/CI 30 90 Sodium Chloride 0.9% 500 500 ml 500 ml @ 999 mls/hr IV .Q31M ONE Rx#:[id number] pressure bag 108 45 Intake, IV Titration 14.642 337.281 0.506 Amount DOBUTamine DRIP 500 mg In 0.506 Dextrose/Water 1 250ml. bag @ 2 MCG/KG/MIN 7.596 mls/hr IV .Q24H [facility] [place] Rx#: [id number] Heparin Sod,Pork in 0.45% 250 NaCl 25,000 unit In 0.45 % NaCl 1 250ml.bag @ 12 UNITS/KG/HR 14.969 mls/hr IV .[id number] [facility] Rx#: [id number] Norepinephrine 4 mg In 14.642 87.281 Sodium Chloride 0.9% 250 ml @ Titrate IV .Q0M [facility] Rx#:[id number] Oral 490 100 Output: Urine 0 0 0 Other: Voiding Method Toilet Toilet Urinal ABP, PAP, CO, CI - Last Documented Arterial Blood Pressure 93/73 Pulmonary Artery Pressure 54/41 Cardiac Output 5.1 Cardiac Index 2.1 - Exam Physical Exam: Revealed a 57-year-old white male obese, 2 L nasal cannula Head: Atraumatic, normocephalic. HEENT:[Neck is supple.] [No neck masses.] [No thyromegaly.] [No JVD.] Right IJ [place] with [place] catheter noted. Chest: [Symmetrical chest expansion, diminished breath sound bilaterally no crackles or rhonchi or wheezes Cardiac Exam: [Normal S1 and S2, no S3 gallop, 2/6 systolic murmur thought the precordium. Abdomen: [Soft, nontender, no megaly, no rebound, no guarding, normal bowel sounds.] Extremities: [No clubbing, no edema, no cyanosis.] Neurological Exam: [No focal neurologic deficit.] Alert oriented 3. Psychiatric: Normal mood affect and normal mental status examination. Skin: No rashes. - Labs CBC & Chem 7: 09/13/22 04:55 09/13/22 04:55 Labs: Abnormal Lab Results - Last 24 Hours (Table) 09/11/22 09/13/22 09/13/22 Range/Units 11:15 01:10 04:55 RBC 3.19 L (4.30-5.90) m/uL Hgb 10.8 L (13.0-17.5) gm/dL Hct 32.8 L (39.0-53.0) % MCV 102.8 H D (80.0-100.0) fL RDW 16.5 H (11.5-15.5) % Plt Count 114 L (150-450) k/uL Lymphocytes # 0.7 L (1.0-4.8) k/uL APTT 43.2 H (22.0-30.0) sec Sodium (137-145) mmol/L Potassium (3.5-5.1) mmol/L Chloride (98-107) mmol/L BUN (9-20) mg/dL Creatinine (0.66-1.25) mg/dL Glucose (74-99) mg/dL POC Glucose (mg/dL) (70-110) mg/dL Troponin I (0.000-0.034) ng/mL Crossmatch See Detail 09/13/22 09/13/22 09/13/22 Range/Units 04:55 05:03 08:18 RBC (4.30-5.90) m/uL Hgb (13.0-17.5) gm/dL Hct (39.0-53.0) % MCV (80.0-100.0) fL RDW (11.5-15.5) % Plt Count (150-450) k/uL Lymphocytes # (1.0-4.8) k/uL APTT 51.1 H (22.0-30.0) sec Sodium 131 L (137-145) mmol/L Potassium 5.2 H (3.5-5.1) mmol/L Chloride 93 L (98-107) mmol/L BUN 44 H (9-20) mg/dL Creatinine 7.48 H* (0.66-1.25) mg/dL Glucose 111 H (74-99) mg/dL POC Glucose (mg/dL) 117 H (70-110) mg/dL Troponin I (0.000-0.034) ng/mL Crossmatch 09/13/22 09/13/22 Range/Units 09:08 11:58 RBC (4.30-5.90) m/uL Hgb (13.0-17.5) gm/dL Hct (39.0-53.0) % MCV (80.0-100.0) fL RDW (11.5-15.5) % Plt Count (150-450) k/uL Lymphocytes # (1.0-4.8) k/uL APTT (22.0-30.0) sec Sodium (137-145) mmol/L Potassium (3.5-5.1) mmol/L Chloride (98-107) mmol/L BUN (9-20) mg/dL Creatinine (0.66-1.25) mg/dL Glucose (74-99) mg/dL POC Glucose (mg/dL) 114 H (70-110) mg/dL Troponin I 0.489 H* (0.000-0.034) ng/mL Crossmatch Assessment and Plan Assessment: Impression: Severe triple-vessel coronary artery disease, scheduled for CABG tomorrow. End-stage renal disease, on hemodialysis patient is scheduled to undergo dialysis today and CABG tomorrow. Severe obstructive and restrictive lung disease patient is on DuoNeb updrafts 4 times a day and when necessary, FEV1 is 38%. Ischemic cardiomyopathy and LV dysfunction with ejection fraction of 40% Acute systolic congestive heart failure Dyslipidemia End-stage renal disease, on hemodialysis for 7 years History of MRSA and Serratia bacteremia Ex-smoker Current marijuana use. History of bipolar disorder. Recommendation: Continue present supportive care measures Scheduled for CABG in a.m. Chest x-ray showed adequate placement of the [place] catheter. Proceed with hemodialysis as scheduled today. Continue DuoNeb updrafts. Incentive spirometry. GI and DVT prophylaxis. We will continue to follow. Time with Patient: Less than 30
[2022-09-13] MEDS: NOREPINEPHRINE 4 MG in SODIUM CHLORIDE 0.9% 250 ML IV SCH (15:20)
--- NOTE | 2022-09-13 15:20 | P.PN ---
Subjective Progress Note Date: 09/13/22 ([place] catheter placed today by Dr. Zaidi) Progress note Date of service 09/13/[address] Hernandez Patient seen today in ICU Status post today [place] catheter was placed by Dr. Zaidi, patient initiated on hemodialysis today due to elevated serum potassium and creatinine he has also hyponatremia and anemia of chronic disease. Cardiac surgery delayed until tomorrow until patient stabilized and dialysis is done. Patient awake alert, understanding Vital signs stable Head was normocephalic and atraumatic pupils equal reactive Neck was supple no JVD Lung normal breath sounds or expectoration remote history of COPD Heart regular sinus rhythm with history of impaired ejection fraction 40%. And sclerotic cardiomyopathy. Occlusive disease three-vessel including previous history of multiple stent with the presentation of the chest pain and restenosis of the stent. Abdomen is obese positive bowel sounds Extremities no edema. Pulses The axis for dialysis. Hemodialysis patent and is currently hemodialyzed. Assessment stable Underlying 3 vessel occlusive disease of coronary artery Symptomatic chest pain Ischemic cardiomyopathy Hemodialysis chronically the last 7 years. Plan no change of the treatment and plan designed by cardiovascular surgeon, cardiology, nephrology, seen also by critical care and pulmonary. I was called last night because of the pain at the site of trying to put the [place] and patient started on morphine when necessary for pain. Objective - Vital Signs Vital signs: Vital Signs Temp 98 F 09/13/22 12:00 Pulse 91 09/13/22 12:30 Resp 23 09/13/22 12:30 BP 104/73 09/13/22 12:30 Pulse Ox 96 09/13/22 12:30 FiO2 Intake & Output 09/12/22 09/13/22 09/13/22 18:59 06:59 18:59 Intake Total 962.575 1369.281 360.506 Output Total 0 0 0 Balance 894.480 4013.281 360.506 Weight 126.6 kg Intake: IV 600 638 260 .9 NS 100 500 125 CO/CI 30 90 Sodium Chloride 0.9% 500 500 ml 500 ml @ 999 mls/hr IV .Q31M [facility] Rx#:[id number] pressure bag 108 45 Intake, IV Titration 14.642 337.281 0.506 Amount DOBUTamine DRIP 500 mg In 0.506 Dextrose/Water 1 250ml. bag @ 2 MCG/KG/MIN 7.596 mls/hr IV .Q24H [facility] Rx#: [id number] Heparin Sod,Pork in 0.45% 250 NaCl 25,000 unit In 0.45 % NaCl 1 250ml.bag @ 12 UNITS/KG/HR 14.969 mls/hr IV .[id number] [facility] Rx#: [id number] Norepinephrine 4 mg In 14.642 87.281 Sodium Chloride 0.9% 250 ml @ Titrate IV .Q0M [facility] Rx#:[id number] Oral 490 100 Output: Urine 0 0 0 Other: Voiding Method Toilet Toilet Urinal ABP, PAP, CO, CI - Last Documented Arterial Blood Pressure 93/73 Pulmonary Artery Pressure 54/41 Cardiac Output 5.1 Cardiac Index 2.1 - Labs CBC & Chem 7: 09/13/22 04:55 09/13/22 04:55 Labs: Abnormal Lab Results - Last 24 Hours (Table) 09/11/22 09/13/22 09/13/22 Range/Units 11:15 01:10 04:55 RBC 3.19 L (4.30-5.90) m/uL Hgb 10.8 L (13.0-17.5) gm/dL Hct 32.8 L (39.0-53.0) % MCV 102.8 H D (80.0-100.0) fL RDW 16.5 H (11.5-15.5) % Plt Count 114 L (150-450) k/uL Lymphocytes # 0.7 L (1.0-4.8) k/uL APTT 43.2 H (22.0-30.0) sec Sodium (137-145) mmol/L Potassium (3.5-5.1) mmol/L Chloride (98-107) mmol/L BUN (9-20) mg/dL Creatinine (0.66-1.25) mg/dL Glucose (74-99) mg/dL POC Glucose (mg/dL) (70-110) mg/dL Troponin I (0.000-0.034) ng/mL Crossmatch See Detail 09/13/22 09/13/22 09/13/22 Range/Units 04:55 05:03 08:18 RBC (4.30-5.90) m/uL Hgb (13.0-17.5) gm/dL Hct (39.0-53.0) % MCV (80.0-100.0) fL RDW (11.5-15.5) % Plt Count (150-450) k/uL Lymphocytes # (1.0-4.8) k/uL APTT 51.1 H (22.0-30.0) sec Sodium 131 L (137-145) mmol/L Potassium 5.2 H (3.5-5.1) mmol/L Chloride 93 L (98-107) mmol/L BUN 44 H (9-20) mg/dL Creatinine 7.48 H* (0.66-1.25) mg/dL Glucose 111 H (74-99) mg/dL POC Glucose (mg/dL) 117 H (70-110) mg/dL Troponin I (0.000-0.034) ng/mL Crossmatch 09/13/22 09/13/22 Range/Units 09:08 11:58 RBC (4.30-5.90) m/uL Hgb (13.0-17.5) gm/dL Hct (39.0-53.0) % MCV (80.0-100.0) fL RDW (11.5-15.5) % Plt Count (150-450) k/uL Lymphocytes # (1.0-4.8) k/uL APTT (22.0-30.0) sec Sodium (137-145) mmol/L Potassium (3.5-5.1) mmol/L Chloride (98-107) mmol/L BUN (9-20) mg/dL Creatinine (0.66-1.25) mg/dL Glucose (74-99) mg/dL POC Glucose (mg/dL) 114 H (70-110) mg/dL Troponin I 0.489 H* (0.000-0.034) ng/mL Crossmatch
[2022-09-13 18:06] LABS: Glucose,Whole Blood 136 mg/dL (70-110)
[2022-09-13] MEDS: MELATONIN 5 MG TABLET PO SCH (20:30)
[2022-09-13] MEDS: ATORVASTATIN 40 MG TAB PO SCH (20:30)
[2022-09-14] MEDS: NOREPINEPHRINE 4 MG in SODIUM CHLORIDE 0.9% 250 ML IV SCH (02:02)
[2022-09-14 04:18] LABS: Anisocytosis Slight; Basophils % (A) 0 %; Eosinophils # (A) 0.1 k/uL (0-0.7); Eosinophils % (A) 1 %; HCT 33.2 % (39.0-53.0); HGB 10.3 gm/dL (13.0-17.5); Hypochromasia Slight; Lymphocytes # (A) 0.8 k/uL (1.0-4.8); Lymphocytes % (A) 8 %; MCH 32.2 pg (25.0-35.0); MCHC 31.2 g/dL (31.0-37.0); MCV 103.2 fL (80.0-100.0); Macrocytosis Moderate; Mean Platelet Volume 9.2; Monocytes # (A) 0.7 k/uL (0-1.0); Monocytes % (A) 7 %; Neutrophils # (A) 8.1 k/uL (1.3-7.7); Neutrophils % (A) 82 %; Platelet Count 123 k/uL (150-450); RBC 3.21 m/uL (4.30-5.90); RDW 16.5 % (11.5-15.5); WBC 9.9 k/uL (3.8-10.6)
[2022-09-14 04:40] LABS: INR 1.7 (<1.2); Partial Thromboplastin Time 82.3 sec (22.0-30.0); Prothrombin Time 16.6 sec (9.0-12.0)
[2022-09-14] MEDS ORDERED: NOREPINEPHRINE 4 MG in SODIUM CHLORIDE 0.9% 250 ML IV SCH (05:00)
[2022-09-14] MEDS ORDERED: PROTAMINE SULFATE 250 MG in EMPTY BAG 1 BAG IV ONE (05:00)
[2022-09-14] MEDS ORDERED: ALBUMIN HUMAN 5% 500 ML in EMPTY BAG 1 BAG IVPB ONE ×6 (05:00)
[2022-09-14] MEDS ORDERED: PAPAVERINE 360 MG in SODIUM CHLORIDE 0.9% 90 ML IV ONE ×2 (05:00→09:41)
[2022-09-14] MEDS ORDERED: MANNITOL 25% 12.5 GM/50 ML VIAL IV ONE ×2 (05:00)
[2022-09-14] MEDS ORDERED: HEPARIN SODIUM,PORCINE 5,000 UNIT in SODIUM CHLORIDE 0.9% 500 ML 500 ML IV ONE (05:00)
[2022-09-14] MEDS ORDERED: ATORVASTATIN 10 MG TAB PO ONE (05:00)
[2022-09-14] MEDS ORDERED: ceFAZolin 3 GM in SODIUM CHLORIDE 0.9% 100 ML IVPB ONE (05:00)
[2022-09-14] MEDS ORDERED: PROTAMINE SULFATE 10 MG/ML 25 ML VIAL IV ONE ×2 (05:00→08:00)
[2022-09-14] MEDS ORDERED: TRANEXAMIC ACID 2,000 MG in SODIUM CHLORIDE 0.9% 80 ML IV ONE ×2 (05:00→06:00)
[2022-09-14] MEDS ORDERED: NITROGLYCERIN-D5W PMX 25 MG/250 ML BTL IV ONE ×2 (05:00→08:00)
[2022-09-14] MEDS ORDERED: ceFAZolin 1,000 MG in SODIUM CHLORIDE 0.9% IRRIGATIO 1,000 ML IRRIGATION ONE (05:00)
[2022-09-14] MEDS ORDERED: ASPIRIN 81 MG PO ONE (05:00)
[2022-09-14] MEDS ORDERED: INSULIN REGULAR 100 UNIT in SODIUM CHLORIDE 0.9% 100 ML IV SCH ×2 (05:00→20:15)
[2022-09-14] MEDS ORDERED: CALCIUM CHLORIDE 100 MG/ML 10 ML SYRINGE IVP ONE (05:00)
[2022-09-14] MEDS ORDERED: NITROGLYCERIN-D5W PMX 50 MG in DEXTROSE/WATER 1 250ML.BAG IV SCH (05:00)
[2022-09-14] MEDS ORDERED: ALBUMIN HUMAN 25% 50 ML in EMPTY BAG 1 BAG IVPB ONE (05:00)
[2022-09-14] MEDS ORDERED: METOPROLOL TARTRATE 12.5 MG TAB PO ONE (05:00)
[2022-09-14] MEDS ORDERED: PHENYLEPHRINE 40 MG in SODIUM CHLORIDE 0.9% 250 ML IV ONE (05:00)
[2022-09-14] MEDS ORDERED: CHLORHEXIDINE GLUCONATE 15 ML CUP MUCOUS MEM ONE (05:00)
[2022-09-14] MEDS ORDERED: HEPARIN SODIUM 1,000 UN/ML (10ML VL) IV ONE (05:00)
[2022-09-14] MEDS ORDERED: ELECTROLYTE-A SOLUTION 1,000 ML with POTASSIUM CHLORIDE 100 MEQ, MAGNESIUM SULFATE 16 M... IV ONE ×5 (05:00)
[2022-09-14] MEDS ORDERED: CLEVIDIPINE BUTYRATE 25 MG in EMPTY BAG 1 BAG IV SCH (05:00)
[2022-09-14] MEDS ORDERED: SODIUM BICARB 8.4% 50 ML SYR (1 MEQ/ML) IV ONE (05:00)
[2022-09-14] MEDS ORDERED: MAGNESIUM SULFATE 16.24 MEQ in EMPTY SYRINGE 1 SYR IV ONE (05:00)
[2022-09-14] MEDS ORDERED: PHENYLEPHRINE 10 MG/ML VIAL IV ONE (05:00)
[2022-09-14] MEDS ORDERED: ELECTROLYTE-A SOLUTION 1,000 ML with POTASSIUM CHLORIDE 40 MEQ, MAGNESIUM SULFATE 16 ME... IV ONE ×5 (05:00)
[2022-09-14 05:01] LABS: Calcium 8.6 mg/dL (8.4-10.2); Total Bilirubin 2.2 mg/dL (0.2-1.3)
[2022-09-14 05:13] LABS: Albumin 3.4 g/dL (3.5-5.0); Potassium 5.3 mmol/L (3.5-5.1); Total Protein 7.1 g/dL (6.3-8.2)
--- NOTE | 2022-09-14 07:46 | P.PN ---
Subjective PROGRESS NOTE The patient is a 37-year-old male with known history of end-stage renal disease, history of PCI, remote history of smoking, hypertension and hyperlipidemia who presented with symptoms of chest discomfort. His symptoms started after d ialysis on Sunday that improved and recurred yesterday and persisted until last night. He is pain-free at this time. The symptoms reminds him of the way he felt in December 2022 when he had a stent to the LAD but he was not dyspneic wasn't. He denies any dizziness or palpitation, no peripheral edema, no PND or orthopnea. He has been compliant with his medication and dialysis and has been doing well. This is the first time he has discomfort since his last intervention. His ejection fraction in the past was 40-45%. In December he received a stent to the distal PDA and he had suggestion of myocardial bridging in the mid LAD at the site of the stenting. He had a contained hematoma but no high-grade stenosis. His left circumflex had no evidence of high-grade stenosis. His troponin peaked at 1. He has no evidence of malignant arrhythmia. His coronary risk factors are positive for hypertension and hyperlipidemia. The patient underwent cardiac catheterization and was found to have occluded LAD, severe stenosis and the left circumflex and the RCA. He was evaluated by the surgical team and is scheduled to undergo surgical revascularization on Sunday. September 07: He's feeling well with no symptoms of chest discomfort, dizziness or palpitations. His breathing is stable. He felt tired with ambulation but no anginal pain. He continues to be in sinus mechanism without any evidence of malignant arrhythmia. He continues to be on IV heparin pending surgical intervention. September 08: The patient is feeling well this morning. He has no symptoms of chest discomfort. He is ambulating without any significant symptoms. He denies any dizziness or palpitation. He is awaiting surgical intervention on Sunday. He continues to be on IV heparin. He received dialysis yesterday. September 09: The patient had an episode of chest discomfort earlier, resolved with Dilaudid. He's feeling well at this time, receiving dialysis. He denies any dyspnea, dizziness or palpitations. The discomfort occurred at rest and was not associated with any other symptoms. Hemodynamically he stable. His blood pressure is on the low side at stable. September 10: The patient is doing well no further chest discomfort since yesterday. He has been ambulating without difficulties. He continues to be in sinus mechanism. He denies any nausea or vomiting. His appetite is good. He underwent dialysis yesterday. He is scheduled to undergo CABG on Sunday. 09/11 Patient seen and examined. Undergoing hemodialysis today. Denies any chest pain or pressure. Scheduled for surgery tomorrow. 09/12 Patient seen and examined. Patient taken for CABG yesterday however difficulty placing [place]-S[place] secondary to prior dialysis catheter placements. Therefore surgery was canceled. Later using a longer sheath a 6-[place] catheter was placed in the right internal jugular vein. Right atrial and wedge pressures have been noted to be elevated right atrial pressures in the 16 and 19 range and wedge pressures low 20s. Patient however has been noted to be hypotensive with blood pressures in the 80s over 50s and cardiac output and index were noted to be low and therefore placed on low dose of norepinephrine as well as dopamine. 09/13 Patient seen and examined. Patient with some dampened waveforms on the PA reading. Denies any chest pain or pressure. Has had some difficulty swallowing possibly related to the intubation. Remains on low-dose norepinephrine 0.04. Brilinta has been on hold. Cuff pressures somewhat higher in the 100 with right radial line reading somewhat lower pressures. PHYSICAL EXAMINATION: Vitals reviewed LUNGS: Clear to auscultation HEART: Regular rate and rhythm, S1, S2. No S3. Ejection systolic murmur ABDOMEN: Soft, nontender, no organomegaly EXTREMETIES: No edema IMPRESSION: 1. Severe triple-vessel disease with non-STEMI on presentation 2. End-stage renal disease on hemodialysis 3. History of hyperlipidemia 4. Rapidly progressive in-stent restenosis 5. Hypotension, low output/cardiac index noted the borderline possible component of cardiogenic shock versus other PLAN: Continue with current regimen. Patient is high risk for surgery however limited options. Appears stable for surgery today. Continue supportive care. Objective - Vital Signs Vital signs: Vital Signs Temp 97.9 F 09/14/22 04:00 Pulse 96 09/14/22 07:00 Resp 16 09/14/22 07:00 BP 97/73 09/14/22 07:00 Pulse Ox 96 09/14/22 07:00 FiO2 Intake & Output 09/13/22 09/14/22 09/14/22 18:59 06:59 18:59 Intake Total 2555.588 6557.242 34 Output Total 500 0 0 Balance 4258.258 5927.242 34 Weight 135 kg Intake: IV 494 408 34 .9 NS 275 300 25 CO/CI 120 pressure bag 99 108 9 Intake, IV Titration 234.333 525.242 Amount DOBUTamine DRIP 500 mg In 0.506 Dextrose/Water 1 250ml. bag @ 2 MCG/KG/MIN 7.596 mls/hr IV .Q24H [facility] Rx#: [id number] Heparin Sod,Pork in 0.45% 382.731 NaCl 25,000 unit In 0.45 % NaCl 1 250ml.bag @ 12 UNITS/KG/HR 14.969 mls/hr IV .[id number] [facility] Rx#: [id number] Norepinephrine 4 mg In 233.827 142.511 Sodium Chloride 0.9% 250 ml @ Titrate IV .Q0M [facility] Rx#:[id number] Oral 400 440 Hemodialysis 500 Output: Urine 0 0 0 Hemodialysis 500 Other: Voiding Method Urinal Urinal ABP, PAP, CO, CI - Last Documented Arterial Blood Pressure 83/65 Pulmonary Artery Pressure 40/28 Cardiac Output 6.1 Cardiac Index 2.5 - Labs CBC & Chem 7: 09/14/22 04:10 09/14/22 04:10 Labs: Abnormal Lab Results - Last 24 Hours (Table) 09/11/22 09/13/22 09/13/22 Range/Units 11:15 08:18 09:08 RBC (4.30-5.90) m/uL Hgb (13.0-17.5) gm/dL Hct (39.0-53.0) % MCV (80.0-100.0) fL RDW (11.5-15.5) % Plt Count (150-450) k/uL Neutrophils # (1.3-7.7) k/uL Lymphocytes # (1.0-4.8) k/uL PT (9.0-12.0) sec INR (<1.2) APTT 51.1 H (22.0-30.0) sec Sodium (137-145) mmol/L Potassium (3.5-5.1) mmol/L Chloride (98-107) mmol/L BUN (9-20) mg/dL Creatinine (0.66-1.25) mg/dL Glucose (74-99) mg/dL POC Glucose (mg/dL) (70-110) mg/dL Total Bilirubin (0.2-1.3) mg/dL Troponin I 0.489 H* (0.000-0.034) ng/mL Albumin (3.5-5.0) g/dL Crossmatch See Detail 09/13/22 09/13/22 09/14/22 Range/Units 11:58 18:05 04:10 RBC (4.30-5.90) m/uL Hgb (13.0-17.5) gm/dL Hct (39.0-53.0) % MCV (80.0-100.0) fL RDW (11.5-15.5) % Plt Count (150-450) k/uL Neutrophils # (1.3-7.7) k/uL Lymphocytes # (1.0-4.8) k/uL PT 16.6 H (9.0-12.0) sec INR 1.7 H (<1.2) APTT 82.3 H (22.0-30.0) sec Sodium (137-145) mmol/L Potassium (3.5-5.1) mmol/L Chloride (98-107) mmol/L BUN (9-20) mg/dL Creatinine (0.66-1.25) mg/dL Glucose (74-99) mg/dL POC Glucose (mg/dL) 114 H 136 H (70-110) mg/dL Total Bilirubin (0.2-1.3) mg/dL Troponin I (0.000-0.034) ng/mL Albumin (3.5-5.0) g/dL Crossmatch 09/14/22 09/14/22 Range/Units 04:10 04:10 RBC 3.21 L (4.30-5.90) m/uL Hgb 10.3 L (13.0-17.5) gm/dL Hct 33.2 L (39.0-53.0) % MCV 103.2 H (80.0-100.0) fL RDW 16.5 H (11.5-15.5) % Plt Count 123 L (150-450) k/uL Neutrophils # 8.1 H (1.3-7.7) k/uL Lymphocytes # 0.8 L (1.0-4.8) k/uL PT (9.0-12.0) sec INR (<1.2) APTT (22.0-30.0) sec Sodium 130 L (137-145) mmol/L Potassium 5.3 H (3.5-5.1) mmol/L Chloride 91 L (98-107) mmol/L BUN 39 H (9-20) mg/dL Creatinine 6.21 H (0.66-1.25) mg/dL Glucose 124 H (74-99) mg/dL POC Glucose (mg/dL) (70-110) mg/dL Total Bilirubin 2.2 H (0.2-1.3) mg/dL Troponin I (0.000-0.034) ng/mL Albumin 3.4 L (3.5-5.0) g/dL Crossmatch
--- NOTE | 2022-09-14 07:55 | XR ---
EXAMINATION TYPE: XR chest 1V portable DATE OF EXAM: 09/14/2022 Comparison: 09/13/2022 Clinical History: 37-year-old male evaluate positioning of the [place] catheter Findings: Right IJ [place] catheter. Tip in the distal interlobar right pulmonary artery. Heart moderately en larged. Interstitial prominence remains. Left base underpenetrated and not well assessed. Overall kathi earance is unchanged. Impression: Similar moderate cardiomegaly and possible mild pulmonary vascular congestion. Somewhat distal positi oning of the [place] catheter tip on the right. Clinically correlate.
[2022-09-14] MEDS ORDERED: MIDAZOLAM HCL 10 MG/10 ML VIAL ONE (08:00)
[2022-09-14] MEDS ORDERED: VASOPRESSIN 20 UNIT/ML 1 ML VIAL ONE (08:00)
[2022-09-14] MEDS ORDERED: TRANEXAMIC ACID IN NACL,ISO-OS 1,000 MG/100 ML BAG ONE (08:00)
[2022-09-14] MEDS ORDERED: ALBUMIN HUMAN 5% (12.5gm) 250 ML BOTTLE IVPB ONE (08:00)
[2022-09-14] MEDS ORDERED: ELECTROLYTE-R (PH 7.4) 1,000 ML IV.SOLN IV ONE (08:00)
[2022-09-14] MEDS ORDERED: HEPARIN SODIUM,PORCINE 10,000 UNIT/ML 1 ML VIAL ONE (08:00)
[2022-09-14] MEDS ORDERED: MAGNESIUM SULFATE 4 MEQ/ML 10ML VIAL ONE (08:00)
[2022-09-14] MEDS ORDERED: ETOMIDATE 2 MG/ML 10 ML VIAL ONE (08:00)
[2022-09-14] MEDS ORDERED: CALCIUM CHLORIDE 100 MG/ML 10 ML SYRINGE ONE (08:00)
[2022-09-14] MEDS ORDERED: fentaNYL (PF) 50 MCG/ML 50 ML VIAL ONE (08:00)
[2022-09-14] MEDS ORDERED: SODIUM CHLORIDE 0.9% IRRIG 1,000 ML BTL IRRIGATION ONE (08:00)
[2022-09-14] MEDS ORDERED: WATER FOR INJECTION, STERILE 10 ML VIAL IV ONE (08:00)
[2022-09-14] MEDS: IPRATROPIUM-ALBUTEROL 3 ML NEB INHALATION SCH ×4 (08:41→21:02)
[2022-09-14 09:07] LABS: ABG Base Excess 0.1 mmol/L; ABG Glucose Whole Blood 126 mg/dL (75-99); ABG HCO3 25 mmol/L (21-25); ABG Hematocrit 31 % (34.0-46.0); ABG Ionized Calcium 4.7 mg/dL (4.5-5.3); ABG Lactic Acid Whole Blood 1.3 mmol/L (0.5-1.6); ABG PCO2 38 mmHg (35-45); ABG PH 7.42 (7.35-7.45); ABG PO2 360 mmHg (83-108); ABG Potassium Whole Blood 4.7 mmol/L (3.4-4.5); ABG Sodium Whole Blood 130 mmol/L (135-146); ABG TCO2 26 mmol/L (19-24)
[2022-09-14] MEDS ORDERED: SODIUM CHLORIDE 0.9% 500 ML 500 ML with HEPARIN SODIUM,PORCINE 5,000 UNIT IV ONE ×2 (09:40)
[2022-09-14 11:03] LABS: ABG Base Excess -1.3 mmol/L; ABG Glucose Whole Blood 116 mg/dL (75-99); ABG HCO3 23 mmol/L (21-25); ABG Hematocrit 27 % (34.0-46.0); ABG Ionized Calcium 4.8 mg/dL (4.5-5.3); ABG PCO2 35 mmHg (35-45); ABG PH 7.43 (7.35-7.45); ABG PO2 410 mmHg (83-108); ABG Potassium Whole Blood 4.7 mmol/L (3.4-4.5); ABG Sodium Whole Blood 129 mmol/L (135-146); ABG TCO2 24 mmol/L (19-24)
[2022-09-14 12:15] LABS: ABG Base Excess -1.9 mmol/L; ABG Glucose Whole Blood 136 mg/dL (75-99); ABG HCO3 23 mmol/L (21-25); ABG Hematocrit 27 % (34.0-46.0); ABG Ionized Calcium 4.6 mg/dL (4.5-5.3); ABG Lactic Acid Whole Blood 1.5 mmol/L (0.5-1.6); ABG PCO2 36 mmHg (35-45); ABG PH 7.41 (7.35-7.45); ABG PO2 378 mmHg (83-108); ABG Potassium Whole Blood 4.7 mmol/L (3.4-4.5); ABG Sodium Whole Blood 129 mmol/L (135-146); ABG TCO2 24 mmol/L (19-24)
[2022-09-14 12:47] LABS: ABG Base Excess -3.2 mmol/L; ABG Glucose Whole Blood 107 mg/dL (75-99); ABG HCO3 22 mmol/L (21-25); ABG Hematocrit 27 % (34.0-46.0); ABG Ionized Calcium 4.4 mg/dL (4.5-5.3); ABG Lactic Acid Whole Blood 1.9 mmol/L (0.5-1.6); ABG PCO2 42 mmHg (35-45); ABG PH 7.34 (7.35-7.45); ABG PO2 357 mmHg (83-108); ABG Potassium Whole Blood 4.4 mmol/L (3.4-4.5); ABG Sodium Whole Blood 131 mmol/L (135-146); ABG TCO2 24 mmol/L (19-24)
[2022-09-14 13:24] LABS: ABG Base Excess -1.5 mmol/L; ABG Glucose Whole Blood 110 mg/dL (75-99); ABG HCO3 24 mmol/L (21-25); ABG Hematocrit 26 % (34.0-46.0); ABG Ionized Calcium 4.4 mg/dL (4.5-5.3); ABG PCO2 45 mmHg (35-45); ABG PH 7.34 (7.35-7.45); ABG PO2 323 mmHg (83-108); ABG Potassium Whole Blood 4.4 mmol/L (3.4-4.5); ABG Sodium Whole Blood 131 mmol/L (135-146); ABG TCO2 26 mmol/L (19-24)
[2022-09-14 14:09] LABS: ABG Base Excess -2.5 mmol/L; ABG Glucose Whole Blood 115 mg/dL (75-99); ABG HCO3 23 mmol/L (21-25); ABG Ionized Calcium 4.3 mg/dL (4.5-5.3); ABG PCO2 44 mmHg (35-45); ABG PH 7.33 (7.35-7.45); ABG PO2 318 mmHg (83-108); ABG Potassium Whole Blood 5.2 mmol/L (3.4-4.5); ABG Sodium Whole Blood 131 mmol/L (135-146); ABG TCO2 25 mmol/L (19-24)
[2022-09-14 14:37] LABS: ABG Base Excess -4.4 mmol/L; ABG Glucose Whole Blood 117 mg/dL (75-99); ABG HCO3 22 mmol/L (21-25); ABG Ionized Calcium 4.3 mg/dL (4.5-5.3); ABG PCO2 43 mmHg (35-45); ABG PH 7.31 (7.35-7.45); ABG PO2 265 mmHg (83-108); ABG Potassium Whole Blood 5.3 mmol/L (3.4-4.5); ABG Sodium Whole Blood 131 mmol/L (135-146); ABG TCO2 23 mmol/L (19-24)
[2022-09-14] MEDS ORDERED: VASOPRESSIN 60 UNIT in SODIUM CHLORIDE 0.9% 150 ML IV SCH (15:15)
[2022-09-14 15:49] LABS: ABG Base Excess -4.9 mmol/L; ABG Glucose Whole Blood 106 mg/dL (75-99); ABG HCO3 21 mmol/L (21-25); ABG Ionized Calcium 5.2 mg/dL (4.5-5.3); ABG Oxygen Saturation 99.9 % (94-97); ABG PCO2 45 mmHg (35-45); ABG PH 7.29 (7.35-7.45); ABG PO2 252 mmHg (83-108); ABG Potassium Whole Blood 4.6 mmol/L (3.4-4.5); ABG Sodium Whole Blood 134 mmol/L (135-146); ABG TCO2 23 mmol/L (19-24)
[2022-09-14 16:22] LABS: ABG Glucose Whole Blood 79 mg/dL (75-99); ABG HCO3 23 mmol/L (21-25); ABG PCO2 28 mmHg (35-45); ABG PH 7.53 (7.35-7.45); ABG PO2 285 mmHg (83-108); ABG Potassium Whole Blood 4.1 mmol/L (3.4-4.5); ABG Sodium Whole Blood 140 mmol/L (135-146); ABG TCO2 24 mmol/L (19-24)
[2022-09-14 16:42] LABS: ABG Base Excess -6.5 mmol/L; ABG Glucose Whole Blood 102 mg/dL (75-99); ABG HCO3 21 mmol/L (21-25); ABG PCO2 53 mmHg (35-45); ABG PO2 346 mmHg (83-108); ABG Potassium Whole Blood 4.3 mmol/L (3.4-4.5); ABG Sodium Whole Blood 137 mmol/L (135-146); ABG TCO2 22 mmol/L (19-24)
[2022-09-14 17:03] LABS: ABG Glucose Whole Blood 92 mg/dL (75-99); ABG HCO3 28 mmol/L (21-25); ABG PCO2 57 mmHg (35-45); ABG Potassium Whole Blood 4.2 mmol/L (3.4-4.5); ABG Sodium Whole Blood 141 mmol/L (135-146); ABG TCO2 30 mmol/L (19-24)
[2022-09-14 17:19] LABS: ABG Base Excess -1.7 mmol/L; ABG Glucose Whole Blood 83 mg/dL (75-99); ABG HCO3 24 mmol/L (21-25); ABG Hematocrit 27 % (34.0-46.0); ABG PCO2 45 mmHg (35-45); ABG PH 7.33 (7.35-7.45); ABG Potassium Whole Blood 4.3 mmol/L (3.4-4.5); ABG Sodium Whole Blood 139 mmol/L (135-146); ABG TCO2 26 mmol/L (19-24)
[2022-09-14] MEDS ORDERED: methylPREDNISolone SOD SUCCIN 1,000 MG in SODIUM CHLORIDE 0.9% 250 ML IVPB STA (17:53)
[2022-09-14] MEDS ORDERED: HUMAN PROTHROMBIN COMPLX 500 UNIT/16 ML VIAL IV ONE (18:43)
[2022-09-14] MEDS ORDERED: HUMAN PROTHROMBIN COMPLX IV ONE (19:00)
[2022-09-14 19:29] LABS: Anisocytosis Slight; HCT 22.4 % (39.0-53.0); MCH 31.4 pg (25.0-35.0); MCHC 33.3 g/dL (31.0-37.0); Macrocytosis Slight; Poikilocytosis Slight; RBC 2.38 m/uL (4.30-5.90); WBC 12.6 k/uL (3.8-10.6)
[2022-09-14 19:37] LABS: ABG Hematocrit 22 % (34.0-46.0); ABG Lactic Acid Whole Blood 3.3 mmol/L (0.5-1.6)
[2022-09-14 19:37] LABS: ABG Lactic Acid Whole Blood 2.7 mmol/L (0.5-1.6)
[2022-09-14 19:38] LABS: ABG Hematocrit 23 % (34.0-46.0); ABG Lactic Acid Whole Blood 4.2 mmol/L (0.5-1.6)
[2022-09-14 19:39] LABS: ABG Hematocrit 24 % (34.0-46.0); ABG Lactic Acid Whole Blood 4.6 mmol/L (0.5-1.6)
[2022-09-14 19:40] LABS: ABG Hematocrit 18 % (34.0-46.0); ABG Lactic Acid Whole Blood 5.4 mmol/L (0.5-1.6)
[2022-09-14 19:41] LABS: ABG Ionized Calcium 3.3 mg/dL (4.5-5.3)
[2022-09-14 19:42] LABS: ABG PO2 >420 mmHg (83-108)
[2022-09-14 19:42] LABS: ABG Hematocrit 17 % (34.0-46.0); ABG Lactic Acid Whole Blood 7.3 mmol/L (0.5-1.6)
[2022-09-14 19:43] LABS: ABG PO2 >420 mmHg (83-108)
[2022-09-14 19:43] LABS: ABG Hematocrit 22 % (34.0-46.0); ABG Lactic Acid Whole Blood 6.4 mmol/L (0.5-1.6)
[2022-09-14 19:45] LABS: HGB 7.5 gm/dL (13.0-17.5); MCV 94.1 fL (80.0-100.0)
[2022-09-14 19:46] LABS: INR 1.9 (<1.2); Partial Thromboplastin Time 48.1 sec (22.0-30.0); Prothrombin Time 18.6 sec (9.0-12.0)
[2022-09-14] MEDS ORDERED: ONDANSETRON 4 MG/2 ML VIAL IVP PRN (19:49)
[2022-09-14] MEDS ORDERED: DEXTROSE 50% SYRINGE 50 ML IVP PRN ×2 (19:49)
[2022-09-14] MEDS ORDERED: IPRATROPIUM-ALBUTEROL 3 ML NEB INHALATION PRN (19:49)
[2022-09-14] MEDS ORDERED: AMIODARONE 360 MG in DEXTROSE 5% IN WATER 200 ML IV PRN ×2 (19:49)
[2022-09-14] MEDS ORDERED: traMADol 50 MG TAB PO PRN (19:49)
[2022-09-14] MEDS ORDERED: LACTATED RINGERS 1,000 ML IV SCH (19:49)
[2022-09-14] MEDS ORDERED: AMIODARONE 450 MG in DEXTROSE 5% IN WATER 250 ML IV PRN ×2 (19:49)
[2022-09-14] MEDS ORDERED: METOCLOPRAMIDE 5 MG/ML 2 ML VIAL IVP PRN (19:49)
[2022-09-14] MEDS ORDERED: DEXTROSE 5% IN WATER 100 ML with AMIODARONE 150 MG IV PRN (19:49)
[2022-09-14] MEDS ORDERED: VANCOMYCIN IV PER PHARMACY 1 EACH MISC MISCELLANE PRN (19:51)
[2022-09-14 20:02] LABS: Band Neutrophils % 7 %; Lymphocytes # (M) 0.76 k/uL (1.0-4.8); Metamyelocytes # (M) 0.13 k/uL (0); Metamyelocytes % 1 %; Monocytes # (M) 0.25 k/uL (0-1.0); Neutrophils % (M) 84 %; Nucleated Red Blood Cells 0 /100 WBC (0-0); Total Cells Counted 100
[2022-09-14 20:05] LABS: Polychromasia Present
[2022-09-14 20:07] LABS: Platelet Count 80 k/uL (150-450)
[2022-09-14] MEDS: MILRINONE-D5W PMX 20 MG in DEXTROSE/WATER 1 100ML.BAG IV SCH (20:15)
[2022-09-14 20:18] LABS: Glucose,Whole Blood 101 mg/dL (70-110)
[2022-09-14 20:46] LABS: Allen Test Performed? Yes
[2022-09-14 20:47] LABS: Glucose,Whole Blood 78 mg/dL (70-110)
[2022-09-14 20:47] LABS: Glucose,Whole Blood 98 mg/dL (70-110)
[2022-09-14] MEDS: EPINEPHrine 4 MG in DEXTROSE 5% IN WATER 250 ML IV SCH ×4 (20:49→23:40)
[2022-09-14] MEDS: ALBUMIN HUMAN 5% 250 ML in EMPTY BAG 1 BAG IVPB PRN ×2 (20:54→23:42)
[2022-09-14 20:55] LABS: ABG Glucose Whole Blood 99 mg/dL (75-99); ABG HCO3 20 mmol/L (21-25); ABG Hematocrit 32 % (34.0-46.0); ABG Ionized Calcium 4.5 mg/dL (4.5-5.3); ABG Oxygen Saturation 99.3 % (94-97); ABG PCO2 49 mmHg (35-45); ABG PH 7.21 (7.35-7.45); ABG PO2 187 mmHg (83-108); ABG Potassium Whole Blood 4.9 mmol/L (3.4-4.5); ABG Sodium Whole Blood 138 mmol/L (135-146); ABG TCO2 21 mmol/L (19-24)
[2022-09-14 20:56] LABS: Anisocytosis Slight; HCT 31.7 % (39.0-53.0); Hypochromasia Slight; MCHC 33.2 g/dL (31.0-37.0); MCV 96.5 fL (80.0-100.0); Macrocytosis Slight; Mean Platelet Volume 9.8; Poikilocytosis Slight; RBC 3.29 m/uL (4.30-5.90); RDW 17.5 % (11.5-15.5)
[2022-09-14 20:57] LABS: HGB 10.5 gm/dL (13.0-17.5); INR 1.7 (<1.2); Partial Thromboplastin Time 41.7 sec (22.0-30.0)
[2022-09-14 20:58] LABS: Ionized Calcium 4.8 mg/dL (4.5-5.3)
[2022-09-14 21:00] LABS: ABG Lactic Acid Whole Blood 8.3 mmol/L (0.5-1.6)
[2022-09-14] MEDS ORDERED: SODIUM BICARB 8.4% 50 ML SYR (1 MEQ/ML) IV STA ×3 (21:03→23:14)
[2022-09-14 21:08] LABS: Albumin 1.8 g/dL (3.5-5.0); Magnesium 2.2 mg/dL (1.6-2.3); Potassium 4.7 mmol/L (3.5-5.1); Total Bilirubin 3.2 mg/dL (0.2-1.3); Total Protein 3.6 g/dL (6.3-8.2)
[2022-09-14] MEDS ORDERED: SODIUM BICARB 8.4% 50 ML SYR (1 MEQ/ML) ONE (21:09)
[2022-09-14 21:14] LABS: Band Neutrophils % 3 %; Eosinophils # (M) 0.21 k/uL (0-0.7); Lymphocytes # (M) 0.21 k/uL (1.0-4.8); Metamyelocytes # (M) 0.42 k/uL (0); Metamyelocytes % 2 %; Monocytes # (M) 0.42 k/uL (0-1.0); Myelocytes # (M) 0.63 k/uL (0); Myelocytes % 3 %; Neutrophils % (M) 90 %; Nucleated Red Blood Cells 1 /100 WBC (0-0); Total Cells Counted 200; WBC 21.1 k/uL (3.8-10.6)
[2022-09-14 21:15] LABS: Platelet Count 99 k/uL (150-450); Polychromasia Present
--- NOTE | 2022-09-14 21:16 | XR ---
EXAMINATION: XR chest 1V DATE AND TIME: 09/14/2022 8:44 PM CLINICAL INDICATION: PHH; POST OP TECHNIQUE: 2 portable AP supine frontal radiographs are submitted: one at 8:24PM and the other at 8:3 1 PM. FINDINGS: ET tube tip superimposed over the trachea at the level of the head of the clavicles. NG tube present, coursing over the expected course of the thoracic esophagus and with port superimpos ed over the gastric fundus, and the tip of the NG tube superimposed over the greater curvature of the stomach. Right IJ catheter tip are PA 2 left chest tubes. EKG leads. An oval arrangement of omar are noted over chest and epigastrium. 3 curvilinear opacities are superimposed over the midline, one over the right paratracheal position a nd the other 2 superimposed over each other at the midline over the expected position of the gastroes ophageal junction. There is no evidence of pneumothorax or other abnormal gas collection on these films, but they were t aken in the supine position which limits accuracy for abnormal gas collections. The lungs appear relatively clear bilaterally. Cardiac silhouette is enlarged. IMPRESSION: POSTOPERATIVE RADIOGRAPH
[2022-09-14] MEDS ORDERED: VANCOMYCIN 2,500 MG in SODIUM CHLORIDE 0.9% 500 ML 500 ML IVPB ONE (21:30)
[2022-09-14 22:05] LABS: ABG Base Excess -11.1 mmol/L; ABG Glucose Whole Blood 75 mg/dL (75-99); ABG HCO3 16 mmol/L (21-25); ABG Hematocrit 30 % (34.0-46.0); ABG Ionized Calcium 4.4 mg/dL (4.5-5.3); ABG Oxygen Saturation 96.3 % (94-97); ABG PCO2 43 mmHg (35-45); ABG PO2 97 mmHg (83-108); ABG Potassium Whole Blood 4.9 mmol/L (3.4-4.5); ABG Sodium Whole Blood 140 mmol/L (135-146); ABG TCO2 18 mmol/L (19-24); Allen Test Performed? Yes
[2022-09-14 22:10] LABS: ABG Lactic Acid Whole Blood 12.3 mmol/L (0.5-1.6)
[2022-09-14 22:20] LABS: Glucose,Whole Blood 73 mg/dL (70-110)
[2022-09-14] MEDS ORDERED: DEXTROSE 5% IN WATER 1,000 ML with SODIUM BICARB (1 MEQ/ML) 150 ML IV SCH (22:30)
[2022-09-14] MEDS ORDERED: PHENYLEPHRINE 40 MG in SODIUM CHLORIDE 0.9% 250 ML IV SCH (22:30)
[2022-09-14 22:59] LABS: ABG Glucose Whole Blood 67 mg/dL (75-99); ABG HCO3 16 mmol/L (21-25); ABG Hematocrit 27 % (34.0-46.0); ABG Ionized Calcium 4.1 mg/dL (4.5-5.3); ABG Oxygen Saturation 96.6 % (94-97); ABG PCO2 40 mmHg (35-45); ABG PH 7.21 (7.35-7.45); ABG PO2 99 mmHg (83-108); ABG Potassium Whole Blood 4.8 mmol/L (3.4-4.5); ABG Sodium Whole Blood 142 mmol/L (135-146); ABG TCO2 17 mmol/L (19-24); Allen Test Performed? Yes
[2022-09-14 23:19] LABS: Glucose,Whole Blood 65 mg/dL (70-110)
[2022-09-14 23:32] LABS: Glucose,Whole Blood 161 mg/dL (70-110)
[2022-09-14 23:44] LABS: Anisocytosis Slight; Basophils # (A) 0.1 k/uL (0-0.2); Basophils % (A) 1 %; Eosinophils % (A) 0 %; HCT 27.1 % (39.0-53.0); Hypochromasia Moderate; Lymphocytes # (A) 0.5 k/uL (1.0-4.8); Lymphocytes % (A) 3 %; MCH 31.9 pg (25.0-35.0); MCHC 31.9 g/dL (31.0-37.0); MCV 100.1 fL (80.0-100.0); Macrocytosis Moderate; Mean Platelet Volume 10.7; Monocytes # (A) 1.1 k/uL (0-1.0); Monocytes % (A) 6 %; Neutrophils # (A) 16.7 k/uL (1.3-7.7); Neutrophils % (A) 90 %; Platelet Count 100 k/uL (150-450); Poikilocytosis Slight; RBC 2.71 m/uL (4.30-5.90); WBC 18.5 k/uL (3.8-10.6)
[2022-09-14 23:52] LABS: ABG Base Excess -13.2 mmol/L; ABG Glucose Whole Blood 119 mg/dL (75-99); ABG HCO3 14 mmol/L (21-25); ABG Hematocrit 26 % (34.0-46.0); ABG Ionized Calcium 4.1 mg/dL (4.5-5.3); ABG PCO2 39 mmHg (35-45); ABG PO2 108 mmHg (83-108); ABG Potassium Whole Blood 5.1 mmol/L (3.4-4.5); ABG Sodium Whole Blood 142 mmol/L (135-146); ABG TCO2 16 mmol/L (19-24); Allen Test Performed? Yes
[2022-09-14 23:55] LABS: ABG PH 7.17 (7.35-7.45)
[2022-09-15] MEDS ORDERED: ACETAMINOPHEN IV (For NPO) 1,000 MG in EMPTY BAG 1 BAG IVPB SCH
[2022-09-15] MEDS ORDERED: ceFAZolin 3 GM in SODIUM CHLORIDE 0.9% 100 ML IVPB SCH ×2
[2022-09-15] MEDS ORDERED: methylPREDNISolone SOD SUCCI 125 MG/2 ML VIAL IV SCH
[2022-09-15] MEDS ORDERED: SODIUM BICARB 8.4% 50 ML SYR (1 MEQ/ML) IV STA ×3 (00:01→02:13)
[2022-09-15 00:03] LABS: HGB 8.7 gm/dL (13.0-17.5)
[2022-09-15] MEDS: IPRATROPIUM-ALBUTEROL 3 ML NEB INHALATION SCH (00:23)
[2022-09-15 00:55] LABS: Allen Test Performed? Yes
[2022-09-15 00:58] LABS: ABG Base Excess -14.3 mmol/L; ABG HCO3 14 mmol/L (21-25); ABG Oxygen Saturation 99.1 % (94-97); ABG PCO2 39 mmHg (35-45); ABG PO2 165 mmHg (83-108); ABG TCO2 15 mmol/L (19-24)
[2022-09-15 01:04] VITALS: TEMP 97.7
[2022-09-15 01:08] LABS: ABG PH 7.17 (7.35-7.45)
[2022-09-15 01:17] LABS: Glucose,Whole Blood 90 mg/dL (70-110)
[2022-09-15 02:03] LABS: ABG Base Excess -14.9 mmol/L; ABG HCO3 14 mmol/L (21-25); ABG PCO2 38 mmHg (35-45); ABG PO2 114 mmHg (83-108); ABG TCO2 15 mmol/L (19-24); Allen Test Performed? Yes
[2022-09-15 02:10] LABS: ABG PH 7.17 (7.35-7.45)
[2022-09-15 02:17] LABS: Glucose,Whole Blood 83 mg/dL (70-110)
[2022-09-15] MEDS: MILRINONE-D5W PMX 20 MG in DEXTROSE/WATER 1 100ML.BAG IV SCH (02:20)
[2022-09-15 02:54] LABS: Anisocytosis Slight; Basophils # (A) 0.1 k/uL (0-0.2); Basophils % (A) 1 %; Eosinophils % (A) 0 %; HCT 28.4 % (39.0-53.0); HGB 8.8 gm/dL (13.0-17.5); Hypochromasia Marked; Lymphocytes # (A) 1.2 k/uL (1.0-4.8); Lymphocytes % (A) 6 %; MCH 31.4 pg (25.0-35.0); MCHC 31.1 g/dL (31.0-37.0); MCV 100.9 fL (80.0-100.0); Macrocytosis Moderate; Mean Platelet Volume 10.5; Monocytes # (A) 1.1 k/uL (0-1.0); Monocytes % (A) 6 %; Neutrophils # (A) 17.2 k/uL (1.3-7.7); Neutrophils % (A) 87 %; Platelet Count 105 k/uL (150-450); Poikilocytosis Slight; RBC 2.82 m/uL (4.30-5.90); RDW 18.9 % (11.5-15.5); WBC 19.8 k/uL (3.8-10.6)
[2022-09-15 02:57] LABS: Glucose,Whole Blood 72 mg/dL (70-110)
--- NOTE | 2022-09-15 02:58 | OP ---
OPERATIVE REPORT DATE OF SERVICE : 09/14/2022 PREOPERATIVE DIAGNOSIS: Coronary artery disease. POSTOPERATIVE DIAGNOSIS: Coronary artery disease. PROCEDURES PERFORMED: 1. Coronary artery bypass grafting x1 vessel (left internal mammary artery to left anterior descending artery). 2. Endoscopic harvest of left greater saphenous vein. 3. Epiaortic ultrasound. 4. Transesophageal echocardiogram. 5. Lysis of dense adhesions. 6. Placement of intra-aortic balloon pump. ASSISTANTS: 1. Kevin Quinones PA-C. 2. Brigido Carreon NP. ANESTHESIA: General. SPECIMEN: None. COMPLICATIONS: Open chest. INDICATIONS: The patient is a 37-year-old male with a history of multiple medical problems including coronary artery disease, status post multiple stents, end-stage renal disease on hemodialysis for the past 7 years, hyperlipidemia, hypertension, myocardial infarction, bipolar disorder, and history of bacteremia, who developed a chest pain, which prompted a visit to the emergency department. Workup revealed a non ST elevation myocardial infarction. Cardiac catheterization revealed multivessel coronary artery disease including complete occlusion of the mid LAD without evidence of distal collateralization, in-stent restenosis of the PDA, and the obtuse marginal artery stenosis. He had actually attempted to bring this patient to perform patient's surgery 2 days ago. However, due to his history of dialysis, he likely had a stenosis at the junction of the SVC/innominate vein, which resulted in an inability to float a Dunlap- [place]an[place] catheter in the operating room. The case was canceled and he went to the garage laborer, where a Dunlap-Savanah catheter was placed by the [facility]. The coronary artery bypass was recommended. The risks, benefits, alternatives to this procedure are discussed with the patient and his father and his family members. All of their questions were answered. Consent was obtained. FINDINGS: The left internal mammary artery was densely adhesed to the chest wall and was extremely inflamed. The saphenous vein was good conduit. The pericardium contained dense adhesions circumferentially. A pocket of kirby pus was also noted in the pericardial space. The LAD measured 1.5 mm. The obtuse marginal artery was not identified to free the adhesions. The right coronary artery had dense stents throughout its course as the PDA. There was no soft spot amenable for bypass. PROCEDURE IN DETAIL: The patient was taken to the operating room, placed supine on the operating table. After induction of general anesthesia, he was prepped and draped in the usual sterile fashion. Preoperative transesophageal echocardiogram confirmed ejection fraction of about 40% with hypokinesis of the septal wall. There was no significant valvular pathology. A median sternotomy was performed. The soft tissue contained significant engorged veins due to the patient's history of end-stage renal disease. The left internal mammary artery was densely adhered to the chest wall and inflamed. It was harvested meticulously with great difficulty given these issues. Intravenous heparin was administered. The vessel was transected distally revealing brisk flow. Simultaneously, greater saphenous vein was harvested from left lower extremity using endoscopic technique. All branches were tied. Both the mammary artery and saphenous vein were good conduits. Next, I began to expose the heart. Unfortunately, the pericardium was densely adhesed to the heart circumferentially. There was no free space whatsoever. Extensive lysis of dense adhesions was then carefully attempted using combination of electrocautery and scissors. The aorta was exposed as was the right atrium. I could not get a plane inferior along the diaphragmatic surface of the heart. At this point, I elected to place an arterial cannula in the distal ascending aorta and venous cannula to the right atrial appendage. With the heart decompressed and cardiopulmonary bypass, I thought dissection would be easier to perform. Unfortunately, the adhesions were still extremely dense. The right atrium and inferior wall were dissected free. As I dissected toward the left heart, the adhesions became extremely difficult and thick and dense. A pocket of kirby pus was encountered over the surface. A Gram stain was obtained and sent revealing gram-positive cocci. Cultures were sent to microbiology. There was also significant bleeding noted over the surface of the heart where the dissection was carried out and where the tissue was extremely inflamed. At this point, I chose not to continue with this dissection because I do not think the obtuse marginal artery would be easy to expose and/or identify. Both angiographic catheters were placed. The cross-clamp was applied. Cold blood potassium cardioplegia was delivered in both antegrade and retrograde fashion to achieve arrest of the heart. Of note, cardioplegia was delivered every 15 minutes with the patient under crossclamp. I began by dissecting out the right coronary artery. There were multiple stents throughout its course and there was no soft spot amenable for bypass. I dissected out the PDA as well. Similarly, there were multiple stents and no soft spot amenable for bypass. The PLV was also dissected, but was not amenable for bypass. At this point, attention was turned to the anterior wall of the heart. The previously placed stent in the LAD were palpated. The artery was dissected free just beyond these stents. A small arteriotomy was created. This vessel accepted a 1.5 mm probe. Using left internal mammary artery, an end-to-side anastomosis was created. This was performed using a running 8-0 Prolene suture. The graft was hemostatic. The mammary pedicle was then tacked on the anterior surface of the heart. The left atrial appendage was not clipped as it was densely adhered to the surrounding tissue. 1 L of warm blood was delivered in retrograde fashion. Both lidocaine and magnesium were administered as well. The cross-clamp was removed. The distal anastomosis was inspected, appeared to be hemostatic. Temporary atrial and ventricular pacing wires were placed and brought through the skin. The patient was then carefully weaned off cardiopulmonary bypass. He with the addition of pressor support. Followup transesophageal cardiogram confirmed good left ventricular ejection fraction. The RV was moving well. There was no significant valvular pathology. Protamine was administered. There were no adverse reactions. The remaining cannulas were removed. At this point, I spent a fair amount of time to control bleeding. There was no evidence of surgical bleeding. There was diffuse oozing from all raw surface areas including the anterior wall of the heart. The patient's blood pressure continued to decrease despite escalation of pressor support. At this point, I re-heparinized and replaced the arterial cannula and venous cannula. The patient was then again placed on cardiopulmonary bypass with good decompression of the heart. A left femoral arterial line had been placed at the end of the case using standard Seldinger technique and ultrasound guidance. This catheter was wired and an intraaortic balloon pump was placed and its position confirmed using transesophageal echocardiogram. A central venous catheter was also placed in the right femoral vein again using ultrasound guidance. The heart was rested on bypass for 1 hour while we corrected the acidosis. At this point, we attempted to wean off cardiopulmonary bypass. The patient again with addition of multiple pressors. Of note, multiple blood products were also administered including packed RBCs, fresh frozen plasma, platelets, and cryoprecipitate. Methylene blue was given as the patient was severely vasoplegic with a low SVR. Steroids were also administered and Kcentra was also given. I again spent a long time trying to dry up and obtain hemostasis. Once the bleeding improved, I elected to leave the chest open with the plan of returning once he was more stable. Three lap sponges were placed in the mediastinum. A right angle chest tube was placed and directed into the retrocardiac position. A straight 32- Bahamian chest tube was placed and directed in the left pleural space. A straight 32- Bahamian chest tube was placed and directed above the heart. These were all secured to the skin using sutures. Two syringes were placed as struts to keep the edges of the sternum open. An Esmarch was placed and stapled to the skin and Ioban was placed over this wound. The patient was then returned to the ICU in critical condition. MMODL / IJN: [id number] /
[2022-09-15] MEDS: ALBUMIN HUMAN 5% 250 ML in EMPTY BAG 1 BAG IVPB PRN (03:03)
[2022-09-15 03:04] LABS: ABG Base Excess -16.9 mmol/L; ABG HCO3 12 mmol/L (21-25); ABG Oxygen Saturation 97.3 % (94-97); ABG PCO2 35 mmHg (35-45); ABG PO2 102 mmHg (83-108); ABG TCO2 13 mmol/L (19-24); Allen Test Performed? Yes
[2022-09-15] MEDS ORDERED: SODIUM BICARB 8.4% 50 ML SYR (1 MEQ/ML) ONE (03:06)
[2022-09-15] MEDS ORDERED: EPINEPHrine 10 ML SYRINGE (0.1 MG/ML) ONE (03:06)
[2022-09-15 03:52] VITALS: BP 111/86; PULSE 65; RESP 25
[2022-09-15 03:53] LABS: ABG PH 7.15 (7.35-7.45)
--- NOTE | 2022-09-15 05:02 | P.EN ---
Code Blue Note Activated as 0306. Arrived at the scene shortly after. Reviewed the chart and discussed the case with the RN in detail. The patient who has had a prolonged and complicated hospitalization, with an extensive PMH including ESRD on hemodialysis and CAD initially admitted for non-ST elevation [place] underwent a CABG earlier today, Intraoperatively, the patient was noted to have pericardial sac purulence with adhesions. The chest was left open with Esmarch and the patient was transferred to the MICU. The patient developed shock requiring multiple pressors and eventually developed PEA. Upon arrival at the scene, the patient was noted to be receiving epinephrine IVP. The case was discsussed with cardiothoracic surgery information technology administrator. The patient was given Epinephrine IVP x 6 and sodium bicarbonate x 3. CPR could not be performed due to the chest being open. The patient was susbequently pronounced upon the recommendations of cardiothoracic surgery at 0321. The patient's family was notified. The utility repairer was also notified by the RN. Please refer to the code sheet for further details. Total time spent providing critical care including chart review and documentation: 35 minutes
[2022-09-15] MEDS ORDERED: traMADol 50 MG TAB PO PRN (07:33)
[2022-09-15] MEDS ORDERED: IPRATROPIUM-ALBUTEROL 3 ML NEB INHALATION SCH (08:00)
[2022-09-15] MEDS ORDERED: MAGNESIUM HYDROXIDE 2,400 MG/10 ML CUP PO PRN (09:00)
[2022-09-15] MEDS ORDERED: ATORVASTATIN 40 MG TAB PO SCH (09:00)
[2022-09-15] MEDS ORDERED: PANTOPRAZOLE 40 MG/10 ML VIAL IVP SCH (09:00)
[2022-09-15] MEDS ORDERED: bisacodyL 10 MG SUPP RECTAL PRN (09:00)
[2022-09-15] MEDS ORDERED: VANCOMYCIN 2,500 MG in SODIUM CHLORIDE 0.9% 500 ML 500 ML IVPB ONE (16:00)
[2022-09-15] MEDS ORDERED: SENNOSIDES-DOCUSATE SODIUM 1 EACH TAB PO SCH (21:00)
--- NOTE | 2022-09-19 06:44 | DS ---
DISCHARGE SUMMARY DISPOSITION: on August. Code Blue and CPR and resuscitation, which was done by hospitalist Jamar Ford MD Status post coronary artery bypass graft done 6 hours prior to the initiation of the Code Blue with the complicated surgery. The patient developed cardiac shock and treated with pressors IV and developed PEA. Received CPR and IV epinephrine, where the physician hospitalist attended the code team with the bicarb IV. The patient pronounced at 3:21 a.m. on 09/15. FINAL DIAGNOSES: 1. The patient had 3-vessel occlusive disease with prior multi-stent with occlusion of LAD. 2. Under care of [facility]. 3. Under care of Dr. Pratt, who took the patient to surgery with the complication, I do not have any detail of the surgery or the complication and what found yet. Not on the record yet, the patient subsequently as information obtained from the family that he had some purulence of the pericardial sac and only able to do 1-vessel bypass graft and transferred to the ICU. 4. The patient with underlying history of hemodialysis with end-stage renal disease and has been dialyzed before the surgery. The patient has been monitored by [facility], Dr. Combs, Dr. Colmenares and Dr. Griffin, and also was monitored by the [facility]. MMODL / IJN: [id number] /
== END 2022-09-15 06:53 | disposition expired | DRG 165 ==
LOC: EC 12:03 → 3SCARD 13:28 → 2SICU 09-12 09:03
PROVIDERS: ADMIT Internal Medicine; ATTEND Internal Medicine
PROC: 5A1D70Z Performance of Urinary Filtration, Intermittent, Less than 6 Hours Per Day (ICD-10-PCS; 2022-09-04)
PROC: B2111ZZ Fluoroscopy of Multiple Coronary Arteries using Low Osmolar Contrast (ICD-10-PCS; 2022-09-04)
PROC: 6A750ZZ Ultrasound Therapy, Circulatory, Single (ICD-10-PCS; 2022-09-04)
PROC: 4A023N7 Measurement of Cardiac Sampling and Pressure, Left Heart, Percutaneous Approach (ICD-10-PCS; principal; 2022-09-05)
PROC: B2111ZZ Fluoroscopy of Multiple Coronary Arteries using Low Osmolar Contrast (ICD-10-PCS; 2022-09-05)
PROC: B24BZZ4 Ultrasonography of Heart with Aorta, Transesophageal (ICD-10-PCS; 2022-09-12)
PROC: 4A023N6 Measurement of Cardiac Sampling and Pressure, Right Heart, Percutaneous Approach (ICD-10-PCS; 2022-09-12)
PROC: B2101ZZ Fluoroscopy of Single Coronary Artery using Low Osmolar Contrast (ICD-10-PCS; 2022-09-12)
PROC: 02HQ32Z Insertion of Monitoring Device into Right Pulmonary Artery, Percutaneous Approach (ICD-10-PCS; 2022-09-12)
PROC: 4A133B3 Monitoring of Arterial Pressure, Pulmonary, Percutaneous Approach (ICD-10-PCS; 2022-09-12)
PROC: 4A1239Z Monitoring of Cardiac Output, Percutaneous Approach (ICD-10-PCS; 2022-09-12)
PROC: 0210099 Bypass Coronary Artery, One Artery from Left Internal Mammary with Autologous Venous Tissue, Open Approach (ICD-10-PCS; 2022-09-14)
PROC: 06BQ4ZZ Excision of Left Saphenous Vein, Percutaneous Endoscopic Approach (ICD-10-PCS; 2022-09-14)
PROC: 5A02210 Assistance with Cardiac Output using Balloon Pump, Continuous (ICD-10-PCS; 2022-09-14)
PROC: 5A1221Z Performance of Cardiac Output, Continuous (ICD-10-PCS; 2022-09-14)
PROC: 02NN0ZZ Release Pericardium, Open Approach (ICD-10-PCS; 2022-09-14)
PROC: B24BZZZ Ultrasonography of Heart with Aorta (ICD-10-PCS; 2022-09-14)
PROC: 30233K1 Transfusion of Nonautologous Frozen Plasma into Peripheral Vein, Percutaneous Approach (ICD-10-PCS; 2022-09-14)
PROC: 30233N1 Transfusion of Nonautologous Red Blood Cells into Peripheral Vein, Percutaneous Approach (ICD-10-PCS; 2022-09-14)
PROC: 30233R1 Transfusion of Nonautologous Platelets into Peripheral Vein, Percutaneous Approach (ICD-10-PCS; 2022-09-14)
PROC: 30233M1 Transfusion of Nonautologous Plasma Cryoprecipitate into Peripheral Vein, Percutaneous Approach (ICD-10-PCS; 2022-09-14)
PROC: 30283B1 Transfusion of Nonautologous 4-Factor Prothrombin Complex Concentrate into Vein, Percutaneous Approach (ICD-10-PCS; 2022-09-14)
PROC: 3E033XZ Introduction of Vasopressor into Peripheral Vein, Percutaneous Approach (ICD-10-PCS; 2022-09-15)
DX: T82.855A Stenosis of coronary artery stent, initial encounter (principal); I21.4 Non-ST elevation (NSTEMI) myocardial infarction; I31.39 Other pericardial effusion (noninflammatory); I13.2 Hypertensive heart and chronic kidney disease with heart failure and with stage 5 chronic kidney disease, or end stage renal disease; I31.0 Chronic adhesive pericarditis; E87.20 Acidosis, unspecified; I95.3 Hypotension of hemodialysis; N18.6 End stage renal disease; I45.89 Other specified conduction disorders; D63.1 Anemia in chronic kidney disease; I25.110 Atherosclerotic heart disease of native coronary artery with unstable angina pectoris; R13.19 Other dysphagia; I25.82 Chronic total occlusion of coronary artery; J44.9 Chronic obstructive pulmonary disease, unspecified; F31.9 Bipolar disorder, unspecified; E66.9 Obesity, unspecified; I46.2 Cardiac arrest due to underlying cardiac condition; B95.8 Unspecified staphylococcus as the cause of diseases classified elsewhere; J98.4 Other disorders of lung; Z53.8 Procedure and treatment not carried out for other reasons; I44.7 Left bundle-branch block, unspecified; E78.5 Hyperlipidemia, unspecified; G89.29 Other chronic pain; I50.43 Acute on chronic combined systolic (congestive) and diastolic (congestive) heart failure; M54.30 Sciatica, unspecified side; F41.1 Generalized anxiety disorder; M89.8X9 Other specified disorders of bone, unspecified site; K02.9 Dental caries, unspecified; I25.5 Ischemic cardiomyopathy; Y71.8 Miscellaneous cardiovascular devices associated with adverse incidents, not elsewhere classified; Z99.2 Dependence on renal dialysis; Z68.39 Body mass index [BMI] 39.0-39.9, adult; Z95.5 Presence of coronary angioplasty implant and graft; Z87.891 Personal history of nicotine dependence; Z86.14 Personal history of Methicillin resistant Staphylococcus aureus infection; Z79.899 Other long term (current) drug therapy; Z79.82 Long term (current) use of aspirin; Z79.02 Long term (current) use of antithrombotics/antiplatelets; I25.2 Old myocardial infarction; Z86.19 Personal history of other infectious and parasitic diseases
CPT/HCPCS: 36415; 71045; 71046; 77001; 80048; 80053; 80061; 80074; 82330; 82805; 82810; 83036; 83735; 83880; 84100; 84146; 84443; 84484; 85018; 85025; 85027; 85384; 85520; 85610; 85652; 85730; 86140; 86850; 86891; 86900; 86901; 86920; 87070; 87075; 87077; 87186; 87205; 88305; 90935; 92978; 93005; 93306; 93451; 93458; 93880; 93970; 94002; 94003; 94150; 94640; 94760; 96374; 99291